=== PATIENT | male | born 1940 | race Caucasian/White ===

== ENCOUNTER 2017-04-30 11:48 | Inpatient (IN) | payer MEDICARE ==
[~2017-04-30] VITALS: Ht 180.3 cm; Wt 79.0 kg
[2017-04-30] VITALS (8 sets, daily range): BP systolic 147–173; BP diastolic 74–89; PULSE 74–105; RESP 16–18; TEMP 97.6–98.7; O2SAT 93–99
[~2017-04-30 11:48] MED LIST: ASPI81 CHEW; COUM5TAB PO; ENOX40P SQ; GLIP5 PO; LISI10TA PO; SIMV20TA PO; VITA-13 PO
[2017-04-30] MEDS ORDERED: PIPERACIL-TAZO 4.5 GM PREMIX 100 ML IV STA (12:09)
[2017-04-30] MEDS ORDERED: VANCOMYCIN INJ 1,000 MG in SODIUM CHLOR 0.9% 250 ML INJ 250 ML IV STA (12:09)
--- NOTE | 2017-04-30 12:13 | PD ---
HPI Chief Complaint: Skin Problem Time Seen by Provider: 12:09 Travel History International Travel<30 days: No Contact w/Intl Traveler<30days: No Traveled to known affect area: No History of Present Illness HPI 76-year-old male with history of diabetes, presents to the ER today because he states that he had his right first toe nail clipped about 3 weeks ago and since then has become more red, swollen, and there has been black discoloration and redness around the area. He denies any fevers or any other issues. 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[employer]) Tobacco Use: No Substance Use: No Allergies-Medications (Allergen,Severity, Reaction): Coded Allergies: No Known Allergies (Unverified , 04/30/17) Reported Meds & Prescriptions Reported Meds & Active Scripts Active Reported Simvastatin 40 Mg Tab 40 Mg PO HS Warfarin 10 Mg Tab 10 Mg PO DAILY Lisinopril 20 Mg Tab 20 Mg PO DAILY Glipizide 5 Mg Tab 5 Mg PO BIDAC Take 30 minutes before a meal Metformin (Metformin HCl) 1,000 Mg Tab 1,000 Mg PO BIDPC With meals Review of Systems Except as stated in HPI: all other systems reviewed are Neg Physical Exam Narrative GENERAL: Well-developed elderly white male in mild distress. Awake and oriented 3. SKIN: Focused skin assessment warm/dry. HEAD: Atraumatic. Normocephalic. EYES: Pupils equal and round. No scleral icterus. No injection or drainage. ENT: No nasal bleeding or discharge. Mucous membranes pink and moist. NECK: Trachea midline. No JVD. CARDIOVASCULAR: Regular rate and rhythm. No murmur appreciated. RESPIRATORY: No accessory muscle use. Clear to auscultation. Breath sounds equal bilaterally. GASTROINTESTINAL: Abdomen soft, non-tender, nondistended. Hepatic and splenic margins not palpable. MUSCULOSKELETAL: No obvious deformities. No clubbing. No cyanosis. No edema. EXTREMITIES: No clubbing, cyanosis, or edema. There is notable intense erythema and edema over the right big toe and also involving the second toe, and there is a dark eschar measuring 2 cm on the tip of the toe. Foul-smelling discharge. NEUROLOGICAL: Awake and alert. No obvious cranial nerve deficits. Motor grossly within normal limits. Normal speech. PSYCHIATRIC: Appropriate mood and affect; insight and judgment normal. Data Data Last Documented VS Vital Signs Date Time Temp Pulse Resp B/P Pulse Ox O2 Delivery O2 Flow Rate FiO2 04/30/17 13:18 18 97 Room Air 04/30/17 13:17 82 158/76 04/30/17 11:53 98.7 Orders Complete Blood Count With Diff (04/30/17 12:02) Basic Metabolic Panel (Bmp) (04/30/17 12:02) Toe (Min 2vws) (04/30/17 ) Lactic Acid Sepsis Protocol (04/30/17 12:05) Blood Culture (04/30/17 12:05) Blood Glucose (04/30/17 12:05) Ecg Monitoring (04/30/17 12:05) Iv Access Insert/Monitor (04/30/17 12:05) Oximetry (04/30/17 12:05) Oxygen Administration (04/30/17 12:05) Piperacil-Tazo 4.5 Gm Premix (Zosyn 4.5 (04/30/17 12:09) Vancomycin Inj (Vancomycin Inj) (04/30/17 12:09) Sodium Chlor 0.9% 1000 Ml Inj (Ns 1000 M (04/30/17 12:15) Consult Podiatry (04/30/17 ) (Hub Use Only)Inp Phy Cons/Ref (04/30/17 ) Labs Laboratory Tests Test 04/30/17 12:50 White Blood Count 14.5 TH/MM3 Red Blood Count 3.24 MIL/MM3 Hemoglobin 9.4 GM/DL Hematocrit 28.1 % Mean Corpuscular Volume 86.7 FL Mean Corpuscular Hemoglobin 29.1 PG Mean Corpuscular Hemoglobin 33.5 % Concent Red Cell Distribution Width 14.0 % Platelet Count 332 TH/MM3 Mean Platelet Volume 7.9 FL Neutrophils (%) (Auto) 85.0 % Lymphocytes (%) (Auto) 6.5 % Monocytes (%) (Auto) 4.6 % Eosinophils (%) (Auto) 1.6 % Basophils (%) (Auto) 2.3 % Neutrophils # (Auto) 12.4 TH/MM3 Lymphocytes # (Auto) 0.9 TH/MM3 Monocytes # (Auto) 0.7 TH/MM3 Eosinophils # (Auto) 0.2 TH/MM3 Basophils # (Auto) 0.3 TH/MM3 CBC Comment DIFF FINAL Differential Comment Sodium Level 134 MEQ/L Potassium Level 4.6 MEQ/L Chloride Level 105 MEQ/L Carbon Dioxide Level 20.8 MEQ/L Anion Gap 8 MEQ/L Blood Urea Nitrogen 37 MG/DL Creatinine 1.80 MG/DL Estimat Glomerular Filtration 37 ML/MIN Rate Random Glucose 183 MG/DL Lactic Acid Level 0.9 mmol/L Calcium Level 8.7 MG/DL MDM Medical Decision Making Medical Screen Exam Complete: Yes Emergency Medical Condition: Yes Medical Record Reviewed: Yes Interpretation(s) Laboratory Tests Test 04/30/17 12:50 White Blood Count 14.5 TH/MM3 (4.0-11.0) Red Blood Count 3.24 MIL/MM3 (4.50-5.90) Hemoglobin 9.4 GM/DL (13.0-17.0) Hematocrit 28.1 % (39.0-51.0) Neutrophils (%) (Auto) 85.0 % (16.0-70.0) Lymphocytes (%) (Auto) 6.5 % (9.0-44.0) Basophils (%) (Auto) 2.3 % (0.0-2.0) Neutrophils # (Auto) 12.4 TH/MM3 (1.8-7.7) Lymphocytes # (Auto) 0.9 TH/MM3 (1.0-4.8) Basophils # (Auto) 0.3 TH/MM3 (0-0.2) Sodium Level 134 MEQ/L (136-145) Carbon Dioxide Level 20.8 MEQ/L (21.0-32.0) Blood Urea Nitrogen 37 MG/DL (7-18) Creatinine 1.80 MG/DL (0.60-1.30) Estimat Glomerular Filtration 37 ML/MIN (>89) Rate Random Glucose 183 MG/DL (74-106) Last 24 hours Impressions Toe X-Ray 04/30/17 0000 Signed Impressions: Service Date/Time: Amna, April 30, 2017 12:27 - CONCLUSION: Bony destruction involving the first distal phalanx with abnormal soft tissue changes characteristic of osteomyelitis. Jerry Mireles MD Differential Diagnosis Diabetic toe infection/rule out sepsis/possible osteomyelitis Narrative Course X-ray reveals bony destruction indicative of osteomyelitis. His white count is 14. IV antibiotics has been initiated after blood cultures have been drawn. Case was discussed with Dr. Whiteside off podiatry who states she will consult on him this afternoon. Plan to admit for further IV antibiotics and definitive treatment. Case is discussed with Dr. Adkins for admission. Diagnosis Primary Impression: Osteomyelitis of toe of right foot Additional Impressions: Cellulitis of great toe of right foot Sepsis Admitting Information Admitting Physician Requests: Admit Giacomo Bell MD Apr 30, 2017 12:13 Giacomo Bell MD Apr 30, 2017 12:13
[2017-04-30] MEDS ORDERED: SODIUM CHLOR 0.9% 1000 ML INJ 1,000 ML IV ONE (12:15)
--- NOTE | 2017-04-30 12:58 | RADRPT ---
EXAM DATE/TIME: 04/30/2017 12:27 [facility] COMPARISON: No previous studies available for comparison. INDICATIONS : Patient right foot first digit is inflammed. MEDICAL HISTORY : Diabetes mellitus type II. Hypertension SURGICAL HISTORY : None. ENCOUNTER: Initial ACUITY: 1 day PAIN SCORE: 2/10 LOCATION: Right Foot, First digit. FINDINGS: Examination of the first digit of the right foot demonstrates abnormal soft tissue changes involving the distal first toe along with definite bony destruction involving the first distal phalanx. This is characteristic of osteomyelitis. The first proximal phalanx appears to be intact. The second toe so ears to be intact. Vascular calcifications are seen in the soft tissues characteristic of peripheral vascular disease.. CONCLUSION: Bony destruction involving the first distal phalanx with abnormal soft tissue changes characteristic of osteomyelitis. Jerry Mireles MD on April 30, 2017 at 12:54 Board Certified Radiologist. This report was verified electronically.
[2017-04-30 13:00] LABS: AUTOMATED NEUTROPHIL # 12.4 TH/MM3 (1.8-7.7); BASOPHIL # 0.3 TH/MM3 (0-0.2); BASOPHIL % 2.3 % (0.0-2.0); EOSINOPHIL # 0.2 TH/MM3 (0-0.4); EOSINOPHIL % 1.6 % (0.0-4.0); HEMATOCRIT 28.1 % (39.0-51.0); LYMPH % 6.5 % (9.0-44.0); LYMPHOCYTE # 0.9 TH/MM3 (1.0-4.8); MEAN CELL VOLUME 86.7 FL (80.0-100.0); MEAN CORPUSCULAR HEMOGLOBIN 29.1 PG (27.0-34.0); MEAN CORPUSCULAR HGB CONC 33.5 % (32.0-36.0); MONO % 4.6 % (0.0-8.0); PLATELET COUNT 332 TH/MM3 (150-450); RED BLOOD COUNT 3.24 MIL/MM3 (4.50-5.90); WHITE BLOOD COUNT 14.5 TH/MM3 (4.0-11.0)
[2017-04-30 13:01] LABS: HEMO FLAGS DIFF FINAL
[2017-04-30 13:18] LABS: POTASSIUM 4.6 MEQ/L (3.5-5.1)
[2017-04-30 13:21] LABS: BICARBONATE 20.8 MEQ/L (21.0-32.0)
[2017-04-30] MEDS ORDERED: METF1000 PO (13:21)
[2017-04-30] MEDS ORDERED: SIMV40TA PO (13:22)
[2017-04-30] MEDS ORDERED: WARF-22 PO (13:22)
[2017-04-30] MEDS ORDERED: GLIP5TAB8 PO (13:22)
[2017-04-30] MEDS ORDERED: LISI-515 PO (13:22)
[2017-04-30] MEDS ORDERED: SODIUM CHLORIDE 0.9% FLUSH 10 ML FLUSH IV FLUSH PRN (14:00)
[2017-04-30] MEDS ORDERED: BISACODYL 10 MG SUPP RECTAL PRN (14:00)
[2017-04-30] MEDS ORDERED: MAGNESIUM HYDROXIDE SUSP 30 ML CUP PO PRN (14:00)
[2017-04-30] MEDS ORDERED: DEXTROSE 50% IN WATER 50 ML VIAL(D50) IV PRN (14:00)
[2017-04-30] MEDS ORDERED: LACTULOSE SYRUP 20 GM/30 ML CUP PO PRN (14:00)
[2017-04-30] MEDS ORDERED: SENNOSIDES 8.6 MG TAB PO PRN (14:00)
[2017-04-30] MEDS ORDERED: NALOXONE HCL 0.4 MG/ML AMP IV PRN (14:00)
[2017-04-30] MEDS ORDERED: GLUCAGON 1 MG/ML VIAL OTHER PRN (14:00)
[2017-04-30] MEDS ORDERED: ONDANSETRON HCL 4 MG/2 ML VIAL IVP PRN (14:00)
[2017-04-30 15:00] LABS: INTERNATIONAL NORMALIZED RATIO 1.8 RATIO; PROTHROMBIN TIME - PATIENT 20.5 SEC (9.8-11.6)
[2017-04-30] MEDS: SODIUM CHLOR 0.45% 1000 ML INJ 1,000 ML IV SCH (15:09)
[2017-04-30] MEDS: INSULIN ASPART SUPPLEMENTAL SCALE SQ SCH ×2 (16:06→21:00)
[2017-04-30] MEDS: glipiZIDE 5 MG TAB PO SCH (16:06)
[2017-04-30] MEDS: ACETAMINOPHEN/HYDROcodone 325 MG/5 MG TAB PO PRN (21:30)
[2017-04-30] MEDS: PRAVASTATIN SOD 80 MG TAB PO SCH (21:30)
[2017-04-30] MEDS: DOCUSATE SODIUM 50 MG/SENNA 8.6 MG TAB PO SCH (21:30)
[2017-04-30] MEDS: SODIUM CHLORIDE 0.9% FLUSH 10 ML FLUSH IV FLUSH SCH (21:31)
--- NOTE | 2017-04-30 22:08 | MB ---
cc: CHARISSE BLAKE DATE OF CONSULTATION 04/30/2017 CHIEF COMPLAINT Right hallux ulceration with infection. HISTORY OF PRESENT ILLNESS Mr. Doherty is a 76-year-old male patient with history of diabetes who presented to the ER because he states that he had his nails cut three weeks ago at some type of [employer] school by a student. He believes at that time the right hallux was accidentally cut or lacerated. Since that time it has become progressively red and swollen. There has been a black discoloration that has appeared to the plantar medial aspect of the hallux and redness which extends approximately to the mid foot joints. The swelling is quite remarkable. The patient denies any nausea, vomiting, fever, headaches or chills. He states that he noted his glucose is elevated today. It has not been in previous days. PAST MEDICAL HISTORY Includes: 1. Diabetes. 2. Diabetic neuropathy. 3. History of transient ischemic attack. 4. History of hypertension. PAST SURGICAL HISTORY Includes four cardiac bypasses. SOCIAL HISTORY The patient states he drinks alcohol socially. He stopped using tobacco approximately 15 years ago. He does live alone but lives near a sister. ALLERGIES NO KNOWN DRUG ALLERGIES. MEDICATIONS Please see list. Vital signs, temperature is 98.7, that is also T max. Pulse is 100, respiratory rate 16, blood pressure 147/74. Pulse oximetry 99% O2 at room air. LABORATORY DATA Labs white blood cell count is 14.5, hemoglobin 9.4, hematocrit 28.1, platelets 332. INR 1.8. Sodium 134, potassium 4.6, chloride 105, carbon dioxide 20.8, BUN 37. Blood cultures are pending. IMAGING X-rays of the toe shows cortical erosion at the distal phalanx with increased soft tissue density in the surrounding forefoot. No gas in the soft tissue. PHYSICAL EXAMINATION The patient has nonpalpable DP or PT pulses. Cap fill time is normal but the feet are cold to touch. The left foot has hammer toe but otherwise unremarkable. The right foot is very edematous and the forefoot is very erythematous. The right foot has a large void in the soft tissue extending from the distal aspect of the toe to the plantar metatarsal-phalangeal joint. It appears to be full thickness eschar with a central area of deep probing to bone with some serous drainage. Patient's sensation is severely diminished. 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 -The patient is adamant that he does not want any amputation and he states that the antibiotics have been working very well over the last 24 hours and he would like to do antibiotics. I explained to him that often antibiotics can treat the cellulitis but with his decreased blood flow and osteomyelitis, as well as large soft tissue void in the area, I find it highly unlikely that the antibiotics will be able to heal this wound and this bone. Despite this information the patient insists that he is not willing to have any type of amputation at this time. He would like to do antibiotics. He does not mind that there will be 6 weeks of IVs. -Nursing staff provided with dressing changes for daily Santyl. -Infectious disease consultation to help arrange PICC line as per the patient's request. -Vascular surgery consultation for evaluation as the patient has poor circulation and antibiotics will be unlikely to get to the distal aspects of the digit. ABIs are pending. -Physical therapy also pending. He can weight bear as tolerated with pressure to the heel. He has a surgical shoe ordered. -We will check on the patient periodically while in house. Thank you for this consultation Charisse POSEY /6:28 PM /9:46 PM JUDIE
[2017-05-01] VITALS (7 sets, daily range): BP systolic 131–169; BP diastolic 74–83; PULSE 85–97; RESP 20; TEMP 96–98.6; O2SAT 96–100
[2017-05-01] MEDS: ACETAMINOPHEN/HYDROcodone 325 MG/5 MG TAB PO PRN ×3 (02:33→17:49)
[2017-05-01] MEDS: COLLAGENASE OINT 30 GM TUBE TOPICAL SCH ×2 (02:33→12:08)
[2017-05-01] MEDS: SODIUM CHLOR 0.45% 1000 ML INJ 1,000 ML IV SCH ×2 (04:06→17:56)
[2017-05-01 06:05] LABS: AUTOMATED NEUTROPHIL # 12.4 TH/MM3 (1.8-7.7); BASOPHIL # 0.1 TH/MM3 (0-0.2); BASOPHIL % 0.4 % (0.0-2.0); EOSINOPHIL # 0.4 TH/MM3 (0-0.4); EOSINOPHIL % 2.9 % (0.0-4.0); HEMATOCRIT 28.9 % (39.0-51.0); HEMO FLAGS DIFF FINAL; MEAN CELL VOLUME 87.1 FL (80.0-100.0); MEAN CORPUSCULAR HEMOGLOBIN 28.1 PG (27.0-34.0); MEAN CORPUSCULAR HGB CONC 32.3 % (32.0-36.0); MONO % 5.9 % (0.0-8.0); NEUT % 83.8 % (16.0-70.0); PLATELET COUNT 362 TH/MM3 (150-450); RED BLOOD COUNT 3.32 MIL/MM3 (4.50-5.90); RED CELL DISTRIBUTION WIDTH 13.9 % (11.6-17.2); WHITE BLOOD COUNT 14.8 TH/MM3 (4.0-11.0)
[2017-05-01 06:16] LABS: POTASSIUM 4.6 MEQ/L (3.5-5.1)
[2017-05-01 06:21] LABS: BICARBONATE 21.7 MEQ/L (21.0-32.0)
[2017-05-01] MEDS: SODIUM CHLORIDE 0.9% FLUSH 10 ML FLUSH IV FLUSH SCH ×2 (09:00→22:03)
[2017-05-01] MEDS: DOCUSATE SODIUM 50 MG/SENNA 8.6 MG TAB PO SCH ×2 (09:01→22:03)
[2017-05-01] MEDS: glipiZIDE 5 MG TAB PO SCH ×2 (09:01→17:42)
[2017-05-01] MEDS: LISINOPRIL 20 MG TAB PO SCH (09:01)
[2017-05-01] MEDS: INSULIN ASPART SUPPLEMENTAL SCALE SQ SCH ×4 (09:13→21:00)
--- NOTE | 2017-05-01 10:40 | MH ---
cc: DON BARRIENTOS MD DATE OF ADMISSION 04/30/2017 CHIEF COMPLAINT Right great toe blackening HISTORY OF PRESENT ILLNESS This is a 76-year male with past medical-surgical history significant for TIA, hyperlipidemia, diabetes mellitus, hypertension, history of coronary artery disease status post open heart surgery four-vessel bypass surgery, and drinks beer on a daily basis. He came to the ER at [facility] because he stated that he had his right first great toe clipped about three weeks ago and since then he has become more red, swollen and has black discoloration and redness around the area. He denies any fever or chills. It only hurts when he walks, otherwise no pain. Denies any nausea or vomiting, diarrhea, constipation and he has a wide-complex tachycardia off and on while he was on the floor before I saw him and we consulted cardiology. When I left, he had a heart rate of 105 and he is not in wide-complex tachycardia. Vascular surgery is consulted for further evaluation and management, infectious disease, podiatry and cardiology consulted. Other than that, nothing significant. PAST MEDICAL-SURGICAL HISTORY As dictated above. SOCIAL HISTORY He drinks one beer a day. Denies any alcohol or drug abuse. Lives at home alone. 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 FAMILY HISTORY Family history is significant for diabetes mellitus and hypertension. ALLERGIES NO KNOWN DRUG ALLERGIES. MEDICATIONS Includes: 1. Simvastatin 40 mg at bedtime 2. Coumadin 10 mg p.o. daily 3. Lisinopril 20 mg p.o. daily 4. Glipizide 5 mg twice a day 5. Metformin 1000 mg twice a day REVIEW OF SYSTEMS Positive for a blackening of the right great toe and redness. All other review of systems are negative. PHYSICAL EXAMINATION This is a 76-year male sitting on the bed not in acute distress. VITAL SIGNS: Temperature 96.8, heart rate 92, respiration 20, blood pressure 169/83, O2 saturation 100% on room air. HEENT: Normocephalic, atraumatic. EOMI. PERRL, oral mucosa moist. NECK: Supple. No visible thyromegaly or neck mass. Trachea is central. CARDIOVASCULAR: Regular rate and rhythm. LUNGS: Respirations are clear to auscultation bilaterally. ABDOMEN: Soft and nontender. Bowel sounds are active. EXTREMITIES: Shows right great toe swelling, erythema and blackening and tenderness present on palpation. Difficult to palpate the pulses distally. NEUROLOGIC: Awake, alert, and oriented x4. Speech is normal. Moving all extremities. Cranial nerves intact. SKIN: Shows erythema, swelling and blackening of the right great toe. PSYCH: The patient is cooperative. Mood and affect is normal. LABORATORY DATA Include CBC showed WBC count is 14.8, hemoglobin 9.3 low, hematocrit 28.9 low, platelet count 362 normal, neutrophils high 83.8%, lymphs are low at 7.0. BMP totally unremarkable except for BUN 30 high, creatinine 1.50 high. PT 20.5, INR 1.8. Blood cultures x2 done negative so far. Toe x-ray was done shows bony destruction involving the first distal phalanx with abnormal soft tissue changes characteristic of osteomyelitis. ASSESSMENT/PLAN 1. This is a 76-year male who came to the ER diagnosed with blackening, erythema, redness and swelling of the right great toe rule out osteomyelitis/peripheral vascular disease. Podiatry and vascular surgeon on the case, infectious disease on the case. The patient received vancomycin and Zosyn. I will continue Zosyn. Further recommendation per financial consultant. 2. Diabetes mellitus, ADA 1800 calorie diet. NovoLog low-dose sliding scale. Check blood sugars. We will monitor blood sugar. 3. Renal failure, creatinine was 1.8, BUN was 37, decreased down to BUN of 30 and creatinine 1.50. 4. History of stroke and TIA. The patient is on Coumadin. INR 1.8. We will monitor PT/INR daily. 5. History of hypertension. Continue home medication. Monitor blood pressure. 6. History of coronary artery disease continue home medication. 7. History of hyperlipidemia. Continue home medications. 8. DVT prophylaxis. The patient is on Coumadin. 9. GI prophylaxis, Protonix 40 mg p.o. daily. 10. We are going to manage the patient on a daily basis and make recommendations on a daily basis. Don Barrientos MD EA/CORA /10:06 AM /10:18 AM
[2017-05-01 11:03] LABS: INTERNATIONAL NORMALIZED RATIO 1.9 RATIO
[2017-05-01] MEDS: PIPERACIL-TAZO 3.375 GM PREMIX 50 ML IV SCH ×2 (12:25→22:04)
[2017-05-01] MEDS: WARFARIN SOD 10 MG TAB PO SCH (17:41)
--- NOTE | 2017-05-01 18:22 | MB ---
cc: CHICHI LEE MD DATE OF CONSULTATION: 05/01/[address] Whiteside. REASON FOR CONSULTATION: Diabetic ulcer with osteomyelitis. The patient refuses amputation. HISTORY OF PRESENT ILLNESS This is a 76-year-old white male who presented to the emergency department with pain, swelling and redness of the right great toe. The patient notes that he had the toenail clipped by students at a college approximately two weeks ago and after that it became red and swollen. He states that he was using Epsom salt and antibiotic ointment on the area involved at the toenail and it did not improve. The patient presented to the emergency department and he was noted to have necrotic area at the lateral aspect of the right great toe with some erosion into the tissue. The patient is diabetic. An x-ray of the foot was performed and showed bony destruction involving the first distal phalanx along with abnormal soft tissue changes characteristic of osteomyelitis. His white blood cell count is elevated. Today's white count is 14.8. The patient also has kidney disease. Based on his lab work from January 2014, he appears to have some degree of chronic kidney disease. His last estimated GFR was 58 in January and on admission his estimated GFR was 37. The patient is laying in bed and is in no acute distress. He denies nausea, vomiting, fever, chills, shortness of breath. He has no other significant complaints. The patient adamantly desires not to have surgery and states that he wants to be on antibiotics. He was told that he may need surgery to resolve this infection and if he does not have surgery he will need long-term antibiotics. This was after he had discussion with the electric motor rebuilder. PAST MEDICAL HISTORY 1. Coronary artery disease. 2. History of four vessel bypass surgery. 3. Hypertension. 4. Diabetes mellitus. 5. Hyperlipidemia. 6. TIA. ALLERGIES NO KNOWN DRUG ALLERGIES. MEDICATIONS: 1. Piperacillin/tazobactam. 2. Coumadin 3. Prinivil 4. [place] 5. 5. Pravachol 6. Cherrie-Colace 7. Glucotrol. SOCIAL HISTORY No tobacco use. The patient quit smoking cigarettes many years ago. He drinks alcohol socially in the form of beer. No illicit drugs. He is retired. FAMILY HISTORY Noncontributory. REVIEW OF SYSTEMS Significant for pain in the right great toe. Otherwise negative on 10-point review. PHYSICAL EXAMINATION GENERAL: This is a well-developed male who is in no acute distress. He is awake and alert and oriented. Vital signs: Include temperature of 96.9, BP 157/82, respirations 20, heart rate 94. HEENT: The head is atraumatic. Extraocular movements grossly intact, pupils reactive to light. No icterus. Oropharynx moist mucosa without lesions. Neck: Supple without adenopathy. Lungs: Clear to auscultation. Heart: Regular S1-S2 without audible murmurs. Abdomen: Bowel sounds present, soft, benign. Rectal: Not performed. Extremities: The right great toe has a macerated area at the lateral aspect involving most of the distal aspect of the toe and there is a foul smelling odor, necrotic area at the central aspect. The redness extends from the area of the ulceration towards the base of the foot and the redness spreads to the base of toes 2, 3 and 4, and the dorsum of the foot has approximately 2+ edema. The other extremities have no clubbing, cyanosis or edema. Skin: No diffuse rash. Neuro: Nonfocal. LABORATORY DATA WBC 14.8, platelets 362, hemoglobin 9.8, 83% neutrophils, 7% lymphocytes, creatinine 1.5, BUN 30, sodium 136, blood cultures no growth. IMPRESSION 7. Osteomyelitis of the right great toe. 8. Diabetic ulceration of the right great toe. 9. Cellulitis of the right great toe . RECOMMENDATIONS 1. Continue with Piperacillin/tazobactam. 2. Monitor vancomycin levels to determine if the levels fall to the point where he needs another dose. 3. Obtain wound culture. The culture has not been obtained so far. 4. Antibiotic course to be determined. The patient was notified that he would best be served by surgical amputation of the distal part of the toe involved with infection in order to eradicate this infection because he has diabetes and it may be very difficult to do so otherwise. He expressed understanding. Thank for this consultation. The patient's progress will be followed by Dr. Augustin who will be assuming Infectious Disease follow up on this patient tomorrow. Chichi Lee MD FD/BENNY /5:45 PM 5:58 PM JUDIE
[2017-05-01] MEDS: METOPROLOL TARTRATE 25 MG TAB PO SCH (22:03)
[2017-05-01] MEDS: PRAVASTATIN SOD 80 MG TAB PO SCH (22:03)
--- NOTE | 2017-05-01 22:22 | MB ---
cc: NNEKA BAEZ DATE OF CONSULTATION 05/01/17 HISTORY OF PRESENT ILLNESS Mr. Doherty is a 76-year-old white male with a history of four-vessel coronary artery bypass. He presented with right great toe infection. He was started on antibiotics. He has not had any chest pain, shortness of breath, dizziness or lightheadedness. He was found to have episodes of wide complex tachycardia consistent with sustained monomorphic ventricular tachycardia. The patient refused transfer to the main hospital for further evaluation. PAST MEDICAL HISTORY Positive for four-vessel bypass, diabetes mellitus, hypertension, dyslipidemia. MEDICATIONS 1. Metformin. 2. Glipizide. 3. Lisinopril. 4. Coumadin. 5. Simvastatin. ALLERGIES None. SOCIAL HISTORY The patient drinks beer daily. He does not smoke any more. He is , accompanied by his significant other. FAMILY HISTORY Positive for hypertension, diabetes mellitus. REVIEW OF SYSTEMS Otherwise negative. PHYSICAL EXAMINATION VITAL SIGNS: Blood pressure to 145/78, pulse 89 and regular. HEENT: Negative. 2+ carotid upstrokes. No bruits. LUNGS: Clear. HEART: Regular. No murmur, gallop. ABDOMEN: Soft. No bruits. EXTREMITIES: With right edema, erythema of the right foot and right great toe. Diminished distal pulses. NEUROLOGIC: Grossly nonfocal. CARDIOLOGY STUDIES EKG was reviewed and showed mild sinus tachycardia, ___ PVCs. ___ changes. Telemetry shows sustained monomorphic ventricular tachycardia with right bundle-branch block morphology with a rate of 156 beats per minute. LABORATORY DATA Hemoglobin 9.3, potassium 4.6, creatinine 1.8 and 1.5. DIAGNOSIS 1. Wide complex tachycardia consistent with sustained monomorphic ventricular tachycardia. 2. Coronary disease, h/o four-vessel coronary bypass. 3. Right foot infection. 4. Diabetes mellitus. 5. Renal insufficiency. 6. History of stroke and TIA. 7. Hypertension. DISPOSITION Mr. Doherty was found to have evidence of sustained monomorphic ventricular tachycardia. I recommend electrophysiology study and possible defibrillator placement for this patient. The patient adamantly refuses any further evaluation and interventions. He was informed of the increased risk of sudden cardiac with ventricular tachycardia. His significant other is present and she understands the increased risk of sudden cardiac as well. The patient requests to be discharged home tomorrow. I will at least start him on beta shirin at this time. I recommend to continue aggressive modification of his cardiac risk factors. MD GERALDO Diaz/TERENCE /7:38 PM /10:03 PM JUDIE
[2017-05-02] VITALS (13 sets, daily range): BP systolic 121–164; BP diastolic 64–84; PULSE 70–94; RESP 16–20; TEMP 97.1–99.7; O2SAT 94–100
[2017-05-02] MEDS: PIPERACIL-TAZO 3.375 GM PREMIX 50 ML IV SCH ×3 (05:21→22:15)
[2017-05-02] MEDS: INSULIN ASPART SUPPLEMENTAL SCALE SQ SCH ×4 (05:53→21:00)
[2017-05-02] MEDS: SODIUM CHLOR 0.45% 1000 ML INJ 1,000 ML IV SCH ×2 (06:00→18:16)
[2017-05-02 06:14] LABS: BASOPHIL % 0.2 % (0.0-2.0); EOSINOPHIL # 0.2 TH/MM3 (0-0.4); EOSINOPHIL % 1.3 % (0.0-4.0); HEMATOCRIT 28.4 % (39.0-51.0); LYMPH % 5.3 % (9.0-44.0); LYMPHOCYTE # 0.8 TH/MM3 (1.0-4.8); MEAN CELL VOLUME 86.4 FL (80.0-100.0); MEAN CORPUSCULAR HEMOGLOBIN 29.4 PG (27.0-34.0); MEAN CORPUSCULAR HGB CONC 34.1 % (32.0-36.0); MONO % 5.7 % (0.0-8.0); NEUT % 87.5 % (16.0-70.0); PLATELET COUNT 345 TH/MM3 (150-450); RED BLOOD COUNT 3.29 MIL/MM3 (4.50-5.90); RED CELL DISTRIBUTION WIDTH 13.8 % (11.6-17.2); WHITE BLOOD COUNT 15.9 TH/MM3 (4.0-11.0)
[2017-05-02 06:15] LABS: HEMO FLAGS DIFF FINAL
[2017-05-02 06:25] LABS: CHLORIDE 104 MEQ/L (98-107); POTASSIUM 4.6 MEQ/L (3.5-5.1); SODIUM (NA) 135 MEQ/L (136-145)
[2017-05-02 06:26] LABS: INTERNATIONAL NORMALIZED RATIO 1.9 RATIO; PROTHROMBIN TIME - PATIENT 22.1 SEC (9.8-11.6)
[2017-05-02 06:34] LABS: ANION GAP 8 MEQ/L (5-15); BLOOD UREA NITROGEN 28 MG/DL (7-18)
[2017-05-02 06:36] LABS: ALT (GPT) 11 U/L (12-78)
[2017-05-02 06:37] LABS: AST (GOT) 19 U/L (15-37); GLOMERULAR FILTRATION RATE 39 ML/MIN (>89)
[2017-05-02 06:38] LABS: TOTAL BILIRUBIN ADULT 0.4 MG/DL (0.2-1.0)
[2017-05-02 06:39] LABS: ALKALINE PHOSPHATASE 64 U/L (45-117)
--- NOTE | 2017-05-02 08:11 | EKG ---
Date Performed: 05/01/2017 Time Performed: 08:54:14 PTAGE: 76 years EKG: SINUS TACHYCARDIA WITH FIRST DEGREE AV BLOCK WITH FREQUENT VENTRICULAR PREMATURE COMPLEXES MODERATE INTRAVENTRICULAR CONDUCTION DELAY ST DEPRESSION, CONSIDER SUBENDOCARDIAL INJURY ABNORMAL ECG PREVIOUS TRACING : 02/04/2014 18.48 DOCTOR: Javy Higgins Interpretating Date/Time 05/02/2017 08:05:55
--- NOTE | 2017-05-02 08:31 | HHI.PR ---
Subjective History of Present Illness Patient refused transfer to [facility] and all treatment and surgical option wants to Leave AMA and then decided to stay D/W YVONNE Varner at bed side Review of Systems Constitutional Constitutional: Fatigue, Weakness Musculoskeletal MS Remarks Redness / swelling blacking and pain of right big toe. Integumentary Skin Remarks Redness / swelling blacking and pain of right big toe. Vitals/Results Intake & Output 05/01/17 05/01/17 05/02/17 15:00 23:00 07:00 Intake Total 1029 ml 0 ml Output Total 750 ml 1275 ml Balance 279 ml -1275 ml Intake Oral 120 ml 0 ml IV Total 909 ml Output Urine Total 750 ml 1275 ml # Voids 2 4 # Bowel Movements 0 0 Vital Signs Vital Signs Date Time Temp Pulse Resp B/P Pulse Ox O2 Delivery O2 Flow Rate FiO2 05/02/17 08:22 98.4 90 19 144/80 99 05/02/17 04:00 97.1 85 20 141/70 95 05/02/17 00:00 98.9 78 20 135/67 100 05/01/17 21:00 87 05/01/17 20:00 97.9 85 20 131/74 96 05/01/17 16:00 98.6 89 20 145/78 97 05/01/17 12:00 96.9 94 20 157/82 99 CBC/BMP: 05/02/17 0500 05/02/17 0500 Lab Results Laboratory Tests Test 05/01/17 05/02/17 10:40 05:00 Prothrombin Time 22.0 SEC 22.1 SEC Prothromb Time International 1.9 RATIO 1.9 RATIO Ratio White Blood Count 15.9 TH/MM3 Red Blood Count 3.29 MIL/MM3 Hemoglobin 9.7 GM/DL Hematocrit 28.4 % Mean Corpuscular Volume 86.4 FL Mean Corpuscular Hemoglobin 29.4 PG Mean Corpuscular Hemoglobin 34.1 % Concent Red Cell Distribution Width 13.8 % Platelet Count 345 TH/MM3 Mean Platelet Volume 8.1 FL Neutrophils (%) (Auto) 87.5 % Lymphocytes (%) (Auto) 5.3 % Monocytes (%) (Auto) 5.7 % Eosinophils (%) (Auto) 1.3 % Basophils (%) (Auto) 0.2 % Neutrophils # (Auto) 14.0 TH/MM3 Lymphocytes # (Auto) 0.8 TH/MM3 Monocytes # (Auto) 0.9 TH/MM3 Eosinophils # (Auto) 0.2 TH/MM3 Basophils # (Auto) 0.0 TH/MM3 CBC Comment DIFF FINAL Differential Comment Sodium Level 135 MEQ/L Potassium Level 4.6 MEQ/L Chloride Level 104 MEQ/L Carbon Dioxide Level 23.0 MEQ/L Anion Gap 8 MEQ/L Blood Urea Nitrogen 28 MG/DL Creatinine 1.70 MG/DL Estimat Glomerular Filtration 39 ML/MIN Rate Random Glucose 91 MG/DL Calcium Level 8.8 MG/DL Total Bilirubin 0.4 MG/DL Aspartate Amino Transf 19 U/L (AST/SGOT) Alanine Aminotransferase 11 U/L (ALT/SGPT) Alkaline Phosphatase 64 U/L Total Protein 7.3 GM/DL Albumin 3.0 GM/DL Physical Exam General General Appearance: Well Developed, Well Nourished, No Acute Distress, Comfortable Eyes Eye Exam: Sclera White, Extraocular Movement Intact Throat Throat Exam: Oral Mucosa [place] & Moist, Oral Pharynx Normal Neck Neck Exam: Neck Supple, Trachea Midline Pulmonary Resp Exam: Clear Bilaterally, Breath Sounds Equal Cardiology CV Exam: Regular, Normal Sinus Rhythm Gastrointestinal/Abdomen GI Exam: Soft, Non-Tender Musculoskeletal MS Exam: Normal Tone Integumentary Skin Remarks Erythema / swelling blacking and Tenderness of right big toe. Extremeties Extremeties Remarks Erythema / swelling blacking and Tenderness of right big toe. Neurologic Neuro Exam: Alert, Awake, Oriented, Speech Clear, Moving All Extremities, No Focal Deficits VTE Prophylaxis VTE Prophylaxis Meds: Coumadin PUD Prophylasis PUD Prophylaxis: Protonix Assessment/Plan Assessment/Plan ASSESSMENT/PLAN 1. This is a 76-year male who came to the ER diagnosed with blackening, erythema, pain and swelling of the right great toe rule out osteomyelitis/peripheral vascular disease. Podiatry and vascular surgeon and infectious disease / Cardiology input noted The patient received Zosyn. Further recommendation per apartment leasing consultant. 2. Diabetes mellitus, ADA 1800 calorie diet. NovoLog low-dose sliding scale. Check blood sugars. We will monitor blood sugar. 3. Renal failure, creatinine was 1.8, BUN was 37, now BUN of 28 and creatinine 1.7. 4. History of stroke and TIA. The patient is on Coumadin. INR 1.8. We will Monitor PT/ INR Daily. 5. History of hypertension. Continue home medication. Monitor blood pressure. 6. History of coronary artery disease continue home medication. 7. History of hyperlipidemia. Continue home medications. 8. DVT prophylaxis. The patient is on Coumadin... INR 1.9 today. 9. GI prophylaxis, Protonix 40 mg p.o. daily. 10. Leukocytosis secondary to right foot cellulitis will monitor. 11. Episode of sustained venticular tachycardia Patient refused treatment we are going to manage the patient on a daily basis and make recommendations on a daily basis. Discussed Condition with: Patient Don Kothari MD May 02, 2017 08:31
[2017-05-02] MEDS: LISINOPRIL 20 MG TAB PO SCH (08:46)
[2017-05-02] MEDS: DOCUSATE SODIUM 50 MG/SENNA 8.6 MG TAB PO SCH ×2 (08:46→21:00)
[2017-05-02] MEDS: glipiZIDE 5 MG TAB PO SCH ×2 (08:46→16:19)
[2017-05-02] MEDS: METOPROLOL TARTRATE 25 MG TAB PO SCH ×2 (08:46→21:54)
[2017-05-02] MEDS: SODIUM CHLORIDE 0.9% FLUSH 10 ML FLUSH IV FLUSH SCH ×3 (08:47→21:55)
[2017-05-02] MEDS: COLLAGENASE OINT 30 GM TUBE TOPICAL SCH (08:49)
[2017-05-02] MEDS: ACETAMINOPHEN/HYDROcodone 325 MG/5 MG TAB PO PRN ×3 (11:11→21:54)
[2017-05-02] MEDS: WARFARIN SOD 10 MG TAB PO SCH (16:19)
--- NOTE | 2017-05-02 20:03 | PD.CARD.PN ---
Subjective Subjective Remarks No CP or SOB, no palpitations Objective Medications Current Medications Medications (Trade) Dose Ordered Sig/Jorge L Route Start Time Stop Time Status Last Admin (Glucotrol) 5 mg BIDAC PO 04/30/17 16:00 05/02/17 16:19 (Prinivil) 20 mg DAILY PO 05/01/17 09:00 05/02/17 08:46 (Coumadin) 10 mg DAILY@16 PO 05/01/17 16:00 05/02/17 16:19 Pravastatin Sodium 80 mg 80 mg HS PO 04/30/17 21:00 05/01/17 22:03 (1/2 NS 1000 ml Inj) 1,000 ml @ 75 mls/hr [id number] IV 04/30/17 14:00 05/02/17 18:16 (NS Flush) 2 ml UNSCH PRN IV FLUSH 04/30/17 14:00 (NS Flush) 2 ml BID IV FLUSH 04/30/17 21:00 05/01/17 22:03 (Zofran Inj) 4 mg Q6H PRN IVP 04/30/17 14:00 (Narcan Inj) 0.4 mg UNSCH PRN IV 04/30/17 14:00 (Cherrie-Colace) 1 tab BID PO 04/30/17 21:00 05/02/17 08:46 (Milk Of Magnesia Liq) 30 ml Q12H PRN PO 04/30/17 14:00 (Senokot) 17.2 mg Q12H PRN PO 04/30/17 14:00 (Dulcolax Supp) 10 mg DAILY PRN RECTAL 04/30/17 14:00 (Lactulose Liq) 30 ml DAILY PRN PO 04/30/17 14:00 05/02/17 09:09 (D50w (Vial) Inj) 50 ml UNSCH PRN IV 04/30/17 14:00 (Glucagon Inj) 1 mg UNSCH PRN OTHER 04/30/17 14:00 (Santyl Oint) 1 applic DAILY TOPICAL 04/30/17 18:15 05/02/17 08:49 Acetaminophen/ Hydrocodone Bitart 1 tab 1 tab Q4H PRN PO 04/30/17 21:15 05/02/17 18:16 (Zosyn 3.375 Gm Premix) 50 ml @ 100 mls/hr Q8H IV 05/01/17 12:00 05/02/17 12:54 (Lopressor) 25 mg Q12HR PO 05/01/17 21:00 05/02/17 08:46 Vital Signs / I&O Vital Signs Date Time Temp Pulse Resp B/P Pulse Ox O2 Delivery O2 Flow Rate FiO2 05/02/17 18:20 99.7 94 18 144/66 96 05/02/17 16:21 98.0 93 19 164/84 97 05/02/17 12:14 97.4 77 19 136/70 97 05/02/17 08:22 98.4 90 19 144/80 99 05/02/17 08:00 91 05/02/17 04:00 97.1 85 20 141/70 95 05/02/17 00:00 98.9 78 20 135/67 100 05/01/17 21:00 87 05/01/17 20:00 97.9 85 20 131/74 96 I/O 05/01/17 05/01/17 05/01/17 05/02/17 05/02/17 05/02/17 07:00 15:00 23:00 07:00 15:00 23:00 Intake Total 1029 ml 0 ml 1340 ml Output Total 325 ml 750 ml 1275 ml Balance -325 ml 279 ml -1275 ml 1340 ml Intake Oral 120 ml 0 ml IV Total 909 ml 1340 ml Output Urine Total 325 ml 750 ml 1275 ml # Voids 1 2 4 # Bowel Movements 0 0 0 Physical Exam GENERAL: In NAD SKIN: Warm and dry. HEAD: Normocephalic. EYES: No scleral icterus. No injection or drainage. NECK: Supple, trachea midline. No JVD or lymphadenopathy. CARDIOVASCULAR: Regular rate and rhythm without murmurs, gallops, or rubs. RESPIRATORY: Breath sounds equal bilaterally. No accessory muscle use. GASTROINTESTINAL: Abdomen soft, non-tender, nondistended. MUSCULOSKELETAL: No cyanosis, or edema. R foot infection. Laboratory Laboratory Tests Test 05/02/17 05:00 White Blood Count 15.9 TH/MM3 Red Blood Count 3.29 MIL/MM3 Hemoglobin 9.7 GM/DL Hematocrit 28.4 % Mean Corpuscular Volume 86.4 FL Mean Corpuscular Hemoglobin 29.4 PG Mean Corpuscular Hemoglobin 34.1 % Concent Red Cell Distribution Width 13.8 % Platelet Count 345 TH/MM3 Mean Platelet Volume 8.1 FL Neutrophils (%) (Auto) 87.5 % Lymphocytes (%) (Auto) 5.3 % Monocytes (%) (Auto) 5.7 % Eosinophils (%) (Auto) 1.3 % Basophils (%) (Auto) 0.2 % Neutrophils # (Auto) 14.0 TH/MM3 Lymphocytes # (Auto) 0.8 TH/MM3 Monocytes # (Auto) 0.9 TH/MM3 Eosinophils # (Auto) 0.2 TH/MM3 Basophils # (Auto) 0.0 TH/MM3 CBC Comment DIFF FINAL Differential Comment Prothrombin Time 22.1 SEC Prothromb Time International 1.9 RATIO Ratio Sodium Level 135 MEQ/L Potassium Level 4.6 MEQ/L Chloride Level 104 MEQ/L Carbon Dioxide Level 23.0 MEQ/L Anion Gap 8 MEQ/L Blood Urea Nitrogen 28 MG/DL Creatinine 1.70 MG/DL Estimat Glomerular Filtration 39 ML/MIN Rate Random Glucose 91 MG/DL Calcium Level 8.8 MG/DL Total Bilirubin 0.4 MG/DL Aspartate Amino Transf 19 U/L (AST/SGOT) Alanine Aminotransferase 11 U/L (ALT/SGPT) Alkaline Phosphatase 64 U/L Total Protein 7.3 GM/DL Albumin 3.0 GM/DL Imaging Last Impressions Toe X-Ray 04/30/17 0000 Signed Impressions: Service Date/Time: Sunday, April 30, 2017 12:27 - CONCLUSION: Bony destruction involving the first distal phalanx with abnormal soft tissue changes characteristic of osteomyelitis. Jerry Mireles MD Assessment and Plan Problem List: (1) VT (ventricular tachycardia) (2) Coronary artery disease (3) History of coronary artery bypass surgery (4) Sepsis (5) Cellulitis of great toe of right foot (6) Osteomyelitis of toe of right foot Assessment and Plan Pt transferred for R foot surgery. Continue beta shirin for sustained monomorphic VT (asymptomatic). He refused any intervention including ICD at this time. He understands the risk of SCD. Landon Mahoney MD May 02, 2017 20:03
[2017-05-02] MEDS: PRAVASTATIN SOD 80 MG TAB PO SCH (21:53)
[2017-05-03] VITALS (26 sets, daily range): BP systolic 116–140; BP diastolic 67–84; PULSE 68–90; RESP 16–18; TEMP 97.3–99.2; O2SAT 94–100
[2017-05-03] MEDS: glipiZIDE 5 MG TAB PO SCH ×2 (06:33→16:00)
[2017-05-03] MEDS: PIPERACIL-TAZO 3.375 GM PREMIX 50 ML IV SCH ×3 (06:33→22:03)
[2017-05-03] MEDS: ACETAMINOPHEN/HYDROcodone 325 MG/5 MG TAB PO PRN ×6 (06:33→22:03)
[2017-05-03] MEDS: INSULIN ASPART SUPPLEMENTAL SCALE SQ SCH ×4 (06:36→21:00)
[2017-05-03 06:50] LABS: AUTOMATED NEUTROPHIL # 13.1 TH/MM3 (1.8-7.7); BASOPHIL # 0.1 TH/MM3 (0-0.2); BASOPHIL % 0.4 % (0.0-2.0); EOSINOPHIL # 0.3 TH/MM3 (0-0.4); EOSINOPHIL % 1.7 % (0.0-4.0); HEMATOCRIT 27.9 % (39.0-51.0); HEMO FLAGS DIFF FINAL; LYMPH % 5.3 % (9.0-44.0); LYMPHOCYTE # 0.8 TH/MM3 (1.0-4.8); MEAN CELL VOLUME 87.6 FL (80.0-100.0); MEAN CORPUSCULAR HEMOGLOBIN 28.6 PG (27.0-34.0); MEAN CORPUSCULAR HGB CONC 32.7 % (32.0-36.0); MONO % 5.9 % (0.0-8.0); NEUT % 86.7 % (16.0-70.0); PLATELET COUNT 318 TH/MM3 (150-450); RED BLOOD COUNT 3.19 MIL/MM3 (4.50-5.90); RED CELL DISTRIBUTION WIDTH 14.6 % (11.6-17.2); WHITE BLOOD COUNT 15.1 TH/MM3 (4.0-11.0)
[2017-05-03 06:56] LABS: INTERNATIONAL NORMALIZED RATIO 2.6 RATIO; PROTHROMBIN TIME - PATIENT 29.6 SEC (9.8-11.6)
[2017-05-03 07:09] LABS: ANION GAP 6 MEQ/L (5-15); AST (GOT) 20 U/L (15-37); BICARBONATE 23.7 MEQ/L (21.0-32.0); BLOOD UREA NITROGEN 26 MG/DL (7-18); CHLORIDE 103 MEQ/L (98-107); GLOMERULAR FILTRATION RATE 36 ML/MIN (>89); POTASSIUM 3.9 MEQ/L (3.5-5.1); SODIUM (NA) 133 MEQ/L (136-145)
[2017-05-03 07:11] LABS: ALT (GPT) 12 U/L (12-78)
[2017-05-03 07:12] LABS: ALKALINE PHOSPHATASE 61 U/L (45-117); TOTAL BILIRUBIN ADULT 0.3 MG/DL (0.2-1.0)
[2017-05-03] MEDS: COLLAGENASE OINT 30 GM TUBE TOPICAL SCH (09:00)
--- NOTE | 2017-05-03 09:51 | HHI.PR ---
Subjective History of Present Illness Patient feel better Vascular surgeon input noted getting atrial study of lower extremities may need lower extremity angiogram. d/w YVONNE Bolanos. Review of Systems Constitutional Constitutional: Fatigue, Weakness Musculoskeletal MS Remarks Redness / swelling blacking and pain of right big toe. Integumentary Skin Remarks Redness / swelling blacking and pain of right big toe. Vitals/Results Intake & Output 05/02/17 05/02/17 05/03/17 15:00 23:00 07:00 Intake Total 1340 ml 1580 ml Output Total 1000 ml Balance 1340 ml 580 ml Intake Oral 680 ml IV Total 1340 ml 900 ml Output Urine Total 1000 ml # Bowel Movements 2 Vital Signs Vital Signs Date Time Temp Pulse Resp B/P Pulse Ox O2 Delivery O2 Flow Rate FiO2 05/03/17 08:35 79 05/03/17 08:06 18 05/03/17 07:00 99.1 77 18 136/71 94 05/03/17 07:00 79 05/03/17 05:29 99.2 88 16 116/67 99 05/03/17 05:00 72 05/03/17 04:00 74 05/03/17 03:00 72 05/03/17 02:00 68 05/03/17 01:00 72 05/03/17 00:46 99.2 84 16 119/71 96 05/03/17 00:00 68 05/02/17 23:00 70 05/02/17 22:00 90 05/02/17 21:00 82 05/02/17 20:28 99.4 88 16 121/64 94 05/02/17 20:00 84 05/02/17 19:00 84 05/02/17 18:20 99.7 94 18 144/66 96 05/02/17 16:21 98.0 93 19 164/84 97 05/02/17 12:14 97.4 77 19 136/70 97 CBC/BMP: 05/03/17 0550 05/03/17 0550 Lab Results Laboratory Tests Test 05/03/17 05:50 White Blood Count 15.1 TH/MM3 Red Blood Count 3.19 MIL/MM3 Hemoglobin 9.1 GM/DL Hematocrit 27.9 % Mean Corpuscular Volume 87.6 FL Mean Corpuscular Hemoglobin 28.6 PG Mean Corpuscular Hemoglobin 32.7 % Concent Red Cell Distribution Width 14.6 % Platelet Count 318 TH/MM3 Mean Platelet Volume 7.7 FL Neutrophils (%) (Auto) 86.7 % Lymphocytes (%) (Auto) 5.3 % Monocytes (%) (Auto) 5.9 % Eosinophils (%) (Auto) 1.7 % Basophils (%) (Auto) 0.4 % Neutrophils # (Auto) 13.1 TH/MM3 Lymphocytes # (Auto) 0.8 TH/MM3 Monocytes # (Auto) 0.9 TH/MM3 Eosinophils # (Auto) 0.3 TH/MM3 Basophils # (Auto) 0.1 TH/MM3 CBC Comment DIFF FINAL Differential Comment Prothrombin Time 29.6 SEC Prothromb Time International 2.6 RATIO Ratio Sodium Level 133 MEQ/L Potassium Level 3.9 MEQ/L Chloride Level 103 MEQ/L Carbon Dioxide Level 23.7 MEQ/L Anion Gap 6 MEQ/L Blood Urea Nitrogen 26 MG/DL Creatinine 1.82 MG/DL Estimat Glomerular Filtration 36 ML/MIN Rate Random Glucose 63 MG/DL Calcium Level 8.2 MG/DL Magnesium Level 2.0 MG/DL Total Bilirubin 0.3 MG/DL Aspartate Amino Transf 20 U/L (AST/SGOT) Alanine Aminotransferase 12 U/L (ALT/SGPT) Alkaline Phosphatase 61 U/L Total Protein 6.9 GM/DL Albumin 2.8 GM/DL Physical Exam General General Appearance: Well Developed, Well Nourished, No Acute Distress, Comfortable Eyes Eye Exam: Sclera White, Extraocular Movement Intact Throat Throat Exam: Oral Mucosa [place] & Moist, Oral Pharynx Normal Neck Neck Exam: Neck Supple, Trachea Midline Pulmonary Resp Exam: Clear Bilaterally, Breath Sounds Equal Cardiology CV Exam: Regular, Normal Sinus Rhythm Gastrointestinal/Abdomen GI Exam: Soft, Non-Tender Musculoskeletal MS Exam: Normal Tone Integumentary Skin Remarks Erythema / swelling blacking and Tenderness of right big toe. Extremeties Extremeties Remarks Erythema / swelling blacking and Tenderness of right big toe. Neurologic Neuro Exam: Alert, Awake, Oriented, Speech Clear, Moving All Extremities, No Focal Deficits VTE Prophylaxis VTE Prophylaxis Meds: Coumadin PUD Prophylasis PUD Prophylaxis: Protonix Assessment/Plan Assessment/Plan ASSESSMENT/PLAN 1. This is a 76-year male who came to the ER diagnosed with blackening, erythema, pain and swelling of the right great toe rule out osteomyelitis/peripheral vascular disease. Podiatry and vascular surgeon and infectious disease / Cardiology input noted The patient on Zosyn. Further recommendation per talent development consultant. 2. Diabetes mellitus, ADA 1800 calorie diet. NovoLog low-dose sliding scale. Check blood sugars. We will monitor blood sugar. 3. Renal failure, creatinine was 1.8, BUN was 37, now BUN of 26 and creatinine 1.82. 4. History of stroke and TIA. The patient is on Coumadin. INR 2.6. We will Monitor PT/ INR Daily. 5. History of hypertension. Continue home medication. Monitor blood pressure. 6. History of coronary artery disease continue home medication. 7. History of hyperlipidemia. Continue home medications. 8. DVT prophylaxis. The patient is on Coumadin... INR 2.6 today. 9. GI prophylaxis, Protonix 40 mg p.o. daily. 10. Leukocytosis secondary to right foot cellulitis will monitor. 11. Episode of sustained venticular tachycardia Patient refused treatment 12. Hyponatremia mild will monitor. Check CBC with diff CMP in AM. we are going to manage the patient on a daily basis and make recommendations on a daily basis. Discussed Condition with: Patient Don Kothari MD May 03, 2017 09:51
[2017-05-03] MEDS: LISINOPRIL 20 MG TAB PO SCH (10:21)
[2017-05-03] MEDS: METOPROLOL TARTRATE 25 MG TAB PO SCH ×2 (10:22→22:03)
[2017-05-03] MEDS: DOCUSATE SODIUM 50 MG/SENNA 8.6 MG TAB PO SCH ×2 (10:22→21:00)
[2017-05-03] MEDS: SODIUM CHLORIDE 0.9% FLUSH 10 ML FLUSH IV FLUSH SCH ×2 (10:23→22:03)
--- NOTE | 2017-05-03 10:52 | PD.VS.CON ---
History of Present Illness Chief Complaint: Non palpable R DP/PT Necrotic right great toe (3W) Consult Requested by: Dr. Anu Kothari History of Present Illness Mr. Doherty is a 76/M who arrived to the Emergency Department (PO) c/o a discolored necrotic right great toe for 3W with pain,swelling and odor. Pt stated he had his toe nails clipped at the [employer] 3W ago Pt denies rest pain or a hx of claudication Past/Family/Social History Past Medical History DM HTN TIA Coronary Artery Disease Past Surgical History Cardiac bypass (4) Social History Current non-smoker- hx of Alcohol- Socially Lives alone with sister who resides across the street Pt also resides in [place] Retired [employer] Home Medications Reported Medications Simvastatin 40 Mg Tab40 Mg PO HS #30 TAB Ref 0 04/30/17 Warfarin 10 Mg Tab10 Mg PO DAILY #30 TAB Ref 0 04/30/17 Lisinopril 20 Mg Tab20 Mg PO DAILY #30 TAB Ref 0 04/30/17 Glipizide 5 Mg Tab5 Mg PO BIDAC #60 TAB Ref 0 Take 30 minutes before a meal 04/30/17 Metformin 1,000 Mg Tab1,000 Mg PO BIDPC #60 TAB Ref 0 With meals 04/30/17 Coded Allergies: No Known Allergies (Unverified , 04/30/17) Review of Systems Integumentary: COMPLAINS OF: Abnormal pigmentation, Nail changes (necrotic R great toe ) Physical Exam Vitals/I&O Date Time Temp Pulse Resp B/P Pulse Ox O2 Delivery O2 Flow Rate FiO2 05/03/17 08:35 79 05/03/17 08:06 18 05/03/17 07:00 99.1 77 18 136/71 94 05/03/17 07:00 79 05/03/17 05:29 99.2 88 16 116/67 99 05/03/17 05:00 72 05/03/17 04:00 74 05/03/17 03:00 72 05/03/17 02:00 68 05/03/17 01:00 72 05/03/17 00:46 99.2 84 16 119/71 96 05/03/17 00:00 68 05/02/17 23:00 70 05/02/17 22:00 90 05/02/17 21:00 82 05/02/17 20:28 99.4 88 16 121/64 94 05/02/17 20:00 84 05/02/17 19:00 84 05/02/17 18:20 99.7 94 18 144/66 96 05/02/17 16:21 98.0 93 19 164/84 97 05/02/17 12:14 97.4 77 19 136/70 97 05/03/17 05/03/17 05/03/17 07:00 15:00 23:00 Intake Total 1580 ml Output Total 1000 ml Balance 580 ml Neuro: A&OX3 GCS15 Pt w/o any neurological deficits Heart: RRR Lungs: CTA Abdomen: S/NT Vascular: Palpable Bilat Femoral pulses Palpable L DP/PT NON palpable R DP/PT R DP/PT with monophasic signals heard via Doppler Malodorous Necrotic R great toe (3w) Laboratory Tests Test 05/03/17 05:50 White Blood Count 15.1 Red Blood Count 3.19 Hemoglobin 9.1 Hematocrit 27.9 Mean Corpuscular Volume 87.6 Mean Corpuscular Hemoglobin 28.6 Mean Corpuscular Hemoglobin 32.7 Concent Red Cell Distribution Width 14.6 Platelet Count 318 Mean Platelet Volume 7.7 Neutrophils (%) (Auto) 86.7 Lymphocytes (%) (Auto) 5.3 Monocytes (%) (Auto) 5.9 Eosinophils (%) (Auto) 1.7 Basophils (%) (Auto) 0.4 Neutrophils # (Auto) 13.1 Lymphocytes # (Auto) 0.8 Monocytes # (Auto) 0.9 Eosinophils # (Auto) 0.3 Basophils # (Auto) 0.1 CBC Comment DIFF FINAL Differential Comment Prothrombin Time 29.6 Prothromb Time International 2.6 Ratio Sodium Level 133 Potassium Level 3.9 Chloride Level 103 Carbon Dioxide Level 23.7 Anion Gap 6 Blood Urea Nitrogen 26 Creatinine 1.82 Estimat Glomerular Filtration 36 Rate Random Glucose 63 Calcium Level 8.2 Magnesium Level 2.0 Total Bilirubin 0.3 Aspartate Amino Transf 20 (AST/SGOT) Alanine Aminotransferase 12 (ALT/SGPT) Alkaline Phosphatase 61 Total Protein 6.9 Albumin 2.8 Date/Time Procedure Status Source Growth 04/30/17 13:10 Aerobic Blood Culture - Preliminary Resulted Blood Peripheral NO GROWTH IN 2 DAYS 04/30/17 13:10 Anaerobic Blood Culture - Preliminary Resulted Blood Peripheral NO GROWTH IN 2 DAYS Assessment and Plan Assessment: (1) Necrotic toes Status: Acute Plan Pt with a necrotic non healing right great toe for 3W Non palpable R DP/PT BLE warm w/ motor intact Plan ANDREW ordered Will review results Discussed w/ pt Potential Angiogram w/ Dr. Alvina GERMAIN [facility] [phone] Sarah Brannon May 03, 2017 10:52
[2017-05-03] MEDS: SODIUM CHLOR 0.45% 1000 ML INJ 1,000 ML IV SCH ×2 (12:12→22:05)
[2017-05-03] MEDS: WARFARIN SOD 10 MG TAB PO SCH (16:04)
--- NOTE | 2017-05-03 16:28 | RADRPT ---
EXAM DATE/TIME: 05/03/2017 00:00 [place] COMPARISON: No previous studies available for comparison. INDICATIONS : Right Toe Cellulitis, Osteomyelitis, Sepsis TECHNIQUE: Four-cuff ankle and brachial pressures were obtained. Pulse cuff waveform tracings of the ankles were recorded, and ankle-brachial indices were calculated. PRESSURES (mmHg): Brachial (arm): Right IV SITE Left 157 Ankle: Right >230 CNO Left >230 CNO ANDREW: Right CNO Left CNO TBI: Right 0.00 Left 0.48 PULSED CUFF WAVEFORMS: Toe waveforms could not be obtained on the right CONCLUSION: Equivocal ankle indices secondary to noncompressibility. Satisfactory preservation of pulsatile flow in the left toes. Absent signal on the right. Patric Lai MD on May 03, 2017 at 16:25 Board Certified Radiologist. This report was verified electronically.
--- NOTE | 2017-05-03 17:33 | PD.CARD.PN ---
Subjective Subjective Remarks No CP or SOB, feels fine Objective Medications Current Medications Medications (Trade) Dose Ordered Sig/Jorge L Route Start Time Stop Time Status Last Admin (Glucotrol) 5 mg BIDAC PO 04/30/17 16:00 05/03/17 16:00 (Prinivil) 20 mg DAILY PO 05/01/17 09:00 05/03/17 10:21 (Coumadin) 10 mg DAILY@16 PO 05/01/17 16:00 05/03/17 16:04 Pravastatin Sodium 80 mg 80 mg HS PO 04/30/17 21:00 05/02/17 21:53 (1/2 NS 1000 ml Inj) 1,000 ml @ 75 mls/hr [id number] IV 04/30/17 14:00 05/03/17 12:12 (NS Flush) 2 ml UNSCH PRN IV FLUSH 04/30/17 14:00 (NS Flush) 2 ml BID IV FLUSH 04/30/17 21:00 05/03/17 10:23 (Zofran Inj) 4 mg Q6H PRN IVP 04/30/17 14:00 (Narcan Inj) 0.4 mg UNSCH PRN IV 04/30/17 14:00 (Cherrie-Colace) 1 tab BID PO 04/30/17 21:00 05/03/17 10:22 (Milk Of Magnesia Liq) 30 ml Q12H PRN PO 04/30/17 14:00 (Senokot) 17.2 mg Q12H PRN PO 04/30/17 14:00 (Dulcolax Supp) 10 mg DAILY PRN RECTAL 04/30/17 14:00 (Lactulose Liq) 30 ml DAILY PRN PO 04/30/17 14:00 05/02/17 09:09 (D50w (Vial) Inj) 50 ml UNSCH PRN IV 04/30/17 14:00 (Glucagon Inj) 1 mg UNSCH PRN OTHER 04/30/17 14:00 (Santyl Oint) 1 applic DAILY TOPICAL 04/30/17 18:15 05/02/17 08:49 Acetaminophen/ Hydrocodone Bitart 1 tab 1 tab Q4H PRN PO 04/30/17 21:15 05/03/17 17:13 (Zosyn 3.375 Gm Premix) 50 ml @ 100 mls/hr Q8H IV 05/01/17 12:00 05/03/17 12:11 (Lopressor) 25 mg Q12HR PO 05/01/17 21:00 05/03/17 10:22 Vital Signs / I&O Vital Signs Date Time Temp Pulse Resp B/P Pulse Ox O2 Delivery O2 Flow Rate FiO2 05/03/17 17:14 16 05/03/17 17:00 79 05/03/17 16:26 80 05/03/17 15:00 97.3 90 16 137/84 97 05/03/17 15:00 80 05/03/17 14:37 77 05/03/17 13:00 69 05/03/17 11:30 68 05/03/17 11:00 97.5 74 18 123/76 97 05/03/17 10:00 81 05/03/17 09:00 84 05/03/17 08:35 79 05/03/17 07:00 99.1 77 18 136/71 94 05/03/17 07:00 79 05/03/17 05:29 99.2 88 16 116/67 99 05/03/17 05:00 72 05/03/17 04:00 74 05/03/17 03:00 72 05/03/17 02:00 68 05/03/17 01:00 72 05/03/17 00:46 99.2 84 16 119/71 96 05/03/17 00:00 68 05/02/17 23:00 70 05/02/17 22:00 90 05/02/17 21:00 82 05/02/17 20:28 99.4 88 16 121/64 94 05/02/17 20:00 84 05/02/17 19:00 84 05/02/17 18:20 99.7 94 18 144/66 96 I/O 05/02/17 05/02/17 05/02/17 05/03/17 05/03/17 05/03/17 06:59 14:59 22:59 06:59 14:59 22:59 Intake Total 0 ml 1340 ml 1580 ml 680 ml Output Total 1275 ml 1000 ml Balance -1275 ml 1340 ml 580 ml 680 ml Intake Oral 0 ml 680 ml 680 ml IV Total 1340 ml 900 ml Output Urine Total 1275 ml 1000 ml # Voids 4 # Bowel Movements 0 2 Physical Exam GENERAL: In NAD SKIN: Warm and dry. HEAD: Normocephalic. EYES: No scleral icterus. No injection or drainage. NECK: Supple, trachea midline. No JVD or lymphadenopathy. CARDIOVASCULAR: Regular rate and rhythm without murmurs, gallops, or rubs. RESPIRATORY: Breath sounds equal bilaterally. No accessory muscle use. GASTROINTESTINAL: Abdomen soft, non-tender, nondistended. MUSCULOSKELETAL: No cyanosis, or edema. R foot infection. Laboratory Laboratory Tests Test 05/03/17 05:50 White Blood Count 15.1 TH/MM3 Red Blood Count 3.19 MIL/MM3 Hemoglobin 9.1 GM/DL Hematocrit 27.9 % Mean Corpuscular Volume 87.6 FL Mean Corpuscular Hemoglobin 28.6 PG Mean Corpuscular Hemoglobin 32.7 % Concent Red Cell Distribution Width 14.6 % Platelet Count 318 TH/MM3 Mean Platelet Volume 7.7 FL Neutrophils (%) (Auto) 86.7 % Lymphocytes (%) (Auto) 5.3 % Monocytes (%) (Auto) 5.9 % Eosinophils (%) (Auto) 1.7 % Basophils (%) (Auto) 0.4 % Neutrophils # (Auto) 13.1 TH/MM3 Lymphocytes # (Auto) 0.8 TH/MM3 Monocytes # (Auto) 0.9 TH/MM3 Eosinophils # (Auto) 0.3 TH/MM3 Basophils # (Auto) 0.1 TH/MM3 CBC Comment DIFF FINAL Differential Comment Prothrombin Time 29.6 SEC Prothromb Time International 2.6 RATIO Ratio Sodium Level 133 MEQ/L Potassium Level 3.9 MEQ/L Chloride Level 103 MEQ/L Carbon Dioxide Level 23.7 MEQ/L Anion Gap 6 MEQ/L Blood Urea Nitrogen 26 MG/DL Creatinine 1.82 MG/DL Estimat Glomerular Filtration 36 ML/MIN Rate Random Glucose 63 MG/DL Calcium Level 8.2 MG/DL Magnesium Level 2.0 MG/DL Total Bilirubin 0.3 MG/DL Aspartate Amino Transf 20 U/L (AST/SGOT) Alanine Aminotransferase 12 U/L (ALT/SGPT) Alkaline Phosphatase 61 U/L Total Protein 6.9 GM/DL Albumin 2.8 GM/DL Imaging Last Impressions Toe X-Ray 04/30/17 0000 Signed Impressions: Service Date/Time: Sunday, April 30, 2017 12:27 - CONCLUSION: Bony destruction involving the first distal phalanx with abnormal soft tissue changes characteristic of osteomyelitis. Jerry Mireles MD Assessment and Plan Problem List: (1) VT (ventricular tachycardia) (2) Coronary artery disease (3) History of coronary artery bypass surgery (4) Sepsis (5) Cellulitis of great toe of right foot (6) Osteomyelitis of toe of right foot (7) PVD (peripheral vascular disease) Assessment and Plan No recurrent VT on beta shirin. No angina or CHF symptoms. 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 He refused any cardiology intervention including ICD at this time. He understands the risk of SCD. Proceed with potential revascularization as planned. Landon Mahoney MD May 03, 2017 17:33
[2017-05-03] MEDS: PRAVASTATIN SOD 80 MG TAB PO SCH (22:03)
[2017-05-04] VITALS (27 sets, daily range): BP systolic 126–155; BP diastolic 59–82; PULSE 53–86; RESP 16–18; TEMP 97.6–100.2; O2SAT 93–99
[2017-05-04] MEDS: ACETAMINOPHEN/HYDROcodone 325 MG/5 MG TAB PO PRN ×4 (01:39→22:39)
[2017-05-04] MEDS: COLLAGENASE OINT 30 GM TUBE TOPICAL SCH (01:40)
[2017-05-04 04:36] LABS: BASOPHIL # 0.1 TH/MM3 (0-0.2); BASOPHIL % 0.5 % (0.0-2.0); EOSINOPHIL # 0.4 TH/MM3 (0-0.4); EOSINOPHIL % 2.7 % (0.0-4.0); HEMATOCRIT 23.3 % (39.0-51.0); HEMO FLAGS DIFF FINAL; LYMPH % 7.4 % (9.0-44.0); MEAN CELL VOLUME 85.9 FL (80.0-100.0); MEAN CORPUSCULAR HEMOGLOBIN 29.6 PG (27.0-34.0); MEAN CORPUSCULAR HGB CONC 34.5 % (32.0-36.0); MONO % 6.5 % (0.0-8.0); NEUT % 82.9 % (16.0-70.0); PLATELET COUNT 269 TH/MM3 (150-450); RED BLOOD COUNT 2.71 MIL/MM3 (4.50-5.90); RED CELL DISTRIBUTION WIDTH 14.3 % (11.6-17.2); WHITE BLOOD COUNT 13.3 TH/MM3 (4.0-11.0)
[2017-05-04 04:54] LABS: ALT (GPT) 13 U/L (12-78); ANION GAP 11 MEQ/L (5-15); AST (GOT) 20 U/L (15-37); BLOOD UREA NITROGEN 23 MG/DL (7-18); CHLORIDE 104 MEQ/L (98-107); GLOMERULAR FILTRATION RATE 36 ML/MIN (>89); POTASSIUM 3.8 MEQ/L (3.5-5.1); SODIUM (NA) 137 MEQ/L (136-145)
[2017-05-04 04:56] LABS: ALKALINE PHOSPHATASE 53 U/L (45-117); TOTAL BILIRUBIN ADULT 0.3 MG/DL (0.2-1.0)
[2017-05-04] MEDS: SODIUM CHLOR 0.45% 1000 ML INJ 1,000 ML IV SCH (05:00)
[2017-05-04] MEDS: PIPERACIL-TAZO 3.375 GM PREMIX 50 ML IV SCH ×3 (05:01→22:38)
[2017-05-04] MEDS: INSULIN ASPART SUPPLEMENTAL SCALE SQ SCH ×4 (07:00→21:00)
[2017-05-04] MEDS: glipiZIDE 5 MG TAB PO SCH ×2 (07:00→16:40)
--- NOTE | 2017-05-04 08:42 | PD.VS.PN ---
Subjective Subjective/Hospital Course Pt with intermittent pain R great toe no fevers ambulating some Objective Vitals/I&O Date Time Temp Pulse Resp B/P Pulse Ox O2 Delivery O2 Flow Rate FiO2 05/04/17 06:00 73 05/04/17 05:19 97.6 72 16 126/64 95 05/04/17 05:00 64 05/04/17 04:00 72 05/04/17 03:00 62 05/04/17 02:00 64 05/04/17 01:00 80 05/04/17 00:34 98.6 85 16 139/67 93 05/04/17 00:00 66 05/03/17 23:00 73 05/03/17 22:00 81 05/03/17 21:00 78 05/03/17 20:30 98.5 88 16 140/67 100 05/03/17 20:00 76 05/03/17 19:00 74 05/03/17 18:30 78 05/03/17 17:14 16 05/03/17 17:00 79 05/03/17 16:26 80 05/03/17 15:00 97.3 90 16 137/84 97 05/03/17 15:00 80 05/03/17 14:37 77 05/03/17 13:00 69 05/03/17 11:30 68 05/03/17 11:00 97.5 74 18 123/76 97 05/03/17 10:00 81 05/03/17 09:00 84 05/04/17 05/04/17 05/04/17 07:00 15:00 23:00 Intake Total 1720 ml Output Total 1200 ml Balance 520 ml Physical Exam R great toe necrotic, drainage erythema to MTP but not proximal no palpable pulse Laboratory Laboratory Tests Test 05/04/17 03:42 White Blood Count 13.3 Red Blood Count 2.71 Hemoglobin 8.0 Hematocrit 23.3 Mean Corpuscular Volume 85.9 Mean Corpuscular Hemoglobin 29.6 Mean Corpuscular Hemoglobin 34.5 Concent Red Cell Distribution Width 14.3 Platelet Count 269 Mean Platelet Volume 8.2 Neutrophils (%) (Auto) 82.9 Lymphocytes (%) (Auto) 7.4 Monocytes (%) (Auto) 6.5 Eosinophils (%) (Auto) 2.7 Basophils (%) (Auto) 0.5 Neutrophils # (Auto) 11.0 Lymphocytes # (Auto) 1.0 Monocytes # (Auto) 0.9 Eosinophils # (Auto) 0.4 Basophils # (Auto) 0.1 CBC Comment DIFF FINAL Differential Comment Sodium Level 137 Potassium Level 3.8 Chloride Level 104 Carbon Dioxide Level 22.0 Anion Gap 11 Blood Urea Nitrogen 23 Creatinine 1.84 Estimat Glomerular Filtration 36 Rate Random Glucose 60 Calcium Level 8.1 Total Bilirubin 0.3 Aspartate Amino Transf 20 (AST/SGOT) Alanine Aminotransferase 13 (ALT/SGPT) Alkaline Phosphatase 53 Total Protein 6.6 Albumin 2.5 Date/Time Procedure Status Source Growth 04/30/17 13:10 Aerobic Blood Culture - Preliminary Resulted Blood Peripheral NO GROWTH IN 3 DAYS 04/30/17 13:10 Anaerobic Blood Culture - Preliminary Resulted Blood Peripheral NO GROWTH IN 3 DAYS Assessment and Plan Assessment: (1) Necrotic toes Status: Acute Plan Diabetic toe ulcer and non-palpable pulses 1. Needs Angio and toe amputation - discussed with patient today Will schedule if/when he agrees 2. Continue broad antibiotics 3. D/C coumadin and get INR<2 4. Would check Hgb A1c Jose Juan Tinsley MD May 04, 2017 08:42
[2017-05-04] MEDS: DOCUSATE SODIUM 50 MG/SENNA 8.6 MG TAB PO SCH ×2 (09:10→21:00)
[2017-05-04] MEDS: METOPROLOL TARTRATE 25 MG TAB PO SCH ×2 (09:10→22:39)
[2017-05-04] MEDS: LISINOPRIL 20 MG TAB PO SCH (09:10)
[2017-05-04] MEDS: SODIUM CHLORIDE 0.9% FLUSH 10 ML FLUSH IV FLUSH SCH ×2 (09:11→21:00)
[2017-05-04 10:37] LABS: INTERNATIONAL NORMALIZED RATIO 4.4 RATIO; PROTHROMBIN TIME - PATIENT 51.3 SEC (9.8-11.6)
--- NOTE | 2017-05-04 11:09 | HHI.PR ---
Subjective History of Present Illness Patient feel better Vascular surgeon input noted s/p lower extremity angiogram. ..noted going for amputation of right great toe on Saturday.. Review of Systems Constitutional Constitutional: Fatigue, Weakness Musculoskeletal MS Remarks Redness / swelling blacking and pain of right big toe. Integumentary Skin Remarks Redness / swelling blacking and pain of right big toe. Vitals/Results Intake & Output 05/03/17 05/03/17 05/04/17 14:59 22:59 06:59 Intake Total 680 ml 1720 ml Output Total 1200 ml Balance 680 ml 520 ml Intake Oral 680 ml 520 ml IV Total 1200 ml Output Urine Total 1200 ml # Bowel Movements 0 Vital Signs Vital Signs Date Time Temp Pulse Resp B/P Pulse Ox O2 Delivery O2 Flow Rate FiO2 05/04/17 08:00 98.3 86 18 155/82 97 05/04/17 06:00 73 05/04/17 05:19 97.6 72 16 126/64 95 05/04/17 05:00 64 05/04/17 04:00 72 05/04/17 03:00 62 05/04/17 02:00 64 05/04/17 01:00 80 05/04/17 00:34 98.6 85 16 139/67 93 05/04/17 00:00 66 05/03/17 23:00 73 05/03/17 22:00 81 05/03/17 21:00 78 05/03/17 20:30 98.5 88 16 140/67 100 05/03/17 20:00 76 05/03/17 19:00 74 05/03/17 18:30 78 05/03/17 17:14 16 05/03/17 17:00 79 05/03/17 16:26 80 05/03/17 15:00 97.3 90 16 137/84 97 05/03/17 15:00 80 05/03/17 14:37 77 05/03/17 13:00 69 05/03/17 11:30 68 CBC/BMP: 05/04/17 0342 05/04/17 0342 Lab Results Laboratory Tests Test 05/04/17 05/04/17 03:42 10:15 White Blood Count 13.3 TH/MM3 Red Blood Count 2.71 MIL/MM3 Hemoglobin 8.0 GM/DL Hematocrit 23.3 % Mean Corpuscular Volume 85.9 FL Mean Corpuscular Hemoglobin 29.6 PG Mean Corpuscular Hemoglobin 34.5 % Concent Red Cell Distribution Width 14.3 % Platelet Count 269 TH/MM3 Mean Platelet Volume 8.2 FL Neutrophils (%) (Auto) 82.9 % Lymphocytes (%) (Auto) 7.4 % Monocytes (%) (Auto) 6.5 % Eosinophils (%) (Auto) 2.7 % Basophils (%) (Auto) 0.5 % Neutrophils # (Auto) 11.0 TH/MM3 Lymphocytes # (Auto) 1.0 TH/MM3 Monocytes # (Auto) 0.9 TH/MM3 Eosinophils # (Auto) 0.4 TH/MM3 Basophils # (Auto) 0.1 TH/MM3 CBC Comment DIFF FINAL Differential Comment Sodium Level 137 MEQ/L Potassium Level 3.8 MEQ/L Chloride Level 104 MEQ/L Carbon Dioxide Level 22.0 MEQ/L Anion Gap 11 MEQ/L Blood Urea Nitrogen 23 MG/DL Creatinine 1.84 MG/DL Estimat Glomerular Filtration 36 ML/MIN Rate Random Glucose 60 MG/DL Calcium Level 8.1 MG/DL Total Bilirubin 0.3 MG/DL Aspartate Amino Transf 20 U/L (AST/SGOT) Alanine Aminotransferase 13 U/L (ALT/SGPT) Alkaline Phosphatase 53 U/L Total Protein 6.6 GM/DL Albumin 2.5 GM/DL Prothrombin Time 51.3 SEC Prothromb Time International 4.4 RATIO Ratio Physical Exam General General Appearance: Well Developed, Well Nourished, No Acute Distress, Comfortable Eyes Eye Exam: Sclera White, Extraocular Movement Intact Throat Throat Exam: Oral Mucosa [place] & Moist, Oral Pharynx Normal Neck Neck Exam: Neck Supple, Trachea Midline Pulmonary Resp Exam: Clear Bilaterally, Breath Sounds Equal Cardiology CV Exam: Regular, Normal Sinus Rhythm Gastrointestinal/Abdomen GI Exam: Soft, Non-Tender Musculoskeletal MS Exam: Normal Tone Integumentary Skin Remarks Erythema / swelling blacking and Tenderness of right big toe. Extremeties Extremeties Remarks Erythema / swelling blacking and Tenderness of right big toe. Neurologic Neuro Exam: Alert, Awake, Oriented, Speech Clear, Moving All Extremities, No Focal Deficits VTE Prophylaxis VTE Prophylaxis Meds: Coumadin PUD Prophylasis PUD Prophylaxis: Protonix Assessment/Plan Assessment/Plan ASSESSMENT/PLAN 1. This is a 76-year male who came to the ER diagnosed with blackening, erythema, pain and swelling of the right great toe rule out osteomyelitis/peripheral vascular disease. Podiatry and vascular surgeon and infectious disease / Cardiology input noted The patient on Zosyn. Further recommendation per eligibility consultant. going for right big toe amputation on Saturday. 2. Diabetes mellitus, ADA 1800 calorie diet. NovoLog low-dose sliding scale. Check blood sugars. We will monitor blood sugar. 3. Renal failure, creatinine was 1.8, BUN was 37, now BUN of 23 and creatinine 1.84. 4. History of stroke and TIA. The patient was on Coumadin. INR 4.4. holding coumadin We will Monitor PT/ INR Daily. 5. History of hypertension. Continue home medication. Monitor blood pressure. 6. History of coronary artery disease continue home medication. 7. History of hyperlipidemia. Continue home medications. 8. DVT prophylaxis. The patient was on Coumadin... INR 4.4 today. holding coumadin. 9. GI prophylaxis, Protonix 40 mg p.o. daily. 10. Leukocytosis secondary to right foot cellulitis will monitor. 11. No recurrent VT on beta shirin. No angina or CHF symptoms. 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 He refused any cardiology intervention including ICD at this time. He understands the risk of SCD. Proceed with potential revascularization as planned. 12. Hyponatremia will monitor. Check CBC with diff CMP in AM. we are going to manage the patient on a daily basis and make recommendations on a daily basis. Discussed Condition with: Patient Don Kothari MD May 04, 2017 11:09
[2017-05-04] MEDS: PRAVASTATIN SOD 80 MG TAB PO SCH (22:38)
[2017-05-05] VITALS (21 sets, daily range): BP systolic 125–157; BP diastolic 61–82; PULSE 61–85; RESP 16–23; TEMP 97.9–99; O2SAT 92–99
[2017-05-05] MEDS: PIPERACIL-TAZO 3.375 GM PREMIX 50 ML IV SCH ×3 (04:31→21:30)
[2017-05-05] MEDS: SODIUM CHLOR 0.45% 1000 ML INJ 1,000 ML IV SCH ×2 (04:31→14:00)
[2017-05-05] MEDS: INSULIN ASPART SUPPLEMENTAL SCALE SQ SCH ×4 (06:52→21:29)
[2017-05-05] MEDS: glipiZIDE 5 MG TAB PO SCH ×2 (06:53→16:00)
[2017-05-05] MEDS: ACETAMINOPHEN/HYDROcodone 325 MG/5 MG TAB PO PRN ×2 (06:53→18:07)
[2017-05-05 08:03] LABS: INTERNATIONAL NORMALIZED RATIO 4.5 RATIO; PROTHROMBIN TIME - PATIENT 52.6 SEC (9.8-11.6)
--- NOTE | 2017-05-05 08:51 | PD.VS.PN ---
Subjective Subjective/Hospital Course Pt with intermittent pain R great toe no fevers ambulating some Objective Vitals/I&O Date Time Temp Pulse Resp B/P Pulse Ox O2 Delivery O2 Flow Rate FiO2 05/05/17 06:49 98.5 81 16 136/66 98 05/05/17 02:00 65 05/05/17 01:00 62 05/05/17 00:00 74 05/04/17 23:48 100.2 86 18 135/59 94 05/04/17 23:00 84 05/04/17 22:00 70 05/04/17 21:00 71 05/04/17 20:00 99.1 83 18 146/73 98 05/04/17 20:00 70 05/04/17 19:00 83 05/04/17 18:15 18 05/04/17 18:00 80 05/04/17 17:00 82 05/04/17 16:00 98.0 85 18 143/72 97 05/04/17 16:00 82 05/04/17 15:00 72 05/04/17 14:00 70 05/04/17 13:00 66 05/04/17 12:00 98.3 76 18 144/72 99 05/04/17 12:00 64 05/04/17 11:00 73 05/04/17 10:00 74 05/04/17 09:00 76 05/05/17 05/05/17 05/05/17 07:00 15:00 23:00 Intake Total 1455 ml Output Total 1995 ml Balance -540 ml Physical Exam Palpable R popliteal pulse R great toe necrotic and foul-smelling Laboratory Laboratory Tests Test 05/04/17 05/05/17 10:15 06:34 Prothrombin Time 51.3 52.6 Prothromb Time International 4.4 4.5 Ratio Date/Time Procedure Status Source Growth 04/30/17 13:10 Aerobic Blood Culture - Preliminary Resulted Blood Peripheral NO GROWTH IN 4 DAYS 04/30/17 13:10 Anaerobic Blood Culture - Preliminary Resulted Blood Peripheral NO GROWTH IN 4 DAYS Assessment and Plan Assessment: (1) Necrotic toes Status: Acute Plan Diabetic toe ulcer and non-palpable pulses 1. Needs Angio and toe amputation - discussed with patient again today; posted for tomorrow (SATURDAY) if INR <1.5; needs FFP and/or vit K 2. Continue broad antibiotics 3. continue wound care 4. Would check Hgb A1c Jose Juan Tinsley MD May 05, 2017 08:51
[2017-05-05] MEDS: COLLAGENASE OINT 30 GM TUBE TOPICAL SCH (09:00)
[2017-05-05] MEDS: LISINOPRIL 20 MG TAB PO SCH (09:06)
[2017-05-05] MEDS: DOCUSATE SODIUM 50 MG/SENNA 8.6 MG TAB PO SCH ×2 (09:06→21:16)
[2017-05-05] MEDS: METOPROLOL TARTRATE 25 MG TAB PO SCH ×2 (09:06→21:16)
[2017-05-05] MEDS: SODIUM CHLORIDE 0.9% FLUSH 10 ML FLUSH IV FLUSH SCH ×2 (09:06→21:16)
--- NOTE | 2017-05-05 11:18 | HHI.PR ---
Subjective History of Present Illness Patient feel better Vascular surgeon input noted, s/p lower extremity angiogram. ..noted going for amputation of right great toe on Saturday.. have INR 4.5 Transfuse 2 units FFP. Review of Systems Constitutional Constitutional: Fatigue, Weakness Musculoskeletal MS Remarks Redness / swelling blacking and pain of right big toe. Integumentary Skin Remarks Redness / swelling blacking and pain of right big toe. Vitals/Results Intake & Output 05/04/17 05/04/17 05/05/17 15:00 23:00 07:00 Intake Total 1400 ml 1455 ml Output Total 800 ml 1995 ml Balance 600 ml -540 ml Intake Oral 600 ml 480 ml IV Total 800 ml 975 ml Output Urine Total 800 ml 1995 ml # Bowel Movements 0 Vital Signs Vital Signs Date Time Temp Pulse Resp B/P Pulse Ox O2 Delivery O2 Flow Rate FiO2 05/05/17 09:40 18 05/05/17 08:00 98.7 73 18 140/64 93 05/05/17 06:49 98.5 81 16 136/66 98 05/05/17 02:00 65 05/05/17 01:00 62 05/05/17 00:00 74 05/04/17 23:48 100.2 86 18 135/59 94 05/04/17 23:00 84 05/04/17 22:00 70 05/04/17 21:00 71 05/04/17 20:00 99.1 83 18 146/73 98 05/04/17 20:00 70 05/04/17 19:00 83 05/04/17 18:00 80 05/04/17 17:00 82 05/04/17 16:00 98.0 85 18 143/72 97 05/04/17 16:00 82 05/04/17 15:00 72 05/04/17 14:00 70 05/04/17 13:00 66 05/04/17 12:00 98.3 76 18 144/72 99 05/04/17 12:00 64 CBC/BMP: 05/04/17 0342 05/04/17 0342 Lab Results Laboratory Tests Test 05/05/17 06:34 Prothrombin Time 52.6 SEC Prothromb Time International 4.5 RATIO Ratio Physical Exam General General Appearance: Well Developed, Well Nourished, No Acute Distress, Comfortable Eyes Eye Exam: Sclera White, Extraocular Movement Intact Throat Throat Exam: Oral Mucosa [place] & Moist, Oral Pharynx Normal Neck Neck Exam: Neck Supple, Trachea Midline Pulmonary Resp Exam: Clear Bilaterally, Breath Sounds Equal Cardiology CV Exam: Regular, Normal Sinus Rhythm Gastrointestinal/Abdomen GI Exam: Soft, Non-Tender Musculoskeletal MS Exam: Normal Tone Integumentary Skin Remarks Erythema / swelling blacking and Tenderness of right big toe. Extremeties Extremeties Remarks Erythema / swelling blacking and Tenderness of right big toe. Neurologic Neuro Exam: Alert, Awake, Oriented, Speech Clear, Moving All Extremities, No Focal Deficits VTE Prophylaxis VTE Prophylaxis Meds: Coumadin PUD Prophylasis PUD Prophylaxis: Protonix Assessment/Plan Assessment/Plan ASSESSMENT/PLAN 1. This is a 76-year male who came to the ER diagnosed with blackening, erythema, pain and swelling of the right great toe rule out osteomyelitis/peripheral vascular disease. Podiatry and vascular surgeon and infectious disease / Cardiology input noted The patient on Zosyn. Further recommendation per [employer] ax consultant. going for right big toe amputation on Saturday. have INR 4.5 Transfuse 2 units FFP. 2. Diabetes mellitus, ADA 1800 calorie diet. NovoLog low-dose sliding scale. Check blood sugars. We will monitor blood sugar. 3. Renal failure, creatinine was 1.84, BUN was 37, now BUN of 23 and creatinine 1.84. 4. History of stroke and TIA. The patient was on Coumadin. INR 4.5. holding coumadin We will Monitor PT/ INR Daily...have INR 4.5 Transfuse 2 units FFP. 5. History of hypertension. Continue home medication. Monitor blood pressure. 6. History of coronary artery disease continue home medication. 7. History of hyperlipidemia. Continue home medications. 8. DVT prophylaxis. The patient was on Coumadin... INR 4.5 today. holding coumadin. have INR 4.5 Transfuse 2 units FFP. 9. GI prophylaxis, Protonix 40 mg p.o. daily. 10. Leukocytosis secondary to right foot cellulitis will monitor. down trend. 11. No recurrent VT on beta shirin. No angina or CHF symptoms. 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 He refused any cardiology intervention including ICD at this time. He understands the risk of Sudden Cardiac . Proceed with potential revascularization as planned. 12. Hyponatremia will monitor. Check CBC with diff CMP in AM. we are going to manage the patient on a daily basis and make recommendations on a daily basis. Discussed Condition with: Patient Don Kothari MD May 05, 2017 11:17
--- NOTE | 2017-05-05 17:07 | HHI.IDPN ---
Subjective Subjective Remarks ID X cover for Dr Ramos chart reviewed 76 yo pt with PVD and gangrene of R hallux . case was prebviosuly dw Dr Whiteside Apparently pt was refusing amputation o his hallux, but finally agreed to it and was stransferred to the main hospital to undergo vascular treatemtn prior to amputaiton Pt is on broad spectrum abx He tells me that hies sweliing and redness is better no fever tolerates abx OK Antibiotics zosyn Allergies: Coded Allergies: No Known Allergies (Unverified , 04/30/17) Objective . Vital Signs Date Time Temp Pulse Resp B/P Pulse Ox O2 Delivery O2 Flow Rate FiO2 05/05/17 13:00 68 05/05/17 12:00 98.4 61 18 155/62 98 05/05/17 12:00 64 05/05/17 09:40 18 05/05/17 09:00 84 05/05/17 08:00 70 05/05/17 08:00 98.7 73 18 140/64 93 05/05/17 06:49 98.5 81 16 136/66 98 05/05/17 02:00 65 05/05/17 01:00 62 05/05/17 00:00 74 05/04/17 23:48 100.2 86 18 135/59 94 05/04/17 23:00 84 05/04/17 22:00 70 05/04/17 21:00 71 05/04/17 20:00 99.1 83 18 146/73 98 05/04/17 20:00 70 05/04/17 19:00 83 05/04/17 18:00 80 05/04/17 17:00 82 05/04/17 05/04/17 05/05/17 15:00 23:00 07:00 Intake Total 1400 ml 1455 ml Output Total 800 ml 1995 ml Balance 600 ml -540 ml Intake Oral 600 ml 480 ml IV Total 800 ml 975 ml Output Urine Total 800 ml 1995 ml # Bowel Movements 0 . Laboratory Tests Test 05/04/17 03:42 White Blood Count 13.3 TH/MM3 Red Blood Count 2.71 MIL/MM3 Hemoglobin 8.0 GM/DL Hematocrit 23.3 % Mean Corpuscular Volume 85.9 FL Mean Corpuscular Hemoglobin 29.6 PG Mean Corpuscular Hemoglobin 34.5 % Concent Red Cell Distribution Width 14.3 % Platelet Count 269 TH/MM3 Mean Platelet Volume 8.2 FL Neutrophils (%) (Auto) 82.9 % Lymphocytes (%) (Auto) 7.4 % Monocytes (%) (Auto) 6.5 % Eosinophils (%) (Auto) 2.7 % Basophils (%) (Auto) 0.5 % Neutrophils # (Auto) 11.0 TH/MM3 Lymphocytes # (Auto) 1.0 TH/MM3 Monocytes # (Auto) 0.9 TH/MM3 Eosinophils # (Auto) 0.4 TH/MM3 Basophils # (Auto) 0.1 TH/MM3 CBC Comment DIFF FINAL Differential Comment Laboratory Tests Test 05/04/17 03:42 Sodium Level 137 MEQ/L Potassium Level 3.8 MEQ/L Chloride Level 104 MEQ/L Carbon Dioxide Level 22.0 MEQ/L Anion Gap 11 MEQ/L Blood Urea Nitrogen 23 MG/DL Creatinine 1.84 MG/DL Estimat Glomerular Filtration 36 ML/MIN Rate Random Glucose 60 MG/DL Calcium Level 8.1 MG/DL Total Bilirubin 0.3 MG/DL Aspartate Amino Transf 20 U/L (AST/SGOT) Alanine Aminotransferase 13 U/L (ALT/SGPT) Alkaline Phosphatase 53 U/L Total Protein 6.6 GM/DL Albumin 2.5 GM/DL Imaging Last Impressions Toe X-Ray 04/30/17 0000 Signed Impressions: Service Date/Time: Sunday, April 30, 2017 12:27 - CONCLUSION: Bony destruction involving the first distal phalanx with abnormal soft tissue changes characteristic of osteomyelitis. Jerry Mireles MD Physical Exam CONSTITUTIONAL/GENERAL: This is an adequately nourished patient, in no apparent distress. TUBES/LINES/DRAINS: SKIN: No jaundice, rashes, or lesions. Skin temperature appropriate. Not diaphoretic. HEAD: Atraumatic. Normocephalic. EYES: Pupils equal and round and reactive. Extraocular motions intact. No scleral icterus. No injection or drainage. Fundi not examined. ENT: Hearing grossly normal. Nose without bleeding or purulent drainage. Oral mucosae moist without visible erythema, exudates, masses, or lesions. CARDIOVASCULAR: Regular rate and rhythm without murmurs, gallops, or rubs. No JVD. Peripheral pulses symmetric. RESPIRATORY/CHEST: Symmetric, unlabored respirations. Clear to auscultation. Breath sounds equal bilaterally. No wheezes, rales, or rhonchi. GASTROINTESTINAL: Abdomen soft, non-tender, nondistended. No hepato-splenomegaly , or palpable masses. No guarding. Bowel sounds present. MUSCULOSKELETAL: Extremities without clubbing, cyanosis, or edema. R halluix is black, swollen with fould smelling srous drainage Mild ascending erythema and edema of 1 MT head is noted No ascending lymphangitis/cellulitis NEUROLOGICAL: Awake and alert. Motor and sensory grossly within normal limits. Follows commands. Clear speech. Moves all extremities. PSYCHIATRIC: No obvious anxiety/depression. no apparent hallucinations or other psychotic thought process. 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
[2017-05-05] MEDS ORDERED: Vancomycin Consult Pharmacy 1 EA OTHER SCH (17:15)
[2017-05-05] MEDS ORDERED: VANCOMYCIN INJ 2,000 MG in SODIUM CHLORID 0.9% 500 ML INJ 500 ML IV ONE (18:00)
[2017-05-05] MEDS: PRAVASTATIN SOD 80 MG TAB PO SCH (21:16)
[2017-05-06] VITALS (34 sets, daily range): BP systolic 112–157; BP diastolic 58–85; PULSE 51–94; RESP 17–24; TEMP 97.4–99.8; O2SAT 90–98
[2017-05-06] MEDS: ACETAMINOPHEN/HYDROcodone 325 MG/5 MG TAB PO PRN ×3 (01:29→20:59)
[2017-05-06] MEDS: PIPERACIL-TAZO 3.375 GM PREMIX 50 ML IV SCH ×3 (04:20→21:10)
[2017-05-06] MEDS: INSULIN ASPART SUPPLEMENTAL SCALE SQ SCH ×4 (05:31→21:00)
[2017-05-06 06:57] LABS: INTERNATIONAL NORMALIZED RATIO 2.4 RATIO
[2017-05-06] MEDS: glipiZIDE 5 MG TAB PO SCH ×2 (07:00→17:00)
--- NOTE | 2017-05-06 08:22 | HHI.PR ---
Subjective History of Present Illness Patient feel better Vascular surgeon input noted, s/p lower extremity angiogram. ..noted D/W RN. at bed side. going for amputation of right great toe soon. have INR 2.5 Transfuse 1 more units FFP. Review of Systems Constitutional Constitutional: Fatigue, Weakness Musculoskeletal MS Remarks Redness / swelling blacking and pain of right big toe. Integumentary Skin Remarks Redness / swelling blacking and pain of right big toe. Vitals/Results Intake & Output 05/05/17 05/05/17 05/06/17 14:59 22:59 06:59 Intake Total 4579 ml Output Total 1060 ml Balance 3519 ml Intake Oral 240 ml IV Total 4339 ml Output Urine Total 1060 ml Vital Signs Vital Signs Date Time Temp Pulse Resp B/P Pulse Ox O2 Delivery O2 Flow Rate FiO2 05/06/17 07:00 98.9 80 20 138/66 94 05/06/17 07:00 67 05/06/17 06:12 68 05/06/17 05:00 71 05/06/17 04:00 66 05/06/17 03:06 98.5 79 20 127/62 94 05/06/17 03:00 78 05/06/17 02:00 86 05/06/17 01:17 99.3 22 144/81 95 05/06/17 01:00 98.8 88 22 157/85 92 05/06/17 01:00 94 05/06/17 00:45 99.8 86 23 152/85 96 05/06/17 00:30 99.3 82 21 151/83 96 05/06/17 00:16 98.6 83 22 151/79 98 05/06/17 00:01 98.6 80 24 148/82 90 05/06/17 00:00 78 05/05/17 23:47 97.9 85 22 125/71 92 05/05/17 23:29 98.4 77 23 145/78 93 05/05/17 23:14 99.0 74 22 153/82 97 05/05/17 23:06 99.0 73 22 150/79 92 05/05/17 23:00 78 05/05/17 23:00 98.0 75 17 155/81 95 05/05/17 22:00 76 05/05/17 21:00 82 05/05/17 20:00 80 05/05/17 19:00 69 05/05/17 19:00 98.7 83 16 130/61 97 05/05/17 18:00 80 05/05/17 17:00 72 05/05/17 16:00 98.5 73 18 157/78 99 05/05/17 16:00 78 05/05/17 14:00 74 05/05/17 13:00 68 05/05/17 12:00 98.4 61 18 155/62 98 05/05/17 12:00 64 05/05/17 09:40 18 05/05/17 09:00 84 CBC/BMP: 05/04/17 0342 05/04/17 0342 Lab Results Laboratory Tests Test 05/05/17 05/06/17 20:15 05:30 Blood Type AB POSITIVE Blood Bank Comment Prothrombin Time 28.0 SEC Prothromb Time International 2.4 RATIO Ratio Physical Exam General General Appearance: Well Developed, Well Nourished, No Acute Distress, Comfortable Eyes Eye Exam: Sclera White, Extraocular Movement Intact Throat Throat Exam: Oral Mucosa [place] & Moist, Oral Pharynx Normal Neck Neck Exam: Neck Supple, Trachea Midline Pulmonary Resp Exam: Clear Bilaterally, Breath Sounds Equal Cardiology CV Exam: Regular, Normal Sinus Rhythm Gastrointestinal/Abdomen GI Exam: Soft, Non-Tender Musculoskeletal MS Exam: Normal Tone Integumentary Skin Remarks Erythema / swelling blacking and Tenderness of right big toe. Extremeties Extremeties Remarks Erythema / swelling blacking and Tenderness of right big toe. Neurologic Neuro Exam: Alert, Awake, Oriented, Speech Clear, Moving All Extremities, No Focal Deficits VTE Prophylaxis VTE Prophylaxis Meds: Coumadin PUD Prophylasis PUD Prophylaxis: Protonix Assessment/Plan Assessment/Plan ASSESSMENT/PLAN 1. This is a 76-year male who came to the ER diagnosed with blackening, erythema, pain and swelling of the right great toe rule out osteomyelitis/peripheral vascular disease. Podiatry and vascular surgeon and infectious disease / Cardiology input noted The patient on Zosyn. Further recommendation per salon sales consultant. going for right big toe amputation soon. have INR 2.5 Transfuse 1 more units FFP. 2. Diabetes mellitus, ADA 1800 calorie diet. NovoLog low-dose sliding scale. Check blood sugars. We will monitor blood sugar. 3. Renal failure, creatinine was 1.84, BUN was 37, now BUN of 23 and creatinine 1.84. 4. History of stroke and TIA. The patient was on Coumadin. INR 2.5. holding coumadin We will Monitor PT/ INR Daily..have INR 2.5 Transfuse 1 more units FFP. 5. History of hypertension. Continue home medication. Monitor blood pressure. 6. History of coronary artery disease continue home medication. 7. History of hyperlipidemia. Continue home medications. 8. DVT prophylaxis. The patient was on Coumadin... INR 4.5 today. holding coumadin. have INR 2.5 Transfuse 1 more units FFP. 9. GI prophylaxis, Protonix 40 mg p.o. daily. 10. Leukocytosis secondary to right foot cellulitis will monitor. down trend. 11. No recurrent VT on beta shirin. No angina or CHF symptoms. 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 He refused any cardiology intervention including ICD at this time. He understands the risk of Sudden Cardiac . Proceed with potential revascularization as planned. 12. Hyponatremia will monitor. Check CBC with diff CMP in AM. we are going to manage the patient on a daily basis and make recommendations on a daily basis. Discussed Condition with: Patient Don Kothari MD May 06, 2017 08:22
[2017-05-06] MEDS: SODIUM CHLORIDE 0.9% FLUSH 10 ML FLUSH IV FLUSH SCH ×2 (09:00→20:59)
[2017-05-06] MEDS: METOPROLOL TARTRATE 25 MG TAB PO SCH ×2 (09:42→20:59)
[2017-05-06] MEDS: LISINOPRIL 20 MG TAB PO SCH (09:42)
[2017-05-06] MEDS: DOCUSATE SODIUM 50 MG/SENNA 8.6 MG TAB PO SCH ×2 (09:42→20:58)
[2017-05-06] MEDS: SODIUM CHLOR 0.45% 1000 ML INJ 1,000 ML IV SCH ×2 (13:02→16:40)
--- NOTE | 2017-05-06 13:06 | PD.VS.PN ---
Subjective Subjective/Hospital Course Patient without complaints. Objective Vitals/I&O Date Time Temp Pulse Resp B/P Pulse Ox O2 Delivery O2 Flow Rate FiO2 05/06/17 12:41 81 21 134/75 92 05/06/17 12:30 81 19 140/73 92 05/06/17 12:17 98.4 82 19 140/83 93 05/06/17 12:00 80 05/06/17 11:00 98.8 69 17 136/71 93 05/06/17 11:00 70 05/06/17 10:00 76 05/06/17 09:00 70 05/06/17 08:00 72 05/06/17 07:00 98.9 80 20 138/66 94 05/06/17 07:00 67 05/06/17 06:12 68 05/06/17 05:00 71 05/06/17 04:00 66 05/06/17 03:06 98.5 79 20 127/62 94 05/06/17 03:00 78 05/06/17 02:00 86 05/06/17 01:17 99.3 22 144/81 95 05/06/17 01:00 98.8 88 22 157/85 92 05/06/17 01:00 94 05/06/17 00:45 99.8 86 23 152/85 96 05/06/17 00:30 99.3 82 21 151/83 96 05/06/17 00:16 98.6 83 22 151/79 98 05/06/17 00:01 98.6 80 24 148/82 90 05/06/17 00:00 78 05/05/17 23:47 97.9 85 22 125/71 92 05/05/17 23:29 98.4 77 23 145/78 93 05/05/17 23:14 99.0 74 22 153/82 97 05/05/17 23:06 99.0 73 22 150/79 92 05/05/17 23:00 78 05/05/17 23:00 98.0 75 17 155/81 95 05/05/17 22:00 76 05/05/17 21:00 82 05/05/17 20:00 80 05/05/17 19:00 69 05/05/17 19:00 98.7 83 16 130/61 97 05/05/17 18:00 80 05/05/17 17:00 72 05/05/17 16:00 98.5 73 18 157/78 99 05/05/17 16:00 78 05/05/17 14:00 74 05/06/17 05/06/17 05/06/17 07:00 15:00 23:00 Intake Total 4579 ml Output Total 1060 ml Balance 3519 ml Physical Exam right foot with dressing in place. No malodor. Laboratory Laboratory Tests Test 05/05/17 05/06/17 05/06/17 20:15 05:30 09:40 Blood Type AB POSITIVE Blood Bank Comment Prothrombin Time 28.0 Prothromb Time International 2.4 Ratio Assessment and Plan Assessment: (1) Necrotic toes Status: Acute Plan Right lower extremity Diabetic toe ulcer and non-palpable pulses INR 2.4 after 2 untis of FFP. Getting a third unit this afternoon. He understands that angiogram and toe amputation on hold at this point. Plan for rescheduling later this week. ok to resume diet at this time and continue IV abx. Ricci Zazueta DO, FACS student nurse. Ricci Zazueta DO May 06, 2017 13:06
[2017-05-06] MEDS: VANCOMYCIN 1,000 MG/NS 250 ML IV SCH ×2 (17:25)
--- NOTE | 2017-05-06 20:06 | PD.CARD.PN ---
Subjective Subjective Remarks No CP or SOB, surgery postponed Objective Medications Current Medications Medications (Trade) Dose Ordered Sig/Jorge L Route Start Time Stop Time Status Last Admin (Glucotrol) 5 mg BIDAC PO 04/30/17 16:00 05/06/17 17:00 (Prinivil) 20 mg DAILY PO 05/01/17 09:00 05/06/17 09:42 Pravastatin Sodium 80 mg 80 mg HS PO 04/30/17 21:00 05/05/17 21:16 (1/2 NS 1000 ml Inj) 1,000 ml @ 75 mls/hr [id number] IV 04/30/17 14:00 05/06/17 13:02 (NS Flush) 2 ml UNSCH PRN IV FLUSH 04/30/17 14:00 (NS Flush) 2 ml BID IV FLUSH 04/30/17 21:00 05/05/17 21:16 (Zofran Inj) 4 mg Q6H PRN IVP 04/30/17 14:00 (Narcan Inj) 0.4 mg UNSCH PRN IV 04/30/17 14:00 (Cherrie-Colace) 1 tab BID PO 04/30/17 21:00 05/06/17 09:42 (Milk Of Magnesia Liq) 30 ml Q12H PRN PO 04/30/17 14:00 (Senokot) 17.2 mg Q12H PRN PO 04/30/17 14:00 (Dulcolax Supp) 10 mg DAILY PRN RECTAL 04/30/17 14:00 (Lactulose Liq) 30 ml DAILY PRN PO 04/30/17 14:00 05/02/17 09:09 (D50w (Vial) Inj) 50 ml UNSCH PRN IV 04/30/17 14:00 (Glucagon Inj) 1 mg UNSCH PRN OTHER 04/30/17 14:00 (Santyl Oint) 1 applic DAILY TOPICAL 04/30/17 18:15 05/05/17 09:00 Acetaminophen/ Hydrocodone Bitart 1 tab 1 tab Q4H PRN PO 04/30/17 21:15 05/06/17 17:00 (Zosyn 3.375 Gm Premix) 50 ml @ 100 mls/hr Q8H IV 05/01/17 12:00 05/06/17 12:38 Metoprolol Tartrate 25 mg 25 mg Q12HR PO 05/01/17 21:00 05/06/17 09:42 Pharmacy Profile Note 0 ml @ 0 mls/hr UNSCH OTHER 05/05/17 17:15 (Vancomycin Inj/ NS 250 ml Inj) 250 ml @ 250 mls/hr Q24H IV 05/06/17 18:00 05/06/17 17:25 Miscellaneous Information SPECIFIC LAB TO BE RACHAEL... ONCE ONCE .XX 05/09/17 17:45 05/09/17 17:46 Vital Signs / I&O Vital Signs Date Time Temp Pulse Resp B/P Pulse Ox O2 Delivery O2 Flow Rate FiO2 05/06/17 19:24 98.3 79 19 135/78 92 05/06/17 18:15 20 05/06/17 18:06 80 05/06/17 17:00 67 05/06/17 16:00 75 05/06/17 15:00 51 05/06/17 15:00 97.4 75 18 112/58 94 05/06/17 14:00 87 05/06/17 13:00 71 05/06/17 12:41 81 21 134/75 92 05/06/17 12:30 81 19 140/73 92 05/06/17 12:17 98.4 82 19 140/83 93 05/06/17 12:00 80 05/06/17 11:00 98.8 69 17 136/71 93 05/06/17 11:00 70 05/06/17 10:00 76 05/06/17 09:00 70 05/06/17 08:00 72 05/06/17 07:00 98.9 80 20 138/66 94 05/06/17 07:00 67 05/06/17 06:12 68 05/06/17 05:00 71 05/06/17 04:00 66 05/06/17 03:06 98.5 79 20 127/62 94 05/06/17 03:00 78 05/06/17 02:00 86 05/06/17 01:17 99.3 22 144/81 95 05/06/17 01:00 98.8 88 22 157/85 92 05/06/17 01:00 94 05/06/17 00:45 99.8 86 23 152/85 96 05/06/17 00:30 99.3 82 21 151/83 96 05/06/17 00:16 98.6 83 22 151/79 98 05/06/17 00:01 98.6 80 24 148/82 90 05/06/17 00:00 78 05/05/17 23:47 97.9 85 22 125/71 92 05/05/17 23:29 98.4 77 23 145/78 93 05/05/17 23:14 99.0 74 22 153/82 97 05/05/17 23:06 99.0 73 22 150/79 92 05/05/17 23:00 78 05/05/17 23:00 98.0 75 17 155/81 95 05/05/17 22:00 76 05/05/17 21:00 82 I/O 05/05/17 05/05/17 05/05/17 05/06/17 05/06/17 05/06/17 07:00 15:00 23:00 07:00 15:00 23:00 Intake Total 1455 ml 4579 ml 921 ml Output Total 1995 ml 1060 ml 3 ml Balance -540 ml 3519 ml 918 ml Intake Oral 480 ml 240 ml 600 ml IV Total 975 ml 4339 ml 321 ml Output Urine Total 1995 ml 1060 ml 3 ml # Bowel Movements 0 1 Physical Exam GENERAL: In NAD SKIN: Warm and dry. HEAD: Normocephalic. EYES: No scleral icterus. No injection or drainage. NECK: Supple, trachea midline. No JVD or lymphadenopathy. CARDIOVASCULAR: Regular rate and rhythm without murmurs, gallops, or rubs. RESPIRATORY: Breath sounds equal bilaterally. No accessory muscle use. GASTROINTESTINAL: Abdomen soft, non-tender, nondistended. MUSCULOSKELETAL: No cyanosis, or edema. R foot infection. Laboratory Laboratory Tests Test 05/05/17 05/06/17 05/06/17 20:15 05:30 09:40 Blood Type AB POSITIVE Blood Bank Comment Prothrombin Time 28.0 SEC Prothromb Time International 2.4 RATIO Ratio Imaging Last Impressions Toe X-Ray 04/30/17 0000 Signed Impressions: Service Date/Time: Sunday, April 30, 2017 12:27 - CONCLUSION: Bony destruction involving the first distal phalanx with abnormal soft tissue changes characteristic of osteomyelitis. Jerry Mireles MD Assessment and Plan Problem List: (1) VT (ventricular tachycardia) (2) Coronary artery disease (3) History of coronary artery bypass surgery (4) Sepsis (5) Cellulitis of great toe of right foot (6) Osteomyelitis of toe of right foot (7) PVD (peripheral vascular disease) Assessment and Plan Remains stable. No recurrent VT on beta shirin. No angina or CHF symptoms. 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 He refused any cardiology intervention including ICD at this time. He understands the risk of SCD. Surgery postponed, planned later this week. Landon Mahoney MD May 06, 2017 20:06
[2017-05-06] MEDS: PRAVASTATIN SOD 80 MG TAB PO SCH (20:59)
[2017-05-06] MEDS: COLLAGENASE OINT 30 GM TUBE TOPICAL SCH (22:28)
[2017-05-07] VITALS (33 sets, daily range): BP systolic 140–172; BP diastolic 68–89; PULSE 60–85; RESP 18–21; TEMP 97.7–98.9; O2SAT 93–99
[2017-05-07] MEDS: ACETAMINOPHEN/HYDROcodone 325 MG/5 MG TAB PO PRN ×3 (03:41→20:24)
[2017-05-07] MEDS: PIPERACIL-TAZO 3.375 GM PREMIX 50 ML IV SCH ×2 (03:41→12:24)
[2017-05-07] MEDS: INSULIN ASPART SUPPLEMENTAL SCALE SQ SCH ×4 (05:38→20:26)
[2017-05-07 06:59] LABS: INTERNATIONAL NORMALIZED RATIO 2.4 RATIO; PROTHROMBIN TIME - PATIENT 27.5 SEC (9.8-11.6)
[2017-05-07 07:06] LABS: AUTOMATED NEUTROPHIL # 8.3 TH/MM3 (1.8-7.7); BASOPHIL # 0.1 TH/MM3 (0-0.2); EOSINOPHIL # 0.3 TH/MM3 (0-0.4); EOSINOPHIL % 2.8 % (0.0-4.0); LYMPH % 6.9 % (9.0-44.0); LYMPHOCYTE # 0.7 TH/MM3 (1.0-4.8); MEAN CELL VOLUME 87.1 FL (80.0-100.0); MEAN CORPUSCULAR HEMOGLOBIN 29.3 PG (27.0-34.0); MEAN CORPUSCULAR HGB CONC 33.7 % (32.0-36.0); MONO % 6.5 % (0.0-8.0); NEUT % 82.8 % (16.0-70.0); PLATELET COUNT 250 TH/MM3 (150-450); RED CELL DISTRIBUTION WIDTH 14.7 % (11.6-17.2)
[2017-05-07 07:11] LABS: HEMATOCRIT 20.9 % (39.0-51.0); HEMO FLAGS DIFF FINAL
[2017-05-07 07:32] LABS: ALT (GPT) 114 U/L (12-78); ANION GAP 9 MEQ/L (5-15); AST (GOT) 230 U/L (15-37); BICARBONATE 21.7 MEQ/L (21.0-32.0); BLOOD UREA NITROGEN 33 MG/DL (7-18); CHLORIDE 104 MEQ/L (98-107); GLOMERULAR FILTRATION RATE 32 ML/MIN (>89); POTASSIUM 3.8 MEQ/L (3.5-5.1); SODIUM (NA) 135 MEQ/L (136-145)
[2017-05-07 07:37] LABS: ALKALINE PHOSPHATASE 89 U/L (45-117); TOTAL BILIRUBIN ADULT 0.4 MG/DL (0.2-1.0)
[2017-05-07] MEDS: SODIUM CHLORIDE 0.9% FLUSH 10 ML FLUSH IV FLUSH SCH ×2 (09:00→20:24)
[2017-05-07] MEDS: LISINOPRIL 20 MG TAB PO SCH (09:10)
[2017-05-07] MEDS: DOCUSATE SODIUM 50 MG/SENNA 8.6 MG TAB PO SCH ×2 (09:11→20:24)
[2017-05-07] MEDS: COLLAGENASE OINT 30 GM TUBE TOPICAL SCH (09:11)
[2017-05-07] MEDS: METOPROLOL TARTRATE 25 MG TAB PO SCH ×2 (09:11→20:23)
[2017-05-07] MEDS: glipiZIDE 5 MG TAB PO SCH ×2 (09:12→15:58)
[2017-05-07] MEDS: SODIUM CHLOR 0.45% 1000 ML INJ 1,000 ML IV SCH ×2 (09:12→19:20)
--- NOTE | 2017-05-07 10:12 | HHI.PR ---
Subjective History of Present Illness Patient feel better Vascular surgeon input noted, s/p lower extremity angiogram. ..noted D/W RN. at bed side. going for amputation of right great toe soon. have INR 2.4 Transfuse 1 more units FFP. Have low Hemoglobin will transfuse 2 units PRBC and Check fecal occult blood test. Review of Systems Constitutional Constitutional: Fatigue, Weakness Musculoskeletal MS Remarks Redness / swelling blacking and pain of right big toe. Integumentary Skin Remarks Redness / swelling blacking and pain of right big toe. Vitals/Results Intake & Output 05/06/17 05/06/17 05/07/17 15:00 23:00 07:00 Intake Total 921 ml 1115 ml Output Total 3 ml 300 ml Balance 918 ml 815 ml Intake Oral 600 ml 240 ml IV Total 321 ml 875 ml Output Urine Total 3 ml 300 ml # Bowel Movements 1 Vital Signs Vital Signs Date Time Temp Pulse Resp B/P Pulse Ox O2 Delivery O2 Flow Rate FiO2 05/07/17 09:00 75 05/07/17 08:00 62 05/07/17 07:00 97.8 77 20 142/73 93 05/07/17 07:00 66 05/07/17 06:21 66 05/07/17 05:00 70 05/07/17 04:39 80 05/07/17 03:44 98.2 75 20 140/77 93 05/07/17 02:13 73 05/07/17 02:00 70 05/07/17 01:00 77 05/07/17 00:00 66 05/06/17 23:00 98.8 72 20 140/77 92 05/06/17 23:00 68 05/06/17 22:00 62 05/06/17 21:00 76 05/06/17 20:00 62 05/06/17 19:24 98.3 79 19 135/78 92 05/06/17 19:00 78 05/06/17 18:15 20 05/06/17 18:06 80 05/06/17 17:00 67 05/06/17 16:00 75 05/06/17 15:00 51 05/06/17 15:00 97.4 75 18 112/58 94 05/06/17 14:00 87 05/06/17 13:00 71 05/06/17 12:41 81 21 134/75 92 05/06/17 12:30 81 19 140/73 92 05/06/17 12:17 98.4 82 19 140/83 93 05/06/17 12:00 80 05/06/17 11:00 98.8 69 17 136/71 93 05/06/17 11:00 70 CBC/BMP: 05/07/17 0624 05/07/17 0624 Lab Results Laboratory Tests Test 05/07/17 06:24 White Blood Count 10.0 TH/MM3 Red Blood Count 2.40 MIL/MM3 Hemoglobin 7.0 GM/DL Hematocrit 20.9 % Mean Corpuscular Volume 87.1 FL Mean Corpuscular Hemoglobin 29.3 PG Mean Corpuscular Hemoglobin 33.7 % Concent Red Cell Distribution Width 14.7 % Platelet Count 250 TH/MM3 Mean Platelet Volume 7.6 FL Neutrophils (%) (Auto) 82.8 % Lymphocytes (%) (Auto) 6.9 % Monocytes (%) (Auto) 6.5 % Eosinophils (%) (Auto) 2.8 % Basophils (%) (Auto) 1.0 % Neutrophils # (Auto) 8.3 TH/MM3 Lymphocytes # (Auto) 0.7 TH/MM3 Monocytes # (Auto) 0.7 TH/MM3 Eosinophils # (Auto) 0.3 TH/MM3 Basophils # (Auto) 0.1 TH/MM3 CBC Comment DIFF FINAL Differential Comment Prothrombin Time 27.5 SEC Prothromb Time International 2.4 RATIO Ratio Sodium Level 135 MEQ/L Potassium Level 3.8 MEQ/L Chloride Level 104 MEQ/L Carbon Dioxide Level 21.7 MEQ/L Anion Gap 9 MEQ/L Blood Urea Nitrogen 33 MG/DL Creatinine 2.03 MG/DL Estimat Glomerular Filtration 32 ML/MIN Rate Random Glucose 93 MG/DL Calcium Level 7.9 MG/DL Total Bilirubin 0.4 MG/DL Aspartate Amino Transf 230 U/L (AST/SGOT) Alanine Aminotransferase 114 U/L (ALT/SGPT) Alkaline Phosphatase 89 U/L Total Protein 6.2 GM/DL Albumin 2.3 GM/DL Physical Exam General General Appearance: Well Developed, Well Nourished, No Acute Distress, Comfortable Eyes Eye Exam: Sclera White, Extraocular Movement Intact Throat Throat Exam: Oral Mucosa [place] & Moist, Oral Pharynx Normal Neck Neck Exam: Neck Supple, Trachea Midline Pulmonary Resp Exam: Clear Bilaterally, Breath Sounds Equal Cardiology CV Exam: Regular, Normal Sinus Rhythm Gastrointestinal/Abdomen GI Exam: Soft, Non-Tender Musculoskeletal MS Exam: Normal Tone Integumentary Skin Remarks Erythema / swelling blacking and Tenderness of right big toe. Extremeties Extremeties Remarks Erythema / swelling blacking and Tenderness of right big toe. Neurologic Neuro Exam: Alert, Awake, Oriented, Speech Clear, Moving All Extremities, No Focal Deficits VTE Prophylaxis VTE Prophylaxis Meds: Coumadin PUD Prophylasis PUD Prophylaxis: Protonix Assessment/Plan Assessment/Plan ASSESSMENT/PLAN 1. This is a 76-year male who came to the ER diagnosed with blackening, erythema, pain and swelling of the right great toe rule out osteomyelitis/peripheral vascular disease. Podiatry and vascular surgeon and infectious disease / Cardiology input noted The patient on Zosyn. Further recommendation per analysis consultant. going for right big toe amputation soon. have INR 2.4 Transfuse 1 more units FFP. Have low Hemoglobin will transfuse 2 units PRBC and Check fecal occult blood test. 2. Diabetes mellitus, ADA 1800 calorie diet. NovoLog low-dose sliding scale. Check blood sugars. We will monitor blood sugar. 3. Renal failure, creatinine was 1.84, BUN was 37, now BUN of 33 and creatinine 2.0 4. History of stroke and TIA. The patient was on Coumadin. INR 2.4. holding coumadin We will Monitor PT/ INR Daily. Transfuse 1 more units FFP. 5. History of hypertension. Continue home medication. Monitor blood pressure. 6. History of coronary artery disease continue home medication. 7. History of hyperlipidemia. Continue home medications. 8. DVT prophylaxis. The patient was on Coumadin... INR 2.4 today. holding coumadin. Transfuse 1 more units FFP. 9. GI prophylaxis, Protonix 40 mg p.o. daily. 10. Leukocytosis secondary to right foot cellulitis will monitor. down trend. 11. No recurrent VT on beta shirin. No angina or CHF symptoms. 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 He refused any cardiology intervention including ICD at this time. He understands the risk of Sudden Cardiac . Proceed with potential revascularization as planned. 12. Hyponatremia will monitor. 13. Low Hemoglobin will transfuse 2 units PRBC and Check fecal occult blood test. Check CBC with diff CMP in AM. we are going to manage the patient on a daily basis and make recommendations on a daily basis. Discussed Condition with: Patient Don Kothari MD May 07, 2017 10:12
--- NOTE | 2017-05-07 10:39 | PD.VS.PN ---
Subjective Subjective/Hospital Course Patient laying in bed without complaints A&OX3 NAD Dressing to Right great toe C/D/I Objective Vitals/I&O Date Time Temp Pulse Resp B/P Pulse Ox O2 Delivery O2 Flow Rate FiO2 05/07/17 09:00 75 05/07/17 08:00 62 05/07/17 07:00 97.8 77 20 142/73 93 05/07/17 07:00 66 05/07/17 06:21 66 05/07/17 05:00 70 05/07/17 04:39 80 05/07/17 03:44 98.2 75 20 140/77 93 05/07/17 02:13 73 05/07/17 02:00 70 05/07/17 01:00 77 05/07/17 00:00 66 05/06/17 23:00 98.8 72 20 140/77 92 05/06/17 23:00 68 05/06/17 22:00 62 05/06/17 21:00 76 05/06/17 20:00 62 05/06/17 19:24 98.3 79 19 135/78 92 05/06/17 19:00 78 05/06/17 18:15 20 05/06/17 18:06 80 05/06/17 17:00 67 05/06/17 16:00 75 05/06/17 15:00 51 05/06/17 15:00 97.4 75 18 112/58 94 05/06/17 14:00 87 05/06/17 13:00 71 05/06/17 12:41 81 21 134/75 92 05/06/17 12:30 81 19 140/73 92 05/06/17 12:17 98.4 82 19 140/83 93 05/06/17 12:00 80 05/06/17 11:00 98.8 69 17 136/71 93 05/06/17 11:00 70 05/07/17 05/07/17 05/07/17 07:00 15:00 23:00 Intake Total 1115 ml Output Total 300 ml Balance 815 ml Physical Exam A&OX3 GCS15 Heart: RRR Lungs: CTA Abdomen: S/NT Vascular: Palpable Bilat Femoral pulses Palpable L DP/PT NON palpable R DP/PT R DP/PT with monophasic signals heard via Doppler Malodorous Necrotic R great toe Laboratory Laboratory Tests Test 05/07/17 06:24 White Blood Count 10.0 Red Blood Count 2.40 Hemoglobin 7.0 Hematocrit 20.9 Mean Corpuscular Volume 87.1 Mean Corpuscular Hemoglobin 29.3 Mean Corpuscular Hemoglobin 33.7 Concent Red Cell Distribution Width 14.7 Platelet Count 250 Mean Platelet Volume 7.6 Neutrophils (%) (Auto) 82.8 Lymphocytes (%) (Auto) 6.9 Monocytes (%) (Auto) 6.5 Eosinophils (%) (Auto) 2.8 Basophils (%) (Auto) 1.0 Neutrophils # (Auto) 8.3 Lymphocytes # (Auto) 0.7 Monocytes # (Auto) 0.7 Eosinophils # (Auto) 0.3 Basophils # (Auto) 0.1 CBC Comment DIFF FINAL Differential Comment Prothrombin Time 27.5 Prothromb Time International 2.4 Ratio Sodium Level 135 Potassium Level 3.8 Chloride Level 104 Carbon Dioxide Level 21.7 Anion Gap 9 Blood Urea Nitrogen 33 Creatinine 2.03 Estimat Glomerular Filtration 32 Rate Random Glucose 93 Calcium Level 7.9 Total Bilirubin 0.4 Aspartate Amino Transf 230 (AST/SGOT) Alanine Aminotransferase 114 (ALT/SGPT) Alkaline Phosphatase 89 Total Protein 6.2 Albumin 2.3 Assessment and Plan Assessment: (1) Necrotic toes Status: Acute Plan Right lower extremity Diabetic toe ulcer and non-palpable pulses INR 2.4 after 2 units of FFP. Getting a third unit this afternoon. He understands that angiogram and toe amputation on hold at this point. Plan Pt scheduled for Angiogram tomorrow AM Ok to resume diet NPO after midnight Ordered post op shoe for transfers Changed Right great toe dressing Sarah GERMAIN [facility] [phone] Sarah Brannon May 07, 2017 10:39
--- NOTE | 2017-05-07 12:02 | PD.CARD.PN ---
Subjective Subjective Remarks No CP or SOB, vascular procedure tentatively tomorrow Objective Medications Current Medications Medications (Trade) Dose Ordered Sig/Jorge L Route Start Time Stop Time Status Last Admin (Glucotrol) 5 mg BIDAC PO 04/30/17 16:00 05/07/17 09:12 (Prinivil) 20 mg DAILY PO 05/01/17 09:00 05/07/17 09:10 Pravastatin Sodium 80 mg 80 mg HS PO 04/30/17 21:00 05/06/17 20:59 (1/2 NS 1000 ml Inj) 1,000 ml @ 75 mls/hr [id number] IV 04/30/17 14:00 05/07/17 09:12 (NS Flush) 2 ml UNSCH PRN IV FLUSH 04/30/17 14:00 (NS Flush) 2 ml BID IV FLUSH 04/30/17 21:00 05/05/17 21:16 (Zofran Inj) 4 mg Q6H PRN IVP 04/30/17 14:00 (Narcan Inj) 0.4 mg UNSCH PRN IV 04/30/17 14:00 (Cherrie-Colace) 1 tab BID PO 04/30/17 21:00 05/07/17 09:11 (Milk Of Magnesia Liq) 30 ml Q12H PRN PO 04/30/17 14:00 (Senokot) 17.2 mg Q12H PRN PO 04/30/17 14:00 (Dulcolax Supp) 10 mg DAILY PRN RECTAL 04/30/17 14:00 (Lactulose Liq) 30 ml DAILY PRN PO 04/30/17 14:00 05/02/17 09:09 (D50w (Vial) Inj) 50 ml UNSCH PRN IV 04/30/17 14:00 (Glucagon Inj) 1 mg UNSCH PRN OTHER 04/30/17 14:00 (Santyl Oint) 1 applic DAILY TOPICAL 04/30/17 18:15 05/07/17 09:11 Acetaminophen/ Hydrocodone Bitart 1 tab 1 tab Q4H PRN PO 04/30/17 21:15 05/07/17 09:13 (Zosyn 3.375 Gm Premix) 50 ml @ 100 mls/hr Q8H IV 05/01/17 12:00 05/07/17 03:41 Metoprolol Tartrate 25 mg 25 mg Q12HR PO 05/01/17 21:00 05/07/17 09:11 Pharmacy Profile Note 0 ml @ 0 mls/hr UNSCH OTHER 05/05/17 17:15 (Vancomycin Inj/ NS 250 ml Inj) 250 ml @ 250 mls/hr Q24H IV 05/06/17 18:00 05/06/17 17:25 Miscellaneous Information SPECIFIC LAB TO BE RACHAEL... ONCE ONCE .XX 05/09/17 17:45 05/09/17 17:46 Vital Signs / I&O Vital Signs Date Time Temp Pulse Resp B/P Pulse Ox O2 Delivery O2 Flow Rate FiO2 05/07/17 11:00 97.7 72 20 143/76 98 05/07/17 11:00 70 05/07/17 10:27 19 05/07/17 10:00 79 05/07/17 09:00 75 05/07/17 08:00 62 05/07/17 07:00 97.8 77 20 142/73 93 05/07/17 07:00 66 05/07/17 06:21 66 05/07/17 05:00 70 05/07/17 04:39 80 05/07/17 03:44 98.2 75 20 140/77 93 05/07/17 02:13 73 05/07/17 02:00 70 05/07/17 01:00 77 05/07/17 00:00 66 05/06/17 23:00 98.8 72 20 140/77 92 05/06/17 23:00 68 05/06/17 22:00 62 05/06/17 21:00 76 05/06/17 20:00 62 05/06/17 19:24 98.3 79 19 135/78 92 05/06/17 19:00 78 05/06/17 18:06 80 05/06/17 17:00 67 05/06/17 16:00 75 05/06/17 15:00 51 05/06/17 15:00 97.4 75 18 112/58 94 05/06/17 14:00 87 05/06/17 13:00 71 05/06/17 12:41 81 21 134/75 92 05/06/17 12:30 81 19 140/73 92 05/06/17 12:17 98.4 82 19 140/83 93 I/O 05/06/17 05/06/17 05/06/17 05/07/17 05/07/17 05/07/17 07:00 15:00 23:00 07:00 15:00 23:00 Intake Total 4579 ml 921 ml 1115 ml Output Total 1060 ml 3 ml 300 ml Balance 3519 ml 918 ml 815 ml Intake Oral 240 ml 600 ml 240 ml IV Total 4339 ml 321 ml 875 ml Output Urine Total 1060 ml 3 ml 300 ml # Bowel Movements 1 Physical Exam GENERAL: In NAD SKIN: Warm and dry. HEAD: Normocephalic. EYES: No scleral icterus. No injection or drainage. NECK: Supple, trachea midline. No JVD or lymphadenopathy. CARDIOVASCULAR: Regular rate and rhythm without murmurs, gallops, or rubs. RESPIRATORY: Breath sounds equal bilaterally. No accessory muscle use. GASTROINTESTINAL: Abdomen soft, non-tender, nondistended. MUSCULOSKELETAL: No cyanosis, or edema. R foot infection. Laboratory Laboratory Tests Test 05/07/17 05/07/17 06:24 10:17 White Blood Count 10.0 TH/MM3 Red Blood Count 2.40 MIL/MM3 Hemoglobin 7.0 GM/DL Hematocrit 20.9 % Mean Corpuscular Volume 87.1 FL Mean Corpuscular Hemoglobin 29.3 PG Mean Corpuscular Hemoglobin 33.7 % Concent Red Cell Distribution Width 14.7 % Platelet Count 250 TH/MM3 Mean Platelet Volume 7.6 FL Neutrophils (%) (Auto) 82.8 % Lymphocytes (%) (Auto) 6.9 % Monocytes (%) (Auto) 6.5 % Eosinophils (%) (Auto) 2.8 % Basophils (%) (Auto) 1.0 % Neutrophils # (Auto) 8.3 TH/MM3 Lymphocytes # (Auto) 0.7 TH/MM3 Monocytes # (Auto) 0.7 TH/MM3 Eosinophils # (Auto) 0.3 TH/MM3 Basophils # (Auto) 0.1 TH/MM3 CBC Comment DIFF FINAL Differential Comment Prothrombin Time 27.5 SEC Prothromb Time International 2.4 RATIO Ratio Sodium Level 135 MEQ/L Potassium Level 3.8 MEQ/L Chloride Level 104 MEQ/L Carbon Dioxide Level 21.7 MEQ/L Anion Gap 9 MEQ/L Blood Urea Nitrogen 33 MG/DL Creatinine 2.03 MG/DL Estimat Glomerular Filtration 32 ML/MIN Rate Random Glucose 93 MG/DL Calcium Level 7.9 MG/DL Total Bilirubin 0.4 MG/DL Aspartate Amino Transf 230 U/L (AST/SGOT) Alanine Aminotransferase 114 U/L (ALT/SGPT) Alkaline Phosphatase 89 U/L Total Protein 6.2 GM/DL Albumin 2.3 GM/DL Random Vancomycin Level 19.8 COMMENT Blood Bank Comment Imaging Last Impressions Toe X-Ray 04/30/17 0000 Signed Impressions: Service Date/Time: Sunday, April 30, 2017 12:27 - CONCLUSION: Bony destruction involving the first distal phalanx with abnormal soft tissue changes characteristic of osteomyelitis. Jerry Mireles MD Assessment and Plan Problem List: (1) VT (ventricular tachycardia) (2) Coronary artery disease (3) History of coronary artery bypass surgery (4) Sepsis (5) Cellulitis of great toe of right foot (6) Osteomyelitis of toe of right foot (7) PVD (peripheral vascular disease) Assessment and Plan Remains stable from cardiac standpoint. No recurrent VT on beta shirin. No angina or CHF symptoms. Continue beta shirin for sustained monomorphic VT ( asymptomatic), continue monitoring on tele. He refused any cardiology intervention including ICD at this time. He understands the risk of SCD. Vascular intervention this week. Landon Mahoney MD May 07, 2017 12:02
--- NOTE | 2017-05-07 12:36 | HHI.IDPN ---
Note Infectious Disease Note Patient is without complaints. Afebrile. Denies pain in the right great toe. Revascularization planned. PAST MEDICAL HISTORY 1. Coronary artery disease. 2. History of four vessel bypass surgery. 3. Hypertension. 4. Diabetes mellitus. 5. Hyperlipidemia. 6. TIA. ALLERGIES NO KNOWN DRUG ALLERGIES. ANTIBIOTICS: 1. Piperacillin/tazobactam. 2. Vancomycin. PHYSICAL EXAMINATION GENERAL: No acute distress. He is awake and alert and oriented. HEENT: No icterus. Oropharynx moist mucosa without lesions. Neck: Supple without adenopathy. Lungs: Clear to auscultation. Heart: Regular S1-S2 without audible murmurs. Abdomen: Bowel sounds present, soft, benign. EXTREMITIES: The right great toe has gangrene at the tuft and lateral aspect involving most of the distal aspect of the toe. Redness persist at the base of the toes. 2, 3 and 4, and the dorsum of the foot near the toes. The other extremities have no clubbing, cyanosis or edema. Skin: No diffuse rash. Neuro: Nonfocal. IMPRESSION 7. Osteomyelitis of the right great toe. 8. Diabetic ulceration of the right great toe. 9. Cellulitis of the right great toe . RECOMMENDATIONS 1. Continue with Piperacillin/tazobactam. 2. Follow vanco levels while on vanco. 3. Obtain wound culture. Guerrero Lee MD May 07, 2017 12:36
[2017-05-07] MEDS: PRAVASTATIN SOD 80 MG TAB PO SCH (20:23)
[2017-05-08] VITALS (13 sets, daily range): BP systolic 148–171; BP diastolic 74–84; PULSE 67–80; RESP 18–20; TEMP 97.8–98.3; O2SAT 92–98
[2017-05-08] MEDS: PIPERACIL-TAZO 2.25 GM PREMIX 50 ML IV SCH ×6 (00:20→23:57)
[2017-05-08] MEDS: VANCOMYCIN 1,000 MG/NS 250 ML IV SCH ×2 (01:04)
[2017-05-08 04:00] LABS: AUTOMATED NEUTROPHIL # 9.3 TH/MM3 (1.8-7.7); BASOPHIL # 0.1 TH/MM3 (0-0.2); BASOPHIL % 0.5 % (0.0-2.0); EOSINOPHIL # 0.4 TH/MM3 (0-0.4); EOSINOPHIL % 3.5 % (0.0-4.0); HEMO FLAGS DIFF FINAL; LYMPH % 6.5 % (9.0-44.0); LYMPHOCYTE # 0.7 TH/MM3 (1.0-4.8); MEAN CELL VOLUME 84.9 FL (80.0-100.0); MEAN CORPUSCULAR HEMOGLOBIN 28.5 PG (27.0-34.0); MEAN CORPUSCULAR HGB CONC 33.5 % (32.0-36.0); MONO % 6.2 % (0.0-8.0); NEUT % 83.3 % (16.0-70.0); PLATELET COUNT 256 TH/MM3 (150-450); RED BLOOD COUNT 3.18 MIL/MM3 (4.50-5.90); RED CELL DISTRIBUTION WIDTH 15.7 % (11.6-17.2); WHITE BLOOD COUNT 11.1 TH/MM3 (4.0-11.0)
[2017-05-08] MEDS ORDERED: CHLORHEXIDINE GLUCONATE 2 % 1 PACK (2 CLOTHS) TOPICAL PRN (04:00)
[2017-05-08] MEDS ORDERED: POVIDONE IODINE 5% (ANTISEPSIS KIT) 4 APPLICATIONS EACH NARE PRN (04:00)
[2017-05-08] MEDS ORDERED: SODIUM CHLORID 0.9% 500 ML IV PRN (04:00)
[2017-05-08] MEDS ORDERED: LACTATED RINGER'S 1000 ML IV PRN (04:00)
[2017-05-08 04:09] LABS: PROTHROMBIN TIME - PATIENT 22.9 SEC (9.8-11.6)
[2017-05-08 04:21] LABS: ALT (GPT) 86 U/L (12-78); ANION GAP 10 MEQ/L (5-15); AST (GOT) 108 U/L (15-37); BICARBONATE 23.2 MEQ/L (21.0-32.0); BLOOD UREA NITROGEN 32 MG/DL (7-18); CHLORIDE 105 MEQ/L (98-107); GLOMERULAR FILTRATION RATE 32 ML/MIN (>89); POTASSIUM 4.1 MEQ/L (3.5-5.1); SODIUM (NA) 138 MEQ/L (136-145)
[2017-05-08 04:25] LABS: ALKALINE PHOSPHATASE 91 U/L (45-117); TOTAL BILIRUBIN ADULT 0.7 MG/DL (0.2-1.0)
[2017-05-08] MEDS: glipiZIDE 5 MG TAB PO SCH ×2 (06:17→16:00)
[2017-05-08] MEDS: INSULIN ASPART SUPPLEMENTAL SCALE SQ SCH ×4 (06:17→20:54)
[2017-05-08] MEDS ORDERED: FAMOTIDINE 20 MG/2 ML VIAL ONE (06:34)
[2017-05-08] MEDS ORDERED: DEXAMETHASONE SOD PHOS 4 MG/ML VIAL ONE (06:34)
[2017-05-08] MEDS ORDERED: HEPARIN SODIUM - IV 10,000 UNITS/10 ML VIAL ONE (07:10)
[2017-05-08] MEDS ORDERED: BUPIVACAINE HCL PF 0.5% 30 ML VIAL ONE (07:11)
[2017-05-08] MEDS ORDERED: PROTAMINE SULFATE 50 MG/5 ML VIAL ONE (07:11)
[2017-05-08] MEDS ORDERED: VANCOMYCIN HCL 1000 MG VIAL ONE (07:11)
[2017-05-08] MEDS ORDERED: THROMBIN (TOPICAL) 20,000 UNIT SPRAY KIT ONE (07:11)
[2017-05-08] MEDS ORDERED: ceFAZolin 2 GM PREMIX 50 ML ONE (07:11)
[2017-05-08] MEDS ORDERED: IOHEXOL 350 MG/ML 50 ML BTL (for RAD DIAG) OTHER ONE (08:20)
[2017-05-08] MEDS: SODIUM CHLOR 0.45% 1000 ML INJ 1,000 ML IV SCH ×2 (08:40→23:11)
--- NOTE | 2017-05-08 08:44 | HHI.PR ---
Subjective History of Present Illness Patient feel better Vascular surgeon input noted, S/P Aortogram w/ R LE angiogram and TPT orbital atherectomy and BOTTLE HOP (3mm) and L MEDICAL ASSISTANT SUPERVISOR angioseal 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 have INR 2.0 Transfuse 1 more units FFP. Have low Hemoglobin s/p transfusion of 2 units PRBC and Check fecal occult blood test. Review of Systems Constitutional Constitutional: Fatigue, Weakness Musculoskeletal MS Remarks S/P Aortogram w/ R LE angiogram and TPT orbital atherectomy and BOTTLE HOP (3mm) and L MEDICAL ASSISTANT SUPERVISOR angioseal 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 Integumentary Skin Remarks S/P Aortogram w/ R LE angiogram and TPT orbital atherectomy and BOTTLE HOP (3mm) and L MEDICAL ASSISTANT SUPERVISOR angioseal 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 Vitals/Results Intake & Output 05/07/17 05/07/17 05/08/17 15:00 23:00 07:00 Intake Total 1139 ml Output Total 825 ml 800 ml Balance -825 ml 339 ml Intake Oral 240 ml IV Total 299 ml Packed Cells 350 ml FFP 250 ml Output Urine Total 825 ml 800 ml Vital Signs Vital Signs Date Time Temp Pulse Resp B/P Pulse Ox O2 Delivery O2 Flow Rate FiO2 05/08/17 06:00 72 05/08/17 05:00 72 05/08/17 04:00 77 05/08/17 04:00 97.9 80 20 166/74 92 05/08/17 03:00 70 05/08/17 02:00 70 05/08/17 01:00 68 05/08/17 00:00 98.3 67 18 148/75 93 05/08/17 00:00 68 05/07/17 23:05 98.9 71 20 143/72 94 05/07/17 23:00 68 05/07/17 22:00 70 05/07/17 21:00 74 05/07/17 20:00 79 05/07/17 20:00 98.2 77 18 156/83 99 05/07/17 19:00 76 05/07/17 18:39 76 20 146/70 98 05/07/17 18:20 97.9 81 20 158/68 96 05/07/17 18:10 97.8 85 21 165/85 97 05/07/17 18:00 85 05/07/17 17:30 98.4 79 20 172/86 96 05/07/17 17:00 80 05/07/17 16:11 72 05/07/17 15:17 97.9 71 20 147/89 95 05/07/17 15:04 97.7 72 19 156/88 95 05/07/17 15:04 97.7 72 19 156/88 95 05/07/17 15:00 72 05/07/17 14:41 98.2 70 19 155/86 97 05/07/17 14:00 72 05/07/17 13:00 60 05/07/17 12:00 64 05/07/17 11:00 97.7 72 20 143/76 98 05/07/17 11:00 70 05/07/17 10:27 19 05/07/17 10:00 79 05/07/17 09:00 75 CBC/BMP: 05/08/17 0329 05/08/17 0329 Lab Results Laboratory Tests Test 05/07/17 05/07/17 05/08/17 05/08/17 10:17 12:06 03:29 05:29 Blood Bank Comment [facility] Blood Type AB POSITIVE Antibody Screen NEGATIVE Crossmatch Leukocyte-Reduced Red Blood Cells White Blood Count 11.1 TH/MM3 Red Blood Count 3.18 MIL/MM3 Hemoglobin 9.1 GM/DL Hematocrit 27.0 % Mean Corpuscular Volume 84.9 FL Mean Corpuscular Hemoglobin 28.5 PG Mean Corpuscular Hemoglobin 33.5 % Concent Red Cell Distribution Width 15.7 % Platelet Count 256 TH/MM3 Mean Platelet Volume 7.7 FL Neutrophils (%) (Auto) 83.3 % Lymphocytes (%) (Auto) 6.5 % Monocytes (%) (Auto) 6.2 % Eosinophils (%) (Auto) 3.5 % Basophils (%) (Auto) 0.5 % Neutrophils # (Auto) 9.3 TH/MM3 Lymphocytes # (Auto) 0.7 TH/MM3 Monocytes # (Auto) 0.7 TH/MM3 Eosinophils # (Auto) 0.4 TH/MM3 Basophils # (Auto) 0.1 TH/MM3 CBC Comment DIFF FINAL Differential Comment Prothrombin Time 22.9 SEC Prothromb Time International 2.0 RATIO Ratio Sodium Level 138 MEQ/L Potassium Level 4.1 MEQ/L Chloride Level 105 MEQ/L Carbon Dioxide Level 23.2 MEQ/L Anion Gap 10 MEQ/L Blood Urea Nitrogen 32 MG/DL Creatinine 2.02 MG/DL Estimat Glomerular Filtration 32 ML/MIN Rate Random Glucose 67 MG/DL Calcium Level 8.2 MG/DL Total Bilirubin 0.7 MG/DL Aspartate Amino Transf 108 U/L (AST/SGOT) Alanine Aminotransferase 86 U/L (ALT/SGPT) Alkaline Phosphatase 91 U/L Total Protein 6.7 GM/DL Albumin 2.5 GM/DL Microbiology Microbiology 05/07/17 Gram Stain, Received Pending 05/07/17 Wound Culture, Received Pending Physical Exam General General Appearance: Well Developed, Well Nourished, No Acute Distress, Comfortable Eyes Eye Exam: Sclera White, Extraocular Movement Intact Throat Throat Exam: Oral Mucosa [place] & Moist, Oral Pharynx Normal Neck Neck Exam: Neck Supple, Trachea Midline Pulmonary Resp Exam: Clear Bilaterally, Breath Sounds Equal Cardiology CV Exam: Regular, Normal Sinus Rhythm Gastrointestinal/Abdomen GI Exam: Soft, Non-Tender Musculoskeletal MS Exam: Normal Tone MS Remarks S/P Aortogram w/ R LE angiogram and TPT orbital atherectomy and BOTTLE HOP (3mm) and L MEDICAL ASSISTANT SUPERVISOR angioseal 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 Integumentary Skin Remarks S/P Aortogram w/ R LE angiogram and TPT orbital atherectomy and BOTTLE HOP (3mm) and L MEDICAL ASSISTANT SUPERVISOR angioseal 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 Extremeties Extremeties Remarks S/P Aortogram w/ R LE angiogram and TPT orbital atherectomy and BOTTLE HOP (3mm) and L MEDICAL ASSISTANT SUPERVISOR angioseal 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 This is a 76-year male who came to the ER diagnosed with blackening, erythema, pain and swelling of the right great toe rule out osteomyelitis/peripheral vascular disease. Podiatry and vascular surgeon and infectious disease / Cardiology input noted The patient on Zosyn. Further recommendation per specification consultant. S/P Aortogram w/ R LE angiogram and TPT orbital atherectomy and BOTTLE HOP (3mm) and L MEDICAL ASSISTANT SUPERVISOR angioseal 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 . have INR 2.0 s/p Transfusion 4 units FFP. Have low Hemoglobin s/p transfusion 2 units PRBC and Check fecal occult blood test. 2. Diabetes mellitus, ADA 1800 calorie diet. NovoLog low-dose sliding scale. Check blood sugars. We will monitor blood sugar. 3. Renal failure, creatinine was 1.84, BUN was 37, now BUN of 32 and creatinine 2.0 4. History of stroke and TIA. The patient was on Coumadin. INR 2.0. holding coumadin We will Monitor PT/ INR Daily. Transfuse 1 more units FFP. 5. History of hypertension. Continue home medication. Monitor blood pressure. 6. History of coronary artery disease continue home medication. 7. History of hyperlipidemia. Continue home medications. 8. DVT prophylaxis. The patient was on Coumadin... INR 2.0 today. holding coumadin. S/P Transfusion of 4 units FFP. 9. GI prophylaxis, Protonix 40 mg p.o. daily. 10. Leukocytosis secondary to right foot cellulitis will monitor. down trend. 11. No recurrent VT on beta shirin. No angina or CHF symptoms. 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 He refused any cardiology intervention including ICD at this time. He understands the risk of Sudden Cardiac . Proceed with potential revascularization as planned. 12. Hyponatremia will monitor. 13. Low Hemoglobin S/P transfusion of 2 units PRBC and Check fecal occult blood test. Check CBC with diff CMP in AM. we are going to manage the patient on a daily basis and make recommendations on a daily basis. Discussed Condition with: Patient Don Kothari MD May 08, 2017 08:44
[2017-05-08] MEDS ORDERED: VERAPAMIL HCL 5 MG/2 ML VIAL ONE (08:51)
[2017-05-08] MEDS: SODIUM CHLORIDE 0.9% FLUSH 10 ML FLUSH IV FLUSH SCH ×2 (09:00→20:46)
[2017-05-08] MEDS: COLLAGENASE OINT 30 GM TUBE TOPICAL SCH (09:00)
--- NOTE | 2017-05-08 10:05 | HHI.PR ---
Immediate Post Op Note Procedure Date: May 08, 2017 Pre Op Diagnosis: PAD, diabetic toe infection Post Op Diagnosis: PAD, diabetic toe infection Surgeon: Jose Juan Tinsley Commutator Presser(s): Fermin Rosales Procedure: 1. Aortogram w/ R LE angiogram 2. TPT orbital atherectomy and SOLDERING MACHINE OPERATOR (3mm) 3. L MACHINE MAINTENANCE MECHANIC angioseal 4. 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 Findings: TPT calcific lesion, recanalized and SOLDERING MACHINE OPERATOR very diseased PT runoff, decent AT Necrotic toe, decent perfusion after intervention Additional Information: If toe amputation site fails to heal, will need repeat endovascular intervention and possible open surgical bypass Complications: none apparent Specimen(s) removed: R great toe and metatarsal head Estimated blood loss: 15mL Anesthesia: LMA Drains: None Fluids: 650mL IVF Patient to: PACU Patient Condition: Good Implant/Devices: SEE IMPLANT LOG (if applicable) Date/Time of Procedure: SEE SURGICAL CARE RECORD Jose Juan Tinsley MD May 08, 2017 10:05
[2017-05-08] MEDS ORDERED: DO NOT ADM ANY ANTICOAGULANT DRUGS PRN (10:06)
[2017-05-08] MEDS ORDERED: *morphine SULFATE 8 MG/ML PERIprocedure ONLY ONE (10:31)
[2017-05-08] MEDS: DOCUSATE SODIUM 50 MG/SENNA 8.6 MG TAB PO SCH ×2 (11:02→20:46)
[2017-05-08] MEDS: LISINOPRIL 20 MG TAB PO SCH (11:02)
[2017-05-08] MEDS: METOPROLOL TARTRATE 25 MG TAB PO SCH ×2 (11:02→20:46)
[2017-05-08] MEDS ORDERED: PROPOFOL 200 MG/20 ML AMP IV ONE (11:48)
[2017-05-08] MEDS ORDERED: ONDANSETRON HCL 4 MG/2 ML VIAL IV PUSH ONE (11:48)
[2017-05-08] MEDS ORDERED: ACETAMINOPHEN 1000 MG/100 ML VIAL IV ONE (11:48)
[2017-05-08] MEDS ORDERED: SODIUM CHLOR 0.9% 250 ML INJ 250 ML IV ONE (11:48)
[2017-05-08] MEDS ORDERED: ePHEDrine/NS 25 MG/5 ML SYR IV ONE (11:48)
[2017-05-08] MEDS ORDERED: NITROGLYCERIN 50 MG/10 ML VIAL IV ONE (11:57)
[2017-05-08] MEDS: ACETAMINOPHEN/HYDROcodone 325 MG/5 MG TAB PO PRN ×2 (12:24→16:45)
--- NOTE | 2017-05-08 15:23 | PD.CARD.PN ---
Subjective Subjective Remarks No CP or SOB, tolerated surgery well Objective Medications Current Medications Medications (Trade) Dose Ordered Sig/Jorge L Route Start Time Stop Time Status Last Admin (Glucotrol) 5 mg BIDAC PO 04/30/17 16:00 05/07/17 15:58 (Prinivil) 20 mg DAILY PO 05/01/17 09:00 05/08/17 11:02 Pravastatin Sodium 80 mg 80 mg HS PO 04/30/17 21:00 05/07/17 20:23 (1/2 NS 1000 ml Inj) 1,000 ml @ 75 mls/hr [id number] IV 04/30/17 14:00 05/08/17 08:40 (NS Flush) 2 ml UNSCH PRN IV FLUSH 04/30/17 14:00 (NS Flush) 2 ml BID IV FLUSH 04/30/17 21:00 05/08/17 09:00 (Zofran Inj) 4 mg Q6H PRN IVP 04/30/17 14:00 (Narcan Inj) 0.4 mg UNSCH PRN IV 04/30/17 14:00 (Cherrie-Colace) 1 tab BID PO 04/30/17 21:00 05/08/17 11:02 (Milk Of Magnesia Liq) 30 ml Q12H PRN PO 04/30/17 14:00 (Senokot) 17.2 mg Q12H PRN PO 04/30/17 14:00 (Dulcolax Supp) 10 mg DAILY PRN RECTAL 04/30/17 14:00 (Lactulose Liq) 30 ml DAILY PRN PO 04/30/17 14:00 05/02/17 09:09 (D50w (Vial) Inj) 50 ml UNSCH PRN IV 04/30/17 14:00 (Glucagon Inj) 1 mg UNSCH PRN OTHER 04/30/17 14:00 (Santyl Oint) 1 applic DAILY TOPICAL 04/30/17 18:15 05/07/17 09:11 (Kerrick 5-325 Mg) 1 tab Q4H PRN PO 04/30/17 21:15 05/08/17 12:24 Metoprolol Tartrate 25 mg 25 mg Q12HR PO 05/01/17 21:00 05/08/17 11:02 Pharmacy Profile Note 0 ml @ 0 mls/hr UNSCH OTHER 05/05/17 17:15 Vancomycin HCl 1000 mg/Sodium Chloride 250 ml @ 250 mls/hr Q24H IV 05/06/17 18:00 Hold 05/08/17 01:04 Piperacillin Sod/ Tazobactam Sod 50 ml @ 100 mls/hr Q6H IV 05/07/17 18:00 05/08/17 12:24 Lactated Ringer's 1,000 ml @ 30 mls/hr Q24H PRN IV 05/08/17 04:00 05/11/17 03:59 (NS 500 ml Inj) 500 ml @ 30 mls/hr [id number] PRN IV 05/08/17 04:00 05/11/17 03:59 Miscellaneous Information ALL NURSING DEPARTME... UNSCH PRN .XX 05/08/17 10:06 05/09/17 10:05 Vital Signs / I&O Vital Signs Date Time Temp Pulse Resp B/P Pulse Ox O2 Delivery O2 Flow Rate FiO2 05/08/17 15:16 18 05/08/17 10:45 97.7 72 18 175/80 98 Nasal Cannula 3 05/08/17 10:30 72 27 173/85 98 Nasal Cannula 3 05/08/17 10:15 72 21 167/78 97 Nasal Cannula 3 05/08/17 10:00 98.3 72 18 168/78 98 Nasal Cannula 3 05/08/17 06:00 72 05/08/17 05:00 72 05/08/17 04:00 77 05/08/17 04:00 97.9 80 20 166/74 92 05/08/17 03:00 70 05/08/17 02:00 70 05/08/17 01:00 68 05/08/17 00:00 98.3 67 18 148/75 93 05/08/17 00:00 68 05/07/17 23:05 98.9 71 20 143/72 94 05/07/17 23:00 68 05/07/17 22:00 70 05/07/17 21:00 74 05/07/17 20:00 79 05/07/17 20:00 98.2 77 18 156/83 99 05/07/17 19:00 76 05/07/17 18:39 76 20 146/70 98 05/07/17 18:20 97.9 81 20 158/68 96 05/07/17 18:10 97.8 85 21 165/85 97 05/07/17 18:00 85 05/07/17 17:30 98.4 79 20 172/86 96 05/07/17 17:00 80 05/07/17 16:11 72 I/O 05/07/17 05/07/17 05/07/17 05/08/17 05/08/17 05/08/17 07:00 15:00 23:00 07:00 15:00 23:00 Intake Total 1115 ml 1139 ml 892 ml Output Total 300 ml 825 ml 800 ml 500 ml Balance 815 ml -825 ml 339 ml 392 ml Intake Oral 240 ml 240 ml 0 ml IV Total 875 ml 299 ml 50 ml Packed Cells 350 ml FFP 250 ml 192 ml Other 650 ml Output Urine Total 300 ml 825 ml 800 ml 500 ml Physical Exam GENERAL: In NAD SKIN: Warm and dry. HEAD: Normocephalic. EYES: No scleral icterus. No injection or drainage. NECK: Supple, trachea midline. No JVD or lymphadenopathy. CARDIOVASCULAR: Regular rate and rhythm without murmurs, gallops, or rubs. RESPIRATORY: Breath sounds equal bilaterally. No accessory muscle use. GASTROINTESTINAL: Abdomen soft, non-tender, nondistended. MUSCULOSKELETAL: No cyanosis, or edema. R foot infection. Laboratory Laboratory Tests Test 05/08/17 05/08/17 03:29 05:29 White Blood Count 11.1 TH/MM3 Red Blood Count 3.18 MIL/MM3 Hemoglobin 9.1 GM/DL Hematocrit 27.0 % Mean Corpuscular Volume 84.9 FL Mean Corpuscular Hemoglobin 28.5 PG Mean Corpuscular Hemoglobin 33.5 % Concent Red Cell Distribution Width 15.7 % Platelet Count 256 TH/MM3 Mean Platelet Volume 7.7 FL Neutrophils (%) (Auto) 83.3 % Lymphocytes (%) (Auto) 6.5 % Monocytes (%) (Auto) 6.2 % Eosinophils (%) (Auto) 3.5 % Basophils (%) (Auto) 0.5 % Neutrophils # (Auto) 9.3 TH/MM3 Lymphocytes # (Auto) 0.7 TH/MM3 Monocytes # (Auto) 0.7 TH/MM3 Eosinophils # (Auto) 0.4 TH/MM3 Basophils # (Auto) 0.1 TH/MM3 CBC Comment DIFF FINAL Differential Comment Prothrombin Time 22.9 SEC Prothromb Time International 2.0 RATIO Ratio Sodium Level 138 MEQ/L Potassium Level 4.1 MEQ/L Chloride Level 105 MEQ/L Carbon Dioxide Level 23.2 MEQ/L Anion Gap 10 MEQ/L Blood Urea Nitrogen 32 MG/DL Creatinine 2.02 MG/DL Estimat Glomerular Filtration 32 ML/MIN Rate Random Glucose 67 MG/DL Calcium Level 8.2 MG/DL Total Bilirubin 0.7 MG/DL Aspartate Amino Transf 108 U/L (AST/SGOT) Alanine Aminotransferase 86 U/L (ALT/SGPT) Alkaline Phosphatase 91 U/L Total Protein 6.7 GM/DL Albumin 2.5 GM/DL Blood Bank Comment Imaging Last Impressions Toe X-Ray 04/30/17 0000 Signed Impressions: Service Date/Time: Sunday, April 30, 2017 12:27 - CONCLUSION: Bony destruction involving the first distal phalanx with abnormal soft tissue changes characteristic of osteomyelitis. Jerry Mireles MD Assessment and Plan Problem List: (1) VT (ventricular tachycardia) (2) Coronary artery disease (3) History of coronary artery bypass surgery (4) Sepsis (5) Cellulitis of great toe of right foot (6) Osteomyelitis of toe of right foot (7) PVD (peripheral vascular disease) Assessment and Plan Tolerated surgery well. Remains stable from cardiac standpoint. No recurrent VT on beta shirin. No angina or CHF symptoms. Continue beta shirin for sustained monomorphic VT (asymptomatic), continue monitoring on tele. He refused any cardiology intervention including ICD at this time. He understands the risk of SCD. D/w pt and family. Landon Mahoney MD May 08, 2017 15:23
[2017-05-08] MEDS: PRAVASTATIN SOD 80 MG TAB PO SCH (20:45)
[2017-05-09] VITALS (16 sets, daily range): BP systolic 148–184; BP diastolic 63–92; PULSE 60–88; RESP 18–20; TEMP 97.5–97.9; O2SAT 95–98
[2017-05-09] MEDS: PIPERACIL-TAZO 2.25 GM PREMIX 50 ML IV SCH ×3 (05:13→18:00)
[2017-05-09] MEDS: INSULIN ASPART SUPPLEMENTAL SCALE SQ SCH ×4 (05:44→21:08)
[2017-05-09 06:47] LABS: AUTOMATED NEUTROPHIL # 10.1 TH/MM3 (1.8-7.7); BASOPHIL # 0.1 TH/MM3 (0-0.2); BASOPHIL % 0.5 % (0.0-2.0); EOSINOPHIL # 0.2 TH/MM3 (0-0.4); EOSINOPHIL % 1.8 % (0.0-4.0); HEMATOCRIT 25.7 % (39.0-51.0); HEMO FLAGS DIFF FINAL; LYMPH % 5.8 % (9.0-44.0); LYMPHOCYTE # 0.7 TH/MM3 (1.0-4.8); MEAN CELL VOLUME 84.6 FL (80.0-100.0); MEAN CORPUSCULAR HEMOGLOBIN 28.7 PG (27.0-34.0); MONO % 5.7 % (0.0-8.0); NEUT % 86.2 % (16.0-70.0); PLATELET COUNT 269 TH/MM3 (150-450); RED BLOOD COUNT 3.04 MIL/MM3 (4.50-5.90); RED CELL DISTRIBUTION WIDTH 15.6 % (11.6-17.2); WHITE BLOOD COUNT 11.8 TH/MM3 (4.0-11.0)
[2017-05-09 06:51] LABS: INTERNATIONAL NORMALIZED RATIO 2.4 RATIO; PROTHROMBIN TIME - PATIENT 28.1 SEC (9.8-11.6)
[2017-05-09] MEDS: glipiZIDE 5 MG TAB PO SCH ×2 (07:00→16:00)
[2017-05-09 07:19] LABS: ALKALINE PHOSPHATASE 83 U/L (45-117); ALT (GPT) 68 U/L (12-78); ANION GAP 10 MEQ/L (5-15); AST (GOT) 58 U/L (15-37); BICARBONATE 22.6 MEQ/L (21.0-32.0); BLOOD UREA NITROGEN 33 MG/DL (7-18); CHLORIDE 102 MEQ/L (98-107); GLOMERULAR FILTRATION RATE 31 ML/MIN (>89); POTASSIUM 3.9 MEQ/L (3.5-5.1); SODIUM (NA) 135 MEQ/L (136-145); TOTAL BILIRUBIN ADULT 0.4 MG/DL (0.2-1.0)
--- NOTE | 2017-05-09 07:29 | MP ---
cc: DEMI TINSLEY MD DATE OF SURGERY 05/08/2017 PREOPERATIVE DIAGNOSES 1. Diabetic toe infection. 2. Peripheral vascular occlusive disease. POSTOPERATIVE DIAGNOSES 1. Diabetic toe infection. 2. Peripheral vascular occlusive disease. PROCEDURE 1. Aortogram with right lower extremity angiogram. 2. Right tibioperoneal trunk orbital atherectomy. 3. Right TP trunk angioplasty with 3-mm balloon. 4. Left common femoral artery Angio-Seal. 5. Right open right first open ray amputation. ATTENDING SURGEON Demi Tinsley MD ANESTHESIA General. INDICATIONS Mr. Doherty is a 76-year-old gentleman with diabetes and peripheral arterial occlusive disease, nonpalpable pulses and an obviously infected gangrenous toe. He is taken to the operating room for angiographic evaluation and toe amputation. There is no prior catheter-based imaging available for my review. DESCRIPTION OF PROCEDURE Informed consent was obtained. The patient was taken to the operating room and placed supine on the operating room table. An appropriate time-out was taken to identify the patient, the operative site and the planned procedure. The administration of antibiotics was not necessary as the patient was on systemic vancomycin and Zosyn and these will be continued postoperatively for ongoing therapy. He was on appropriate dosages and intervals and so had therapeutic levels. Everyone in the room agreed with the time-out and we proceeded. He was placed under general anesthesia. The bilateral groins and right leg were prepped and draped. A 21-gauge micropuncture needle was used to access the left common femoral artery. This was exchanged using Seldinger technique through the micropuncture sheath through which a 0.035 Glidewire was introduced. The micropuncture sheath was exchanged for a 4-[place] sheath and a VCF catheter was placed over the wire and through the sheath. An aortogram was taken through the VCF catheter and the Glidewire was introduced, navigated down to the right common femoral artery. The VCF catheter was advanced over this and a right lower extremity arteriogram was obtained. The patient was systemically heparinized with 5000 units of IV heparin. A 0.035 Torres wire was introduced down to the popliteal artery and the VCF catheter and 4-[place] sheath were removed. A 6-[place]icar[place]uan, 90-cm sheath was introduced and passed down to the distal right SFA. A CXI catheter was placed over this and a 0.014 GRAVURE PRESS SET UP OPERATOR wire was used in exchange for the Torres wire. The wire was unable to traverse the lesion and as such a 0.018 CXI catheter was placed through the 0.035 CXI catheter and over the 0.014 GRAVURE PRESS SET UP OPERATOR wire and we were able to navigate up to the middle of the lesion. The wire was exchanged for a different wire and this was able to traverse the lesion. The 0.018 CXI was then advanced over this and the wire was exchanged for a Viper wire. Both CXI catheters were removed and an orbital atherectomy device was introduced over the Viper wire. The tibioperoneal trunk was atherectomized without difficulty and the device was removed. A 3-mm angioplasty balloon was used to angioplasty the recanalized artery and a completion angiogram showed reasonable result without any embolic complication. The wire, catheter and sheath were removed and the groin was closed with AngioSeal. The images of the aorta showed the aorta to be widely patent without any hemodynamically significant stenoses of the aorta, bilateral common iliac arteries, hypogastric arteries or external iliac arteries. The right common femoral artery and profunda are patent. The SFA is patent. None of these have any hemodynamically significant stenoses. The right popliteal artery is patent. The tibioperoneal trunk is occluded immediately at the trifurcation but reconstitutes. The anterior tibial artery runs off to the foot and the peroneal artery terminates in the mid to distal calf. The posterior tibial artery was very diseased and terminates at the ankle. After atherectomy and angioplasty at the tibial trifurcation there is recanalization of what appears to subintimal plane without any extravasation and much better more improved flow through this region. We then turned our attention to the toe amputation and incision was made at the base of the first toe, carried down through the subcutaneous tissue with electrocautery. The metatarsophalangeal joint space was entered and the toe was amputated. An oscillating saw was then used to amputate the distal aspect of metatarsal head and the skin was then also debrided back with sharp dissection. The wound was irrigated, made hemostatic, wrapped in a Kerlix and the patient was transported to the recovery room in stable condition. I was present and scrubbed and performed the entire procedure. MD CORNELL Atkins/SHAHID /4:56 PM /7:03 AM MTDKarina
--- NOTE | 2017-05-09 08:47 | PD.VS.PN ---
Subjective POD #: 1 Procedure(s): Aortogram w/ R LE angiogram TPT orbital atherectomy and ENVIRONMENTAL ENGINEERING AIDE 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 Subjective/Hospital Course Pt sitting in chair Pain controlled Dressing to Right foot I/C/D Objective Vitals/I&O Date Time Temp Pulse Resp B/P Pulse Ox O2 Delivery O2 Flow Rate FiO2 05/09/17 06:00 66 05/09/17 05:00 68 05/09/17 04:00 70 05/09/17 03:17 97.6 71 20 153/63 96 05/09/17 03:00 88 05/09/17 02:00 64 05/09/17 01:00 64 05/09/17 01:00 20 05/09/17 00:00 72 05/08/17 23:37 97.8 70 20 151/79 97 05/08/17 23:00 68 05/08/17 22:00 68 05/08/17 21:00 74 05/08/17 20:00 74 05/08/17 19:00 69 05/08/17 19:00 98.0 72 20 171/84 98 05/08/17 10:45 97.7 72 18 175/80 98 Nasal Cannula 3 05/08/17 10:30 72 27 173/85 98 Nasal Cannula 3 05/08/17 10:15 72 21 167/78 97 Nasal Cannula 3 05/08/17 10:00 98.3 72 18 168/78 98 Nasal Cannula 3 05/09/17 05/09/17 05/09/17 06:59 14:59 22:59 Intake Total 1140 ml Output Total 475 ml Balance 665 ml Exam: GENERAL: A&OX3,NAD SKIN: Warm and dry/ Right great toe amputation site w/o swelling/ skin macerated near borders of wound MUSCULOSKELETAL: No cyanosis, or edema. BLE warm with motor intact Laboratory Laboratory Tests Test 05/09/17 06:08 White Blood Count 11.8 Red Blood Count 3.04 Hemoglobin 8.7 Hematocrit 25.7 Mean Corpuscular Volume 84.6 Mean Corpuscular Hemoglobin 28.7 Mean Corpuscular Hemoglobin 34.0 Concent Red Cell Distribution Width 15.6 Platelet Count 269 Mean Platelet Volume 8.1 Neutrophils (%) (Auto) 86.2 Lymphocytes (%) (Auto) 5.8 Monocytes (%) (Auto) 5.7 Eosinophils (%) (Auto) 1.8 Basophils (%) (Auto) 0.5 Neutrophils # (Auto) 10.1 Lymphocytes # (Auto) 0.7 Monocytes # (Auto) 0.7 Eosinophils # (Auto) 0.2 Basophils # (Auto) 0.1 CBC Comment DIFF FINAL Differential Comment Prothrombin Time 28.1 Prothromb Time International 2.4 Ratio Sodium Level 135 Potassium Level 3.9 Chloride Level 102 Carbon Dioxide Level 22.6 Anion Gap 10 Blood Urea Nitrogen 33 Creatinine 2.12 Estimat Glomerular Filtration 31 Rate Random Glucose 168 Calcium Level 8.0 Total Bilirubin 0.4 Aspartate Amino Transf 58 (AST/SGOT) Alanine Aminotransferase 68 (ALT/SGPT) Alkaline Phosphatase 83 Total Protein 7.0 Albumin 2.6 Random Vancomycin Level 15.8 Date/Time Procedure Status Source Growth 05/07/17 12:30 Gram Stain - Final Complete Wound Toe 05/07/17 12:30 Wound Culture - Final Complete Providencia Stuartii Assessment and Plan Assessment: (1) Necrotic toes Status: Acute Plan Plan Apply post op shoe for transfers Continue daily wound care D/C Martinez Cath Notify if patient has not voided in 6 hours post removal Sarah GERMAIN [facility] [phone] Sarah Brannon May 09, 2017 08:47
[2017-05-09] MEDS: SODIUM CHLORIDE 0.9% FLUSH 10 ML FLUSH IV FLUSH SCH ×2 (09:00→21:04)
[2017-05-09] MEDS: COLLAGENASE OINT 30 GM TUBE TOPICAL SCH (09:00)
[2017-05-09] MEDS: LISINOPRIL 20 MG TAB PO SCH (09:20)
[2017-05-09] MEDS: METOPROLOL TARTRATE 25 MG TAB PO SCH ×2 (09:20→21:03)
[2017-05-09] MEDS: DOCUSATE SODIUM 50 MG/SENNA 8.6 MG TAB PO SCH ×2 (09:20→21:00)
[2017-05-09] MEDS: ACETAMINOPHEN/HYDROcodone 325 MG/5 MG TAB PO PRN ×3 (09:20→20:00)
--- NOTE | 2017-05-09 09:51 | HHI.PR ---
Subjective History of Present Illness Patient feel better Vascular surgeon input noted, S/P Aortogram w/ R LE angiogram and TPT orbital atherectomy and ENDODONTICS DENTIST (3mm) and L FOAM CUTTING SUPERVISOR angioseal 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 have INR 2.0 Transfuse 1 more units FFP. Have low Hemoglobin s/p transfusion of 2 units PRBC and Check fecal occult blood test.have non sustained run of V- Tach cardiology following. 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 Vitals/Results Intake & Output 05/08/17 05/08/17 05/09/17 15:00 23:00 07:00 Intake Total 892 ml 1140 ml Output Total 500 ml 475 ml Balance 392 ml 665 ml Intake Oral 0 ml 240 ml IV Total 50 ml 900 ml FFP 192 ml Other 650 ml Output Urine Total 500 ml 475 ml Emesis 0 ml # Bowel Movements 0 Vital Signs Vital Signs Date Time Temp Pulse Resp B/P Pulse Ox O2 Delivery O2 Flow Rate FiO2 05/09/17 06:00 66 05/09/17 05:00 68 05/09/17 04:00 70 05/09/17 03:17 97.6 71 20 153/63 96 05/09/17 03:00 88 05/09/17 02:00 64 05/09/17 01:00 64 05/09/17 01:00 20 05/09/17 00:00 72 05/08/17 23:37 97.8 70 20 151/79 97 05/08/17 23:00 68 05/08/17 22:00 68 05/08/17 21:00 74 05/08/17 20:00 74 05/08/17 19:00 69 05/08/17 19:00 98.0 72 20 171/84 98 05/08/17 10:45 97.7 72 18 175/80 98 Nasal Cannula 3 05/08/17 10:30 72 27 173/85 98 Nasal Cannula 3 05/08/17 10:15 72 21 167/78 97 Nasal Cannula 3 05/08/17 10:00 98.3 72 18 168/78 98 Nasal Cannula 3 CBC/BMP: 05/09/17 0608 05/09/17 0608 Lab Results Laboratory Tests Test 05/09/17 06:08 White Blood Count 11.8 TH/MM3 Red Blood Count 3.04 MIL/MM3 Hemoglobin 8.7 GM/DL Hematocrit 25.7 % Mean Corpuscular Volume 84.6 FL Mean Corpuscular Hemoglobin 28.7 PG Mean Corpuscular Hemoglobin 34.0 % Concent Red Cell Distribution Width 15.6 % Platelet Count 269 TH/MM3 Mean Platelet Volume 8.1 FL Neutrophils (%) (Auto) 86.2 % Lymphocytes (%) (Auto) 5.8 % Monocytes (%) (Auto) 5.7 % Eosinophils (%) (Auto) 1.8 % Basophils (%) (Auto) 0.5 % Neutrophils # (Auto) 10.1 TH/MM3 Lymphocytes # (Auto) 0.7 TH/MM3 Monocytes # (Auto) 0.7 TH/MM3 Eosinophils # (Auto) 0.2 TH/MM3 Basophils # (Auto) 0.1 TH/MM3 CBC Comment DIFF FINAL Differential Comment Prothrombin Time 28.1 SEC Prothromb Time International 2.4 RATIO Ratio Sodium Level 135 MEQ/L Potassium Level 3.9 MEQ/L Chloride Level 102 MEQ/L Carbon Dioxide Level 22.6 MEQ/L Anion Gap 10 MEQ/L Blood Urea Nitrogen 33 MG/DL Creatinine 2.12 MG/DL Estimat Glomerular Filtration 31 ML/MIN Rate Random Glucose 168 MG/DL Calcium Level 8.0 MG/DL Total Bilirubin 0.4 MG/DL Aspartate Amino Transf 58 U/L (AST/SGOT) Alanine Aminotransferase 68 U/L (ALT/SGPT) Alkaline Phosphatase 83 U/L Total Protein 7.0 GM/DL Albumin 2.6 GM/DL Random Vancomycin Level 15.8 COMMENT Physical Exam General General Appearance: Well Developed, Well Nourished, No Acute Distress, Comfortable Eyes Eye Exam: Sclera White, Extraocular Movement Intact Throat Throat Exam: Oral Mucosa [place] & Moist, Oral Pharynx Normal Neck Neck Exam: Neck Supple, Trachea Midline Pulmonary Resp Exam: Clear Bilaterally, Breath Sounds Equal Cardiology CV Exam: Regular, Normal Sinus Rhythm Gastrointestinal/Abdomen GI Exam: Soft, Non-Tender Musculoskeletal MS Exam: Normal Tone MS Remarks S/P Aortogram w/ R LE angiogram and TPT orbital atherectomy and ENDODONTICS DENTIST (3mm) and L FOAM CUTTING SUPERVISOR angioseal 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 Integumentary Skin Remarks S/P Aortogram w/ R LE angiogram and TPT orbital atherectomy and ENDODONTICS DENTIST (3mm) and L FOAM CUTTING SUPERVISOR angioseal 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 This is a 76-year male who came to the ER diagnosed with blackening, erythema, pain and swelling of the right great toe rule out osteomyelitis/peripheral vascular disease. Podiatry and vascular surgeon and infectious disease / Cardiology input noted The patient on Zosyn. Further recommendation per oncology consultant. 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 have INR 2.4 s/p Transfusion 4 units FFP. Have low Hemoglobin s/p transfusion 2 units PRBC and Check fecal occult blood test. 2. Diabetes mellitus, ADA 1800 calorie diet. NovoLog low-dose sliding scale. Check blood sugars. We will monitor blood sugar. 3. Renal failure, creatinine was 1.84, BUN was 37, now BUN of 33 and creatinine 2.1 4. History of stroke and TIA. The patient was on Coumadin. INR 2.4. holding coumadin We will Monitor PT/ INR Daily. Transfuse 1 more units FFP. 5. History of hypertension. Continue home medication. Monitor blood pressure. 6. History of coronary artery disease continue home medication. 7. History of hyperlipidemia. Continue home medications. 8. DVT prophylaxis. The patient was on Coumadin... INR 2.4 today. holding coumadin. S/P Transfusion of 4 units FFP. 9. GI prophylaxis, Protonix 40 mg p.o. daily. 10. Leukocytosis secondary to right foot cellulitis will monitor. down trend. 11. No recurrent VT on beta shirin. No angina or CHF symptoms. 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 He refused any cardiology intervention including ICD at this time. He understands the risk of Sudden Cardiac . Proceed with potential revascularization as planned. 12. Hyponatremia will monitor. 13. Low Hemoglobin S/P transfusion of 2 units PRBC and Check fecal occult blood test. Check CBC with diff CMP in AM. we are going to manage the patient on a daily basis and make recommendations on a daily basis. Discussed Condition with: Patient Don Kothari MD May 09, 2017 09:51
[2017-05-09] MEDS: SODIUM CHLOR 0.45% 1000 ML INJ 1,000 ML IV SCH (11:20)
[2017-05-09] MEDS ORDERED: VANCOMYCIN INJ 1,500 MG in SODIUM CHLORID 0.9% 500 ML INJ 500 ML IV ONE (12:00)
--- NOTE | 2017-05-09 13:42 | PD.CARD.PN ---
Subjective Subjective Remarks No CP or SOB, tolerated surgery well, tele w episodes of VT Objective Medications Current Medications Medications (Trade) Dose Ordered Sig/Jorge L Route Start Time Stop Time Status Last Admin (Glucotrol) 5 mg BIDAC PO 04/30/17 16:00 05/09/17 07:00 (Prinivil) 20 mg DAILY PO 05/01/17 09:00 05/09/17 09:20 Pravastatin Sodium 80 mg 80 mg HS PO 04/30/17 21:00 05/08/17 20:45 (1/2 NS 1000 ml Inj) 1,000 ml @ 75 mls/hr [id number] IV 04/30/17 14:00 05/08/17 23:11 (NS Flush) 2 ml UNSCH PRN IV FLUSH 04/30/17 14:00 (NS Flush) 2 ml BID IV FLUSH 04/30/17 21:00 05/09/17 09:00 (Zofran Inj) 4 mg Q6H PRN IVP 04/30/17 14:00 (Narcan Inj) 0.4 mg UNSCH PRN IV 04/30/17 14:00 (Cherrie-Colace) 1 tab BID PO 04/30/17 21:00 05/09/17 09:20 (Milk Of Magnesia Liq) 30 ml Q12H PRN PO 04/30/17 14:00 (Senokot) 17.2 mg Q12H PRN PO 04/30/17 14:00 (Dulcolax Supp) 10 mg DAILY PRN RECTAL 04/30/17 14:00 (Lactulose Liq) 30 ml DAILY PRN PO 04/30/17 14:00 05/02/17 09:09 (D50w (Vial) Inj) 50 ml UNSCH PRN IV 04/30/17 14:00 (Glucagon Inj) 1 mg UNSCH PRN OTHER 04/30/17 14:00 (Santyl Oint) 1 applic DAILY TOPICAL 04/30/17 18:15 05/07/17 09:11 ([place] 5-325 Mg) 1 tab Q4H PRN PO 04/30/17 21:15 05/09/17 09:20 Metoprolol Tartrate 25 mg 25 mg Q12HR PO 05/01/17 21:00 05/09/17 09:20 Pharmacy Profile Note 0 ml @ 0 mls/hr UNSCH OTHER 05/05/17 17:15 Piperacillin Sod/ Tazobactam Sod 50 ml @ 100 mls/hr Q6H IV 05/07/17 18:00 05/09/17 05:13 Lactated Ringer's 1,000 ml @ 30 mls/hr Q24H PRN IV 05/08/17 04:00 05/11/17 03:59 Sodium Chloride 500 ml @ 30 mls/hr [id number] PRN IV 05/08/17 04:00 05/11/17 03:59 (Vancomycin Inj/ NS 500 ml Inj) 515 ml @ 250 mls/hr ONCE ONCE IV 05/09/17 12:00 05/09/17 14:03 Vital Signs / I&O Vital Signs Date Time Temp Pulse Resp B/P Pulse Ox O2 Delivery O2 Flow Rate FiO2 05/09/17 12:00 97.8 67 20 150/88 98 05/09/17 08:00 97.5 72 20 148/79 96 05/09/17 06:00 66 05/09/17 05:00 68 05/09/17 04:00 70 05/09/17 03:17 97.6 71 20 153/63 96 05/09/17 03:00 88 05/09/17 02:00 64 05/09/17 01:00 64 05/09/17 01:00 20 05/09/17 00:00 72 05/08/17 23:37 97.8 70 20 151/79 97 05/08/17 23:00 68 05/08/17 22:00 68 05/08/17 21:00 74 05/08/17 20:00 74 05/08/17 19:00 69 05/08/17 19:00 98.0 72 20 171/84 98 I/O 05/08/17 05/08/17 05/08/17 05/09/17 05/09/17 05/09/17 07:00 15:00 23:00 07:00 15:00 23:00 Intake Total 1139 ml 892 ml 1140 ml Output Total 800 ml 500 ml 475 ml Balance 339 ml 392 ml 665 ml Intake Oral 240 ml 0 ml 240 ml IV Total 299 ml 50 ml 900 ml Packed Cells 350 ml FFP 250 ml 192 ml Other 650 ml Output Urine Total 800 ml 500 ml 475 ml Emesis 0 ml # Bowel Movements 0 Physical Exam GENERAL: In NAD SKIN: Warm and dry. HEAD: Normocephalic. EYES: No scleral icterus. No injection or drainage. NECK: Supple, trachea midline. No JVD or lymphadenopathy. CARDIOVASCULAR: Regular rate and rhythm without murmurs, gallops, or rubs. RESPIRATORY: Breath sounds equal bilaterally. No accessory muscle use. GASTROINTESTINAL: Abdomen soft, non-tender, nondistended. MUSCULOSKELETAL: No cyanosis, or edema. R foot infection. Laboratory Laboratory Tests Test 05/07/17 05/08/17 05/09/17 12:06 05:29 06:08 Blood Type AB POSITIVE Antibody Screen NEGATIVE Crossmatch Leukocyte-Reduced Red Blood Cells Blood Bank Comment White Blood Count 11.8 TH/MM3 Red Blood Count 3.04 MIL/MM3 Hemoglobin 8.7 GM/DL Hematocrit 25.7 % Mean Corpuscular Volume 84.6 FL Mean Corpuscular Hemoglobin 28.7 PG Mean Corpuscular Hemoglobin 34.0 % Concent Red Cell Distribution Width 15.6 % Platelet Count 269 TH/MM3 Mean Platelet Volume 8.1 FL Neutrophils (%) (Auto) 86.2 % Lymphocytes (%) (Auto) 5.8 % Monocytes (%) (Auto) 5.7 % Eosinophils (%) (Auto) 1.8 % Basophils (%) (Auto) 0.5 % Neutrophils # (Auto) 10.1 TH/MM3 Lymphocytes # (Auto) 0.7 TH/MM3 Monocytes # (Auto) 0.7 TH/MM3 Eosinophils # (Auto) 0.2 TH/MM3 Basophils # (Auto) 0.1 TH/MM3 CBC Comment DIFF FINAL Differential Comment Prothrombin Time 28.1 SEC Prothromb Time International 2.4 RATIO Ratio Sodium Level 135 MEQ/L Potassium Level 3.9 MEQ/L Chloride Level 102 MEQ/L Carbon Dioxide Level 22.6 MEQ/L Anion Gap 10 MEQ/L Blood Urea Nitrogen 33 MG/DL Creatinine 2.12 MG/DL Estimat Glomerular Filtration 31 ML/MIN Rate Random Glucose 168 MG/DL Calcium Level 8.0 MG/DL Total Bilirubin 0.4 MG/DL Aspartate Amino Transf 58 U/L (AST/SGOT) Alanine Aminotransferase 68 U/L (ALT/SGPT) Alkaline Phosphatase 83 U/L Total Protein 7.0 GM/DL Albumin 2.6 GM/DL Random Vancomycin Level 15.8 COMMENT Imaging Last Impressions Toe X-Ray 04/30/17 0000 Signed Impressions: Service Date/Time: Sunday, April 30, 2017 12:27 - CONCLUSION: Bony destruction involving the first distal phalanx with abnormal soft tissue changes characteristic of osteomyelitis. Jerry Mireles MD Assessment and Plan Problem List: (1) VT (ventricular tachycardia) (2) Coronary artery disease (3) History of coronary artery bypass surgery (4) Sepsis (5) Cellulitis of great toe of right foot (6) Osteomyelitis of toe of right foot (7) PVD (peripheral vascular disease) Assessment and Plan Tolerated surgery well. Tele with recurrent VT on beta shirin (asymptomatic). No angina or CHF symptoms. Increase beta shirin for sustained monomorphic VT ( asymptomatic), continue monitoring on tele. He refused any cardiology intervention including ICD at this time. He understands the risk of SCD. Landon Mahoney MD May 09, 2017 13:42
[2017-05-09] MEDS ORDERED: PHARMACY ORDERED LAB ONE (17:45)
[2017-05-09] MEDS: PRAVASTATIN SOD 80 MG TAB PO SCH (21:05)
[2017-05-10] VITALS (26 sets, daily range): BP systolic 152–192; BP diastolic 69–94; PULSE 62–83; RESP 18–20; TEMP 97.4–98; O2SAT 93–97
[2017-05-10] MEDS: PIPERACIL-TAZO 2.25 GM PREMIX 50 ML IV SCH ×4 (00:04→16:31)
[2017-05-10] MEDS: SODIUM CHLOR 0.45% 1000 ML INJ 1,000 ML IV SCH ×2 (04:45→16:31)
[2017-05-10] MEDS: INSULIN ASPART SUPPLEMENTAL SCALE SQ SCH ×4 (06:39→20:11)
[2017-05-10] MEDS: glipiZIDE 5 MG TAB PO SCH ×2 (07:00→16:00)
[2017-05-10 08:01] LABS: INTERNATIONAL NORMALIZED RATIO 2.2 RATIO
[2017-05-10 08:10] LABS: AUTOMATED NEUTROPHIL # 7.8 TH/MM3 (1.8-7.7); BASOPHIL # 0.1 TH/MM3 (0-0.2); EOSINOPHIL # 0.8 TH/MM3 (0-0.4); EOSINOPHIL % 7.5 % (0.0-4.0); HEMATOCRIT 27.7 % (39.0-51.0); LYMPH % 7.5 % (9.0-44.0); LYMPHOCYTE # 0.8 TH/MM3 (1.0-4.8); MEAN CELL VOLUME 86.1 FL (80.0-100.0); MEAN CORPUSCULAR HEMOGLOBIN 29.1 PG (27.0-34.0); MEAN CORPUSCULAR HGB CONC 33.8 % (32.0-36.0); MONO % 6.9 % (0.0-8.0); NEUT % 77.1 % (16.0-70.0); PLATELET COUNT 279 TH/MM3 (150-450); RED BLOOD COUNT 3.22 MIL/MM3 (4.50-5.90); RED CELL DISTRIBUTION WIDTH 15.8 % (11.6-17.2); WHITE BLOOD COUNT 10.2 TH/MM3 (4.0-11.0)
[2017-05-10 08:26] LABS: HEMO FLAGS AUTO DIFF
[2017-05-10 08:28] LABS: ALT (GPT) 56 U/L (12-78); AST (GOT) 41 U/L (15-37); BLOOD UREA NITROGEN 31 MG/DL (7-18); GLOMERULAR FILTRATION RATE 31 ML/MIN (>89)
--- NOTE | 2017-05-10 08:51 | PD.CARD.PN ---
Subjective Subjective Remarks Current Medications Medications (Trade) Dose Ordered Sig/Jorge L Route Start Time Stop Time Status Last Admin (Glucotrol) 5 mg BIDAC PO 04/30/17 16:00 05/09/17 16:00 (Prinivil) 20 mg DAILY PO 05/01/17 09:00 05/09/17 09:20 Pravastatin Sodium 80 mg 80 mg HS PO 04/30/17 21:00 05/09/17 21:05 (1/2 NS 1000 ml Inj) 1,000 ml @ 75 mls/hr [id number] IV 04/30/17 14:00 05/10/17 04:45 (NS Flush) 2 ml UNSCH PRN IV FLUSH 04/30/17 14:00 (NS Flush) 2 ml BID IV FLUSH 04/30/17 21:00 05/09/17 21:04 (Zofran Inj) 4 mg Q6H PRN IVP 04/30/17 14:00 (Narcan Inj) 0.4 mg UNSCH PRN IV 04/30/17 14:00 (Cherrie-Colace) 1 tab BID PO 04/30/17 21:00 05/09/17 09:20 (Milk Of Magnesia Liq) 30 ml Q12H PRN PO 04/30/17 14:00 (Senokot) 17.2 mg Q12H PRN PO 04/30/17 14:00 (Dulcolax Supp) 10 mg DAILY PRN RECTAL 04/30/17 14:00 (Lactulose Liq) 30 ml DAILY PRN PO 04/30/17 14:00 05/02/17 09:09 (D50w (Vial) Inj) 50 ml UNSCH PRN IV 04/30/17 14:00 (Glucagon Inj) 1 mg UNSCH PRN OTHER 04/30/17 14:00 (Santyl Oint) 1 applic DAILY TOPICAL 04/30/17 18:15 05/07/17 09:11 Acetaminophen/ Hydrocodone Bitart 1 tab 1 tab Q4H PRN PO 04/30/17 21:15 05/09/17 20:00 Pharmacy Profile Note 0 ml @ 0 mls/hr UNSCH OTHER 05/05/17 17:15 Piperacillin Sod/ Tazobactam Sod 50 ml @ 100 mls/hr Q6H IV 05/07/17 18:00 05/10/17 06:36 Lactated Ringer's 1,000 ml @ 30 mls/hr Q24H PRN IV 05/08/17 04:00 05/11/17 03:59 (NS 500 ml Inj) 500 ml @ 30 mls/hr [id number] PRN IV 05/08/17 04:00 05/11/17 03:59 (Lopressor) 50 mg Q12HR PO 05/09/17 21:00 05/09/17 21:03 Objective Medications Current Medications Medications (Trade) Dose Ordered Sig/Jorge L Route Start Time Stop Time Status Last Admin (Glucotrol) 5 mg BIDAC PO 04/30/17 16:00 05/09/17 16:00 (Prinivil) 20 mg DAILY PO 05/01/17 09:00 05/09/17 09:20 Pravastatin Sodium 80 mg 80 mg HS PO 04/30/17 21:00 05/09/17 21:05 (1/2 NS 1000 ml Inj) 1,000 ml @ 75 mls/hr [id number] IV 04/30/17 14:00 05/10/17 04:45 (NS Flush) 2 ml UNSCH PRN IV FLUSH 04/30/17 14:00 (NS Flush) 2 ml BID IV FLUSH 04/30/17 21:00 05/09/17 21:04 (Zofran Inj) 4 mg Q6H PRN IVP 04/30/17 14:00 (Narcan Inj) 0.4 mg UNSCH PRN IV 04/30/17 14:00 (Cherrie-Colace) 1 tab BID PO 04/30/17 21:00 05/09/17 09:20 (Milk Of Magnesia Liq) 30 ml Q12H PRN PO 04/30/17 14:00 (Senokot) 17.2 mg Q12H PRN PO 04/30/17 14:00 (Dulcolax Supp) 10 mg DAILY PRN RECTAL 04/30/17 14:00 (Lactulose Liq) 30 ml DAILY PRN PO 04/30/17 14:00 05/02/17 09:09 (D50w (Vial) Inj) 50 ml UNSCH PRN IV 04/30/17 14:00 (Glucagon Inj) 1 mg UNSCH PRN OTHER 04/30/17 14:00 (Santyl Oint) 1 applic DAILY TOPICAL 04/30/17 18:15 05/07/17 09:11 Acetaminophen/ Hydrocodone Bitart 1 tab 1 tab Q4H PRN PO 04/30/17 21:15 05/09/17 20:00 Pharmacy Profile Note 0 ml @ 0 mls/hr UNSCH OTHER 05/05/17 17:15 Piperacillin Sod/ Tazobactam Sod 50 ml @ 100 mls/hr Q6H IV 05/07/17 18:00 05/10/17 06:36 Lactated Ringer's 1,000 ml @ 30 mls/hr Q24H PRN IV 05/08/17 04:00 05/11/17 03:59 (NS 500 ml Inj) 500 ml @ 30 mls/hr [id number] PRN IV 05/08/17 04:00 05/11/17 03:59 (Lopressor) 50 mg Q12HR PO 05/09/17 21:00 05/09/17 21:03 Vital Signs / I&O Vital Signs Date Time Temp Pulse Resp B/P Pulse Ox O2 Delivery O2 Flow Rate FiO2 05/10/17 08:00 73 05/10/17 07:55 97.8 81 18 186/94 93 05/10/17 07:00 73 05/10/17 06:00 69 05/10/17 05:00 77 05/10/17 04:00 65 05/10/17 03:30 97.6 69 18 152/72 95 05/10/17 03:00 67 05/10/17 02:00 64 05/10/17 01:00 66 05/10/17 00:00 97.4 76 18 159/76 96 05/10/17 00:00 62 05/09/17 23:00 60 05/09/17 22:00 68 05/09/17 21:00 88 05/09/17 20:00 97.9 78 18 184/92 97 05/09/17 20:00 76 05/09/17 19:00 74 05/09/17 16:00 97.8 68 20 175/88 95 05/09/17 12:00 97.8 67 20 150/88 98 I/O 05/09/17 05/09/17 05/09/17 05/10/1718/17 8/18/17 07:00 15:00 23:00 07:00 15:00 23:00 Intake Total 1140 ml 940 ml Output Total 475 ml 1350 ml Balance 665 ml -410 ml Intake Oral 240 ml 240 ml IV Total 900 ml 700 ml Output Urine Total 475 ml 1350 ml Emesis 0 ml # Bowel Movements 0 0 Physical Exam GENERAL: In NAD SKIN: Warm and dry. HEAD: Normocephalic. EYES: No scleral icterus. No injection or drainage. NECK: Supple, trachea midline. No JVD or lymphadenopathy. CARDIOVASCULAR: Regular rate and rhythm without murmurs, gallops, or rubs. RESPIRATORY: Breath sounds equal bilaterally. No accessory muscle use. GASTROINTESTINAL: Abdomen soft, non-tender, nondistended. MUSCULOSKELETAL: No cyanosis, or edema. R foot infection. Laboratory Laboratory Tests Test 05/10/17 06:47 White Blood Count 10.2 TH/MM3 Red Blood Count 3.22 MIL/MM3 Hemoglobin 9.4 GM/DL Hematocrit 27.7 % Mean Corpuscular Volume 86.1 FL Mean Corpuscular Hemoglobin 29.1 PG Mean Corpuscular Hemoglobin 33.8 % Concent Red Cell Distribution Width 15.8 % Platelet Count 279 TH/MM3 Mean Platelet Volume 8.0 FL Neutrophils (%) (Auto) 77.1 % Lymphocytes (%) (Auto) 7.5 % Monocytes (%) (Auto) 6.9 % Eosinophils (%) (Auto) 7.5 % Basophils (%) (Auto) 1.0 % Neutrophils # (Auto) 7.8 TH/MM3 Lymphocytes # (Auto) 0.8 TH/MM3 Monocytes # (Auto) 0.7 TH/MM3 Eosinophils # (Auto) 0.8 TH/MM3 Basophils # (Auto) 0.1 TH/MM3 CBC Comment AUTO DIFF Prothrombin Time 25.0 SEC Prothromb Time International 2.2 RATIO Ratio Carbon Dioxide Level 25.0 MEQ/L Blood Urea Nitrogen 31 MG/DL Creatinine 2.09 MG/DL Estimat Glomerular Filtration 31 ML/MIN Rate Random Glucose 76 MG/DL Calcium Level 8.3 MG/DL Aspartate Amino Transf 41 U/L (AST/SGOT) Alanine Aminotransferase 56 U/L (ALT/SGPT) Albumin 2.7 GM/DL Imaging Last Impressions Toe X-Ray 04/30/17 0000 Signed Impressions: Service Date/Time: Sunday, April 30, 2017 12:27 - CONCLUSION: Bony destruction involving the first distal phalanx with abnormal soft tissue changes characteristic of osteomyelitis. Jerry Mireles MD Assessment and Plan Problem List: (1) VT (ventricular tachycardia) (2) Coronary artery disease (3) History of coronary artery bypass surgery (4) Sepsis (5) Cellulitis of great toe of right foot (6) Osteomyelitis of toe of right foot (7) PVD (peripheral vascular disease) Assessment and Plan No cardiac symptoms. Tele with recurrent episodes of sustained monomorphic VT ( asymptomatic). He refused any cardiology intervention including ICD at this time. Continue beta shirin. He understands the risk of SCD. Continue current program. Landon Mahoney MD May 10, 2017 08:51
[2017-05-10 08:55] LABS: ANION GAP 7 MEQ/L (5-15); CHLORIDE 107 MEQ/L (98-107); POTASSIUM 3.8 MEQ/L (3.5-5.1); SODIUM (NA) 139 MEQ/L (136-145)
[2017-05-10] MEDS: COLLAGENASE OINT 30 GM TUBE TOPICAL SCH (09:00)
[2017-05-10] MEDS: DOCUSATE SODIUM 50 MG/SENNA 8.6 MG TAB PO SCH ×2 (09:09→20:10)
[2017-05-10] MEDS: LISINOPRIL 20 MG TAB PO SCH (09:09)
[2017-05-10 09:14] LABS: ALKALINE PHOSPHATASE 80 U/L (45-117); TOTAL BILIRUBIN ADULT 0.3 MG/DL (0.2-1.0)
[2017-05-10] MEDS: METOPROLOL TARTRATE 25 MG TAB PO SCH ×2 (09:17→20:10)
[2017-05-10] MEDS: SODIUM CHLORIDE 0.9% FLUSH 10 ML FLUSH IV FLUSH SCH ×2 (09:18→20:11)
[2017-05-10 09:20] LABS: BANDS 4 % (0-6); BASOPHILS 1 % (0-2); EOSINOPHILS 12 % (0-4); METAMYELOCYTES 1 % (0-1); MYELOCYTES 2 % (0-0); NEUTROPHIL # MANUAL DIFF 7.9 TH/MM3 (1.8-7.7); PLATELET ESTIMATE SMEAR NORMAL (NORMAL); PLATELET MORPHOLOGY NORMAL (NORMAL); POLYS (SEG NEUTROPHILS) 70 % (16-70); SCAN/DIFF FINAL DIFF MANUAL; WBC DIFF SAMPLE 100
--- NOTE | 2017-05-10 09:51 | HHI.PR ---
Subjective History of Present Illness Patient feel better no acute issue. Review of Systems Constitutional Constitutional: Fatigue, Weakness Musculoskeletal MS Remarks S/P Aortogram w/ R LE angiogram and TPT orbital atherectomy and GRADE TEACHER (3mm) and L CHANNEL MARKETING MANAGER angioseal 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 Integumentary Skin Remarks S/P Aortogram w/ R LE angiogram and TPT orbital atherectomy and GRADE TEACHER (3mm) and L CHANNEL MARKETING MANAGER angioseal 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 Vitals/Results Intake & Output 05/09/17 05/09/17 05/10/17 14:59 22:59 06:59 Intake Total 940 ml Output Total 1350 ml Balance -410 ml Intake Oral 240 ml IV Total 700 ml Output Urine Total 1350 ml # Bowel Movements 0 Vital Signs Vital Signs Date Time Temp Pulse Resp B/P Pulse Ox O2 Delivery O2 Flow Rate FiO2 05/10/17 09:00 83 05/10/17 08:00 73 05/10/17 07:55 97.8 81 18 186/94 93 05/10/17 07:00 73 05/10/17 06:00 69 05/10/17 05:00 77 05/10/17 04:00 65 05/10/17 03:30 97.6 69 18 152/72 95 05/10/17 03:00 67 05/10/17 02:00 64 05/10/17 01:00 66 05/10/17 00:00 97.4 76 18 159/76 96 05/10/17 00:00 62 05/09/17 23:00 60 05/09/17 22:00 68 05/09/17 21:00 88 05/09/17 20:00 97.9 78 18 184/92 97 05/09/17 20:00 76 05/09/17 19:00 74 05/09/17 16:00 97.8 68 20 175/88 95 05/09/17 12:00 97.8 67 20 150/88 98 CBC/BMP: 05/10/17 0647 05/10/17 0647 Lab Results Laboratory Tests Test 05/10/17 06:47 White Blood Count 10.2 TH/MM3 Red Blood Count 3.22 MIL/MM3 Hemoglobin 9.4 GM/DL Hematocrit 27.7 % Mean Corpuscular Volume 86.1 FL Mean Corpuscular Hemoglobin 29.1 PG Mean Corpuscular Hemoglobin 33.8 % Concent Red Cell Distribution Width 15.8 % Platelet Count 279 TH/MM3 Mean Platelet Volume 8.0 FL Neutrophils (%) (Auto) 77.1 % Lymphocytes (%) (Auto) 7.5 % Monocytes (%) (Auto) 6.9 % Eosinophils (%) (Auto) 7.5 % Basophils (%) (Auto) 1.0 % Neutrophils # (Auto) 7.8 TH/MM3 Lymphocytes # (Auto) 0.8 TH/MM3 Monocytes # (Auto) 0.7 TH/MM3 Eosinophils # (Auto) 0.8 TH/MM3 Basophils # (Auto) 0.1 TH/MM3 CBC Comment AUTO DIFF Differential Total Cells 100 Counted Neutrophils % (Manual) 70 % Band Neutrophils % 4 % Lymphocytes % 9 % Monocytes % 1 % Eosinophils % 12 % Basophils % 1 % Neutrophils # (Manual) 7.9 TH/MM3 Metamyelocytes 1 % Myelocytes 2 % Differential Comment FINAL DIFF MANUAL Platelet Estimate NORMAL Platelet Morphology Comment NORMAL Prothrombin Time 25.0 SEC Prothromb Time International 2.2 RATIO Ratio Sodium Level 139 MEQ/L Potassium Level 3.8 MEQ/L Chloride Level 107 MEQ/L Carbon Dioxide Level 25.0 MEQ/L Anion Gap 7 MEQ/L Blood Urea Nitrogen 31 MG/DL Creatinine 2.09 MG/DL Estimat Glomerular Filtration 31 ML/MIN Rate Random Glucose 76 MG/DL Calcium Level 8.3 MG/DL Total Bilirubin 0.3 MG/DL Aspartate Amino Transf 41 U/L (AST/SGOT) Alanine Aminotransferase 56 U/L (ALT/SGPT) Alkaline Phosphatase 80 U/L Total Protein 6.9 GM/DL Albumin 2.7 GM/DL Microbiology Microbiology 05/09/17 Stool Occult Blood (SOSA) - Final, Complete HEMOCCULT NEGATIVE Physical Exam General General Appearance: Well Developed, Well Nourished, No Acute Distress, Comfortable Eyes Eye Exam: Sclera White, Extraocular Movement Intact Throat Throat Exam: Oral Mucosa [place]air & Moist, Oral Pharynx Normal Neck Neck Exam: Neck Supple, Trachea Midline Pulmonary Resp Exam: Clear Bilaterally, Breath Sounds Equal Cardiology CV Exam: Regular, Normal Sinus Rhythm Gastrointestinal/Abdomen GI Exam: Soft, Non-Tender Musculoskeletal MS Exam: Normal Tone MS Remarks S/P Aortogram w/ R LE angiogram and TPT orbital atherectomy and GRADE TEACHER (3mm) and L CHANNEL MARKETING MANAGER angioseal 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 Integumentary Skin Remarks S/P Aortogram w/ R LE angiogram and TPT orbital atherectomy and GRADE TEACHER (3mm) and L CHANNEL MARKETING MANAGER angioseal 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 Extremeties Extremeties Remarks S/P Aortogram w/ R LE angiogram and TPT orbital atherectomy and GRADE TEACHER (3mm) and L CHANNEL MARKETING MANAGER angioseal 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 This is a 76-year male who came to the ER diagnosed with blackening, erythema, pain and swelling of the right great toe rule out osteomyelitis/peripheral vascular disease. Podiatry and vascular surgeon and infectious disease / Cardiology input noted The patient on Zosyn. Further recommendation per excellence consultant. S/P Aortogram w/ R LE angiogram and TPT orbital atherectomy and GRADE TEACHER (3mm) and L CHANNEL MARKETING MANAGER angioseal 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 . have INR 2.4 s/p Transfusion 4 units FFP. Have low Hemoglobin s/p transfusion 2 units PRBC and Check fecal occult blood test. 2. Diabetes mellitus, ADA 1800 calorie diet. NovoLog low-dose sliding scale. Check blood sugars. We will monitor blood sugar. 3. Renal failure, creatinine was 1.84, BUN was 37, now BUN of 33 and creatinine 2.1 4. History of stroke and TIA. The patient was on Coumadin. INR 2.4. holding coumadin We will Monitor PT/ INR Daily. Transfuse 1 more units FFP. 5. History of hypertension. Continue home medication. Monitor blood pressure. 6. History of coronary artery disease continue home medication. 7. History of hyperlipidemia. Continue home medications. 8. DVT prophylaxis. The patient was on Coumadin... INR 2.4 today. holding coumadin. S/P Transfusion of 4 units FFP. 9. GI prophylaxis, Protonix 40 mg p.o. daily. 10. Leukocytosis secondary to right foot cellulitis will monitor. down trend. 11. No recurrent VT on beta shirin. No angina or CHF symptoms. 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 He refused any cardiology intervention including ICD at this time. He understands the risk of Sudden Cardiac . Proceed with potential revascularization as planned. 12. Hyponatremia will monitor. 13. Low Hemoglobin S/P transfusion of 2 units PRBC and Check fecal occult blood test. Check CBC with diff CMP in AM. we are going to manage the patient on a daily basis and make recommendations on a daily basis. Don Kothari MD May 10, 2017 09:51 recommendations on a daily basis. Don Kothari MD May 10, 2017 09:51
[2017-05-10] MEDS: ACETAMINOPHEN/HYDROcodone 325 MG/5 MG TAB PO PRN ×3 (11:05→20:26)
--- NOTE | 2017-05-10 15:21 | HHI.FF ---
Infusion Therapy Location of Infusion Therapy: Home Health Care IV Infusion Order Patient Information Patient Weight 83 kg Diagnosis: (1) Osteomyelitis of toe of right foot (2) Cellulitis of great toe of right foot Coded Allergies: No Known Allergies (Unverified , 04/30/17) Administer Medication Ceftriaxone 2 grams IV q 24 hours Stop Treatment: May 24, 2017 Additional Information Venous access: PICC Line Additional Instructions [x] Peripheral flush and dressing changes per protocol [x] Implanted port and central pipelines manager: * Implanted port: 10 ml Normal Saline followed by 5 ml Heparin 100 units/ml Heparin flush after each use and monthly to maintain. [] May leave port accessed during therapy. [] May leave peripheral site accessed for duration of therapy. [x] If patient has SOB or respiratory distress, check oxygen saturation. If less than 90% or clinical signs of respiratory distress, administer oxygen at 2 L/min. via nasal cannula and notify physician. [x] Anaphylaxis/Reaction orders: * Stop infusion. * Keep IV line open with saline flush. * Notify physician. * Monitor vital signs every 15 minutes until symptoms resolve. * Check Oxygen saturation; Oxygen at 2 L/min. via nasal cannula if less than 90% or clinical signs of respiratory distress. * Administer diphenhydramine (Benadryl) 25 mg IV STAT, (unless patient has received as pre-med). May repeat once, if necessary. * Solu-Cortef 250 mg IVP over 30-60 seconds, use 100 mg vials for each dissolution. * Epinephrine (1mg/1 ml) 0.3 mg subcutaneously or IVP now with any signs of respiratory distress. * Check with physician for new additional pre-med orders if patient is re- challenged or re-treated. [x] May remove PICC line when treatment complete, after confirming with Physician. [x] If the patient is admitted to the hospital, the ED, or transferred via [facility] , complete transfer form including medication reconciliation order sheet. Laboratory Tests Weekly Labs: BMP Additional Information Follow up with Dr Jacqueline Sheldon in 1 week. Guerrero Lee MD May 10, 2017 15:21
--- NOTE | 2017-05-10 15:29 | HHI.IDPN ---
Note Infectious Disease Note Patient is without complaints. Afebrile. Mild pain in the surgical site r. foot. Had revascularization and amputation of the right great toe. PAST MEDICAL HISTORY 1. Coronary artery disease. 2. History of four vessel bypass surgery. 3. Hypertension. 4. Diabetes mellitus. 5. Hyperlipidemia. 6. TIA. ALLERGIES NO KNOWN DRUG ALLERGIES. ANTIBIOTICS: Piperacillin/tazobactam. OBJECTIVE: Vital Signs Date Time Temp Pulse Resp B/P Pulse Ox O2 Delivery O2 Flow Rate FiO2 05/10/17 14:00 62 05/10/17 13:00 69 05/10/17 12:00 70 05/10/17 11:00 97.4 73 18 192/93 05/10/17 11:00 68 05/10/17 10:00 79 05/10/17 09:00 83 05/10/17 08:00 73 05/10/17 07:55 97.8 81 18 186/94 93 05/10/17 07:00 73 05/10/17 06:00 69 05/10/17 05:00 77 05/10/17 04:00 65 05/10/17 03:30 97.6 69 18 152/72 95 05/10/17 03:00 67 05/10/17 02:00 64 05/10/17 01:00 66 05/10/17 00:00 97.4 76 18 159/76 96 05/10/17 00:00 62 05/09/17 23:00 60 05/09/17 22:00 68 05/09/17 21:00 88 05/09/17 20:00 97.9 78 18 184/92 97 05/09/17 20:00 76 05/09/17 19:00 74 05/09/17 16:00 97.8 68 20 175/88 95 Laboratory Tests Test 05/09/17 05/10/17 06:08 06:47 White Blood Count 11.8 TH/MM3 10.2 TH/MM3 Red Blood Count 3.04 MIL/MM3 3.22 MIL/MM3 Hemoglobin 8.7 GM/DL 9.4 GM/DL Hematocrit 25.7 % 27.7 % Mean Corpuscular Volume 84.6 FL 86.1 FL Mean Corpuscular Hemoglobin 28.7 PG 29.1 PG Mean Corpuscular Hemoglobin 34.0 % 33.8 % Concent Red Cell Distribution Width 15.6 % 15.8 % Platelet Count 269 TH/MM3 279 TH/MM3 Mean Platelet Volume 8.1 FL 8.0 FL Neutrophils (%) (Auto) 86.2 % 77.1 % Lymphocytes (%) (Auto) 5.8 % 7.5 % Monocytes (%) (Auto) 5.7 % 6.9 % Eosinophils (%) (Auto) 1.8 % 7.5 % Basophils (%) (Auto) 0.5 % 1.0 % Neutrophils # (Auto) 10.1 TH/MM3 7.8 TH/MM3 Lymphocytes # (Auto) 0.7 TH/MM3 0.8 TH/MM3 Monocytes # (Auto) 0.7 TH/MM3 0.7 TH/MM3 Eosinophils # (Auto) 0.2 TH/MM3 0.8 TH/MM3 Basophils # (Auto) 0.1 TH/MM3 0.1 TH/MM3 CBC Comment DIFF FINAL AUTO DIFF Differential Comment FINAL DIFF MANUAL Differential Total Cells 100 Counted Neutrophils % (Manual) 70 % Band Neutrophils % 4 % Lymphocytes % 9 % Monocytes % 1 % Eosinophils % 12 % Basophils % 1 % Neutrophils # (Manual) 7.9 TH/MM3 Metamyelocytes 1 % Myelocytes 2 % Platelet Estimate NORMAL Platelet Morphology Comment NORMAL Laboratory Tests Test 05/09/17 05/10/17 06:08 06:47 Sodium Level 135 MEQ/L 139 MEQ/L Potassium Level 3.9 MEQ/L 3.8 MEQ/L Chloride Level 102 MEQ/L 107 MEQ/L Carbon Dioxide Level 22.6 MEQ/L 25.0 MEQ/L Anion Gap 10 MEQ/L 7 MEQ/L Blood Urea Nitrogen 33 MG/DL 31 MG/DL Creatinine 2.12 MG/DL 2.09 MG/DL Estimat Glomerular Filtration 31 ML/MIN 31 ML/MIN Rate Random Glucose 168 MG/DL 76 MG/DL Calcium Level 8.0 MG/DL 8.3 MG/DL Total Bilirubin 0.4 MG/DL 0.3 MG/DL Aspartate Amino Transf 58 U/L 41 U/L (AST/SGOT) Alanine Aminotransferase 68 U/L 56 U/L (ALT/SGPT) Alkaline Phosphatase 83 U/L 80 U/L Total Protein 7.0 GM/DL 6.9 GM/DL Albumin 2.6 GM/DL 2.7 GM/DL Microbiology Date/Time Procedure Status Source Growth 05/09/17 18:49 Stool Occult Blood (SOSA) - Final Complete Stool Stool HEMOCCULT NEGATIVE PHYSICAL EXAMINATION GENERAL: No acute distress. Awake and alert and oriented. HEENT: No icterus. Neck: Supple without adenopathy. Lungs: Clear to auscultation. Heart: Regular S1-S2 without audible murmurs. Abdomen: Bowel sounds present, soft, benign. EXTREMITIES: The right great toe is post amputation. Erythema of the foot has resolved. The other extremities have no clubbing, cyanosis or edema. Skin: No diffuse rash. Neuro: Nonfocal. IMPRESSION Osteomyelitis/gangrene of the right great toe. Now post amputation. Open wound at op site. RECOMMENDATIONS D/C piperacillin. Discharge on IV Ceftriaxone x 2 weeks. Midline ordered. Follow up with ID outpatient Dr. Sheldon in 1 week after discharge. Discussed with patient, case management. Guerrero Lee MD May 10, 2017 15:29
--- NOTE | 2017-05-10 16:58 | PD.CONS ---
[facility] Service Nephrology Consult Requested By Jesus Reason for Consult Evaluation for Midline placement Primary Care Physician Boris Aguilar MD History of Present Illness This is a 76 y/o male patient. He was admitted n 04/24 for right toe pain. He was diagnosed with osteomyelitis, had right great toe amputated. PMH listed below includes CAD, HTN, and DM II. He is n metformin at home. He likely has CKD, baseline creatinine around 2, CKD 3. He needs outpatient antibiotic treatment, we were consulted for question of type of IV access. He is a full code. ( Lauren Little) Review of Systems Constitutional: COMPLAINS OF: Fatigue Musculoskeletal: COMPLAINS OF: Joint pain, DENIES: Muscle aches, Stiffness Integumentary: DENIES: Nail changes (Lauren Little) Past Family Social History Allergies: Coded Allergies: No Known Allergies (Unverified , 04/30/17) Past Medical History CAD s/p CABG x 4 HTN DM II Hyperlipidemia CVA on coumadin Past Surgical History CABG x 4 recent right toe amputation Reported Medications Simvastatin 40 Mg Tab 40 Mg PO HS Warfarin 10 Mg Tab 10 Mg PO DAILY Lisinopril 20 Mg Tab 20 Mg PO DAILY Glipizide 5 Mg Tab 5 Mg PO BIDAC Take 30 minutes before a meal Metformin (Metformin HCl) 1,000 Mg Tab 1,000 Mg PO BIDPC With meals Active Ordered Medications Current Medications Medications (Trade) Dose Ordered Sig/Jorge L Route Start Time Stop Time Status Last Admin (Glucotrol) 5 mg BIDAC PO 04/30/17 16:00 05/10/17 16:00 (Prinivil) 20 mg DAILY PO 05/01/17 09:00 05/10/17 09:09 Pravastatin Sodium 80 mg 80 mg HS PO 04/30/17 21:00 05/09/17 21:05 (1/2 NS 1000 ml Inj) 1,000 ml @ 75 mls/hr [id number] IV 04/30/17 14:00 05/10/17 16:31 (NS Flush) 2 ml UNSCH PRN IV FLUSH 04/30/17 14:00 (NS Flush) 2 ml BID IV FLUSH 04/30/17 21:00 05/10/17 09:18 (Zofran Inj) 4 mg Q6H PRN IVP 04/30/17 14:00 (Narcan Inj) 0.4 mg UNSCH PRN IV 04/30/17 14:00 (Cherrie-Colace) 1 tab BID PO 04/30/17 21:00 05/10/17 09:09 (Milk Of Magnesia Liq) 30 ml Q12H PRN PO 04/30/17 14:00 (Senokot) 17.2 mg Q12H PRN PO 04/30/17 14:00 (Dulcolax Supp) 10 mg DAILY PRN RECTAL 04/30/17 14:00 (Lactulose Liq) 30 ml DAILY PRN PO 04/30/17 14:00 05/02/17 09:09 (D50w (Vial) Inj) 50 ml UNSCH PRN IV 04/30/17 14:00 (Glucagon Inj) 1 mg UNSCH PRN OTHER 04/30/17 14:00 (Santyl Oint) 1 applic DAILY TOPICAL 04/30/17 18:15 05/07/17 09:11 Acetaminophen/ Hydrocodone Bitart 1 tab 1 tab Q4H PRN PO 04/30/17 21:15 05/10/17 16:30 Pharmacy Profile Note 0 ml @ 0 mls/hr UNSCH OTHER 05/05/17 17:15 Piperacillin Sod/ Tazobactam Sod 50 ml @ 100 mls/hr Q6H IV 05/07/17 18:00 05/10/17 16:31 Lactated Ringer's 1,000 ml @ 30 mls/hr Q24H PRN IV 05/08/17 04:00 05/11/17 03:59 (NS 500 ml Inj) 500 ml @ 30 mls/hr [id number] PRN IV 05/08/17 04:00 05/11/17 03:59 (Lopressor) 50 mg Q12HR PO 05/09/17 21:00 05/10/17 09:17 Family History no hx of renal disorders multiple members with DM II, HTN, CAD Social History former smoker + daily ETOH lives alone full code retired (Lauren Little) Physical Exam Vital Signs Vital Signs Date Time Temp Pulse Resp B/P Pulse Ox O2 Delivery O2 Flow Rate FiO2 05/10/17 16:00 71 05/10/17 15:33 97.6 68 18 164/81 05/10/17 15:31 68 05/10/17 14:00 62 05/10/17 13:00 69 05/10/17 12:00 70 05/10/17 11:00 97.4 73 18 192/93 05/10/17 11:00 68 05/10/17 10:00 79 05/10/17 09:00 83 05/10/17 08:00 73 05/10/17 07:55 97.8 81 18 186/94 93 05/10/17 07:00 73 05/10/17 06:00 69 05/10/17 05:00 77 05/10/17 04:00 65 05/10/17 03:30 97.6 69 18 152/72 95 05/10/17 03:00 67 05/10/17 02:00 64 05/10/17 01:00 66 05/10/17 00:00 97.4 76 18 159/76 96 05/10/17 00:00 62 05/09/17 23:00 60 05/09/17 22:00 68 05/09/17 21:00 88 05/09/17 20:00 97.9 78 18 184/92 97 05/09/17 20:00 76 05/09/17 19:00 74 Physical Exam GENERAL: In NAD; awake, alert, follows commands SKIN: Warm and dry.right foot dressing dry/intact HEAD: Normocephalic. EYES: No scleral icterus. No injection or drainage. NECK: Supple, trachea midline. No JVD or lymphadenopathy. CARDIOVASCULAR: Regular rate and rhythm without murmurs, gallops, or rubs. RESPIRATORY: Breath sounds equal bilaterally. No accessory muscle use. GASTROINTESTINAL: Abdomen soft, non-tender, nondistended. MUSCULOSKELETAL: No cyanosis, or edema. s/p right toe amputation Laboratory Laboratory Tests Test 05/10/17 06:47 White Blood Count 10.2 Red Blood Count 3.22 Hemoglobin 9.4 Hematocrit 27.7 Mean Corpuscular Volume 86.1 Mean Corpuscular Hemoglobin 29.1 Mean Corpuscular Hemoglobin 33.8 Concent Red Cell Distribution Width 15.8 Platelet Count 279 Mean Platelet Volume 8.0 Neutrophils (%) (Auto) 77.1 Lymphocytes (%) (Auto) 7.5 Monocytes (%) (Auto) 6.9 Eosinophils (%) (Auto) 7.5 Basophils (%) (Auto) 1.0 Neutrophils # (Auto) 7.8 Lymphocytes # (Auto) 0.8 Monocytes # (Auto) 0.7 Eosinophils # (Auto) 0.8 Basophils # (Auto) 0.1 CBC Comment AUTO DIFF Differential Total Cells 100 Counted Neutrophils % (Manual) 70 Band Neutrophils % 4 Lymphocytes % 9 Monocytes % 1 Eosinophils % 12 Basophils % 1 Neutrophils # (Manual) 7.9 Metamyelocytes 1 Myelocytes 2 Differential Comment FINAL DIFF MANUAL Platelet Estimate NORMAL Platelet Morphology Comment NORMAL Prothrombin Time 25.0 Prothromb Time International 2.2 Ratio Sodium Level 139 Potassium Level 3.8 Chloride Level 107 Carbon Dioxide Level 25.0 Anion Gap 7 Blood Urea Nitrogen 31 Creatinine 2.09 Estimat Glomerular Filtration 31 Rate Random Glucose 76 Calcium Level 8.3 Total Bilirubin 0.3 Aspartate Amino Transf 41 (AST/SGOT) Alanine Aminotransferase 56 (ALT/SGPT) Alkaline Phosphatase 80 Total Protein 6.9 Albumin 2.7 Date/Time Procedure Status Source Growth 05/09/17 18:49 Stool Occult Blood (SOSA) - Final Complete Stool Stool HEMOCCULT NEGATIVE 05/07/17 12:30 Gram Stain - Final Complete Wound Toe 05/07/17 12:30 Wound Culture - Final Complete Providencia Stuartii (Lauren Little) Result Diagram: 05/10/17 0647 05/10/17 0647 Imaging Last Impressions Toe X-Ray 04/30/17 0000 Signed Impressions: Service Date/Time: Sunday, April 30, 2017 12:27 - CONCLUSION: Bony destruction involving the first distal phalanx with abnormal soft tissue changes characteristic of osteomyelitis. Jerry Mireles MD (Lauren Little) Assessment and Plan Problem List: (1) Osteomyelitis of toe of right foot Plan: s/p amputation, ID following with vascular he needs Rocephin for 2 weeks. It is okay to place midline given likely CKD hx (2) CKD (chronic kidney disease), stage III Plan: undiagnosed, but it appears he has CKD 3, baseline creatinine around 2, GFR in 30s. his renal function has been stable may have underlying diabetic nephropathy, proteinuria is the hallmark of that diagnosis. He is on metformin, which should be stopped and he changed to another oral agent or possibly an insulin. at any rate we discussed NSAIDs to avoid, some basic dietary considerations when i t comes to renal management. We will follow in our CKD clinic. (Lauren Little) Assessment and Plan patient was seen and examined. Avoid PICCLINE. May have CKD due to diabetic nephropathy, UA is not available. Admitted for osteomyelitis. Apparently needs continued Rocephin after discharge. Followup in our CKD clinic after discharge. (Liu Galvez MD) Lauren Little May 10, 2017 16:58 Liu Galvez MD May 10, 2017 21:23
[2017-05-10] MEDS: PRAVASTATIN SOD 80 MG TAB PO SCH (20:10)
[2017-05-11] VITALS (25 sets, daily range): BP systolic 147–195; BP diastolic 74–96; PULSE 62–78; RESP 18–20; TEMP 97.7–98.3; O2SAT 96–100
[2017-05-11] MEDS: PIPERACIL-TAZO 2.25 GM PREMIX 50 ML IV SCH ×5 (00:09→23:23)
[2017-05-11] MEDS: SODIUM CHLOR 0.45% 1000 ML INJ 1,000 ML IV SCH ×2 (04:53→16:50)
[2017-05-11] MEDS: INSULIN ASPART SUPPLEMENTAL SCALE SQ SCH ×4 (06:01→21:00)
[2017-05-11] MEDS: glipiZIDE 5 MG TAB PO SCH ×2 (06:01→15:50)
[2017-05-11] MEDS: LISINOPRIL 20 MG TAB PO SCH (09:14)
[2017-05-11] MEDS: DOCUSATE SODIUM 50 MG/SENNA 8.6 MG TAB PO SCH ×2 (09:15→21:23)
[2017-05-11] MEDS: METOPROLOL TARTRATE 25 MG TAB PO SCH ×2 (09:15→21:24)
[2017-05-11] MEDS: SODIUM CHLORIDE 0.9% FLUSH 10 ML FLUSH IV FLUSH SCH ×2 (09:15→21:24)
[2017-05-11 09:48] LABS: PROTHROMBIN TIME - PATIENT 22.4 SEC (9.8-11.6)
[2017-05-11 09:55] LABS: AUTOMATED NEUTROPHIL # 7.6 TH/MM3 (1.8-7.7); BASOPHIL # 0.1 TH/MM3 (0-0.2); EOSINOPHIL # 1.1 TH/MM3 (0-0.4); EOSINOPHIL % 10.5 % (0.0-4.0); HEMATOCRIT 29.1 % (39.0-51.0); HEMO FLAGS DIFF FINAL; LYMPH % 6.5 % (9.0-44.0); LYMPHOCYTE # 0.7 TH/MM3 (1.0-4.8); MEAN CELL VOLUME 86.7 FL (80.0-100.0); MEAN CORPUSCULAR HEMOGLOBIN 28.7 PG (27.0-34.0); MEAN CORPUSCULAR HGB CONC 33.1 % (32.0-36.0); MONO % 6.6 % (0.0-8.0); NEUT % 75.4 % (16.0-70.0); PLATELET COUNT 323 TH/MM3 (150-450); RED BLOOD COUNT 3.36 MIL/MM3 (4.50-5.90); RED CELL DISTRIBUTION WIDTH 15.8 % (11.6-17.2); WHITE BLOOD COUNT 10.1 TH/MM3 (4.0-11.0)
[2017-05-11 10:01] LABS: ALT (GPT) 48 U/L (12-78); ANION GAP 8 MEQ/L (5-15); AST (GOT) 30 U/L (15-37); BICARBONATE 22.9 MEQ/L (21.0-32.0); CHLORIDE 106 MEQ/L (98-107); GLOMERULAR FILTRATION RATE 36 ML/MIN (>89); POTASSIUM 3.8 MEQ/L (3.5-5.1); SODIUM (NA) 137 MEQ/L (136-145)
[2017-05-11 10:05] LABS: ALKALINE PHOSPHATASE 82 U/L (45-117); BLOOD UREA NITROGEN 27 MG/DL (7-18); TOTAL BILIRUBIN ADULT 0.4 MG/DL (0.2-1.0)
--- NOTE | 2017-05-11 10:06 | HHI.PR ---
Subjective History of Present Illness Patient feel better no acute issue. ok to discharge if ok with all. 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 Vitals/Results Intake & Output 05/10/17 05/10/17 05/11/17 15:00 23:00 07:00 Intake Total 1987 ml 1430 ml Output Total 700 ml 500 ml 700 ml Balance -700 ml 1487 ml 730 ml Intake Oral 600 ml 480 ml IV Total 1387 ml 950 ml Output Urine Total 700 ml 500 ml 700 ml # Bowel Movements 0 Vital Signs Vital Signs Date Time Temp Pulse Resp B/P Pulse Ox O2 Delivery O2 Flow Rate FiO2 05/11/17 07:01 65 05/11/17 06:00 69 05/11/17 05:00 70 05/11/17 04:00 98.1 67 18 157/76 96 05/11/17 04:00 67 05/11/17 03:00 71 05/11/17 02:00 66 05/11/17 01:00 71 05/11/17 00:00 98.3 73 18 147/74 96 05/11/17 00:00 73 05/10/17 23:00 68 05/10/17 22:00 65 05/10/17 21:00 69 05/10/17 20:00 98.0 72 20 160/69 97 05/10/17 20:00 72 05/10/17 18:02 73 05/10/17 17:33 69 05/10/17 16:00 71 05/10/17 15:33 97.6 68 18 164/81 05/10/17 15:31 68 05/10/17 14:00 62 05/10/17 13:00 69 05/10/17 12:00 70 05/10/17 11:00 97.4 73 18 192/93 05/10/17 11:00 68 CBC/BMP: 05/11/17 0928 05/11/17 0928 Lab Results Laboratory Tests Test 05/11/17 09:28 White Blood Count 10.1 TH/MM3 Red Blood Count 3.36 MIL/MM3 Hemoglobin 9.6 GM/DL Hematocrit 29.1 % Mean Corpuscular Volume 86.7 FL Mean Corpuscular Hemoglobin 28.7 PG Mean Corpuscular Hemoglobin 33.1 % Concent Red Cell Distribution Width 15.8 % Platelet Count 323 TH/MM3 Mean Platelet Volume 7.6 FL Neutrophils (%) (Auto) 75.4 % Lymphocytes (%) (Auto) 6.5 % Monocytes (%) (Auto) 6.6 % Eosinophils (%) (Auto) 10.5 % Basophils (%) (Auto) 1.0 % Neutrophils # (Auto) 7.6 TH/MM3 Lymphocytes # (Auto) 0.7 TH/MM3 Monocytes # (Auto) 0.7 TH/MM3 Eosinophils # (Auto) 1.1 TH/MM3 Basophils # (Auto) 0.1 TH/MM3 CBC Comment DIFF FINAL Differential Comment Prothrombin Time 22.4 SEC Prothromb Time International 2.0 RATIO Ratio Sodium Level 137 MEQ/L Potassium Level 3.8 MEQ/L Chloride Level 106 MEQ/L Carbon Dioxide Level 22.9 MEQ/L Anion Gap 8 MEQ/L Blood Urea Nitrogen 27 MG/DL Creatinine 1.85 MG/DL Estimat Glomerular Filtration 36 ML/MIN Rate Random Glucose 134 MG/DL Calcium Level 8.1 MG/DL Total Bilirubin 0.4 MG/DL Aspartate Amino Transf 30 U/L (AST/SGOT) Alanine Aminotransferase 48 U/L (ALT/SGPT) Alkaline Phosphatase 82 U/L Total Protein 7.2 GM/DL Albumin 2.9 GM/DL Random Vancomycin Level 17.0 COMMENT Physical Exam General General Appearance: Well Developed, Well Nourished, No Acute Distress, Comfortable Eyes Eye Exam: Sclera White, Extraocular Movement Intact Throat Throat Exam: Oral Mucosa Christmas & Moist, Oral Pharynx Normal Neck Neck Exam: Neck Supple, Trachea Midline Pulmonary Resp Exam: Clear Bilaterally, Breath Sounds Equal Cardiology CV Exam: Regular, Normal Sinus Rhythm Gastrointestinal/Abdomen GI Exam: Soft, Non-Tender Musculoskeletal MS Exam: Normal Tone MS Remarks S/P Aortogram w/ R LE angiogram and TPT orbital atherectomy and ORDNANCE MECHANIC (3mm) and L THIRD HELPER angioseal 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 This is a 76-year male who came to the ER diagnosed with blackening, erythema, pain and swelling of the right great toe rule out osteomyelitis/peripheral vascular disease. Podiatry and vascular surgeon and infectious disease / Cardiology input noted The patient on Zosyn. Further recommendation per personnel consultant. 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 have INR 2.0 s/p Transfusion 4 units FFP. Have low Hemoglobin s/p transfusion 2 units PRBC and Check fecal occult blood test. 2. Diabetes mellitus, ADA 1800 calorie diet. NovoLog low-dose sliding scale. Check blood sugars. We will monitor blood sugar. 3. Renal failure, creatinine was 1.84, BUN was 37, now BUN of 27 and creatinine 1.8 4. History of stroke and TIA. The patient was on Coumadin. INR 2.0. holding coumadin We will Monitor PT/ INR Daily. Transfuse 1 more units FFP. 5. History of hypertension. Continue home medication. Monitor blood pressure. 6. History of coronary artery disease continue home medication. 7. History of hyperlipidemia. Continue home medications. 8. DVT prophylaxis. The patient was on Coumadin... INR 2.0 today. holding coumadin. S/P Transfusion of 4 units FFP. 9. GI prophylaxis, Protonix 40 mg p.o. daily. 10. Leukocytosis secondary to right foot cellulitis will monitor. down trend. 11. No recurrent VT on beta shirin. No angina or CHF symptoms. 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 He refused any cardiology intervention including ICD at this time. He understands the risk of Sudden Cardiac . Proceed with potential revascularization as planned. 12. Hyponatremia will monitor. 13. Low Hemoglobin S/P transfusion of 2 units PRBC and Check fecal occult blood test. Check CBC with diff CMP in AM. we are going to manage the patient on a daily basis and make recommendations on a daily basis. ok to discharge today if ok with all. f/u with PCP/Infectious disease/ vascular surgeon/ Podiatry 1 week. Discussed Condition with: Patient Don Kothari MD May 11, 2017 10:06
[2017-05-11] MEDS: ACETAMINOPHEN/HYDROcodone 325 MG/5 MG TAB PO PRN ×3 (11:42→21:23)
--- NOTE | 2017-05-11 12:12 | PD.VS.PN ---
Subjective Procedure(s): Aortogram w/ R LE angiogram TPT orbital atherectomy and TRAFFIC CONTROL SUPERVISOR 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 Subjective/Hospital Course Pt sitting in chair without complaints states he is leaving later today since his PICC line was placed. Objective Vitals/I&O Date Time Temp Pulse Resp B/P Pulse Ox O2 Delivery O2 Flow Rate FiO2 05/11/17 09:01 97.8 76 20 195/96 98 05/11/17 07:01 65 05/11/17 06:00 69 05/11/17 05:00 70 05/11/17 04:00 98.1 67 18 157/76 96 05/11/17 04:00 67 05/11/17 03:00 71 05/11/17 02:00 66 05/11/17 01:00 71 05/11/17 00:00 98.3 73 18 147/74 96 05/11/17 00:00 73 05/10/17 23:00 68 05/10/17 22:00 65 05/10/17 21:00 69 05/10/17 20:00 98.0 72 20 160/69 97 05/10/17 20:00 72 05/10/17 18:02 73 05/10/17 17:33 69 05/10/17 16:00 71 05/10/17 15:33 97.6 68 18 164/81 05/10/17 15:31 68 05/10/17 14:00 62 05/10/17 13:00 69 05/11/17 05/11/17 05/11/17 07:00 15:00 23:00 Intake Total 1430 ml Output Total 700 ml Balance 730 ml Pulses: Right great ray amp site appears clean with some granulation tissue at base. Laboratory Laboratory Tests Test 05/11/17 09:28 White Blood Count 10.1 Red Blood Count 3.36 Hemoglobin 9.6 Hematocrit 29.1 Mean Corpuscular Volume 86.7 Mean Corpuscular Hemoglobin 28.7 Mean Corpuscular Hemoglobin 33.1 Concent Red Cell Distribution Width 15.8 Platelet Count 323 Mean Platelet Volume 7.6 Neutrophils (%) (Auto) 75.4 Lymphocytes (%) (Auto) 6.5 Monocytes (%) (Auto) 6.6 Eosinophils (%) (Auto) 10.5 Basophils (%) (Auto) 1.0 Neutrophils # (Auto) 7.6 Lymphocytes # (Auto) 0.7 Monocytes # (Auto) 0.7 Eosinophils # (Auto) 1.1 Basophils # (Auto) 0.1 CBC Comment DIFF FINAL Differential Comment Prothrombin Time 22.4 Prothromb Time International 2.0 Ratio Sodium Level 137 Potassium Level 3.8 Chloride Level 106 Carbon Dioxide Level 22.9 Anion Gap 8 Blood Urea Nitrogen 27 Creatinine 1.85 Estimat Glomerular Filtration 36 Rate Random Glucose 134 Calcium Level 8.1 Total Bilirubin 0.4 Aspartate Amino Transf 30 (AST/SGOT) Alanine Aminotransferase 48 (ALT/SGPT) Alkaline Phosphatase 82 Total Protein 7.2 Albumin 2.9 Random Vancomycin Level 17.0 Date/Time Procedure Status Source Growth 05/09/17 18:49 Stool Occult Blood (SOSA) - Final Complete Stool Stool HEMOCCULT NEGATIVE 05/07/17 12:30 Gram Stain - Final Complete Wound Toe 05/07/17 12:30 Wound Culture - Final Complete Providencia Stuartii Assessment and Plan Assessment: (1) Necrotic toes Status: Acute Plan Patient appears to have stable right 1st ray amp site. Continue IV antibiotics. will need wound care if discharged either by wound care center or wound care physician in SNF. Ricci Zazueta DO May 11, 2017 12:12
[2017-05-11] MEDS ORDERED: METO25TA3 PO (12:43)
--- NOTE | 2017-05-11 12:45 | HHI.FF ---
Face to Face Verification Diagnosis: (1) Slurred speech (2) Diabetes (3) Hyponatremia (4) Renal insufficiency (5) CKD (chronic kidney disease), stage III (6) Osteomyelitis of toe of right foot (7) Cellulitis of great toe of right foot (8) PVD (peripheral vascular disease) (9) Necrotic toes (10) Sepsis (11) VT (ventricular tachycardia) (12) Coronary artery disease Physical Therapy Order: Evaluate and Treat, Improve ambulation Occupational Therapy Order: Evaluate and Treat Home Health Nursing Order: Medical education Medication education-adverse effect IV medication administration Home Health Aide Order: To Assist In: Bathing and personal care Sweep Press Operator Order: To Evaluate: Living conditions/environment I have seen patient Reji Doherty on 05/11/17. My clinical findings support the need for the requested home health care services because: Ltd mobility - disease progression Limited ability to care for self High risk of falls I certify that my clinical findings support that this patient is homebound because: Post-op weakness Unsteady gait/balance Unable to use public transportation Don Kothari MD May 11, 2017 12:45
[2017-05-11] MEDS ORDERED: VANCOMYCIN INJ 1,250 MG in SODIUM CHLOR 0.9% 250 ML INJ 250 ML IV ONE (18:00)
[2017-05-11] MEDS: PRAVASTATIN SOD 80 MG TAB PO SCH (21:23)
[2017-05-12] VITALS (26 sets, daily range): BP systolic 148–182; BP diastolic 74–91; PULSE 47–72; RESP 18; TEMP 97.9–98.3; O2SAT 96–98
[2017-05-12 05:09] LABS: INTERNATIONAL NORMALIZED RATIO 1.7 RATIO; PROTHROMBIN TIME - PATIENT 19.2 SEC (9.8-11.6)
[2017-05-12 05:13] LABS: AUTOMATED NEUTROPHIL # 6.7 TH/MM3 (1.8-7.7); BASOPHIL # 0.1 TH/MM3 (0-0.2); BASOPHIL % 0.9 % (0.0-2.0); EOSINOPHIL # 1.1 TH/MM3 (0-0.4); EOSINOPHIL % 11.6 % (0.0-4.0); HEMATOCRIT 26.2 % (39.0-51.0); LYMPH % 8.5 % (9.0-44.0); LYMPHOCYTE # 0.8 TH/MM3 (1.0-4.8); MEAN CELL VOLUME 86.5 FL (80.0-100.0); MEAN CORPUSCULAR HEMOGLOBIN 29.4 PG (27.0-34.0); MONO % 8.1 % (0.0-8.0); NEUT % 70.9 % (16.0-70.0); PLATELET COUNT 260 TH/MM3 (150-450); RED BLOOD COUNT 3.03 MIL/MM3 (4.50-5.90); RED CELL DISTRIBUTION WIDTH 15.7 % (11.6-17.2); WHITE BLOOD COUNT 9.4 TH/MM3 (4.0-11.0)
[2017-05-12 05:15] LABS: HEMO FLAGS AUTO DIFF
[2017-05-12 05:24] LABS: ALT (GPT) 38 U/L (12-78); ANION GAP 10 MEQ/L (5-15); AST (GOT) 23 U/L (15-37); BICARBONATE 24.4 MEQ/L (21.0-32.0); BLOOD UREA NITROGEN 27 MG/DL (7-18); CHLORIDE 106 MEQ/L (98-107); GLOMERULAR FILTRATION RATE 34 ML/MIN (>89); POTASSIUM 3.8 MEQ/L (3.5-5.1); SODIUM (NA) 140 MEQ/L (136-145)
[2017-05-12 05:27] LABS: ALKALINE PHOSPHATASE 67 U/L (45-117); TOTAL BILIRUBIN ADULT 0.3 MG/DL (0.2-1.0)
[2017-05-12] MEDS: SODIUM CHLOR 0.45% 1000 ML INJ 1,000 ML IV SCH (05:36)
[2017-05-12] MEDS: glipiZIDE 5 MG TAB PO SCH ×2 (05:36→15:34)
[2017-05-12] MEDS: PIPERACIL-TAZO 2.25 GM PREMIX 50 ML IV SCH ×4 (05:36→23:46)
[2017-05-12 06:10] LABS: BASOPHILS 1 % (0-2); CORRECTED NUCLEATED RBC 1 /100 WBC (0-0); EOSINOPHILS 8 % (0-4); METAMYELOCYTES 1 % (0-1); MYELOCYTES 3 % (0-0); NEUTROPHIL # MANUAL DIFF 7.1 TH/MM3 (1.8-7.7); POLYS (SEG NEUTROPHILS) 72 % (16-70); WBC DIFF SAMPLE 100
[2017-05-12 06:11] LABS: PLATELET ESTIMATE SMEAR NORMAL (NORMAL); PLATELET MORPHOLOGY NORMAL (NORMAL); SCAN/DIFF FINAL DIFF MANUAL
[2017-05-12] MEDS: INSULIN ASPART SUPPLEMENTAL SCALE SQ SCH ×4 (06:15→20:29)
[2017-05-12] MEDS: DOCUSATE SODIUM 50 MG/SENNA 8.6 MG TAB PO SCH ×2 (09:18→20:22)
[2017-05-12] MEDS: LISINOPRIL 20 MG TAB PO SCH (09:19)
[2017-05-12] MEDS: METOPROLOL TARTRATE 25 MG TAB PO SCH ×2 (09:21→20:22)
[2017-05-12] MEDS: SODIUM CHLORIDE 0.9% FLUSH 10 ML FLUSH IV FLUSH SCH ×2 (09:21→20:21)
--- NOTE | 2017-05-12 13:12 | PD.CARD.PN ---
Subjective Subjective Remarks CTSP due to episodes of bradicardia and NSVT followed by a long pause. Objective Medications Current Medications Medications (Trade) Dose Ordered Sig/Jorge L Route PRN Reason Start Time Stop Time Status Last Admin Dose Admin Glipizide (Glucotrol) 5 mg BIDAC PO 04/30/17 16:00 05/12/17 05:36 Pravastatin Sodium (Pravachol) 80 mg HS PO 04/30/17 21:00 05/11/17 21:23 Sodium Chloride 1,000 ml @ 75 mls/hr [id number] IV 04/30/17 14:00 05/11/17 16:50 Sodium Chloride (NS Flush) 2 ml UNSCH PRN IV FLUSH FLUSH AFTER USING IV ACCESS 04/30/17 14:00 Sodium Chloride (NS Flush) 2 ml BID IV FLUSH 04/30/17 21:00 05/11/17 21:24 Ondansetron HCl (Zofran Inj) 4 mg Q6H PRN IVP NAUSEA OR VOMITING 04/30/17 14:00 Naloxone HCl (Narcan Inj) 0.4 mg UNSCH PRN IV SEE LABEL COMMENTS 04/30/17 14:00 Senna/Docusate Sodium (Cherrie-Colace) 1 tab BID PO 04/30/17 21:00 05/11/17 21:23 Magnesium Hydroxide (Milk Of Magnesia Liq) 30 ml Q12H PRN PO MILD - MODERATE CONSTIPATION 04/30/17 14:00 Sennosides (Senokot) 17.2 mg Q12H PRN PO MODERATE - SEVERE CONSTIPATION 04/30/17 14:00 Bisacodyl (Dulcolax Supp) 10 mg DAILY PRN RECTAL SEVERE CONSITIPATION 04/30/17 14:00 Lactulose (Lactulose Liq) 30 ml DAILY PRN PO SEVERE CONSITIPATION 04/30/17 14:00 05/02/17 09:09 Dextrose (D50w (Vial) Inj) 50 ml UNSCH PRN IV HYPOGLYCEMIA-SEE COMMENTS 04/30/17 14:00 Glucagon (Glucagon Inj) 1 mg UNSCH PRN OTHER HYPOGLYCEMIA-SEE COMMENTS 04/30/17 14:00 Insulin Aspart (NovoLOG SUPPLEMENTAL SCALE) 1 ACHS SLIDING SCALE SQ 04/30/17 16:00 05/11/17 16:00 Acetaminophen/ Hydrocodone Bitart ([place]redell 5-325 Mg) 1 tab Q4H PRN PO MOD TO SEVERE PAIN 04/30/17 21:15 05/11/17 21:23 Pharmacy Profile Note 0 ml @ 0 mls/hr UNSCH OTHER 05/05/17 17:15 Piperacillin Sod/ Tazobactam Sod 50 ml @ 100 mls/hr Q6H IV 05/07/17 18:00 05/12/17 05:36 Metoprolol Tartrate (Lopressor) 25 mg Q12HR PO 05/12/17 09:00 Lisinopril (Prinivil) 40 mg DAILY PO 05/12/17 09:00 Vital Signs / I&O Vital Signs Date Time Temp Pulse Resp B/P (MAP) Pulse Ox O2 Delivery O2 Flow Rate FiO2 05/12/17 06:00 61 05/12/17 05:00 63 05/12/17 04:00 98.1 61 18 148/87 (107) 96 05/12/17 04:00 61 05/12/17 03:00 62 05/12/17 02:00 60 05/12/17 01:00 64 05/12/17 00:00 63 05/12/17 00:00 98.1 69 18 155/87 (109) 98 05/11/17 23:00 64 05/11/17 22:00 69 05/11/17 21:00 74 05/11/17 20:00 98.2 65 18 164/90 (114) 99 05/11/17 20:00 65 05/11/17 18:42 17 05/11/17 18:00 70 05/11/17 17:00 66 05/11/17 16:00 68 05/11/17 15:01 98.0 69 20 182/89 (120) 100 05/11/17 15:01 68 05/11/17 14:01 66 I/O 05/11/17 05/11/17 05/11/17 05/12/17 05/12/17 05/12/17 07:00 15:00 23:00 07:00 15:00 23:00 Intake Total 1430 ml 1500 ml 1190 ml Output Total 700 ml 750 ml 650 ml Balance 730 ml 750 ml 540 ml Intake Oral 480 ml 720 ml 240 ml IV Total 950 ml 780 ml 950 ml Output Urine Total 700 ml 750 ml 650 ml # Bowel Movements 0 1 1 Physical Exam Physical Exam GENERAL: In NAD SKIN: Warm and dry. HEAD: Normocephalic. EYES: No scleral icterus. No injection or drainage. NECK: Supple, trachea midline. No JVD or lymphadenopathy. CARDIOVASCULAR: Regular rate and rhythm without murmurs, gallops, or rubs. RESPIRATORY: Breath sounds equal bilaterally. No accessory muscle use. GASTROINTESTINAL: Abdomen soft, non-tender, nondistended. MUSCULOSKELETAL: No cyanosis, or edema. R foot infection. Laboratory Laboratory Tests Test 05/12/17 03:50 White Blood Count 9.4 TH/MM3 Red Blood Count 3.03 MIL/MM3 Hemoglobin 8.9 GM/DL Hematocrit 26.2 % Mean Corpuscular Volume 86.5 FL Mean Corpuscular Hemoglobin 29.4 PG Mean Corpuscular Hemoglobin Concent 34.0 % Red Cell Distribution Width 15.7 % Platelet Count 260 TH/MM3 Mean Platelet Volume 8.0 FL Neutrophils (%) (Auto) 70.9 % Lymphocytes (%) (Auto) 8.5 % Monocytes (%) (Auto) 8.1 % Eosinophils (%) (Auto) 11.6 % Basophils (%) (Auto) 0.9 % Neutrophils # (Auto) 6.7 TH/MM3 Lymphocytes # (Auto) 0.8 TH/MM3 Monocytes # (Auto) 0.8 TH/MM3 Eosinophils # (Auto) 1.1 TH/MM3 Basophils # (Auto) 0.1 TH/MM3 CBC Comment AUTO DIFF Differential Total Cells Counted 100 Neutrophils % (Manual) 72 % Lymphocytes % 9 % Monocytes % 6 % Eosinophils % 8 % Basophils % 1 % Neutrophils # (Manual) 7.1 TH/MM3 Metamyelocytes 1 % Myelocytes 3 % Nucleated Red Blood Cells 1 /100 WBC Differential Comment FINAL DIFF MANUAL Platelet Estimate NORMAL Platelet Morphology Comment NORMAL Red Cell Morphology Comment NORMAL Prothrombin Time 19.2 SEC Prothromb Time International Ratio 1.7 RATIO Blood Urea Nitrogen 27 MG/DL Creatinine 1.95 MG/DL Random Glucose 120 MG/DL Total Protein 6.5 GM/DL Albumin 2.6 GM/DL Calcium Level 8.4 MG/DL Alkaline Phosphatase 67 U/L Aspartate Amino Transf (AST/SGOT) 23 U/L Alanine Aminotransferase (ALT/SGPT) 38 U/L Total Bilirubin 0.3 MG/DL Sodium Level 140 MEQ/L Potassium Level 3.8 MEQ/L Chloride Level 106 MEQ/L Carbon Dioxide Level 24.4 MEQ/L Anion Gap 10 MEQ/L Estimat Glomerular Filtration Rate 34 ML/MIN Random Vancomycin Level 24.7 COMMENT Assessment and Plan Problem List: (1) VT (ventricular tachycardia) ICD Codes: I47.2 - Ventricular tachycardia Status: Acute (2) Coronary artery disease ICD Codes: I25.10 - Coronary artery disease Status: Chronic (3) History of coronary artery bypass surgery ICD Codes: Z95.1 - History of coronary artery bypass surgery Status: Acute (4) Sepsis ICD Codes: A41.9 - Sepsis, unspecified organism Status: Acute (5) Cellulitis of great toe of right foot ICD Codes: L03.031 - Cellulitis of right toe Status: Acute (6) Osteomyelitis of toe of right foot ICD Codes: M86.9 - Osteomyelitis, unspecified Status: Acute (7) PVD (peripheral vascular disease) ICD Codes: I73.9 - Peripheral vascular disease, unspecified Status: Acute (8) LV dysfunction ICD Codes: I51.9 - Heart disease, unspecified Status: Chronic Assessment and Plan Pause > 5 seconds and episodes of bradycardia noted. Will decrease metoprolol dose. BP high will increase lisinopril to 40 mg daily. Discussed recommendations for further cardiac workup and possible ICD but he is still declining that. Understands possible high risk of SCD. Dr. Philip is covering Dr. Mahoney tomorrow. Problem Qualifiers (1) Coronary artery disease: Michael Stewart MD May 12, 2017 13:12
--- NOTE | 2017-05-12 13:36 | PD.VS.PN ---
Subjective Procedure(s): Aortogram w/ R LE angiogram TPT orbital atherectomy and CHAIR CAR ATTENDANT 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 Subjective/Hospital Course Pt sitting in chair without complaints states he is leaving later today since his PICC line was placed. Objective Vitals/I&O Date Time Temp Pulse Resp B/P (MAP) Pulse Ox O2 Delivery O2 Flow Rate FiO2 05/12/17 06:00 61 05/12/17 05:00 63 05/12/17 04:00 98.1 61 18 148/87 (107) 96 05/12/17 04:00 61 05/12/17 03:00 62 05/12/17 02:00 60 05/12/17 01:00 64 05/12/17 00:00 63 05/12/17 00:00 98.1 69 18 155/87 (109) 98 05/11/17 23:00 64 05/11/17 22:00 69 05/11/17 21:00 74 05/11/17 20:00 98.2 65 18 164/90 (114) 99 05/11/17 20:00 65 05/11/17 18:42 17 05/11/17 18:00 70 05/11/17 17:00 66 05/11/17 16:00 68 05/11/17 15:01 98.0 69 20 182/89 (120) 100 05/11/17 15:01 68 05/11/17 14:01 66 05/12/17 05/12/17 05/12/17 07:00 15:00 23:00 Intake Total 1190 ml Output Total 650 ml Balance 540 ml Exam: right 1st ray site is clean. RIght DP and PT with phasic signals. Laboratory Laboratory Tests Test 05/12/17 03:50 White Blood Count 9.4 Red Blood Count 3.03 Hemoglobin 8.9 Hematocrit 26.2 Mean Corpuscular Volume 86.5 Mean Corpuscular Hemoglobin 29.4 Mean Corpuscular Hemoglobin Concent 34.0 Red Cell Distribution Width 15.7 Platelet Count 260 Mean Platelet Volume 8.0 Neutrophils (%) (Auto) 70.9 Lymphocytes (%) (Auto) 8.5 Monocytes (%) (Auto) 8.1 Eosinophils (%) (Auto) 11.6 Basophils (%) (Auto) 0.9 Neutrophils # (Auto) 6.7 Lymphocytes # (Auto) 0.8 Monocytes # (Auto) 0.8 Eosinophils # (Auto) 1.1 Basophils # (Auto) 0.1 CBC Comment AUTO DIFF Differential Total Cells Counted 100 Neutrophils % (Manual) 72 Lymphocytes % 9 Monocytes % 6 Eosinophils % 8 Basophils % 1 Neutrophils # (Manual) 7.1 Metamyelocytes 1 Myelocytes 3 Nucleated Red Blood Cells 1 Differential Comment FINAL DIFF MANUAL Platelet Estimate NORMAL Platelet Morphology Comment NORMAL Red Cell Morphology Comment NORMAL Prothrombin Time 19.2 Prothromb Time International Ratio 1.7 Blood Urea Nitrogen 27 Creatinine 1.95 Random Glucose 120 Total Protein 6.5 Albumin 2.6 Calcium Level 8.4 Alkaline Phosphatase 67 Aspartate Amino Transf (AST/SGOT) 23 Alanine Aminotransferase (ALT/SGPT) 38 Total Bilirubin 0.3 Sodium Level 140 Potassium Level 3.8 Chloride Level 106 Carbon Dioxide Level 24.4 Anion Gap 10 Estimat Glomerular Filtration Rate 34 Random Vancomycin Level 24.7 Date/Time Source Procedure Growth Status 04/30/17 13:10 Blood Peripheral Aerobic Blood Culture - Final NO GROWTH IN 5 DAYS Complete 04/30/17 13:10 Blood Peripheral Anaerobic Blood Culture - Final NO GROWTH IN 5 DAYS Complete 05/09/17 18:49 Stool Stool Stool Occult Blood (SOSA) - Final HEMOCCULT NEGATIVE Complete 05/07/17 12:30 Wound Toe Gram Stain - Final Complete 05/07/17 12:30 Wound Culture - Final Providencia Stuartii Complete Assessment and Plan Assessment: (1) Necrotic toes Status: Acute Plan Patient appears to have stable right 1st ray amp site. May benefit from wound vac. Sounds like has appropriate arterial supply with phasic signals of PT and DP. Continue IV antibiotics. will need wound care if discharged either by wound care center or wound care physician in SNF. Will follow along as patient with run of V-tach and bradycardic episode being worked up by cardiology. Ricci Zazueta DO May 12, 2017 13:36
[2017-05-12] MEDS: VANCOMYCIN INJ 1,250 MG in SODIUM CHLOR 0.9% 250 ML INJ 250 ML IV SCH (20:21)
[2017-05-12] MEDS: PRAVASTATIN SOD 80 MG TAB PO SCH (20:22)
[2017-05-12] MEDS: ACETAMINOPHEN/HYDROcodone 325 MG/5 MG TAB PO PRN (20:22)
[2017-05-13] VITALS (27 sets, daily range): BP systolic 148–192; BP diastolic 70–87; PULSE 38–112; RESP 16–19; TEMP 97.6–98.6; O2SAT 93–99
[2017-05-13] MEDS: PIPERACIL-TAZO 2.25 GM PREMIX 50 ML IV SCH ×2 (05:18→12:00)
[2017-05-13] MEDS: glipiZIDE 5 MG TAB PO SCH ×2 (05:18→16:55)
[2017-05-13] MEDS: INSULIN ASPART SUPPLEMENTAL SCALE SQ SCH ×4 (06:30→21:00)
[2017-05-13 06:49] LABS: INTERNATIONAL NORMALIZED RATIO 1.3 RATIO; PROTHROMBIN TIME - PATIENT 15.1 SEC (9.8-11.6)
[2017-05-13] MEDS: METOPROLOL TARTRATE 25 MG TAB PO SCH ×2 (08:16→22:13)
[2017-05-13] MEDS: LISINOPRIL 20 MG TAB PO SCH (08:17)
[2017-05-13] MEDS: ACETAMINOPHEN/HYDROcodone 325 MG/5 MG TAB PO PRN ×2 (08:17→22:12)
[2017-05-13] MEDS: SODIUM CHLORIDE 0.9% FLUSH 10 ML FLUSH IV FLUSH SCH ×2 (08:22→22:13)
[2017-05-13] MEDS: DOCUSATE SODIUM 50 MG/SENNA 8.6 MG TAB PO SCH ×2 (08:22→21:00)
--- NOTE | 2017-05-13 08:47 | HHI.PR ---
Subjective History of Present Illness Patient seen on 05/12/17 Patient feel better. no acute issue. ok to discharge if ok with all. 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 Vitals/Results Vital Signs Vital Signs Date Time Temp Pulse Resp B/P (MAP) Pulse Ox O2 Delivery O2 Flow Rate FiO2 05/13/17 08:04 66 05/13/17 08:00 97.6 75 16 179/84 (115) 97 05/13/17 06:00 77 05/13/17 05:00 57 05/13/17 04:00 46 05/13/17 04:00 98.0 46 18 152/81 (104) 95 05/13/17 03:00 42 05/13/17 02:00 38 05/13/17 01:00 54 05/13/17 00:00 98.3 48 18 148/82 (104) 96 05/13/17 00:00 48 05/12/17 23:00 69 05/12/17 22:00 61 05/12/17 21:00 69 05/12/17 20:00 98.1 68 18 150/89 (109) 96 05/12/17 20:00 68 05/12/17 18:01 68 05/12/17 17:03 68 05/12/17 16:00 48 05/12/17 15:14 97.9 70 18 151/74 (99) 98 05/12/17 15:01 63 05/12/17 14:01 66 05/12/17 13:00 62 05/12/17 12:00 60 05/12/17 11:30 98.3 64 18 182/91 (121) 98 05/12/17 11:00 63 05/12/17 10:00 66 05/12/17 09:00 70 CBC/BMP: 05/12/17 0350 05/12/17 0350 Lab Results Laboratory Tests Test 05/12/17 20:19 8/21/17 06:04 Magnesium Level 2.1 MG/DL Prothrombin Time 15.1 SEC Prothromb Time International Ratio 1.3 RATIO Physical Exam General General Appearance: Well Developed, Well Nourished, No Acute Distress, Comfortable Eyes Eye Exam: Sclera White, Extraocular Movement Intact Throat Throat Exam: Oral Mucosa [place] & Moist, Oral Pharynx Normal Neck Neck Exam: Neck Supple, Trachea Midline Pulmonary Resp Exam: Clear Bilaterally, Breath Sounds Equal Cardiology CV Exam: Regular, Normal Sinus Rhythm Gastrointestinal/Abdomen GI Exam: Soft, Non-Tender Musculoskeletal MS Exam: Normal Tone MS Remarks S/P Aortogram w/ R LE angiogram and TPT orbital atherectomy and GLOBAL MANAGER (3mm) and L PORTER LUGGAGE angioseal 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 This is a 76-year male who came to the ER diagnosed with blackening, erythema, pain and swelling of the right great toe rule out osteomyelitis/peripheral vascular disease. Podiatry and vascular surgeon and infectious disease / Cardiology input noted The patient on Zosyn. Further recommendation per interventional sale consultant. 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 have INR 2.0 s/p Transfusion 4 units FFP. Have low Hemoglobin s/p transfusion 2 units PRBC and Check fecal occult blood test. 2. Diabetes mellitus, ADA 1800 calorie diet. NovoLog low-dose sliding scale. Check blood sugars. We will monitor blood sugar. 3. Renal failure, creatinine was 1.84, BUN was 37, now BUN of 27 and creatinine 1.8 4. History of stroke and TIA. The patient was on Coumadin. INR 2.0. holding coumadin We will Monitor PT/ INR Daily. Transfuse 1 more units FFP. 5. History of hypertension. Continue home medication. Monitor blood pressure. 6. History of coronary artery disease continue home medication. 7. History of hyperlipidemia. Continue home medications. 8. DVT prophylaxis. The patient was on Coumadin... INR 2.0 today. holding coumadin. S/P Transfusion of 4 units FFP. 9. GI prophylaxis, Protonix 40 mg p.o. daily. 10. Leukocytosis secondary to right foot cellulitis will monitor. down trend. 11. No recurrent VT on beta shirin. No angina or CHF symptoms. 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 He refused any cardiology intervention including ICD at this time. He understands the risk of Sudden Cardiac . Proceed with potential revascularization as planned. 12. Hyponatremia will monitor. 13. Low Hemoglobin S/P transfusion of 2 units PRBC and Check fecal occult blood test. Check CBC with diff CMP in AM. we are going to manage the patient on a daily basis and make recommendations on a daily basis. ok to discharge today if ok with all. f/u with PCP/Infectious disease/ vascular surgeon/ Podiatry 1 week. Discussed Condition with: Patient Don Kothari MD May 13, 2017 08:47
--- NOTE | 2017-05-13 08:47 | HHI.PR ---
Subjective History of Present Illness Patient feel better no acute issue. wants AICD Placement now. d/w RN. 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 Vitals/Results Vital Signs Vital Signs Date Time Temp Pulse Resp B/P (MAP) Pulse Ox O2 Delivery O2 Flow Rate FiO2 05/13/17 08:04 66 05/13/17 08:00 97.6 75 16 179/84 (115) 97 05/13/17 06:00 77 05/13/17 05:00 57 05/13/17 04:00 46 05/13/17 04:00 98.0 46 18 152/81 (104) 95 05/13/17 03:00 42 05/13/17 02:00 38 05/13/17 01:00 54 05/13/17 00:00 98.3 48 18 148/82 (104) 96 05/13/17 00:00 48 05/12/17 23:00 69 05/12/17 22:00 61 05/12/17 21:00 69 05/12/17 20:00 98.1 68 18 150/89 (109) 96 05/12/17 20:00 68 05/12/17 18:01 68 05/12/17 17:03 68 05/12/17 16:00 48 05/12/17 15:14 97.9 70 18 151/74 (99) 98 05/12/17 15:01 63 05/12/17 14:01 66 05/12/17 13:00 62 05/12/17 12:00 60 05/12/17 11:30 98.3 64 18 182/91 (121) 98 05/12/17 11:00 63 05/12/17 10:00 66 05/12/17 09:00 70 CBC/BMP: 05/12/17 0350 05/12/17 0350 Lab Results Laboratory Tests Test 05/12/17 20:19 05/13/17 06:04 Magnesium Level 2.1 MG/DL Prothrombin Time 15.1 SEC Prothromb Time International Ratio 1.3 RATIO Physical Exam General General Appearance: Well Developed, Well Nourished, No Acute Distress, Comfortable Eyes Eye Exam: Sclera White, Extraocular Movement Intact Throat Throat Exam: Oral Mucosa [place] & Moist, Oral Pharynx Normal Neck Neck Exam: Neck Supple, Trachea Midline Pulmonary Resp Exam: Clear Bilaterally, Breath Sounds Equal Cardiology CV Exam: Regular, Normal Sinus Rhythm Gastrointestinal/Abdomen GI Exam: Soft, Non-Tender Musculoskeletal MS Exam: Normal Tone MS Remarks S/P Aortogram w/ R LE angiogram and TPT orbital atherectomy and X RAY EQUIPMENT TESTER (3mm) and L PRACTICE MANAGER angioseal 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 Integumentary Skin Remarks S/P Aortogram w/ R LE angiogram and TPT orbital atherectomy and X RAY EQUIPMENT TESTER (3mm) and L PRACTICE MANAGER angioseal 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 This is a 76-year male who came to the ER diagnosed with blackening, erythema, pain and swelling of the right great toe rule out osteomyelitis/peripheral vascular disease. Podiatry and vascular surgeon and infectious disease / Cardiology input noted The patient on Zosyn. Further recommendation per corporate consultant. S/P Aortogram w/ R LE angiogram and TPT orbital atherectomy and X RAY EQUIPMENT TESTER (3mm) and L PRACTICE MANAGER angioseal 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 . have INR 1.3 s/p Transfusion 4 units FFP. Have low Hemoglobin s/p transfusion 2 units PRBC and Check fecal occult blood test. 2. Diabetes mellitus, ADA 1800 calorie diet. NovoLog low-dose sliding scale. Check blood sugars. We will monitor blood sugar. 3. Renal failure, creatinine was 1.84, BUN was 37, now BUN of 27 and creatinine 1.95 4. History of stroke and TIA. The patient was on Coumadin. INR 1.3. holding coumadin We will Monitor PT/ INR Daily. 5. History of hypertension. Continue home medication. Monitor blood pressure. 6. History of coronary artery disease continue home medication. 7. History of hyperlipidemia. Continue home medications. 8. DVT prophylaxis. The patient was on Coumadin... INR 1.3 today. holding coumadin. S/P Transfusion of 4 units FFP. 9. GI prophylaxis, Protonix 40 mg p.o. daily. 10. Leukocytosis secondary to right foot cellulitis will monitor. down trend. 11. No recurrent VT on beta shirin. No angina or CHF symptoms. 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 He wants ICD at this time. 12. Hyponatremia resolved. 13. Low Hemoglobin S/P transfusion of 2 units PRBC and Check fecal occult blood test. Check CBC with diff CMP in AM. we are going to manage the patient on a daily basis and make recommendations on a daily basis. Discussed Condition with: Patient Don Kothari MD May 13, 2017 08:47
--- NOTE | 2017-05-13 10:46 | PD.VS.PN ---
Subjective POD #: 5 Procedure(s): Aortogram w/ R LE angiogram TPT orbital atherectomy and SURGICAL NURSE PRACTITIONER 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 Subjective/Hospital Course Pt sitting in chair Pt alert in NAD w/o complaints Dressing to Right LE I/C/D Objective Vitals/I&O Date Time Temp Pulse Resp B/P (MAP) Pulse Ox O2 Delivery O2 Flow Rate FiO2 05/13/17 10:24 63 05/13/17 09:08 59 05/13/17 08:04 66 05/13/17 08:00 97.6 75 16 179/84 (115) 97 05/13/17 06:00 77 05/13/17 05:00 57 05/13/17 04:00 46 05/13/17 04:00 98.0 46 18 152/81 (104) 95 05/13/17 03:00 42 05/13/17 02:00 38 05/13/17 01:00 54 05/13/17 00:00 98.3 48 18 148/82 (104) 96 05/13/17 00:00 48 05/12/17 23:00 69 05/12/17 22:00 61 05/12/17 21:00 69 05/12/17 20:00 98.1 68 18 150/89 (109) 96 05/12/17 20:00 68 05/12/17 18:01 68 05/12/17 17:03 68 05/12/17 16:00 48 05/12/17 15:14 97.9 70 18 151/74 (99) 98 05/12/17 15:01 63 05/12/17 14:01 66 05/12/17 13:00 62 05/12/17 12:00 60 05/12/17 11:30 98.3 64 18 182/91 (121) 98 05/12/17 11:00 63 05/13/17 05/13/17 05/13/17 06:59 14:59 22:59 Intake Total 830 ml Output Total 700 ml Balance 130 ml Exam: GENERAL: A&OX3,NAD SKIN: Warm and dry/ Right great toe amputation site w/o swelling/redness/odor MUSCULOSKELETAL: No cyanosis, or edema. BLE warm with motor intact Phasic Doppler signals to R DP/PT Laboratory Laboratory Tests Test 05/12/17 20:19 05/13/17 06:04 Magnesium Level 2.1 Prothrombin Time 15.1 Prothromb Time International Ratio 1.3 Date/Time Source Procedure Growth Status 04/30/17 13:10 Blood Peripheral Aerobic Blood Culture - Final NO GROWTH IN 5 DAYS Complete 04/30/17 13:10 Blood Peripheral Anaerobic Blood Culture - Final NO GROWTH IN 5 DAYS Complete 05/09/17 18:49 Stool Stool Stool Occult Blood (SOSA) - Final HEMOCCULT NEGATIVE Complete 05/07/17 12:30 Wound Toe Gram Stain - Final Complete 05/07/17 12:30 Wound Culture - Final Providencia Stuartii Complete Assessment and Plan Assessment: (1) Necrotic toes Status: Acute (2) Hypertension Status: Chronic (3) PVD (peripheral vascular disease) Status: Acute (4) Osteomyelitis of toe of right foot Status: Acute (5) Diabetes Status: Chronic Plan Patient appears to have stable right 1st ray amp site. Sounds like has appropriate arterial supply with phasic signals of PT and DP. Plan Pt Ok for D/C from a Vascular standpoint Continue IV antibiotics Pt will need to continue out patient wound care either by Wound care center/ Wound care physician (SNF) Will Arrange post op F/U Sarah GERMAIN [facility] [phone] Discharge Planning Pt cleared for D/C from a vascular standpoint Will Arrange out patient follow up Sarah Brannon May 13, 2017 10:46
--- NOTE | 2017-05-13 14:05 | PD.CARD.PN ---
Subjective Subjective Remarks Recurrent runs of NSVT and bradycardia. BP high. The patient denies lightheadedness, SOB, CP, palpitations, edema. (Melia Menendez) Objective Medications Current Medications Medications (Trade) Dose Ordered Sig/Jorge L Route Start Time Stop Time Status Last Admin (Glucotrol) 5 mg BIDAC PO 04/30/17 16:00 05/13/17 05:18 (Pravachol) 80 mg HS PO 04/30/17 21:00 05/12/17 20:22 (NS Flush) 2 ml UNSCH PRN IV FLUSH 04/30/17 14:00 (NS Flush) 2 ml BID IV FLUSH 04/30/17 21:00 05/13/17 08:22 (Zofran Inj) 4 mg Q6H PRN IVP 04/30/17 14:00 (Narcan Inj) 0.4 mg UNSCH PRN IV 04/30/17 14:00 (Cherrie-Colace) 1 tab BID PO 04/30/17 21:00 05/11/17 21:23 (Milk Of Magnesia Liq) 30 ml Q12H PRN PO 04/30/17 14:00 (Senokot) 17.2 mg Q12H PRN PO 04/30/17 14:00 (Dulcolax Supp) 10 mg DAILY PRN RECTAL 04/30/17 14:00 (Lactulose Liq) 30 ml DAILY PRN PO 04/30/17 14:00 05/02/17 09:09 (D50w (Vial) Inj) 50 ml UNSCH PRN IV 04/30/17 14:00 (Glucagon Inj) 1 mg UNSCH PRN OTHER 04/30/17 14:00 (NovoLOG SUPPLEMENTAL SCALE) 1 ACHS SLIDING SCALE SQ 04/30/17 16:00 05/12/17 15:34 ([place] 5-325 Mg) 1 tab Q4H PRN PO 04/30/17 21:15 05/13/17 08:17 Pharmacy Profile Note 0 ml @ 0 mls/hr UNSCH OTHER 05/05/17 17:15 Piperacillin Sod/ Tazobactam Sod 50 ml @ 100 mls/hr Q6H IV 05/07/17 18:00 05/13/17 05:18 (Lopressor) 25 mg Q12HR PO 05/12/17 09:00 05/13/17 08:16 (Prinivil) 40 mg DAILY PO 05/12/17 09:00 05/13/17 08:17 Vancomycin HCl 1250 mg/Sodium Chloride 262.5 ml @ 250 mls/hr Q24H IV 05/12/17 20:00 05/12/17 20:21 Miscellaneous Information SPECIFIC LAB TO BE DRAWN:VANCOMY... ONCE ONCE .XX 05/14/17 19:45 05/14/17 19:46 Vital Signs / I&O Vital Signs Date Time Temp Pulse Resp B/P (MAP) Pulse Ox O2 Delivery O2 Flow Rate FiO2 05/13/17 13:02 67 05/13/17 12:27 61 05/13/17 11:44 98.4 63 16 188/86 (120) 97 05/13/17 11:15 61 05/13/17 10:24 63 05/13/17 09:08 59 05/13/17 08:04 66 05/13/17 08:00 97.6 75 16 179/84 (115) 97 05/13/17 06:00 77 05/13/17 05:00 57 05/13/17 04:00 46 05/13/17 04:00 98.0 46 18 152/81 (104) 95 05/13/17 03:00 42 05/13/17 02:00 38 05/13/17 01:00 54 05/13/17 00:00 98.3 48 18 148/82 (104) 96 05/13/17 00:00 48 05/12/17 23:00 69 05/12/17 22:00 61 05/12/17 21:00 69 05/12/17 20:00 98.1 68 18 150/89 (109) 96 05/12/17 20:00 68 05/12/17 18:01 68 05/12/17 17:03 68 05/12/17 16:00 48 05/12/17 15:14 97.9 70 18 151/74 (99) 98 05/12/17 15:01 63 05/12/17 14:01 66 I/O 05/12/17 05/12/17 05/12/17 05/13/17 05/13/17 05/13/17 07:00 15:00 23:00 07:00 15:00 23:00 Intake Total 1190 ml 700 ml 830 ml Output Total 650 ml 650 ml 700 ml Balance 540 ml 50 ml 130 ml Intake Oral 240 ml 600 ml 480 ml IV Total 950 ml 100 ml 350 ml Output Urine Total 650 ml 650 ml 700 ml # Voids 5 # Bowel Movements 1 1 0 Physical Exam GENERAL: Elderly male, at bedside SKIN: Warm and dry. HEAD: Normocephalic. EYES: No scleral icterus. No injection or drainage. NECK: Supple, trachea midline. No JVD or lymphadenopathy. CARDIOVASCULAR: Regular rate and rhythm without murmurs, gallops, or rubs. RESPIRATORY: Breath sounds equal bilaterally. No accessory muscle use. GASTROINTESTINAL: Abdomen soft, non-tender, nondistended. MUSCULOSKELETAL: No cyanosis, or edema. Right foot dressing/surgical shoe BACK: Nontender without obvious deformity. No CVA tenderness. Laboratory Laboratory Tests Test 05/12/17 20:19 05/13/17 06:04 Magnesium Level 2.1 MG/DL Prothrombin Time 15.1 SEC Prothromb Time International Ratio 1.3 RATIO (Melia Menendez) Assessment and Plan Problem List: (1) VT (ventricular tachycardia) ICD Codes: I47.2 - Ventricular tachycardia Status: Acute (2) Coronary artery disease ICD Codes: I25.10 - Coronary artery disease Status: Chronic (3) History of coronary artery bypass surgery ICD Codes: Z95.1 - History of coronary artery bypass surgery Status: Acute (4) Sepsis ICD Codes: A41.9 - Sepsis, unspecified organism Status: Acute (5) Cellulitis of great toe of right foot ICD Codes: L03.031 - Cellulitis of right toe Status: Acute (6) Osteomyelitis of toe of right foot ICD Codes: M86.9 - Osteomyelitis, unspecified Status: Acute (7) PVD (peripheral vascular disease) ICD Codes: I73.9 - Peripheral vascular disease, unspecified Status: Acute (8) LV dysfunction ICD Codes: I51.9 - Heart disease, unspecified Status: Chronic Assessment and Plan Pending echo results Add amlodipine [address] Mahoney will follow up tomorrow to make final decision about ICD vs lifevest. Patient seen and evaluated by Dr Philip who completed face to face encounter and participated in evaluation and management. (Melia Menendez) Assessment and Plan The exam, history, and the medical decision-making described in the above note were completed with the assistance of the mid-level provider. I reviewed and agree with the findings presented. I attest that I had a [id number] encounter with the patient on the same day, and personally performed and documented my assessment and findings in the medical record. Overall appears to be stable at this time. (Travis Philip MD) Problem Qualifiers (1) Coronary artery disease: Melia Menendez May 13, 2017 14:05 Travis Philip MD May 13, 2017 18:55
[2017-05-13] MEDS: amLODIPine BESYLATE 5 MG TAB PO SCH (15:02)
--- NOTE | 2017-05-13 15:40 | ECHRPT ---
Indication: CARDIOMYOPATHY CONCLUSIONS The left ventricular systolic function is cmmbdsql-pe-cjyeket reduced with an estimated ejection fra ction in the range of 35-40%. Wall thickness is measured at the upper limits of normal. Normal left ventricular size. The right ventriclar size is upper limits of normal. Mild thickening of the mitral valve leaflets. Severe mitral valve regurgitation. There is trace tricuspid valve regurgitation. The estimated pulmonary arterial pressure is 43 mmHg. Mild pulmonary valve regurgitation. BP: 152 / 81 HR: 46 Rhythm: Sinus MEASUREMENTS (Male / Female) Normal Values Technical Quality:Good 2D ECHO LV Diastolic Diameter PLAX 6.0 cm 4.2 - 5.9 / 3.9 - 5.3 cm LV Systolic Diameter PLAX 5.3 cm IVS Diastolic Thickness 1.2 cm 0.6 - 1.0 / 0.6 - 0.9 cm LVPW Diastolic Thickness 1.2 cm 0.6 - 1.0 / 0.6 - 0.9 cm LV Relative Wall Thickness 0.4 RV Internal Dim ED PLAX 3.6 cm LVOT Diameter 2.0 cm LA Systolic Diameter LX 4.0 cm 3.0 - 4.0 / 2.7 - 3.8 cm LV Ejection Fraction MOD 4C 37.0 % LV Cardiac Index MOD 4C 1724.2 cm/minm LV Ejection Fraction 4C AL 37.8 % LV Cardiac Index 4C AL 1814.7 cm/minm LA Volume Index 43.8 cm/m 16 - 28 cm/m M-MODE Aortic Root Diameter MM 3.6 cm LA Systolic Diameter MM 4.0 cm LA Ao Ratio MM 1.1 AV Cusp Separation MM 2.3 cm DOPPLER AV Peak Velocity 138.0 cm/s AV Peak Gradient 7.6 mmHg LVOT Peak Velocity 80.9 cm/s LVOT Peak Gradient 2.6 mmHg AV Area Cont Eq pk 1.8 cm MV Area PHT 4.3 cm Mitral E Point Velocity 112.0 cm/s Mitral A Point Velocity 78.5 cm/s Mitral E to A Ratio 1.4 LV E' Lateral Velocity 4.1 cm/s Mitral E to LV E' Lateral Ratio 27.4 LV E' Septal Velocity 4.0 cm/s Mitral E to LV E' Septal Ratio 28.0 TR Peak Velocity 327.0 cm/s TR Peak Gradient 42.8 mmHg PV Peak Velocity 97.7 cm/s PV Peak Gradient 3.8 mmHg FINDINGS LEFT VENTRICLE The left ventricular systolic function is rrpymbxx-eh-uxsastm reduced with an estimated ejection fra ction in the range of 35-40%. Wall thickness is measured at the upper limits of normal. Normal left ventricular size. RIGHT VENTRICLE The right ventriclar size is upper limits of normal. LEFT ATRIUM The left atrial size is normal. RIGHT ATRIUM The right atrial size is normal. ATRIAL SEPTUM Normal atrial septal thickness without atrial level shunting by limited color doppler interrogation. AORTA The aortic root and proximal ascending aorta are normal in size on limited imaging. MITRAL VALVE Mild thickening of the mitral valve leaflets. Severe mitral valve regurgitation. AORTIC VALVE Trileaflet aortic valve. No aortic valve stenosis or regurgitation. TRICUSPID VALVE There is trace tricuspid valve regurgitation. The estimated pulmonary arterial pressure is 43 mmHg. PULMONARY VALVE Mild pulmonary valve regurgitation. VESSELS The inferior vena cava is normal in size. PERICARDIUM No pericardial effusion. Javy Higgins MD (Electronically Signed) Final Date:13 May 2017 15:38
[2017-05-13] MEDS: cefTRIAXone 2,000 MG/NS 100 ML IV SCH ×2 (16:55)
[2017-05-13] MEDS: PRAVASTATIN SOD 80 MG TAB PO SCH (22:13)
[2017-05-13] MEDS: VANCOMYCIN INJ 1,250 MG in SODIUM CHLOR 0.9% 250 ML INJ 250 ML IV SCH (22:13)
[2017-05-14] VITALS (29 sets, daily range): BP systolic 158–191; BP diastolic 67–89; PULSE 57–78; RESP 16–20; TEMP 97.5–98.6; O2SAT 18–99
[2017-05-14 06:35] LABS: BASOPHIL # 0.1 TH/MM3 (0-0.2); EOSINOPHIL # 1.1 TH/MM3 (0-0.4); EOSINOPHIL % 11.1 % (0.0-4.0); HEMATOCRIT 28.6 % (39.0-51.0); LYMPH % 10.2 % (9.0-44.0); MEAN CELL VOLUME 86.3 FL (80.0-100.0); MEAN CORPUSCULAR HEMOGLOBIN 28.7 PG (27.0-34.0); MEAN CORPUSCULAR HGB CONC 33.3 % (32.0-36.0); MONO % 6.7 % (0.0-8.0); PLATELET COUNT 285 TH/MM3 (150-450); RED BLOOD COUNT 3.32 MIL/MM3 (4.50-5.90); RED CELL DISTRIBUTION WIDTH 15.9 % (11.6-17.2); WHITE BLOOD COUNT 9.9 TH/MM3 (4.0-11.0)
[2017-05-14 06:45] LABS: HEMO FLAGS AUTO DIFF
[2017-05-14 06:59] LABS: INTERNATIONAL NORMALIZED RATIO 1.2 RATIO; PROTHROMBIN TIME - PATIENT 13.8 SEC (9.8-11.6)
[2017-05-14] MEDS: glipiZIDE 5 MG TAB PO SCH ×2 (07:00→16:00)
[2017-05-14] MEDS: INSULIN ASPART SUPPLEMENTAL SCALE SQ SCH ×4 (07:00→21:00)
[2017-05-14 07:29] LABS: ALT (GPT) 30 U/L (12-78); ANION GAP 10 MEQ/L (5-15); AST (GOT) 23 U/L (15-37); BLOOD UREA NITROGEN 18 MG/DL (7-18); CHLORIDE 108 MEQ/L (98-107); GLOMERULAR FILTRATION RATE 42 ML/MIN (>89); POTASSIUM 3.6 MEQ/L (3.5-5.1); SODIUM (NA) 141 MEQ/L (136-145)
[2017-05-14 07:36] LABS: ALKALINE PHOSPHATASE 66 U/L (45-117); TOTAL BILIRUBIN ADULT 0.3 MG/DL (0.2-1.0)
[2017-05-14 07:55] LABS: BANDS 4 % (0-6); EOSINOPHILS 11 % (0-4); NEUTROPHIL # MANUAL DIFF 7.5 TH/MM3 (1.8-7.7); OVALOCYTES 1+ (NORMAL); PLATELET ESTIMATE SMEAR NORMAL (NORMAL); POLYS (SEG NEUTROPHILS) 72 % (16-70); WBC DIFF SAMPLE 100
[2017-05-14 07:56] LABS: PLATELET MORPHOLOGY NORMAL (NORMAL); SCAN/DIFF FINAL DIFF MANUAL
[2017-05-14] MEDS: amLODIPine BESYLATE 5 MG TAB PO SCH (08:37)
[2017-05-14] MEDS: DOCUSATE SODIUM 50 MG/SENNA 8.6 MG TAB PO SCH ×2 (08:37→21:00)
[2017-05-14] MEDS: LISINOPRIL 20 MG TAB PO SCH (08:38)
[2017-05-14] MEDS: METOPROLOL TARTRATE 25 MG TAB PO SCH ×2 (08:38→21:23)
[2017-05-14] MEDS: SODIUM CHLORIDE 0.9% FLUSH 10 ML FLUSH IV FLUSH SCH ×2 (08:39→21:23)
--- NOTE | 2017-05-14 08:46 | MD ---
cc: DON BARRIENTOS MD ADMISSION DATE: 04/30/2017 DISCHARGE DATE: [place] Visit Search.Discharge Date DATE OF DISCHARGE 05/13/2017 DISPOSITION Okay to discharge the patient home with home health care. The patient needs IV antibiotic and also monitoring of the PT/INR. CONDITION AT THE TIME OF DISCHARGE Satisfactory. ACTIVITY As tolerated. DIET Cardiac diet. ALLERGIES No known drug allergies. DISCHARGE MEDICATIONS 1. Metoprolol 50 mg q.12 hours. 2. Glipizide 5 mg p.o. b.i.d. 3. Lisinopril 20 mg p.o. daily. 4. Metformin 1000 mg twice a day. 5. Simvastatin 40 mg p.o. at bedtime. 6. Coumadin 10 mg p.o. daily. FOLLOWUP The patient advised to follow up with Infectious Disease, primary care doctor, Podiatry and vascular surgeon. The patient verbalized understanding of special instructions. The patient advised to check PT/INR with home health care and give report to the primary care doctor. ADMISSION DIAGNOSIS 1. Blackening, erythema and swelling and pain of the right great toe. The patient had gangrene of the right great toe. The patient refused amputation before and eventually agreed to do that. The patient was given IV antibiotic. The patient was seen by vascular surgeon, Infectious Disease, Cardiology. The patient is status post aortogram with right lower extremity angiogram and had PTP, orbital arthrectomy and SALES AND RETAIL MANAGEMENT RECRUITER 3-mm and left AUTO ELECTRICAL TECHNICIAN, Angio-Seal. 2. The patient had anemia. The patient got 2 units of packed RBCs. 3. The patient also had a high INR, needed surgery. He got 4 units of fresh frozen plasma. The patient had amputation of the right first toe and the patient's INR decreased down to 1.3 at the time of discharge. The patient was started on Coumadin back, advised to check PT/INR. 4. Diabetes mellitus. 5. Renal failure. The patient had a high BUN, creatinine, has chronic renal failure. 6. History of stroke or TIA. The patient was on Coumadin. 7. History of hypertension. 8. History of coronary artery disease. 9. History of hyperlipidemia. 10. Leukocytosis secondary to cellulitis which is improved. 11. Recurrent ventricular tachycardia. The patient refused ICD placement. The risks, benefits and alternatives were explained to the patient including sudden . The patient refused and verbalized understanding. 12. Low hemoglobin status post 2 units packed RBC blood transfusion. Check fecal blood test. HOSPITAL COURSE This is a 76-year-old male admitted with the above-mentioned complaints and problems, seen by vascular surgeon and had vascular intervention done. The patient also seen by Podiatry and Infectious Disease doctor. The patient needed ceftriaxone. The patient needed IV antibiotic per Infectious Disease recommendation, Rocephin for two weeks, home health care set up by the case repairer. The patient remained stable. No acute event happened except for ventricular tachycardia, asymptomatic. The patient's leukocytosis resolved. The patient at the time of discharge had a hemoglobin of 8.9 and 26.2. The patient had anemia secondary to chronic disease. The patient had renal failure with a creatinine of 1.7, 1.8, 1.9 baseline creatinine. The patient's sugar was high. The patient sugar was managed during the hospital stay. The patient had toe x-rays done showing bony destruction involving the first distal phalanx with abnormal soft tissue changes characteristic of osteomyelitis. Lower extremity arterial study was done and shows equivocal ankle indices secondary to noncompressibility. Satisfactory preservation of pulsatile flow in the left toes. Absent signal on right. Further details in the medical record. Don Barrientos MD EA/SHAHID /12:54 PM /8:26 AM
[2017-05-14] MEDS: ACETAMINOPHEN/HYDROcodone 325 MG/5 MG TAB PO PRN (09:26)
--- NOTE | 2017-05-14 16:01 | PD.CARD.PN ---
Subjective Subjective Remarks No CP or SOB, still w episodes of sustained monomorphic VT Objective Medications Current Medications Medications (Trade) Dose Ordered Sig/Jorge L Route Start Time Stop Time Status Last Admin (Glucotrol) 5 mg BIDAC PO 04/30/17 16:00 05/13/17 16:55 (Pravachol) 80 mg HS PO 04/30/17 21:00 05/13/17 22:13 (NS Flush) 2 ml UNSCH PRN IV FLUSH 04/30/17 14:00 (NS Flush) 2 ml BID IV FLUSH 04/30/17 21:00 05/14/17 08:39 (Zofran Inj) 4 mg Q6H PRN IVP 04/30/17 14:00 (Narcan Inj) 0.4 mg UNSCH PRN IV 04/30/17 14:00 (Cherrie-Colace) 1 tab BID PO 04/30/17 21:00 05/14/17 08:37 (Milk Of Magnesia Liq) 30 ml Q12H PRN PO 04/30/17 14:00 (Senokot) 17.2 mg Q12H PRN PO 04/30/17 14:00 (Dulcolax Supp) 10 mg DAILY PRN RECTAL 04/30/17 14:00 (Lactulose Liq) 30 ml DAILY PRN PO 04/30/17 14:00 05/02/17 09:09 (D50w (Vial) Inj) 50 ml UNSCH PRN IV 04/30/17 14:00 (Glucagon Inj) 1 mg UNSCH PRN OTHER 04/30/17 14:00 (NovoLOG SUPPLEMENTAL SCALE) 1 ACHS SLIDING SCALE SQ 04/30/17 16:00 05/14/17 11:24 ([place] 5-325 Mg) 1 tab Q4H PRN PO 04/30/17 21:15 05/14/17 09:26 (Lopressor) 25 mg Q12HR PO 05/12/17 09:00 05/14/17 08:38 (Prinivil) 40 mg DAILY PO 05/12/17 09:00 05/14/17 08:38 Miscellaneous Information SPECIFIC LAB TO BE DRAWN:VANCOMY... ONCE ONCE .XX 05/14/17 19:45 05/14/17 19:46 (Norvasc) 5 mg DAILY PO 05/13/17 14:15 05/14/17 08:37 Ceftriaxone Sodium 2000 mg/ Sodium Chloride 100 ml @ 200 mls/hr Q24H IV 05/13/17 16:00 05/13/17 16:55 Vital Signs / I&O Vital Signs Date Time Temp Pulse Resp B/P (MAP) Pulse Ox O2 Delivery O2 Flow Rate FiO2 05/14/17 13:00 65 05/14/17 12:00 62 05/14/17 11:25 97.9 66 16 158/67 (97) 98 05/14/17 11:00 64 05/14/17 10:00 68 05/14/17 09:00 72 05/14/17 08:00 68 05/14/17 07:47 98.0 72 16 179/89 (119) 97 05/14/17 07:00 63 05/14/17 06:14 68 05/14/17 05:03 66 05/14/17 04:39 67 05/14/17 03:20 97.9 65 18 163/69 (100) 95 05/14/17 03:17 68 05/14/17 02:03 57 05/14/17 01:01 62 05/14/17 00:46 59 05/13/17 23:00 98.4 58 19 177/75 (109) 97 05/13/17 23:00 63 05/13/17 22:00 72 05/13/17 21:58 112 05/13/17 21:00 70 05/13/17 20:15 64 05/13/17 20:15 98.6 77 18 192/87 (122) 93 05/13/17 19:00 86 05/13/17 18:40 62 05/13/17 17:05 63 05/13/17 17:02 97.9 74 16 162/70 (100) 99 05/13/17 16:24 70 I/O 05/13/17 05/13/17 05/13/17 05/14/17 05/14/17 05/14/17 06:59 14:59 22:59 06:59 14:59 22:59 Intake Total 830 ml 700 ml 240 ml 262.5 ml Output Total 700 ml 1150 ml 1235 ml Balance 130 ml -450 ml -995 ml 262.5 ml Intake Oral 480 ml 600 ml 240 ml IV Total 350 ml 100 ml 262.5 ml Output Urine Total 700 ml 1150 ml 1235 ml # Voids 4 # Bowel Movements 0 Physical Exam GENERAL: In NAD SKIN: Warm and dry. HEAD: Normocephalic. EYES: No scleral icterus. No injection or drainage. NECK: Supple, trachea midline. No JVD or lymphadenopathy. CARDIOVASCULAR: Regular rate and rhythm without murmurs, gallops, or rubs. RESPIRATORY: Breath sounds equal bilaterally. No accessory muscle use. GASTROINTESTINAL: Abdomen soft, non-tender, nondistended. MUSCULOSKELETAL: No cyanosis, or edema. R foot s/p surgery. Laboratory Laboratory Tests Test 05/14/17 06:00 White Blood Count 9.9 TH/MM3 Red Blood Count 3.32 MIL/MM3 Hemoglobin 9.5 GM/DL Hematocrit 28.6 % Mean Corpuscular Volume 86.3 FL Mean Corpuscular Hemoglobin 28.7 PG Mean Corpuscular Hemoglobin Concent 33.3 % Red Cell Distribution Width 15.9 % Platelet Count 285 TH/MM3 Mean Platelet Volume 7.5 FL Neutrophils (%) (Auto) 71.0 % Lymphocytes (%) (Auto) 10.2 % Monocytes (%) (Auto) 6.7 % Eosinophils (%) (Auto) 11.1 % Basophils (%) (Auto) 1.0 % Neutrophils # (Auto) 7.0 TH/MM3 Lymphocytes # (Auto) 1.0 TH/MM3 Monocytes # (Auto) 0.7 TH/MM3 Eosinophils # (Auto) 1.1 TH/MM3 Basophils # (Auto) 0.1 TH/MM3 CBC Comment AUTO DIFF Differential Total Cells Counted 100 Neutrophils % (Manual) 72 % Band Neutrophils % 4 % Lymphocytes % 6 % Monocytes % 7 % Eosinophils % 11 % Neutrophils # (Manual) 7.5 TH/MM3 Differential Comment FINAL DIFF MANUAL Platelet Estimate NORMAL Platelet Morphology Comment NORMAL Ovalocytes 1+ Prothrombin Time 13.8 SEC Prothromb Time International Ratio 1.2 RATIO Blood Urea Nitrogen 18 MG/DL Creatinine 1.60 MG/DL Random Glucose 84 MG/DL Total Protein 6.6 GM/DL Albumin 2.7 GM/DL Calcium Level 8.8 MG/DL Alkaline Phosphatase 66 U/L Aspartate Amino Transf (AST/SGOT) 23 U/L Alanine Aminotransferase (ALT/SGPT) 30 U/L Total Bilirubin 0.3 MG/DL Sodium Level 141 MEQ/L Potassium Level 3.6 MEQ/L Chloride Level 108 MEQ/L Carbon Dioxide Level 23.0 MEQ/L Anion Gap 10 MEQ/L Estimat Glomerular Filtration Rate 42 ML/MIN Imaging Last Impressions Toe X-Ray 04/30/17 0000 Signed Impressions: Service Date/Time: Sunday, April 30, 2017 12:27 - CONCLUSION: Bony destruction involving the first distal phalanx with abnormal soft tissue changes characteristic of osteomyelitis. Jerry Mireles MD Assessment and Plan Problem List: (1) VT (ventricular tachycardia) ICD Codes: I47.2 - Ventricular tachycardia Status: Acute (2) Coronary artery disease ICD Codes: I25.10 - Coronary artery disease Status: Chronic (3) History of coronary artery bypass surgery ICD Codes: Z95.1 - History of coronary artery bypass surgery Status: Acute (4) Sepsis ICD Codes: A41.9 - Sepsis, unspecified organism Status: Acute (5) Cellulitis of great toe of right foot ICD Codes: L03.031 - Cellulitis of right toe Status: Acute (6) Osteomyelitis of toe of right foot ICD Codes: M86.9 - Osteomyelitis, unspecified Status: Acute (7) PVD (peripheral vascular disease) ICD Codes: I73.9 - Peripheral vascular disease, unspecified Status: Acute (8) LV dysfunction ICD Codes: I51.9 - Heart disease, unspecified Status: Chronic Assessment and Plan Tele with recurrent episodes of sustained monomorphic VT despite beta shirin therapy. He wishes to proceed with further evaluation at this time. Proceed with cath and possible PCI tomorrow. Tentatively plan on EPS and ICD placement later this week. Continue beta shirin. Problem Qualifiers (1) Coronary artery disease: Landon Mahoney MD May 14, 2017 16:01
[2017-05-14] MEDS: cefTRIAXone 2,000 MG/NS 100 ML IV SCH ×2 (16:42)
[2017-05-14] MEDS: cloNIDine HCL 0.1 MG TAB PO PRN ×2 (18:06→22:52)
[2017-05-14] MEDS ORDERED: PHARMACY ORDERED LAB ONE (19:45)
[2017-05-14] MEDS: PRAVASTATIN SOD 80 MG TAB PO SCH (21:22)
[2017-05-15] VITALS (29 sets, daily range): BP systolic 142–181; BP diastolic 65–84; PULSE 47–67; RESP 16–20; TEMP 97.5–98; O2SAT 93–98
[2017-05-15] MEDS: cloNIDine HCL 0.1 MG TAB PO PRN ×4 (04:25→20:18)
[2017-05-15] MEDS: INSULIN ASPART SUPPLEMENTAL SCALE SQ SCH ×4 (06:44→21:00)
[2017-05-15] MEDS: glipiZIDE 5 MG TAB PO SCH ×2 (06:44→16:00)
[2017-05-15 06:45] LABS: INTERNATIONAL NORMALIZED RATIO 1.2 RATIO
[2017-05-15] MEDS: METOPROLOL TARTRATE 25 MG TAB PO SCH ×2 (08:09→20:18)
[2017-05-15] MEDS: LISINOPRIL 20 MG TAB PO SCH (08:10)
[2017-05-15] MEDS: DOCUSATE SODIUM 50 MG/SENNA 8.6 MG TAB PO SCH ×2 (08:10→20:18)
[2017-05-15] MEDS: amLODIPine BESYLATE 5 MG TAB PO SCH (08:10)
[2017-05-15] MEDS: SODIUM CHLORIDE 0.9% FLUSH 10 ML FLUSH IV FLUSH SCH ×2 (08:11→20:18)
--- NOTE | 2017-05-15 08:30 | HHI.PR ---
Subjective History of Present Illness Patient feel better no acute issue. cardiology input noted getting cardiac cath PCI and AICD Placement. d/w RN. Review of Systems Constitutional Constitutional: Fatigue, Weakness Musculoskeletal MS Remarks S/P Aortogram w/ R LE angiogram and TPT orbital atherectomy and TOOL ROOM SUPERVISOR (3mm) and [employer] angioseal 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 Integumentary Skin Remarks S/P Aortogram w/ R LE angiogram and TPT orbital atherectomy and TOOL ROOM SUPERVISOR (3mm) and [employer] angioseal 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 Vitals/Results Vital Signs Vital Signs Date Time Temp Pulse Resp B/P (MAP) Pulse Ox O2 Delivery O2 Flow Rate FiO2 05/15/17 06:19 52 05/15/17 05:16 58 05/15/17 04:48 54 05/15/17 03:42 97.7 67 17 165/65 (98) 95 05/15/17 03:16 54 05/15/17 02:10 55 05/15/17 01:49 56 05/15/17 00:24 62 05/14/17 23:15 97.5 66 18 191/75 (113) 95 05/14/17 23:00 58 05/14/17 22:00 60 05/14/17 21:00 68 05/14/17 20:15 64 05/14/17 19:20 97.7 66 20 179/83 (115) 99 05/14/17 19:20 63 05/14/17 18:00 78 05/14/17 17:00 68 05/14/17 16:00 68 05/14/17 15:15 98.6 71 19 168/70 (102) 96 05/14/17 15:00 69 05/14/17 14:00 66 05/14/17 13:00 65 05/14/17 12:00 62 05/14/17 11:25 97.9 66 16 158/67 (97) 98 05/14/17 11:00 64 05/14/17 10:00 68 05/14/17 09:00 72 CBC/BMP: 05/14/17 0600 05/14/17 0600 Lab Results Laboratory Tests Test 05/15/17 05:58 Prothrombin Time 13.0 SEC Prothromb Time International Ratio 1.2 RATIO Physical Exam General General Appearance: Well Developed, Well Nourished, No Acute Distress, Comfortable Eyes Eye Exam: Sclera White, Extraocular Movement Intact Throat Throat Exam: Oral Mucosa Kinder & Moist, Oral Pharynx Normal Neck Neck Exam: Neck Supple, Trachea Midline Pulmonary Resp Exam: Clear Bilaterally, Breath Sounds Equal Cardiology CV Exam: Regular, Normal Sinus Rhythm Gastrointestinal/Abdomen GI Exam: Soft, Non-Tender Musculoskeletal MS Exam: Normal Tone MS Remarks S/P Aortogram w/ R LE angiogram and TPT orbital atherectomy and TOOL ROOM SUPERVISOR (3mm) and [employer] angioseal 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 Integumentary Skin Remarks S/P Aortogram w/ R LE angiogram and TPT orbital atherectomy and TOOL ROOM SUPERVISOR (3mm) and [employer] angioseal 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 Extremeties Extremeties Remarks S/P Aortogram w/ R LE angiogram and TPT orbital atherectomy and TOOL ROOM SUPERVISOR (3mm) and [employer] angioseal 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 This is a 76-year male who came to the ER diagnosed with blackening, erythema, pain and swelling of the right great toe rule out osteomyelitis/peripheral vascular disease. Podiatry and vascular surgeon and infectious disease / Cardiology input noted wound culture grows Providencia Stuartii ..sensitive to all antibiotic.. The patient on Rocephin. . S/P Aortogram w/ R LE angiogram and TPT orbital atherectomy and TOOL ROOM SUPERVISOR (3mm) and [employer] angioseal Right 1st toe Open Ray amputation . have INR 1.2 s/p Transfusion 4 units FFP. Have low Hemoglobin s/p transfusion 2 units PRBC and Checked fecal occult blood test...Negative. 2. Diabetes mellitus, ADA 1800 calorie diet. NovoLog low-dose sliding scale. Check blood sugars. We will monitor blood sugar. 3. Renal failure, creatinine was 1.84, BUN was 37, now BUN of 16 and creatinine 1.6. 4. History of stroke and TIA. The patient was on Coumadin. INR 1.2. holding coumadin We will Monitor PT/ INR Daily. 5. History of hypertension. Continue home medication. Monitor blood pressure. 6. History of coronary artery disease continue home medication. 7. History of hyperlipidemia. Continue home medications. 8. DVT prophylaxis. The patient was on Coumadin... INR 1.2 today. holding coumadin. S/P Transfusion of 4 units FFP. 9. GI prophylaxis, Protonix 40 mg p.o. daily. 10. Leukocytosis secondary to right foot cellulitis will monitor. resolved. 11. Recurrent VT on beta shirin. No angina or CHF symptoms. 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 He wants ICD at this time. getting cardiac cath and PCI and AICD Placement soon per cardiology. 12. Hyponatremia resolved. 13. Low Hemoglobin S/P transfusion of 2 units PRBC and Checked fecal occult blood test...Negative. Check CBC with diff CMP in AM. we are going to manage the patient on a daily basis and make recommendations on a daily basis. Discussed Condition with: Patient Don Kothari MD May 15, 2017 08:30
--- NOTE | 2017-05-15 09:35 | PD.VS.PN ---
Subjective POD #: 6 Procedure(s): Aortogram w/ R LE angiogram TPT orbital atherectomy and DRAWING IN HAND 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 Subjective/Hospital Course Pt in bed resting Pt alert in NAD w/o complaints Dressing to Right LE I/C/D Objective Vitals/I&O Date Time Temp Pulse Resp B/P (MAP) Pulse Ox O2 Delivery O2 Flow Rate FiO2 05/15/17 07:43 97.7 53 16 179/75 (109) 98 05/15/17 06:19 52 05/15/17 05:16 58 05/15/17 04:48 54 05/15/17 03:42 97.7 67 17 165/65 (98) 95 05/15/17 03:16 54 05/15/17 02:10 55 05/15/17 01:49 56 05/15/17 00:24 62 05/14/17 23:15 97.5 66 18 191/75 (113) 95 05/14/17 23:00 58 05/14/17 22:00 60 05/14/17 21:00 68 05/14/17 20:15 64 05/14/17 19:20 97.7 66 20 179/83 (115) 99 05/14/17 19:20 63 05/14/17 18:00 78 05/14/17 17:00 68 05/14/17 16:00 68 05/14/17 15:15 98.6 71 19 168/70 (102) 96 05/14/17 15:00 69 05/14/17 14:00 66 05/14/17 13:00 65 05/14/17 12:00 62 05/14/17 11:25 97.9 66 16 158/67 (97) 98 05/14/17 11:00 64 05/14/17 10:00 68 05/15/17 05/15/17 05/15/17 07:00 15:00 23:00 Intake Total 480 ml Output Total 775 ml Balance -295 ml Exam: GENERAL: A&OX3,NAD SKIN: Warm and dry/ Right great toe amputation site w/o swelling/redness/odor. + granulation tissue present to right 1st ray amp site MUSCULOSKELETAL: No cyanosis, or edema. BLE warm with motor intact Phasic Doppler signals to R DP/PT Laboratory Laboratory Tests Test 05/15/17 05:58 Prothrombin Time 13.0 Prothromb Time International Ratio 1.2 Date/Time Source Procedure Growth Status 04/30/17 13:10 Blood Peripheral Aerobic Blood Culture - Final NO GROWTH IN 5 DAYS Complete 04/30/17 13:10 Blood Peripheral Anaerobic Blood Culture - Final NO GROWTH IN 5 DAYS Complete 05/09/17 18:49 Stool Stool Stool Occult Blood (SOSA) - Final HEMOCCULT NEGATIVE Complete 05/07/17 12:30 Wound Toe Gram Stain - Final Complete 05/07/17 12:30 Wound Culture - Final Providencia Stuartii Complete Assessment and Plan Assessment: (1) Necrotic toes Status: Acute (2) Hypertension Status: Chronic (3) PVD (peripheral vascular disease) Status: Acute (4) Osteomyelitis of toe of right foot Status: Acute (5) Diabetes Status: Chronic Plan Patient appears to have stable right 1st ray amp site. Sounds like has appropriate arterial supply with phasic signals of PT and DP. Plan Dressing changed this am Continue IV antibiotics Pt will need to continue out patient wound care either by Wound care center/ Wound care physician (SNF) Arranged post op F/U Sarah GERMAIN [facility] [phone] Discharge Planning Pt cleared for D/C from a vascular standpoint Will Arrange out patient follow up Sarah Brannon May 15, 2017 09:35
[2017-05-15] MEDS: cefTRIAXone 2,000 MG/NS 100 ML IV SCH ×2 (16:34)
[2017-05-15] MEDS ORDERED: IOHEXOL 350 MG/ML 100 ML BTL (for Cath Lab) OTHER ONE (17:38)
[2017-05-15] MEDS ORDERED: NITROGLYCERIN 0.4 MG SL 25 TABS/BTL SL ONE (17:45)
[2017-05-15] MEDS ORDERED: SODIUM CHLOR 0.9% 1000 ML INJ 500 ML IV SCH (18:40)
--- NOTE | 2017-05-15 18:50 | CATHPROC ---
C$ cMoney HIS Report Study Information Study Number Admission Scheduled Start Study Start [id number] Apr 30 2017 1:47PM 05/15/2017 May 15 2017 5:38PM [place] Service Cardiac Catheterization Admit Source Facility Department Emergency department [facility] - Contract Associate Physician and Clinical Staff Initial Landon [facility] Attendant Maggie Sparrow,RN Other cathlab, cathlab Recorder Kaylee Talbot,(R) Recorder Leonardo Morgan RCIS(BS) Scrub Silvano Scott RCIS(BS) Procedures Performed Procedure Location (Site) Vessel Name Angiogram LV LV Ventricle Coronary Angiograms LCA Left Coronary Coronary Angiograms RCA Right Coronary Coronary Angiograms MORAN-LAD Left Coronary Coronary Angiograms SVG-DIAG Left Coronary Coronary Angiograms SVG-RCA Right Coronary Coronary Angiograms Gft. Stump 1 SVG Graft L Heart Cath Equipment Time Starch Treating Assistant Description Size Mfg Part Number Used/Scraped TRANSDUCER, TRUWAVE [id number] 17:55 [employer] * Used W/STOCKCOCK *[id number] *[id number] [id number] *[id number] [id number] *[id number] [id number] *[id number] WIRE, HYDROSTEER 150CM [id number] 18:17 DAIG/ST. MARIA [employer] 150CM Used ANGLED GLIDE *[id number] 17:55 [employer] PACK, CCL CUSTOM * Used *[id number] 17:55 [employer] PACER PEN, SKIN DUAL W/ RULER * Used *[id number] 17:55 [employer] WIRE, 3MMJ .035 180CM 180CM Used *[id number] PROBE COVER, STERILE [id number] 17:55 [employer] MEDICAL * Used ULTRASOUND W/ GEL *[id number] 17:55 NAMIC MANIFOLD, 4 PORT * Used *[id number] 17:55 NAMIC TUBING, HIGH PRESSURE 48" 48" Used *[id number] 17:55 [employer] OMNIPAQUE, 350 MG, 150ML 150ML [id number] Used [id number] 17:55 LE MEDICAL BLANKET,WARM AIR CCL * Used *[id number] 17:55 TERUMO MEDICAL SHEATH, FR5 TERUMO (10CM) FR 5 Used *[id number] History: Current Medications Medication Dosage/Unit Route Frequency Last Date/Time Taken LISINOPRIL Glypizide Coumadin Zocor Glucophage LOPRESSOR Statins (any) History: Allergies Allergy Reaction No Known Allergies History: Risk Factors Family History of Hypertension Dyslipidemia Previous MN Previous Heart Failure Premature CAD Yes Yes No No No Prior Valve Prior PCI Prior CABG Prior CABGDate Surgery No No Yes 09/23/2006 Cerebrovascular Peripheral Artery Chronic Lung On Dialysis Diabetes Disease Disease Disease No Yes Yes No No History: Stress Tests Stress or Imaging Studies Performed No History: Other Disease Selection Items CAD HTN History: Other Current Smoker Quit Packs a Day Years Used Pack Years No 20 Years Ago 1 20 20 Labs Hgb (g/dl) Hct (%) RBC (MIL/MM3) WBC (l/cumm) Platelets (thousands) 11.60-17.00 35.00-51.00 4.00-5.90 4.00-11.00 150.00-450.00 7.0 20.9 2.4 10 250 Glucose (mg/dl) BUN (mg/dl) Creatinine (mg/dl) BUN:Creatinine (1:x) 74.00-106.00 7.00-18.00 0.50-1.30 10.00-20.00 93 33 2.0 16.5 Na (meq/l) K (meq/l) 136.00-145.00 3.50-5.10 135 3.8 CPK-MB (ng/ML) 0.50-3.60 Not Drawn Medication Medication Total Dose (Bolus/Oral) Medication Total Dosage/Unit 1% XYLOCAINE 20 mL FENTANYL 50 mcg OXYGEN 2 l/min VERSED 1 mg Medications (Bolus/Oral) Medication Time Given Dosage/Unit Administered By Reason VERSED 05/15/2017 5:58:55 PM 1 mg Maggie Sparrow 1 mg VERSED given in lab by Maggie Sparrow, RN in Right Arm via Peripheral IV. Ordered by Ronan Mahoney. FENTANYL 05/15/2017 5:59:30 PM 50 mcg Maggie Sparrow 50 mcg FENTANYL given in lab by Maggie Sparrow, RN in Right Arm via Peripheral IV. Ordered by Landon Galeano. 1% XYLOCAINE 05/15/2017 6:03:05 PM 20 mL Landon Mahoney 20 mL 1% XYLOCAINE given in lab by Landon Mahoney in Right Groin via Subcutaneous. Ordered by Landon Galeano. OXYGEN 05/15/2017 6:09:12 PM 2 l/min Maggie Sparrow 2 l/min OXYGEN given in lab by Maggie Sparrow, YVONNE via Nasal. Ordered by Landon Mahoney. Initial Case Assessment Cardiovascular HR NIBP Chest Pain 70 183/70 0 Edema Present Skin color Skin None Normal Warm Circulatory - Right Pulses Dorsalis Pedis Femoral 2 2 Scale (0,1,2,3,4,d) Circulatory - Left Pulses Dorsalis Pedis Femoral 2 2 Scale (0,1,2,3,4,d) Neurological State Oriented to time-place- Alert Moves all extremities person Respiration - General Respiration Rate SpO2 (%) (B/min) 14 99 Final Case Assessment Cardiovascular HR NIBP Chest Pain 57 166/79 0 Edema Present Skin color Skin None Normal Warm Circulatory - Right Pulses Dorsalis Pedis Femoral 2 2 Scale (0,1,2,3,4,d) Circulatory - Left Pulses Dorsalis Pedis Femoral 2 2 Scale (0,1,2,3,4,d) Neurological State Oriented to time-place- Alert Moves all extremities person Respiration - General Respiration Rate SpO2 (%) O2 (lpm) (B/min) 11 99 2 Chronological Log Time Study Chronological Log 17:38:51 Patient arrived via Bed. 17:38:52 Patient Name, D.O.B, / Armband Verified By R.N. 17:38:53 Consent signed by the physician and the patient and verified by the Contract Associate staff. 17:38:54 Pre-op and post- op instructions given; patient acknowledges understanding of instructions. 17:38:56 Presedation assessment performed by Contract Associate RN. 17:39:00 Patient has been NPO for Less than 6Hrs. 17:39:01 Skin Breakdown- right great toe amputation, left groin bruising from previous procedure 17:39:02 Patient Warmer Placed on the Table. 17:39:04 Isabella Prominences Protected 17:39:07 A # 20 IV was noted in the Upper Arm (right). Grade = 0 17:39:08 History and physical on the chart or being dictated. Assessment: Initial Case, HR=70 BPM, OKDF=218/70 mmhg, Chest Pain=0, Edema=None, Color=Normal, Skin = Warm Right Pulses: Daniel Ped=2, Femoral=2 17:39:09 Left Pulses: Daniel Ped=2, Femoral=2 Neurological: State=Alert, Ox3, WRIGHT Respiration: Resp=14 B/min, SpO2=99 % Vitals capture started with the following parameters, Patient=Adult, Interval=5 min, Initial Pr guxrab=681 mmHg, 17:40:50 Deflation Rate=5 mmHg, Cuff placed on Left Arm 17:42:06 HR=70 bpm, CKQM=876/92 mmhg, SpO2=96.0 %, Resp=16 B/min 17:44:58 Reference ECG taken 17:46:34 HR=65 bpm, PASZ=916/89 mmhg, SpO2=95.0 %, Resp=17 B/min 17:51:35 HR=61 bpm, ZMTX=712/87 mmhg, SpO2=92.0 %, Resp=17 B/min, Pain=0, Kaleigh=10, Mclaughlin=2 17:54:00 Bilateral groins prepped with 2% chlorhexidine, and with a 3 min. waiting time. 17:56:32 HR=95 bpm, MOSR=813/89 mmhg, SpO2=96.0 %, Resp=13 B/min, Pain=0, Kaleigh=10, Mclaughlin=2 17:58:55 1 mg VERSED given in lab by Maggie Sparrow RN in Right Arm via Peripheral IV. Ordered by Landon Mahoney. 17:59:30 50 mcg FENTANYL given in lab by Maggie Sparrow RN in Right Arm via Peripheral IV. Ordered by Landon Mahoney. 18:01:35 HR=61 bpm, WRSY=759/80 mmhg, SpO2=95.0 %, Resp=12 B/min, Pain=0, Kaleigh=10, Mclaughlin=2 18:02:01 MD arrived. Time Out. Correct patient, correct procedure,correct physician, power injector loaded with cont rast with surgical team 18:02:22 present. Time Out Concurred by MD, individual staff in procedure 18:03:01 Case Start 18:03:05 20 mL 1% XYLOCAINE given in lab by Landon Mahoney in Right Groin via Subcutaneous. Ordered by Landon Mahoney. 18:03:10 Pressure channel 1 zeroed. 18:04:09 Access site was Right Femoral Artery. 18:04:20 A SHEATH, FR5 TERUMO (10CM) FR 5 was advanced into the Fem Art (right) using the Percutaneo us technique. A PIGTAIL ANG. INFINITI CATHETER FR 5 was advanced over a wire. OMNIPAQUE, 350 MG, 150ML 150ML was used 18:04:46 for injections. Recorded Pressure: LV, HR=56, Condition=Condition 1 18:05:39 (Left Ventricle) LV 154/5/8 Recorded Pressure: LV, HR=55, Condition=Condition 1 18:05:44 (Left Ventricle) LV 156/4/14 18:06:02 The LV was injected at 10 cc/sec for a total of 20. OMNIPAQUE, 350 MG, 150ML 150ML used. 18:06:36 HR=53 bpm, WVFR=852/70 mmhg, JqV3=874.0 %, Resp=13 B/min, Pain=0, Kaleigh=10, Mclaughlin=2 Recorded Pressure: LV, Ao, HR=57, Condition=Condition 1 18:07:17 (Left Ventricle) LV 135/10/13, (Aorta) Ao 124/54/83 18:07:35 Catheter was removed A JL 4.0 INFINITI CATHETER FR 5 was advanced over a wire. OMNIPAQUE, 350 MG, 150ML 150ML was us ed for 18:07:44 injections. 18:08:11 Wire removed 18:08:42 The LCA was injected and visualized at various angles. OMNIPAQUE, 350 MG, 150ML 150ML used . 18:09:12 2 l/min OXYGEN given in lab by Maggie Sparrow RN via Nasal. Ordered by Landon Mahoney. Recorded Pressure: Ao, HR=53, Condition=Condition 1 18:09:43 (Aorta) Ao 152/54/89 18:10:20 Catheter was removed A AR MOD INFINITI CATHETER FR 5 was advanced over a wire. OMNIPAQUE, 350 MG, 150ML 150ML was us ed for 18:10:22 injections. 18:11:31 HR=54 bpm, CVHN=223/76 mmhg, IiO9=422.0 %, Resp=12 B/min, Pain=0, Kaleigh=10, Mclaughlin=2 18:11:37 Wire removed 18:12:01 The MORAN-LAD was injected and visualized at various angles. OMNIPAQUE, 350 MG, 150ML 150ML used. 18:12:57 The RCA was injected and visualized at various angles. OMNIPAQUE, 350 MG, 150ML 150ML used . 18:13:43 The SVG-DIAG was injected and visualized at various angles. OMNIPAQUE, 350 MG, 150ML 150ML used. 18:14:39 The Gft. Stump 1 was injected and visualized at various angles. OMNIPAQUE, 350 MG, 150ML 15 0ML used. 18:15:11 The SVG-RCA was injected and visualized at various angles. OMNIPAQUE, 350 MG, 150ML 150ML u sed. 18:16:32 HR=55 bpm, NIOE=092/76 mmhg, SpO2=97.0 %, Resp=18 B/min, Pain=0, Kaleigh=10, Mclaughlin=2 18:16:50 Catheter was removed A RAJAN INFINITI CATHETER FR 5 was advanced over a wire. OMNIPAQUE, 350 MG, 150ML 150ML was used for 18:16:52 injections. 18:17:51 The previous wire was exchanged for a WIRE, HYDROSTEER 150CM ANGLED GLIDE 150CM. 18:20:10 Wire removed 18:20:15 Catheter was removed A AR MOD INFINITI CATHETER FR 5 was advanced over a wire. OMNIPAQUE, 350 MG, 150ML 150ML was us ed for 18:20:17 injections. 18:21:33 HR=57 bpm, LMRX=307/67 mmhg, SpO2=86.0 %, Resp=18 B/min, Pain=0, Kaleigh=10, Mclaughlin=2 18:22:57 The MORAN-LAD was injected and visualized at various angles. OMNIPAQUE, 350 MG, 150ML 150ML used. 18:24:57 Wire removed 18:25:05 Catheter was removed 18:25:08 Case End 18:26:30 HR=55 bpm, BBRP=320/89 mmhg, SpO2=90.0 %, Resp=12 B/min, Pain=0, Kaleigh=10, Mclaughlin=2 18:30:18 Sheath removed; pressure applied to access site for 20 minutes. 18:30:35 Sterile dressing applied to site 18:30:39 No case complications noted. 18:30:40 Cine recording checked. 18:30:42 Bedside Report will be given. 18:30:45 Contrast Scanned 18:30:50 A Left Heart Cath was performed. 18:31:35 HR=55 bpm, VZRG=649/79 mmhg, SpO2=99.0 %, Resp=13 B/min, Pain=0, Kaleigh=10, Mclaughlin=2 Assessment: Final Case, HR=57 BPM, FYXV=263/79 mmhg, Chest Pain=0, Edema=None, Color=Normal, Sk in = Warm Right Pulses: Daniel Ped=2, Femoral=2 18:31:54 Left Pulses: Daniel Ped=2, Femoral=2 Neurological: State=Alert, Ox3, WRIGHT Respiration: Resp=11 B/min, SpO2=99 %, O2=2 lpm 18:36:34 HR=56 bpm, MIBR=271/82 mmhg, SpO2=98.0 %, Resp=16 B/min, Pain=0, Kaleigh=10, Mclaughlin=2 18:41:35 HR=56 bpm, JNQD=401/83 mmhg, SpO2=98.0 %, Resp=17 B/min, Pain=0, Kaleigh=10, Mclaughlin=2 18:46:41 Vitals capture stopped. 18:48:51 Patient moved to [facility] End Study - Contrast Media Used In Study Contrast Total Opened (mL) Total Used (mL) Total Wasted (mL) Omnipaque 105 105 0 End Study - Maximum Contrast Load Max Contrast Load (mL) 200.0 End Study - Radiation Exposure Fluoro Time (minutes) 7.0 End Study - Sheaths Sheaths Pulled By Sheath Hold Time (min) Maggie Sparrow 20 End Study - Patient Disposition Complications Transferred To Interventional Outcome No Telemetry Bed No attempt made
[2017-05-15] MEDS: PRAVASTATIN SOD 80 MG TAB PO SCH (20:18)
[2017-05-15 20:25] LABS: HDL CHOLESTEROL 35.6 MG/DL (40.0-60.0)
[2017-05-15] MEDS ORDERED: SODIUM CHLOR 0.9% 1000 ML INJ 1,000 ML IV SCH (21:00)
[2017-05-15] MEDS ORDERED: MIDAZOLAM HCL 5 MG/ML VIAL (1 ML) IV ONE (21:00)
[2017-05-16] VITALS (25 sets, daily range): BP systolic 149–176; BP diastolic 73–83; PULSE 48–72; RESP 16–18; TEMP 97.6–97.8; O2SAT 93–100
[2017-05-16] MEDS: cloNIDine HCL 0.1 MG TAB PO PRN ×2 (00:51→15:54)
[2017-05-16 06:04] LABS: AUTOMATED NEUTROPHIL # 6.1 TH/MM3 (1.8-7.7); BASOPHIL # 0.2 TH/MM3 (0-0.2); EOSINOPHIL # 0.6 TH/MM3 (0-0.4); EOSINOPHIL % 7.1 % (0.0-4.0); HEMATOCRIT 29.6 % (39.0-51.0); HEMO FLAGS DIFF FINAL; LYMPH % 8.1 % (9.0-44.0); LYMPHOCYTE # 0.6 TH/MM3 (1.0-4.8); MEAN CELL VOLUME 86.9 FL (80.0-100.0); MEAN CORPUSCULAR HGB CONC 33.4 % (32.0-36.0); MONO % 6.1 % (0.0-8.0); NEUT % 75.7 % (16.0-70.0); PLATELET COUNT 276 TH/MM3 (150-450); RED BLOOD COUNT 3.41 MIL/MM3 (4.50-5.90); RED CELL DISTRIBUTION WIDTH 16.5 % (11.6-17.2)
[2017-05-16 06:15] LABS: INTERNATIONAL NORMALIZED RATIO 1.1 RATIO; PROTHROMBIN TIME - PATIENT 12.4 SEC (9.8-11.6)
[2017-05-16 06:29] LABS: ALT (GPT) 22 U/L (12-78); ANION GAP 6 MEQ/L (5-15); AST (GOT) 16 U/L (15-37); BICARBONATE 26.7 MEQ/L (21.0-32.0); BLOOD UREA NITROGEN 17 MG/DL (7-18); CHLORIDE 104 MEQ/L (98-107); GLOMERULAR FILTRATION RATE 48 ML/MIN (>89); POTASSIUM 3.8 MEQ/L (3.5-5.1); SODIUM (NA) 137 MEQ/L (136-145)
[2017-05-16 06:31] LABS: ALKALINE PHOSPHATASE 71 U/L (45-117); TOTAL BILIRUBIN ADULT 0.3 MG/DL (0.2-1.0)
[2017-05-16] MEDS: INSULIN ASPART SUPPLEMENTAL SCALE SQ SCH ×4 (07:00→21:00)
[2017-05-16] MEDS: glipiZIDE 5 MG TAB PO SCH ×2 (07:00→15:46)
--- NOTE | 2017-05-16 08:25 | HHI.PR ---
Subjective History of Present Illness Patient feel better no acute issue. cardiology input noted getting cardiac cath PCI and AICD Placement tomorrow. d/w [email or web address]. 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 Vitals/Results Vital Signs Vital Signs Date Time Temp Pulse Resp B/P (MAP) Pulse Ox O2 Delivery O2 Flow Rate FiO2 05/16/17 07:27 57 05/16/17 05:16 54 05/16/17 04:21 55 05/16/17 03:20 72 05/16/17 03:20 97.7 56 16 176/81 (112) 93 05/16/17 02:26 51 05/16/17 01:21 53 05/16/17 00:00 54 05/15/17 23:30 97.9 53 18 153/84 (107) 95 05/15/17 23:00 52 05/15/17 22:00 50 05/15/17 21:00 64 05/15/17 20:00 62 05/15/17 19:20 59 05/15/17 19:20 98.0 57 20 167/83 (111) 93 05/15/17 17:30 142/69 (93) 05/15/17 17:00 60 05/15/17 16:00 97.5 59 18 170/82 (111) 96 05/15/17 16:00 58 05/15/17 15:00 59 05/15/17 14:00 52 05/15/17 13:07 172/68 (102) 05/15/17 13:04 47 05/15/17 12:00 58 05/15/17 11:08 97.7 58 16 181/75 (110) 97 05/15/17 11:00 52 05/15/17 10:00 54 05/15/17 09:00 54 CBC/BMP: 05/16/17 0517 05/16/17 05 Lab Results Laboratory Tests Test 05/15/17 19:48 05/16/17 05:17 Triglycerides Level 129 MG/DL Cholesterol Level 97 MG/DL LDL Cholesterol 36 MG/DL HDL Cholesterol 35.6 MG/DL Cholesterol/HDL Ratio 2.72 RATIO White Blood Count 8.0 TH/MM3 Red Blood Count 3.41 MIL/MM3 Hemoglobin 9.9 GM/DL Hematocrit 29.6 % Mean Corpuscular Volume 86.9 FL Mean Corpuscular Hemoglobin 29.0 PG Mean Corpuscular Hemoglobin Concent 33.4 % Red Cell Distribution Width 16.5 % Platelet Count 276 TH/MM3 Mean Platelet Volume 8.3 FL Neutrophils (%) (Auto) 75.7 % Lymphocytes (%) (Auto) 8.1 % Monocytes (%) (Auto) 6.1 % Eosinophils (%) (Auto) 7.1 % Basophils (%) (Auto) 3.0 % Neutrophils # (Auto) 6.1 TH/MM3 Lymphocytes # (Auto) 0.6 TH/MM3 Monocytes # (Auto) 0.5 TH/MM3 Eosinophils # (Auto) 0.6 TH/MM3 Basophils # (Auto) 0.2 TH/MM3 CBC Comment DIFF FINAL Differential Comment Prothrombin Time 12.4 SEC Prothromb Time International Ratio 1.1 RATIO Blood Urea Nitrogen 17 MG/DL Creatinine 1.44 MG/DL Random Glucose 169 MG/DL Total Protein 6.6 GM/DL Albumin 2.7 GM/DL Calcium Level 8.3 MG/DL Alkaline Phosphatase 71 U/L Aspartate Amino Transf (AST/SGOT) 16 U/L Alanine Aminotransferase (ALT/SGPT) 22 U/L Total Bilirubin 0.3 MG/DL Sodium Level 137 MEQ/L Potassium Level 3.8 MEQ/L Chloride Level 104 MEQ/L Carbon Dioxide Level 26.7 MEQ/L Anion Gap 6 MEQ/L Estimat Glomerular Filtration Rate 48 ML/MIN Physical Exam General General Appearance: Well Developed, Well Nourished, No Acute Distress, Comfortable Eyes Eye Exam: Sclera White, Extraocular Movement Intact Throat Throat Exam: Oral Mucosa [place] & Moist, Oral Pharynx Normal Neck Neck Exam: Neck Supple, Trachea Midline Pulmonary Resp Exam: Clear Bilaterally, Breath Sounds Equal Cardiology CV Exam: Regular, Normal Sinus Rhythm Gastrointestinal/Abdomen GI Exam: Soft, Non-Tender Musculoskeletal MS Exam: Normal Tone MS Remarks S/P Aortogram w/ R LE angiogram and TPT orbital atherectomy and BONDERIZER OPERATOR (3mm) and L QUALITY CONTROL ASSISTANT angioseal 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 Integumentary Skin Remarks S/P Aortogram w/ R LE angiogram and TPT orbital atherectomy and BONDERIZER OPERATOR (3mm) and L QUALITY CONTROL ASSISTANT angioseal 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 This is a 76-year male who came to the ER diagnosed with blackening, erythema, pain and swelling of the right great toe rule out osteomyelitis/peripheral vascular disease. Podiatry and vascular surgeon and infectious disease / Cardiology input noted wound culture grows Providencia Stuartii ..sensitive to all antibiotic.. The patient on Rocephin. . 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 have INR 1.1 s/p Transfusion 4 units FFP. Have low Hemoglobin s/p transfusion 2 units PRBC and Checked fecal occult blood test...Negative. 2. Diabetes mellitus, ADA 1800 calorie diet. NovoLog low-dose sliding scale. Check blood sugars. We will monitor blood sugar. 3. Renal failure, creatinine was 1.84, BUN was 37, now BUN of 21 and creatinine 1.4. 4. History of stroke and TIA. The patient was on Coumadin. INR 1.1. holding coumadin We will Monitor PT/ INR Daily. 5. History of hypertension. Continue home medication. Monitor blood pressure. 6. History of coronary artery disease continue home medication. 7. History of hyperlipidemia. Continue home medications. 8. DVT prophylaxis. The patient was on Coumadin... INR 1.1 today. holding coumadin. S/P Transfusion of 4 units FFP. 9. GI prophylaxis, Protonix 40 mg p.o. daily. 10. Leukocytosis secondary to right foot cellulitis will monitor. resolved. 11. Recurrent VT on beta shirin. No angina or CHF symptoms. 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 He wants ICD at this time. getting cardiac cath and PCI and AICD Placement tomorrow per cardiology. 12. Hyponatremia resolved. 13. Low Hemoglobin S/P transfusion of 2 units PRBC and Checked fecal occult blood test...Negative. Check CBC with diff CMP in AM. we are going to manage the patient on a daily basis and make recommendations on a daily basis. Discussed Condition with: Patient Don Kothari MD May 16, 2017 08:25
[2017-05-16] MEDS: amLODIPine BESYLATE 5 MG TAB PO SCH (08:39)
[2017-05-16] MEDS: METOPROLOL TARTRATE 25 MG TAB PO SCH ×2 (08:39→21:13)
[2017-05-16] MEDS: DOCUSATE SODIUM 50 MG/SENNA 8.6 MG TAB PO SCH ×2 (08:39→21:13)
[2017-05-16] MEDS: LISINOPRIL 20 MG TAB PO SCH (08:41)
[2017-05-16] MEDS: SODIUM CHLORIDE 0.9% FLUSH 10 ML FLUSH IV FLUSH SCH ×2 (08:43→21:13)
--- NOTE | 2017-05-16 10:15 | PD.CARD.PN ---
Subjective Subjective Remarks No CP or SOB, cath yest with EF 30% and 3/4 grafts patent. Objective Medications Current Medications Medications (Trade) Dose Ordered Sig/Jorge L Route Start Time Stop Time Status Last Admin (Glucotrol) 5 mg BIDAC PO 04/30/17 16:00 05/16/17 07:00 (Pravachol) 80 mg HS PO 04/30/17 21:00 05/15/17 20:18 (NS Flush) 2 ml UNSCH PRN IV FLUSH 04/30/17 14:00 (NS Flush) 2 ml BID IV FLUSH 04/30/17 21:00 05/16/17 08:43 (Zofran Inj) 4 mg Q6H PRN IVP 04/30/17 14:00 (Narcan Inj) 0.4 mg UNSCH PRN IV 04/30/17 14:00 (Cherrie-Colace) 1 tab BID PO 04/30/17 21:00 05/16/17 08:39 (Milk Of Magnesia Liq) 30 ml Q12H PRN PO 04/30/17 14:00 (Senokot) 17.2 mg Q12H PRN PO 04/30/17 14:00 (Dulcolax Supp) 10 mg DAILY PRN RECTAL 04/30/17 14:00 (Lactulose Liq) 30 ml DAILY PRN PO 04/30/17 14:00 05/02/17 09:09 (D50w (Vial) Inj) 50 ml UNSCH PRN IV 04/30/17 14:00 (Glucagon Inj) 1 mg UNSCH PRN OTHER 04/30/17 14:00 (NovoLOG SUPPLEMENTAL SCALE) 1 ACHS SLIDING SCALE SQ 04/30/17 16:00 05/16/17 07:00 ([place] 5-325 Mg) 1 tab Q4H PRN PO 04/30/17 21:15 05/14/17 09:26 (Lopressor) 25 mg Q12HR PO 05/12/17 09:00 05/16/17 08:39 (Prinivil) 40 mg DAILY PO 05/12/17 09:00 05/16/17 08:41 (Norvasc) 5 mg DAILY PO 05/13/17 14:15 05/16/17 08:39 Ceftriaxone Sodium 2000 mg/ Sodium Chloride 100 ml @ 200 mls/hr Q24H IV 05/13/17 16:00 05/15/17 16:34 (Catapres) 0.1 mg Q4H PRN PO 05/14/17 18:00 05/16/17 00:51 Vital Signs / I&O Vital Signs Date Time Temp Pulse Resp B/P (MAP) Pulse Ox O2 Delivery O2 Flow Rate FiO2 05/16/17 09:27 57 05/16/17 08:00 97.7 59 16 159/83 (108) 97 05/16/17 07:27 57 05/16/17 07:00 97.7 59 16 159/83 (108) 97 05/16/17 05:16 54 05/16/17 04:21 55 05/16/17 03:20 72 05/16/17 03:20 97.7 56 16 176/81 (112) 93 05/16/17 02:26 51 05/16/17 01:21 53 05/16/17 00:00 54 05/15/17 23:30 97.9 53 18 153/84 (107) 95 05/15/17 23:00 52 05/15/17 22:00 50 05/15/17 21:00 64 05/15/17 20:00 62 05/15/17 19:20 59 05/15/17 19:20 98.0 57 20 167/83 (111) 93 05/15/17 17:30 142/69 (93) 05/15/17 17:00 60 05/15/17 16:00 97.5 59 18 170/82 (111) 96 05/15/17 16:00 58 05/15/17 15:00 59 05/15/17 14:00 52 05/15/17 13:07 172/68 (102) 05/15/17 13:04 47 05/15/17 12:00 58 05/15/17 11:08 97.7 58 16 181/75 (110) 97 05/15/17 11:00 52 I/O 05/15/17 05/15/17 05/15/17 05/16/17 05/16/17 05/16/17 07:00 15:00 23:00 07:00 15:00 23:00 Intake Total 480 ml 25 ml 880 ml Output Total 775 ml 800 ml 1125 ml Balance -295 ml -775 ml -245 ml Intake Oral 480 ml 25 ml 480 ml IV Total 400 ml Output Urine Total 775 ml 800 ml 1125 ml # Bowel Movements 0 Physical Exam GENERAL: In NAD SKIN: Warm and dry. HEAD: Normocephalic. EYES: No scleral icterus. No injection or drainage. NECK: Supple, trachea midline. No JVD or lymphadenopathy. CARDIOVASCULAR: Regular rate and rhythm without murmurs, gallops, or rubs. RESPIRATORY: Breath sounds equal bilaterally. No accessory muscle use. GASTROINTESTINAL: Abdomen soft, non-tender, nondistended. MUSCULOSKELETAL: No cyanosis, or edema. R foot s/p surgery. Groin benign Laboratory Laboratory Tests Test 05/15/17 19:48 05/16/17 05:17 Triglycerides Level 129 MG/DL Cholesterol Level 97 MG/DL LDL Cholesterol 36 MG/DL HDL Cholesterol 35.6 MG/DL Cholesterol/HDL Ratio 2.72 RATIO White Blood Count 8.0 TH/MM3 Red Blood Count 3.41 MIL/MM3 Hemoglobin 9.9 GM/DL Hematocrit 29.6 % Mean Corpuscular Volume 86.9 FL Mean Corpuscular Hemoglobin 29.0 PG Mean Corpuscular Hemoglobin Concent 33.4 % Red Cell Distribution Width 16.5 % Platelet Count 276 TH/MM3 Mean Platelet Volume 8.3 FL Neutrophils (%) (Auto) 75.7 % Lymphocytes (%) (Auto) 8.1 % Monocytes (%) (Auto) 6.1 % Eosinophils (%) (Auto) 7.1 % Basophils (%) (Auto) 3.0 % Neutrophils # (Auto) 6.1 TH/MM3 Lymphocytes # (Auto) 0.6 TH/MM3 Monocytes # (Auto) 0.5 TH/MM3 Eosinophils # (Auto) 0.6 TH/MM3 Basophils # (Auto) 0.2 TH/MM3 CBC Comment DIFF FINAL Differential Comment Prothrombin Time 12.4 SEC Prothromb Time International Ratio 1.1 RATIO Blood Urea Nitrogen 17 MG/DL Creatinine 1.44 MG/DL Random Glucose 169 MG/DL Total Protein 6.6 GM/DL Albumin 2.7 GM/DL Calcium Level 8.3 MG/DL Alkaline Phosphatase 71 U/L Aspartate Amino Transf (AST/SGOT) 16 U/L Alanine Aminotransferase (ALT/SGPT) 22 U/L Total Bilirubin 0.3 MG/DL Sodium Level 137 MEQ/L Potassium Level 3.8 MEQ/L Chloride Level 104 MEQ/L Carbon Dioxide Level 26.7 MEQ/L Anion Gap 6 MEQ/L Estimat Glomerular Filtration Rate 48 ML/MIN Imaging Last Impressions Toe X-Ray 04/30/17 0000 Signed Impressions: Service Date/Time: Sunday, April 30, 2017 12:27 - CONCLUSION: Bony destruction involving the first distal phalanx with abnormal soft tissue changes characteristic of osteomyelitis. Jerry Mireles MD Assessment and Plan Problem List: (1) VT (ventricular tachycardia) ICD Codes: I47.2 - Ventricular tachycardia Status: Acute (2) Coronary artery disease ICD Codes: I25.10 - Coronary artery disease Status: Chronic (3) History of coronary artery bypass surgery ICD Codes: Z95.1 - History of coronary artery bypass surgery Status: Acute (4) Sepsis ICD Codes: A41.9 - Sepsis, unspecified organism Status: Acute (5) Cellulitis of great toe of right foot ICD Codes: L03.031 - Cellulitis of right toe Status: Acute (6) Osteomyelitis of toe of right foot ICD Codes: M86.9 - Osteomyelitis, unspecified Status: Acute (7) PVD (peripheral vascular disease) ICD Codes: I73.9 - Peripheral vascular disease, unspecified Status: Acute (8) LV dysfunction ICD Codes: I51.9 - Heart disease, unspecified Status: Chronic Assessment and Plan Cath with 3/4 grafts patent and EF 30%. Tele with recurrent episodes of sustained monomorphic VT despite beta shirin therapy. Proceed with EPS and ICD placement tomorrow. Continue beta shirin. Problem Qualifiers (1) Coronary artery disease: Landon Mahoney MD May 16, 2017 10:15
[2017-05-16] MEDS: cefTRIAXone 2,000 MG/NS 100 ML IV SCH ×2 (15:45)
[2017-05-16] MEDS: PRAVASTATIN SOD 80 MG TAB PO SCH (21:12)
[2017-05-16] MEDS: ACETAMINOPHEN/HYDROcodone 325 MG/5 MG TAB PO PRN (21:13)
[2017-05-17] VITALS (22 sets, daily range): BP systolic 123–171; BP diastolic 64–84; PULSE 48–64; RESP 16–20; TEMP 97.4–98.4; O2SAT 94–97
[2017-05-17] MEDS: glipiZIDE 5 MG TAB PO SCH ×2 (06:15→15:11)
[2017-05-17] MEDS: INSULIN ASPART SUPPLEMENTAL SCALE SQ SCH ×4 (06:15→19:40)
[2017-05-17 06:52] LABS: INTERNATIONAL NORMALIZED RATIO 1.1 RATIO; PROTHROMBIN TIME - PATIENT 11.8 SEC (9.8-11.6)
[2017-05-17 07:04] LABS: AUTOMATED NEUTROPHIL # 6.7 TH/MM3 (1.8-7.7); BASOPHIL # 0.1 TH/MM3 (0-0.2); BASOPHIL % 1.2 % (0.0-2.0); EOSINOPHIL # 0.6 TH/MM3 (0-0.4); HEMATOCRIT 31.5 % (39.0-51.0); HEMO FLAGS DIFF FINAL; LYMPH % 11.3 % (9.0-44.0); MEAN CELL VOLUME 86.9 FL (80.0-100.0); MEAN CORPUSCULAR HEMOGLOBIN 28.8 PG (27.0-34.0); MEAN CORPUSCULAR HGB CONC 33.1 % (32.0-36.0); MONO % 7.6 % (0.0-8.0); NEUT % 72.9 % (16.0-70.0); PLATELET COUNT 287 TH/MM3 (150-450); RED BLOOD COUNT 3.62 MIL/MM3 (4.50-5.90); RED CELL DISTRIBUTION WIDTH 16.3 % (11.6-17.2); WHITE BLOOD COUNT 9.1 TH/MM3 (4.0-11.0)
[2017-05-17 07:10] LABS: ANION GAP 9 MEQ/L (5-15); AST (GOT) 15 U/L (15-37); BICARBONATE 23.9 MEQ/L (21.0-32.0); BLOOD UREA NITROGEN 21 MG/DL (7-18); CHLORIDE 102 MEQ/L (98-107); GLOMERULAR FILTRATION RATE 47 ML/MIN (>89); POTASSIUM 3.4 MEQ/L (3.5-5.1); SODIUM (NA) 135 MEQ/L (136-145)
[2017-05-17 07:12] LABS: ALT (GPT) 22 U/L (12-78)
[2017-05-17 07:14] LABS: ALKALINE PHOSPHATASE 79 U/L (45-117); TOTAL BILIRUBIN ADULT 0.3 MG/DL (0.2-1.0)
--- NOTE | 2017-05-17 07:37 | MA ---
cc: NNEKA BAEZ DATE 05/15/2017 INDICATIONS FOR PROCEDURE Sustained monomorphic ventricular tachycardia, coronary artery disease, history of coronary bypass, cardiomyopathy, congestive heart failure. PROCEDURE PERFORMED 1. Retrograde left heart catheterization with left ventriculography and selective coronary angiography 2. Saphenous venous graft angiography 3. Left internal mammary artery angiography 4. Left subclavian angiography 5. Moderate sedation ACCESS SITE Right femoral artery EQUIPMENT USED 5-English pigtail catheter, 5-English JL-4 and AR modified coronary catheters. MEDICATIONS Versed IV Fentanyl IV CONTRAST Omnipaque 105 cc COMPLICATIONS None METHOD OF HEMOSTASIS Manual compression. RESULTS HEMODYNAMICS Heart rate 68 beats per minute. Left ventricular end-diastolic pressure 5 mmHg. Left ventricle 153/5 Aorta 153/54/89. LEFT VENTRICULOGRAPHY The left ventricular ejection fraction 30%, wall motion: inferobasal akinesis. CORONARY ANGIOGRAPHY Left main coronary artery has 80% distal stenosis. Left anterior descending artery has 80% ostial stenosis and is totally occluded in the mid portion. The first diagonal artery is totally occluded. The left circumflex artery is occluded at its ostium. Right coronary artery is totally occluded in the proximal portion. Left mammary artery graft to the left anterior descending artery was patent. Left subclavian artery was patent. Saphenous venous graft to the right coronary was patent. PDA had 70% stenosis. Saphenous venous graft to the first obtuse marginal artery was totally occluded. Saphenous venous graft to the first diagonal artery had 50% stenosis in the midportion and 30% stenosis in the distal portion. DIAGNOSIS 1. Severe multivessel coronary artery disease with 3/4 grafts patent. 2. Severe left ventricular dysfunction consistent with ischemic cardiomyopathy. DISPOSITION Mr. Doherty was found to have evidence of 3/4 patent grafts. There are no stenoses amenable to coronary intervention. Left ventricular function is severely decreased. We will proceed with electrophysiology study and placement of implantable defibrillator in the near future. MD GERALDO Diaz/CORA /6:36 PM /7:18 AM JUDIE
[2017-05-17] MEDS: METOPROLOL TARTRATE 25 MG TAB PO SCH ×2 (08:42→19:36)
[2017-05-17] MEDS: DOCUSATE SODIUM 50 MG/SENNA 8.6 MG TAB PO SCH ×2 (08:42→19:37)
[2017-05-17] MEDS: amLODIPine BESYLATE 5 MG TAB PO SCH (08:43)
[2017-05-17] MEDS: SODIUM CHLORIDE 0.9% FLUSH 10 ML FLUSH IV FLUSH SCH ×2 (08:43→19:43)
[2017-05-17] MEDS: LISINOPRIL 20 MG TAB PO SCH (08:43)
--- NOTE | 2017-05-17 10:44 | HHI.PR ---
Subjective History of Present Illness Patient feel better no acute issue. cardiology input noted getting cardiac cath PCI and AICD Placement today. d/w RN.Maddi at bed side. 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 Vitals/Results Vital Signs Vital Signs Date Time Temp Pulse Resp B/P (MAP) Pulse Ox O2 Delivery O2 Flow Rate FiO2 05/17/17 08:45 97.7 64 16 167/77 (107) 97 05/17/17 08:45 56 05/17/17 07:00 Room Air 05/17/17 06:00 58 05/17/17 05:56 152/64 (93) 05/17/17 05:00 60 05/17/17 04:00 61 05/17/17 04:00 Room Air 05/17/17 04:00 97.4 64 18 171/69 (103) 94 05/17/17 03:00 52 05/17/17 02:00 52 05/17/17 01:00 48 05/17/17 00:00 98.4 61 18 123/68 (86) 96 05/17/17 00:00 Room Air 05/17/17 00:00 54 05/16/17 23:00 48 05/16/17 22:13 20 05/16/17 20:00 Room Air 05/16/17 20:00 97.6 57 18 161/75 (103) 95 05/16/17 20:00 55 05/16/17 19:40 56 05/16/17 19:00 56 05/16/17 18:00 58 05/16/17 17:00 48 05/16/17 16:14 62 05/16/17 16:10 97.8 60 17 160/73 (102) 100 05/16/17 15:00 56 05/16/17 14:00 50 05/16/17 13:00 54 05/16/17 12:17 97.6 54 16 149/76 (100) 99 05/16/17 12:00 52 05/16/17 11:00 54 CBC/BMP: 05/17/17 0529 05/17/17 0529 Lab Results Laboratory Tests Test 05/17/17 05:29 White Blood Count 9.1 TH/MM3 Red Blood Count 3.62 MIL/MM3 Hemoglobin 10.4 GM/DL Hematocrit 31.5 % Mean Corpuscular Volume 86.9 FL Mean Corpuscular Hemoglobin 28.8 PG Mean Corpuscular Hemoglobin Concent 33.1 % Red Cell Distribution Width 16.3 % Platelet Count 287 TH/MM3 Mean Platelet Volume 8.8 FL Neutrophils (%) (Auto) 72.9 % Lymphocytes (%) (Auto) 11.3 % Monocytes (%) (Auto) 7.6 % Eosinophils (%) (Auto) 7.0 % Basophils (%) (Auto) 1.2 % Neutrophils # (Auto) 6.7 TH/MM3 Lymphocytes # (Auto) 1.0 TH/MM3 Monocytes # (Auto) 0.7 TH/MM3 Eosinophils # (Auto) 0.6 TH/MM3 Basophils # (Auto) 0.1 TH/MM3 CBC Comment DIFF FINAL Differential Comment Prothrombin Time 11.8 SEC Prothromb Time International Ratio 1.1 RATIO Blood Urea Nitrogen 21 MG/DL Creatinine 1.47 MG/DL Random Glucose 116 MG/DL Total Protein 7.2 GM/DL Albumin 3.1 GM/DL Calcium Level 8.8 MG/DL Alkaline Phosphatase 79 U/L Aspartate Amino Transf (AST/SGOT) 15 U/L Alanine Aminotransferase (ALT/SGPT) 22 U/L Total Bilirubin 0.3 MG/DL Sodium Level 135 MEQ/L Potassium Level 3.4 MEQ/L Chloride Level 102 MEQ/L Carbon Dioxide Level 23.9 MEQ/L Anion Gap 9 MEQ/L Estimat Glomerular Filtration Rate 47 ML/MIN Physical Exam General General Appearance: Well Developed, Well Nourished, No Acute Distress, Comfortable Eyes Eye Exam: Sclera White, Extraocular Movement Intact Throat Throat Exam: Oral Mucosa [place] & Moist, Oral Pharynx Normal Neck Neck Exam: Neck Supple, Trachea Midline Pulmonary Resp Exam: Clear Bilaterally, Breath Sounds Equal Cardiology CV Exam: Regular, Normal Sinus Rhythm Gastrointestinal/Abdomen GI Exam: Soft, Non-Tender Musculoskeletal MS Exam: Normal Tone MS Remarks S/P Aortogram w/ R LE angiogram and TPT orbital atherectomy and BRAKE REPAIRER AIR (3mm) and L OPERATOR LIGHTS angioseal 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 Integumentary Skin Remarks S/P Aortogram w/ R LE angiogram and TPT orbital atherectomy and BRAKE REPAIRER AIR (3mm) and L OPERATOR LIGHTS angioseal 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 Extremeties Extremeties Remarks S/P Aortogram w/ R LE angiogram and TPT orbital atherectomy and BRAKE REPAIRER AIR (3mm) and L OPERATOR LIGHTS angioseal 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 This is a 76-year male who came to the ER diagnosed with blackening, erythema, pain and swelling of the right great toe rule out osteomyelitis/peripheral vascular disease. Podiatry and vascular surgeon and infectious disease / Cardiology input noted wound culture grows Providencia Stuartii ..sensitive to all antibiotic.. The patient on Rocephin. . S/P Aortogram w / R LE angiogram and TPT orbital atherectomy and BRAKE REPAIRER AIR (3mm) and L OPERATOR LIGHTS angioseal Right 1st toe Open Ray amputation . have INR 1.1 s/p Transfusion 4 units FFP. Have low Hemoglobin s/p transfusion 2 units PRBC and Checked fecal occult blood test...Negative. 2. Diabetes mellitus, ADA 1800 calorie diet. NovoLog low-dose sliding scale. Check blood sugars. We will monitor blood sugar. 3. Renal failure, creatinine was 1.84, BUN was 37, now BUN of 21 and creatinine 1.4. 4. History of stroke and TIA. The patient was on Coumadin. INR 1.1. holding coumadin We will Monitor PT/ INR Daily. 5. History of hypertension. Continue home medication. Monitor blood pressure. 6. History of coronary artery disease continue home medication. 7. History of hyperlipidemia. Continue home medications. 8. DVT prophylaxis. The patient was on Coumadin... INR 1.1 today. holding coumadin. S/P Transfusion of 4 units FFP. 9. GI prophylaxis, Protonix 40 mg p.o. daily. 10. Leukocytosis secondary to right foot cellulitis will monitor. resolved. 11. Recurrent VT on beta shirin. No angina or CHF symptoms. 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 He wants ICD at this time. getting cardiac cath and PCI and AICD Placement today per cardiology. 12. Hyponatremia resolved. 13. Low Hemoglobin S/P transfusion of 2 units PRBC and Checked fecal occult blood test...Negative. Check CBC with diff CMP in AM. we are going to manage the patient on a daily basis and make recommendations on a daily basis. Discussed Condition with: Patient Don Kothari MD May 17, 2017 10:44
[2017-05-17] MEDS: cloNIDine HCL 0.1 MG TAB PO PRN (10:54)
--- NOTE | 2017-05-17 14:04 | HHI.IDPN ---
Note Infectious Disease Note Patient is without complaints. Afebrile. Denies foot pain. Had revascularization and amputation of the right great toe by vascular surgeon. Patient going for defibrillator today. PAST MEDICAL HISTORY 1. Coronary artery disease. 2. History of four vessel bypass surgery. 3. Hypertension. 4. Diabetes mellitus. 5. Hyperlipidemia. 6. TIA. ALLERGIES NO KNOWN DRUG ALLERGIES. ANTIBIOTICS: Ceftriaxone. OBJECTIVE: Vital Signs Date Time Temp Pulse Resp B/P (MAP) Pulse Ox O2 Delivery O2 Flow Rate FiO2 05/17/17 12:13 50 05/17/17 12:13 97.9 51 17 152/76 (101) 97 05/17/17 11:00 52 05/17/17 10:45 97.8 56 16 171/84 (113) 96 05/17/17 10:00 54 05/17/17 09:00 64 05/17/17 08:45 97.7 64 16 167/77 (107) 97 05/17/17 08:45 56 05/17/17 07:00 58 05/17/17 07:00 Room Air 05/17/17 06:00 58 05/17/17 05:56 152/64 (93) 05/17/17 05:00 60 05/17/17 04:00 61 05/17/17 04:00 Room Air 05/17/17 04:00 97.4 64 18 171/69 (103) 94 05/17/17 03:00 52 05/17/17 02:00 52 05/17/17 01:00 48 05/17/17 00:00 98.4 61 18 123/68 (86) 96 05/17/17 00:00 Room Air 05/17/17 00:00 54 05/16/17 23:00 48 05/16/17 22:13 20 05/16/17 20:00 Room Air 05/16/17 20:00 97.6 57 18 161/75 (103) 95 05/16/17 20:00 55 05/16/17 19:40 56 05/16/17 19:00 56 05/16/17 18:00 58 05/16/17 17:00 48 05/16/17 16:14 62 05/16/17 16:10 97.8 60 17 160/73 (102) 100 05/16/17 15:00 56 05/16/17 14:00 50 Laboratory Tests Test 05/16/17 05:17 05/17/17 05:29 White Blood Count 8.0 TH/MM3 9.1 TH/MM3 Red Blood Count 3.41 MIL/MM3 3.62 MIL/MM3 Hemoglobin 9.9 GM/DL 10.4 GM/DL Hematocrit 29.6 % 31.5 % Mean Corpuscular Volume 86.9 FL 86.9 FL Mean Corpuscular Hemoglobin 29.0 PG 28.8 PG Mean Corpuscular Hemoglobin Concent 33.4 % 33.1 % Red Cell Distribution Width 16.5 % 16.3 % Platelet Count 276 TH/MM3 287 TH/MM3 Mean Platelet Volume 8.3 FL 8.8 FL Neutrophils (%) (Auto) 75.7 % 72.9 % Lymphocytes (%) (Auto) 8.1 % 11.3 % Monocytes (%) (Auto) 6.1 % 7.6 % Eosinophils (%) (Auto) 7.1 % 7.0 % Basophils (%) (Auto) 3.0 % 1.2 % Neutrophils # (Auto) 6.1 TH/MM3 6.7 TH/MM3 Lymphocytes # (Auto) 0.6 TH/MM3 1.0 TH/MM3 Monocytes # (Auto) 0.5 TH/MM3 0.7 TH/MM3 Eosinophils # (Auto) 0.6 TH/MM3 0.6 TH/MM3 Basophils # (Auto) 0.2 TH/MM3 0.1 TH/MM3 CBC Comment DIFF FINAL DIFF FINAL Differential Comment Laboratory Tests Test 05/15/17 19:48 05/16/17 05:17 05/17/17 05:29 Triglycerides Level 129 MG/DL Cholesterol Level 97 MG/DL LDL Cholesterol 36 MG/DL HDL Cholesterol 35.6 MG/DL Cholesterol/HDL Ratio 2.72 RATIO Blood Urea Nitrogen 17 MG/DL 21 MG/DL Creatinine 1.44 MG/DL 1.47 MG/DL Random Glucose 169 MG/DL 116 MG/DL Total Protein 6.6 GM/DL 7.2 GM/DL Albumin 2.7 GM/DL 3.1 GM/DL Calcium Level 8.3 MG/DL 8.8 MG/DL Alkaline Phosphatase 71 U/L 79 U/L Aspartate Amino Transf (AST/SGOT) 16 U/L 15 U/L Alanine Aminotransferase (ALT/SGPT) 22 U/L 22 U/L Total Bilirubin 0.3 MG/DL 0.3 MG/DL Sodium Level 137 MEQ/L 135 MEQ/L Potassium Level 3.8 MEQ/L 3.4 MEQ/L Chloride Level 104 MEQ/L 102 MEQ/L Carbon Dioxide Level 26.7 MEQ/L 23.9 MEQ/L Anion Gap 6 MEQ/L 9 MEQ/L Estimat Glomerular Filtration Rate 48 ML/MIN 47 ML/MIN PHYSICAL EXAMINATION GENERAL: No acute distress. Awake and alert and oriented. HEENT: No icterus. Lungs: Clear to auscultation. Heart: Regular S1-S2 without audible murmurs. EXTREMITIES: The right great toe is post amputation. Erythema of the foot has resolved. Wound ulcerated bed at right foot op site is clean. 2 tiny area of dark discoloration in the wound bed. The other extremities have no clubbing, cyanosis or edema. Skin: No diffuse rash. Neuro: Nonfocal. IMPRESSION Osteomyelitis/gangrene of the right great toe. Providencia. Now post amputation. Open wound at op site. RECOMMENDATIONS Discharge on IV Ceftriaxone x 2 weeks per previous orders. Wound care and follow up per vascular surgeon who did amputation. Follow up with ID outpatient Dr. Sheldon in 1 week after discharge. Guerrero Lee MD May 17, 2017 14:04
[2017-05-17] MEDS: cefTRIAXone 2,000 MG/NS 100 ML IV SCH ×2 (15:34)
[2017-05-17] MEDS: PRAVASTATIN SOD 80 MG TAB PO SCH (19:36)
--- NOTE | 2017-05-17 21:53 | CATHPROC ---
[place] HIS Report Study Information Study Number Admission Scheduled Start Study Start [id number] Apr 30 2017 1:47PM 05/17/2017 May 17 2017 8:18PM [place] Service Electrophysiology Study Admit Source Facility Department Other [facility] Physician and Clinical Staff Initial Landon Bhagat Core Machine Operator Violeta Wright,RT(R) TECH2 Other Anesthesia, BUILDING MAINTENANCE REPAIRER Recorder Park Owen,YVONNE Scrub Mackenzie Wilson RCIS Equipment Time Tape Folding Machine Operator Description Size Mfg Part Number Used/Scraped 21:15 [employer] LEADWIRE, DEFIBRILLATION PAD 2001M-PC Used [id number] 21:15 [employer] INDUSTRIES PACK, CCL CUSTOM * Used *[id number] 21:15 [employer] PACER YIN, LIMB * 2530 *[id number] Used [id number] 21:15 LE MEDICAL BLANKET,WARM AIR CCL * Used *[id number] 21:00 [employer] MEDICAL CATHETER, JSN, QUAD FR 5 Used *[id number] 21:00 [employer] MEDICAL CATHETER, JSN, QUAD FR 5 Used *[id number] 21:00 [employer] MEDICAL CATHETER, JSN, QUAD FR 5 Used *[id number] 21:00 [employer] MEDICAL SHEATH, EPS, FR7 FAST CATH FR 7 [id number] Used 21:00 [employer] MEDICAL SHEATH, EPS, FR7 FAST CATH FR [address] [id number] Used 21:00 [employer] MEDICAL SHEATH, EPS, FR7 FAST CATH FR 7 [id number] Used [facility] PAD, ELECTROSURGICAL 21:15 * [id number] *[id number] Used SURGICAL GROUNDING (BLUE) History: Allergies Allergy Reaction No Known Allergies History: Risk Factors Hypertension Dyslipidemia Yes Yes Prior CABG Yes Cerebrovascular Diabetes Disease Yes Yes Labs Hgb (g/dl) Hct (%) 11.60-17.00 35.00-51.00 10.0 31 Medication Medication Total Dose (Bolus/Oral) Medication Total Dosage/Unit 1% XYLOCAINE 20 mL Medications (Bolus/Oral) Medication Time Given Dosage/Unit Administered By Reason 1% XYLOCAINE 05/17/2017 9:17:08 PM 20 mL Landon Mahoney As per physicians verb al order 20 mL 1% XYLOCAINE given by Landon Mahoney in Right Groin via Subcutaneous. Reason: As per physician s verbal order. Initial Case Assessment Initial Case Assessment Cardiovascular HR Rhythm NIBP Chest Pain 60 sr 170/80 0 Circulatory - Right Pulses Dorsalis Pedis 1 Scale (0,1,2,3,4,d) Circulatory - Left Pulses Dorsalis Pedis 1 Scale (0,1,2,3,4,d) Circulatory - Lower Extremities Color Lower Right Color Lower Left Normal Normal Neurological State Oriented to time-place- Alert Moves all extremities person Respiration - General Respiration Rate SpO2 (%) (B/min) 20 97 Chronological Log Time Study Chronological Log 20:42:16 Patient arrived via Bed. 20:42:17 Patient Name, D.O.B, / Armband Verified By R.N. 20:42:18 Consent signed by the physician and the patient and verified by the [facility] staff. 20:42:18 Pre-op and post- op instructions given; patient acknowledges understanding of instructions. 20:42:19 Verbal Stimulation=2 Physical Stimulation=2 Airway=2 Respiration=2 TOTAL=8. (0=absent, 1=li mited, 2=present) 20:42:19 Anesthesia at bedside. Assumes care of patient. 20:42:21 Patient has been NPO for More than 6Hrs. 20:42:27 Skin Breakdown- 20:42:29 Patient Warmer Placed on the Table. 20:42:30 Disposable Defibrillator Pads Placed On Patient. 20:42:31 Isabella Prominences Protected 20:42:39 A # 20 IV was noted in the Forearm (left). Grade = 0 0.9ns kvo 20:42:40 A # ~SIZE~ IV was noted in the Upper Arm (right). Grade = 0 midine iv 0.9ns kvo 20:42:42 History and physical on the chart or being dictated. 20:56:06 Bilateral groins prepped with 2% chlorhexidine, and with a 3 min. waiting time. 20:59:03 Assessment: Initial Case 20:59:13 MD arrived. Assessment: Initial Case, HR=60 BPM, Rhythm=sr, KFEC=410/80 mmhg, Chest Pain=0 Right Pulses: Daniel Ped=1 Left Pulses: Daniel Ped=1 21:04:43 Lower Right Extremities: Color=Normal Lower Left Extremities: Color=Normal Neurological: State=Alert, Ox3, WRIGHT Respiration: Resp=20 B/min, SpO2=97 % 21:10:17 paged 21:14:31 MD arrived. Time Out. Correct patient, procedure, procedure equipment, site and side verified with physici an present. Time 21:16:21 concurred by MD, individual staff and BUILDING MAINTENANCE REPAIRER. Time Out #2 - Consents verified, patient in correct position, all results are labled and displ ayed, safety precautions 21:16:43 taken, antibiotics administered. Time out concurred by MD, individual staff and BUILDING MAINTENANCE REPAIRER in proced ure 21:16:53 Case Start 20 mL 1% XYLOCAINE given by Landon Mahoney in Right Groin via Subcutaneous. Reason: As per ph ysicians verbal 21:17:08 order. 21:17:22 Vascular access was obtained in the Fem Vein (right). 21:17:25 Vascular access was obtained in the Fem Vein (right). 21:17:29 Vascular access was obtained in the Fem Vein (right). 21:20:18 A SHEATH, EPS, FR7 FAST CATH FR 7 was advanced into the Fem Vein (right) using the Modifie d Seldinger technique. 21:20:26 A SHEATH, EPS, FR7 FAST CATH FR 7 was advanced into the Fem Vein (right) using the Modifie d Seldinger technique. 21:20:33 A SHEATH, EPS, FR7 FAST CATH FR 7 was advanced into the Fem Vein (right) using the Modifie d Seldinger technique. A CATHETER, JSN, QUAD FR 5 was advanced vis Fem Vein (right) and placed in the CS. Placement w as visually 21:23:10 confirmed under fluoroscopy. A CATHETER, JSN, QUAD FR 5 was advanced vis Fem Vein (right) and placed in the HIS. Placement was visually 21:25:17 confirmed under fluoroscopy. 21:25:23 Reference ECG taken A CATHETER, JSN, QUAD FR 5 was advanced vis Fem Vein (right) and placed in the RVA. Placement was visually 21:26:54 confirmed under fluoroscopy. 21:30:28 EPS in progress 21:51:52 EPS complete 21:52:15 CS and HIS Catheter(s) removed without difficulty. RV catheter remains 21:53:11 NOTE: This patient is undergoing an additional procedure while still in the Cardiac Cath L ab. End Study - Contrast Media Used In Study Contrast Total Opened (mL) Total Used (mL) Total Wasted (mL) Unspecified 0 0 0 End Study - Radiation Exposure Fluoro Time (minutes) 5.0 End Study - Patient Disposition Complications Transferred To Interventional Outcome No [facility] Holding successful
[2017-05-18] VITALS (16 sets, daily range): BP systolic 156–181; BP diastolic 67–97; PULSE 63–81; RESP 18–20; TEMP 97.1–98.2; O2SAT 93–99
--- NOTE | 2017-05-18 00:03 | CATHPROC ---
[facility] HIS Report Study Information Study Number Admission Scheduled Start Study Start [id number] Apr 30 2017 1:47PM 05/17/2017 May 17 2017 9:54PM [place] [facility] Cardiac Pacer/ICD Admit Source Facility Department Other [facility] - Foundry Engineer Physician and Clinical Staff Initial Landon Bhagat Network Security Consultant Violeta Wright,RT(R) TECH2 Other Anesthesia, APPLICATION TECHNICIAN Recorder Park Owen,RN Scrub Mackenzie Wilson,TORSTEN Procedures Performed Procedure Lead Insertion Equipment Time Inspector And Tester Description Size Mfg Part Number Used/Scraped 22:14 [employer] MEDICAL DRAPE, [place] X-RAY 12X17 12X17 D-100 *[id number] Used MPIS-502-10.0- INTRODUCER SET, 22:14 [employer]. FR 5 SC-NT-U-SST Used MICROPUNCTURE, STIFFENED *[id number] MPIS-502-10.0- INTRODUCER SET, 22:14 [employer] FR 5 SC-NT-U-SST Used MICROPUNCTURE, STIFFENED *[id number] 22:14 [employer] DRAPE, IOBAN 2 6661EZ 26cm x 20cm Used *[id number] TP-1103 22:14 [employer] SUTURE, STRIP PLUS 1/2" * Used *[id number] 22:14 MEDLINE PACER ADHESIVE, MASTISOL 2/3CC 2/3CC 0523-48 Used 22:14 MEDLINE PACER YIN, LIMB * 2530 *[id number] Used [id number] 22:14 MEDLINE PACER PACK, PACER CUSTOM * Used *[id number] 22:14 MEDLINE PACER PEN, SKIN DUAL W/ RULER * Used *[id number] 22:50 [employer] PACER SAFE SHEATH, FR7, 13CM FR 7 CLS-1007 Used 22:50 [employer] MEDICAL PACER SAFE SHEATH, FR7, 13CM FR 7 CLS-1007 Used PROBE COVER, STERILE [id number] 22:14 [employer] MEDICAL * Used ULTRASOUND W/ GEL *[id number] 22:16 Needle Sponge Count 1 111 Used 22:24 Needle Sponge Count 30 1 Used 22:24 Needle Sponge Count 5 5 Used [id number] *[id number] SUTURE, 0 ETHIBOND [CT1] (CX21D), 8pk SUTURE, 2-0 VICRYL [CT1] (SQP492P) SUTURE, 2-0 VICRYL [CT1] (TTI318V) SUTURE, 4-0 VICRYL [PS2] (NNO829X) [id number] 22:14 LE MEDICAL BLANKET,WARM AIR CCL * Used *[id number] DEFIBRILLATOR, FORTIFY 23:07 [facility] [employer] VVEVVVIRV [id number] Used MATTHEW JAMISON LEAD, DURATA ACTIVE FIXATION 7121Q-58 22:53 [facility] [employer] 58CM Used 7121Q/58 *[id number] LEAD, TENDRIL SDX 1688TC 1688TC/46CM 22:58 [facility] [employer] 46CM Used 46CM *[id number] [facility] PAD, ELECTROSURGICAL 22:14 * [id number] *[id number] Used SURGICAL GROUNDING ORANGE 22:14 V[employer] MED[employer]ON[employer] PLASMABLADE, PEAD 3.0S * [id number] Used [id number] 22:14 [employer] ANGELICA. ELECTRODE, PRO-PADZ BIPHASIC * Used *[id number] Equipment Model, Serial, Lot Number and Expiration Data Description Model Number Serial Number Lot Number Expiration D ate DEFIBRILLATOR, FORTIFY ASSURA [id number] 12-21-2017 LEAD, DURATA ACTIVE FIXATION 7121Q-58 [id number] 05-23-2017 7121Q/58 LEAD, TENDRIL SDX 1688TC 46CM 1688tc-46 [id number] 08-22-2018 Medication Medication Total Dose (Bolus/Oral) Medication Total Dosage/Unit 2% XYLOCAINE 50 mL Medications (Bolus/Oral) Medication Time Given Dosage/Unit Administered By Reason 2% XYLOCAINE 05/17/2017 10:38:19 PM 50 mL Anesthesia, APPLICATION TECHNICIAN 50 mL 2% XYLOCAINE given in lab by Anesthesia, APPLICATION TECHNICIAN in Left upper chest via Subcutaneous. Ordered by Landon Mahoney. Medication (Drip) Medication Time Given Dosage/Unit Concentration/Unit Diluent (ml) Solution ANCEF 05/17/2017 9:10:30 PM 2 g 2 g ANCEF given by Anesthesia, APPLICATION TECHNICIAN via Peripheral IV. Ordered by Landon Mahoney. Reason: As per malick sanchez verbal order. VANCOMYCIN DRIP 05/17/2017 9:10:20 PM 1 g 1 g VANCOMYCIN DRIP given in lab by Anesthesia, APPLICATION TECHNICIAN via Peripheral IV. Ordered by Landon Mahoney. R matthew: As per physicians verbal order. Final Case Assessment Cardiovascular HR Rhythm NIBP Chest Pain 75 sr 125/74 0 Edema Present Skin color Skin None Normal Warm Dry Neurological State Oriented to time-place- Alert Moves all extremities person Respiration - General Respiration Rate SpO2 (%) (B/min) 18 99 Chronological Log Time Study Chronological Log 1 g VANCOMYCIN DRIP given in lab by Anesthesia, APPLICATION TECHNICIAN via Peripheral IV. Ordered by Abhijit Mahoney. Reason: As 21:10:20 per physicians verbal order. 2 g ANCEF given by Anesthesia, APPLICATION TECHNICIAN via Peripheral IV. Ordered by Landon Mahoney. Reason: As per physicians verbal 21:10:30 order. 21:53:40 NOTE: This patient is undergoing an additional procedure while still in the Cardiac Cath La b. 21:53:44 Initial procedure has been completed. Beginning additional procedure. 21:53:47 2% CHLORHEXIDINE GLUCONATE WASH AND NASAL SWIPE DONE PRIOR TO PROCEDURE. 21:53:52 Anesthesia remains at bedside. Assuming care of patient. 22:11:18 Upper Chest Prepped Times Two. 22:14:05 Bovie ground pad applied to: right thigh First Sponge And Instrument Count Done by Mackenzie Wilson RCIS. 22:14:18 Hypo's: 5, Sponges: 30, Bovie/scratch: 1 Sutures: 11, Blades: 2, Instruments: 26, Syveck Patches: 0 22:27:45 Reference ECG taken Time Out. Correct patient, procedure, procedure equipment, site and side verified with physicia n present. Time 22:37:05 concurred by MD, individual staff and APPLICATION TECHNICIAN. 22:37:52 Case Start 50 mL 2% XYLOCAINE given in lab by Anesthesia, APPLICATION TECHNICIAN in Left upper chest via Subcutaneous. Order ed by Denzel, 22:38:19 Landon. 22:40:30 Vascular access was obtained in the Subclav. Vein (Lft. 22:40:36 Wire inserted 22:40:43 Surgical Incision Made. 22:46:18 PACU called. Spoke to Dilma 22:46:35 Bedside Report will be given. 22:47:37 A pocket was created at the L Upper Chest. A INTRODUCER SET, MICROPUNCTURE, STIFFENED FR 5 was advanced into the Subclav. Vein (Lft using the Modified 22:49:46 Seldinger technique. 22:49:54 A SAFE SHEATH, FR7, 13CM FR 7 was advanced into the Subclav. Vein (Lft using the Modified S eldinger technique. 22:50:00 1 antibiotic soaked sponge in pocket. 22:53:07 A LEAD, DURATA ACTIVE FIXATION 7121Q/58 58CM was inserted and positioned in the RV. 22:54:44 Lead placement verified under fluoroscopy 22:56:20 The RV lead impedance and threshold being tested. 22:57:55 The RV lead was sutured to the fascia. 22:58:10 RV quad Catheter removed without difficulty. right groin sheaths remain with 0.9ns kvo conn ected at this time. 22:58:46 Vascular access was obtained in the Subclav. Vein (Lft. 22:58:56 Wire inserted A INTRODUCER SET, MICROPUNCTURE, STIFFENED FR 5 was advanced into the Subclav. Vein (Lft using the Modified 22:59:18 Seldinger technique. 22:59:30 A SAFE SHEATH, FR7, 13CM FR 7 was advanced into the Subclav. Vein (Lft using the Modified S eldinger technique. 23:01:00 A LEAD, TENDRIL SDX 1688TC 46CM 46CM was inserted and positioned in the RA. 23:03:00 Lead placement verified under fluoroscopy 23:04:03 The Atrial lead impedance and threshold is being tested. 23:09:21 Antibiotic sponge removed from the surgical pocket. 23:09:55 RV Catheter removed without difficulty Second Sponge And Instrument Count Done by Mackenzie Wilson RCIS. 23:14:10 Hypo's: 5, Sponges: 30, Bovie/scratch: 1 Sutures: 11, Blades: 2, Instruments: 26, Syveck Patches: 0 23:16:21 The DFT was Success at 20 Joules, 42 Ohms lead impedance and 3.4 ms charge time. 23:23:15 Implant Procedure was performed. 23:23:24 A ICD Implant . (Dual) 23:30:41 The pocket was closed. 23:31:37 Steri-strips and a sterile dressing applied to site. Final Sponge And Instrument Count Done by Mackenzie Wilson RCIS. 23:31:55 Hypo's: 5, Sponges: 30, Bovie/scratch: 1 Sutures: 11, Blades: 2, Instruments: 26, Syveck Patches: 0 23:32:45 Case End 23:39:00 A sling was placed on the affected arm. Assessment: Final Case, HR=75 BPM, Rhythm=sr, QDUE=485/74 mmhg, Chest Pain=0, Edema=None, [place] r=Normal, Skin = Warm, Dry 23:57:57 Neurological: State=Alert, Ox3, WRIGHT Respiration: Resp=18 B/min, SpO2=99 % 23:58:18 Sheaths were pulled, pressure applied until hemostasis achieved. 23:58:56 No case complications noted. 0:00:21 Cine recording checked. 0:00:49 Sterile dressing applied to site 0:01:52 Patient moved to stretcher End Study - Radiation Exposure Fluoro Time (minutes) 9.0 End Study - Patient Disposition Complications Transferred To No Telemetry Bed
[2017-05-18] MEDS: ACETAMINOPHEN/HYDROcodone 325 MG/5 MG TAB PO PRN (01:02)
--- NOTE | 2017-05-18 03:52 | RADRPT ---
EXAM DATE/TIME: 05/18/2017 03:06 [place] COMPARISON: CHEST SINGLE AP, February 04, 2014, 18:37. INDICATIONS : Pacemeker placement. MEDICAL HISTORY : Diabetes mellitus type II. Hypertension SURGICAL HISTORY : Pacemaker. ENCOUNTER: Initial ACUITY: 1 day PAIN SCORE: 6/10 LOCATION: Left chest FINDINGS: A single view of the chest demonstrates a minimal patchy infiltrate left lower lobe. Small amount of airspace disease the left upper lobe. There numerous mediastinal wires and left subclavian bipolar pa cer.. The cardiomediastinal contours are unremarkable. Osseous structures are intact. CONCLUSION: Minimal infiltrate in the left lung could be a small area of pneumonia new since January 2014. Truman Lincoln MD on May 18, 2017 at 3:49 Board Certified Radiologist. This report was verified electronically.
[2017-05-18] MEDS: INSULIN ASPART SUPPLEMENTAL SCALE SQ SCH ×3 (05:59→16:00)
[2017-05-18] MEDS: glipiZIDE 5 MG TAB PO SCH ×2 (05:59→16:00)
[2017-05-18 06:19] LABS: AUTOMATED NEUTROPHIL # 9.1 TH/MM3 (1.8-7.7); BASOPHIL # 0.1 TH/MM3 (0-0.2); BASOPHIL % 0.6 % (0.0-2.0); EOSINOPHIL # 0.3 TH/MM3 (0-0.4); EOSINOPHIL % 3.1 % (0.0-4.0); HEMATOCRIT 31.6 % (39.0-51.0); HEMO FLAGS DIFF FINAL; LYMPH % 6.2 % (9.0-44.0); LYMPHOCYTE # 0.7 TH/MM3 (1.0-4.8); MEAN CELL VOLUME 87.8 FL (80.0-100.0); MEAN CORPUSCULAR HEMOGLOBIN 28.7 PG (27.0-34.0); MEAN CORPUSCULAR HGB CONC 32.7 % (32.0-36.0); MONO % 8.2 % (0.0-8.0); NEUT % 81.9 % (16.0-70.0); PLATELET COUNT 246 TH/MM3 (150-450); RED CELL DISTRIBUTION WIDTH 16.9 % (11.6-17.2); WHITE BLOOD COUNT 11.1 TH/MM3 (4.0-11.0)
[2017-05-18 07:08] LABS: ALT (GPT) 17 U/L (12-78); ANION GAP 12 MEQ/L (5-15); AST (GOT) 16 U/L (15-37); BICARBONATE 22.9 MEQ/L (21.0-32.0); BLOOD UREA NITROGEN 18 MG/DL (7-18); CHLORIDE 105 MEQ/L (98-107); GLOMERULAR FILTRATION RATE 49 ML/MIN (>89); POTASSIUM 3.6 MEQ/L (3.5-5.1); SODIUM (NA) 140 MEQ/L (136-145)
[2017-05-18 07:13] LABS: ALKALINE PHOSPHATASE 75 U/L (45-117); TOTAL BILIRUBIN ADULT 0.3 MG/DL (0.2-1.0)
[2017-05-18] MEDS: LISINOPRIL 20 MG TAB PO SCH (09:20)
[2017-05-18] MEDS: SODIUM CHLORIDE 0.9% FLUSH 10 ML FLUSH IV FLUSH SCH (09:20)
[2017-05-18] MEDS: amLODIPine BESYLATE 5 MG TAB PO SCH (09:20)
[2017-05-18] MEDS: METOPROLOL TARTRATE 25 MG TAB PO SCH (09:20)
[2017-05-18] MEDS: DOCUSATE SODIUM 50 MG/SENNA 8.6 MG TAB PO SCH (09:20)
--- NOTE | 2017-05-18 11:25 | HHI.PR ---
Subjective History of Present Illness Patient feel better no acute issue. cardiology input noted S/P cardiac and AICD Placement yesterday discharge plan when ok with cardiology. 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 Vitals/Results Vital Signs Vital Signs Date Time Temp Pulse Resp B/P (MAP) Pulse Ox O2 Delivery O2 Flow Rate FiO2 05/18/17 10:00 77 05/18/17 09:00 76 05/18/17 08:00 72 05/18/17 07:00 97.1 81 20 181/97 (125) 96 05/18/17 07:00 96 Nasal Cannula 2.00 05/18/17 06:00 74 05/18/17 05:00 75 05/18/17 04:00 77 05/18/17 04:00 Room Air 05/18/17 04:00 98.2 77 18 156/76 (102) 99 05/18/17 03:00 70 05/18/17 02:00 71 05/18/17 01:30 79 05/18/17 01:25 98.0 79 18 159/86 (110) 93 05/18/17 01:25 Room Air 05/18/17 00:30 77 20 149/66 (93) 97 Nasal Cannula 3 05/18/17 00:15 97.7 79 21 179/75 (109) 97 Nasal Cannula 3 05/17/17 20:00 97.7 61 20 163/84 (110) 97 05/17/17 20:00 61 05/17/17 20:00 Room Air 05/17/17 18:00 60 05/17/17 17:00 62 05/17/17 16:01 98.0 57 16 170/80 (110) 97 05/17/17 16:01 54 05/17/17 15:00 54 05/17/17 14:00 52 05/17/17 13:00 48 05/17/17 12:13 50 05/17/17 12:13 97.9 51 17 152/76 (101) 97 CBC/BMP: 05/18/17 0510 05/18/17 0510 Lab Results Laboratory Tests Test 05/18/17 05:10 White Blood Count 11.1 TH/MM3 Red Blood Count 3.60 MIL/MM3 Hemoglobin 10.3 GM/DL Hematocrit 31.6 % Mean Corpuscular Volume 87.8 FL Mean Corpuscular Hemoglobin 28.7 PG Mean Corpuscular Hemoglobin Concent 32.7 % Red Cell Distribution Width 16.9 % Platelet Count 246 TH/MM3 Mean Platelet Volume 8.6 FL Neutrophils (%) (Auto) 81.9 % Lymphocytes (%) (Auto) 6.2 % Monocytes (%) (Auto) 8.2 % Eosinophils (%) (Auto) 3.1 % Basophils (%) (Auto) 0.6 % Neutrophils # (Auto) 9.1 TH/MM3 Lymphocytes # (Auto) 0.7 TH/MM3 Monocytes # (Auto) 0.9 TH/MM3 Eosinophils # (Auto) 0.3 TH/MM3 Basophils # (Auto) 0.1 TH/MM3 CBC Comment DIFF FINAL Differential Comment Blood Urea Nitrogen 18 MG/DL Creatinine 1.41 MG/DL Random Glucose 146 MG/DL Total Protein 7.0 GM/DL Albumin 2.9 GM/DL Calcium Level 8.4 MG/DL Alkaline Phosphatase 75 U/L Aspartate Amino Transf (AST/SGOT) 16 U/L Alanine Aminotransferase (ALT/SGPT) 17 U/L Total Bilirubin 0.3 MG/DL Sodium Level 140 MEQ/L Potassium Level 3.6 MEQ/L Chloride Level 105 MEQ/L Carbon Dioxide Level 22.9 MEQ/L Anion Gap 12 MEQ/L Estimat Glomerular Filtration Rate 49 ML/MIN Physical Exam General General Appearance: Well Developed, Well Nourished, No Acute Distress, Comfortable Eyes Eye Exam: Sclera White, Extraocular Movement Intact Throat Throat Exam: Oral Mucosa [place] & Moist, Oral Pharynx Normal Neck Neck Exam: Neck Supple, Trachea Midline Pulmonary Resp Exam: Clear Bilaterally, Breath Sounds Equal Cardiology CV Exam: Regular, Normal Sinus Rhythm Gastrointestinal/Abdomen GI Exam: Soft, Non-Tender Musculoskeletal MS Exam: Normal Tone MS Remarks S/P Aortogram w/ R LE angiogram and TPT orbital atherectomy and KENNEL TECHNICIAN (3mm) and L THERMITE WELDER angioseal 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 Integumentary Skin Remarks S/P Aortogram w/ R LE angiogram and TPT orbital atherectomy and KENNEL TECHNICIAN (3mm) and L THERMITE WELDER angioseal 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 This is a 76-year male who came to the ER diagnosed with blackening, erythema, pain and swelling of the right great toe rule out osteomyelitis/peripheral vascular disease. Podiatry and vascular surgeon and infectious disease / Cardiology input noted wound culture grows Providencia Stuartii ..sensitive to all antibiotic.. The patient on Rocephin. . 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 have INR 1.1 s/p Transfusion 4 units FFP. Have low Hemoglobin s/p transfusion 2 units PRBC and Checked fecal occult blood test...Negative. 2. Diabetes mellitus, ADA 1800 calorie diet. NovoLog low-dose sliding scale. Check blood sugars. We will monitor blood sugar. 3. Renal failure, creatinine was 1.84, BUN was 37, now BUN of 18 and creatinine 1.4. 4. History of stroke and TIA. The patient was on Coumadin. INR 1.1. holding coumadin We will Monitor PT/ INR Daily. 5. History of hypertension. Continue home medication. Monitor blood pressure. 6. History of coronary artery disease continue home medication. 7. History of hyperlipidemia. Continue home medications. 8. DVT prophylaxis. The patient was on Coumadin... INR 1.1 today. holding coumadin. S/P Transfusion of 4 units FFP. 9. GI prophylaxis, Protonix 40 mg p.o. daily. 10. Leukocytosis secondary to right foot cellulitis will monitor. resolved. 11. Recurrent VT on beta shirin. No angina or CHF symptoms. 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 He wants ICD at this time. s/p cardiac cath and AICD Placement per cardiology. 12. Hyponatremia resolved. 13. Low Hemoglobin S/P transfusion of 2 units PRBC and Checked fecal occult blood test...Negative. Check CBC with diff CMP in AM. we are going to manage the patient on a daily basis and make recommendations on a daily basis. Discussed Condition with: Patient Don Kothari MD May 18, 2017 11:25
[2017-05-18] MEDS: cloNIDine HCL 0.1 MG TAB PO PRN (11:33)
[2017-05-18 12:03] LABS: INTERNATIONAL NORMALIZED RATIO 1.1 RATIO; PROTHROMBIN TIME - PATIENT 12.2 SEC (9.8-11.6)
[2017-05-18] MEDS ORDERED: VANCOMYCIN INJ 1,000 MG in SODIUM CHLOR 0.9% 250 ML INJ 250 ML IV ONE (14:00)
--- NOTE | 2017-05-18 14:33 | HHI.FF ---
Face to Face Verification Diagnosis: (1) Cellulitis of great toe of right foot (2) Hyponatremia (3) Osteomyelitis of toe of right foot (4) CKD (chronic kidney disease), stage III (5) VT (ventricular tachycardia) (6) Disequilibrium (7) Cerebral vascular accident (8) Diabetes (9) Hypertension Physical Therapy Order: Evaluate and Treat, Improve ambulation Occupational Therapy Order: Evaluate and Treat, Gross motor coordination Home Health Nursing Order: Medical education Medication education-adverse effect Wound care and dressing changes IV medication administration Home Health Aide Order: To Assist In: information strategist and meal prep Electric Trucker Order: To Evaluate: Living conditions/environment I have seen patient Reji Doherty on 05/18/17. My clinical findings support the need for the requested home health care services because: Deconditioned w/ increased weakness Limited ability to care for self High risk of falls Infection w/ risk of complications I certify that my clinical findings support that this patient is homebound because: Unsafe to leave home unassisted Don Kothari MD May 18, 2017 14:33
[2017-05-18] MEDS: cefTRIAXone 2,000 MG/NS 100 ML IV SCH ×2 (16:25)
[2017-05-19] MEDS ORDERED: ceFAZolin 2 GM PREMIX 50 ML IV SCH (04:00)
[2017-05-19] MEDS ORDERED: VANCOMYCIN INJ 1,000 MG in SODIUM CHLOR 0.9% 250 ML INJ 250 ML IV ONE (14:00)
--- NOTE | 2017-05-20 13:43 | MR ---
cc: NNEKA BAEZ DATE: 05/17/2017 INDICATION Ventricular tachycardia, ischemic cardiomyopathy with moderate to severe left ventricular systolic dysfunction, coronary artery disease, history of coronary bypass. PROCEDURE PERFORMED 1. Comprehensive electrophysiology study with right atrial and right ventricular pacing and sensing. 2. Coronary sinus cannulation with coronary sinus pacing and sensing. ACCESS SITE Right femoral vein. EQUIPMENT USED Quadripolar catheter x3. COMPLICATIONS None. ESTIMATED BLOOD LOSS Less than 10 cc. MEDICATIONS Sedation provided by Anesthesia. METHOD OF HEMOSTASIS Manual compression. RESULTS 1. Baseline EKG: Normal sinus rhythm, first-degree AV block, mild intraventricular conduction delay, mild nonspecific ST changes, PVCs. 2. Baseline intervals (milliseconds): RR 880, NJ 242, QRS 114, QT 438, 178, HV 56. 3. Right atrial programmed stimulation: Right atrial pressure programmed stimulation was performed at baseline. No atrial arrhythmias were induced. AV Wenckebach 750 milliseconds. 4. Coronary sinus stimulation: Coronary sinus stimulation was performed at baseline. No arrhythmias were induced. 5. Right ventricle programmed electrical stimulation: RVRP 600/440/417. 600/320/350. 400/300/330. 6. Closest coupling intervals: 600/500/420. 500/320/280. 400/350/260. 600/480/440/400. 500/360/350/320. 400/380/280/260. 7. Arrhythmias induced: Sustained monomorphic ventricular tachycardia. Cycle length 314 milliseconds, left axis, left bundle branch block, induction : S4's at right ventricular apex, termination: RV burst pacing, symptoms: palpitations. DIAGNOSIS 1. Sustained monomorphic ventricular tachycardia inducible at baseline. 2. No inducible atrial arrhythmias. 3. HV interval 56 milliseconds. DISPOSITION Mr. Doherty will undergo placement of a dual-chamber implantable defibrillator. MD GERALDO Diaz/JOHN /10:11 PM /1:21 PM MTDD
--- NOTE | 2017-05-20 13:53 | MP ---
cc: NNEKA BAEZ DATE OF SURGERY: 05/15/2017 INDICATION Sustained monomorphic ventricular tachycardia, spontaneous and inducible on electrophysiology study, ischemic cardiomyopathy, ejection fraction 30%, congestive heart failure class II. Pt on maximum GDMT. Secondary prevention. PROCEDURE PERFORMED 1. Placement of [employer] dual-chamber defibrillator. 2. Testing of [employer] dual-chamber defibrillator system. ACCESS SITE Left subclavian vein. EQUIPMENT USED [employer] model CD 2357-40Q dual-chamber defibrillator, serial number [id number]. Right atrial lead is [employer] model 1688TC-46 cm screw-in atrial lead, serial number [id number]. Right ventricular lead is [employer] model 7121Q-58 cm screw-in ventricular lead, serial number [id number]. LEAD TESTING Right atrial lead P-wave 1.2 mV with impedance 460 ohms, pacing threshold 1.0 volts at 0.5 milliseconds. Pacing intervals, no diaphragmatic stimulation. Right ventricular lead R wave 7.3 mV, lead impedance 750 ohms, pacing threshold 1.0 volts at 0.5 milliseconds. Pacing at 10 volts, no diaphragmatic stimulation. Ventricular fibrillation was induced on one occasion and terminated with a single 20 joule shock with an impedance of 42 ohms resulting in sinus rhythm. PARAMETERS Mode: DDD, lower rate 60, upper rate 120, burst pacing times four, ramp pacing x4 for ATP. PREPARE settings for VF. DIAGNOSIS 1. Successful placement of [employer] Danny dual-chamber defibrillator. 2. Successful testing of [employer] Danny dual-chamber defibrillator system. 3. Defibrillation threshold of 20 joules or less. DISPOSITION Mr. Doherty will be monitored on telemetry with serial EKGs and chest x-rays. He will be scheduled for a wound check and chronic device reprogramming in our office within 2 weeks. We will then initiate long-term remote monitoring of his device. MD GERALDO Diaz/ANGE /11:23 PM /1:29 PM JUDIE
--- NOTE | 2017-05-22 08:06 | MD ---
cc: DON BARRIENTOS MD ADMISSION DATE: 04/30/2017 DISCHARGE DATE: 05/18/2017 ADDENDUM The patient finally agreed to have AICD placement. The patient is status post AICD placement and cardiology cleared the patient for discharge. The patient is status post cardiac catheterization. The patient needs IV antibiotic Rocephin per ID recommendation as an outpatient. Okay to discharge per cardiology. Further details in the medical record. Don Barrientos MD EA/CORA /1:41 PM /7:59 AM
--- NOTE | 2017-05-23 13:08 | PQ ---
Physician Query Response Document PATIENT: EUNICE ELLSWORTH : 1940 ADMIT DATE: 04/30/2017 1:47 PM DISCH DATE: RESPONDING PROVIDER #: EAhmed QUERY TEXT: Acuity Specificity _renal failure is documented in the Medical Record. Please specify the acuity of this condition with terms such as: -- Acute -- Chronic -- Acute and chronic -- Acute on chronic -- Other (please specify in the medical record) The patient's Clinical Indicators include: renal failure is documented BUN 37 AND ELECTRIC SHAVER MECHANIC 1.80 ON ADMISSION GFR 37 Query created by: Marilee Rdz on 05/01/2017 12:41 PM RESPONSE TEXT: Acute on chronic renal failure. Electronically signed by: Don Kothari MD 05/13/2017 8:44 AM
== END 2017-05-18 17:58 | disposition home health service (06) | DRG 225 ==
LOC: PHED 11:48 → PHEDA 13:47 → PH3A 17:46 → HCIS 05-02 18:09
PROVIDERS: ADMIT Family Medicine; ATTEND Family Medicine
PROC: 30233K1 Transfusion of Nonautologous Frozen Plasma into Peripheral Vein, Percutaneous Approach (ICD-10-PCS; 2017-05-05)
PROC: 30233N1 Transfusion of Nonautologous Red Blood Cells into Peripheral Vein, Percutaneous Approach (ICD-10-PCS; 2017-05-07)
PROC: 0Y6Q0Z0 Detachment at Left 1st Toe, Complete, Open Approach (ICD-10-PCS; 2017-05-08)
PROC: 047U3ZZ Dilation of Left Peroneal Artery, Percutaneous Approach (ICD-10-PCS; 2017-05-08)
PROC: B41D1ZZ Fluoroscopy of Aorta and Bilateral Lower Extremity Arteries using Low Osmolar Contrast (ICD-10-PCS; 2017-05-08)
PROC: 04CM3ZZ Extirpation of Matter from Right Popliteal Artery, Percutaneous Approach (ICD-10-PCS; principal; 2017-05-08 07:41)
PROC: 0JH608Z Insertion of Defibrillator Generator into Chest Subcutaneous Tissue and Fascia, Open Approach (ICD-10-PCS; 2017-05-17)
PROC: 02HK3KZ Insertion of Defibrillator Lead into Right Ventricle, Percutaneous Approach (ICD-10-PCS; 2017-05-17)
PROC: B2181ZZ Fluoroscopy of Left Internal Mammary Bypass Graft using Low Osmolar Contrast (ICD-10-PCS; 2017-05-17)
PROC: 02H63KZ Insertion of Defibrillator Lead into Right Atrium, Percutaneous Approach (ICD-10-PCS; 2017-05-17)
PROC: B2151ZZ Fluoroscopy of Left Heart using Low Osmolar Contrast (ICD-10-PCS; 2017-05-17)
PROC: B2131ZZ Fluoroscopy of Multiple Coronary Artery Bypass Grafts using Low Osmolar Contrast (ICD-10-PCS; 2017-05-17)
PROC: 4A023N7 Measurement of Cardiac Sampling and Pressure, Left Heart, Percutaneous Approach (ICD-10-PCS; 2017-05-17)
PROC: B2111ZZ Fluoroscopy of Multiple Coronary Arteries using Low Osmolar Contrast (ICD-10-PCS; 2017-05-17)
PROC: B2121ZZ Fluoroscopy of Single Coronary Artery Bypass Graft using Low Osmolar Contrast (ICD-10-PCS; 2017-05-17)
PROC: 4A0234Z Measurement of Cardiac Electrical Activity, Percutaneous Approach (ICD-10-PCS; 2017-05-17)
DX: E11.52 Type 2 diabetes mellitus with diabetic peripheral angiopathy with gangrene (principal); I47.2 Ventricular tachycardia; T82.858A Stenosis of other vascular prosthetic devices, implants and grafts, initial encounter; I13.0 Hypertensive heart and chronic kidney disease with heart failure and stage 1 through stage 4 chronic kidney disease, or unspecified chronic kidney disease; E11.21 Type 2 diabetes mellitus with diabetic nephropathy; I50.9 Heart failure, unspecified; M86.9 Osteomyelitis, unspecified; E87.1 Hypo-osmolality and hyponatremia; E11.40 Type 2 diabetes mellitus with diabetic neuropathy, unspecified; E11.22 Type 2 diabetes mellitus with diabetic chronic kidney disease; E11.69 Type 2 diabetes mellitus with other specified complication; L03.031 Cellulitis of right toe; E11.621 Type 2 diabetes mellitus with foot ulcer; E11.628 Type 2 diabetes mellitus with other skin complications; Z86.73 Personal history of transient ischemic attack (TIA), and cerebral infarction without residual deficits; E78.00 Pure hypercholesterolemia, unspecified; Z79.01 Long term (current) use of anticoagulants; Z79.84 Long term (current) use of oral hypoglycemic drugs; I25.10 Atherosclerotic heart disease of native coronary artery without angina pectoris; N18.3 Chronic kidney disease, stage 3 (moderate); E11.622 Type 2 diabetes mellitus with other skin ulcer; D63.8 Anemia in other chronic diseases classified elsewhere; I25.5 Ischemic cardiomyopathy; Z87.891 Personal history of nicotine dependence; M20.42 Other hammer toe(s) (acquired), left foot; I45.10 Unspecified right bundle-branch block; Y71.3 Surgical instruments, materials and cardiovascular devices (including sutures) associated with adverse incidents; Y92.9 Unspecified place or not applicable; Y83.8 Other surgical procedures as the cause of abnormal reaction of the patient, or of later complication, without mention of misadventure at the time of the procedure
CPT/HCPCS: 33249; 36430; 36569; 71010; 73660; 75716; 76937; 80048; 80053; 80061; 80202; 82272; 82948; 83605; 83735; 85007; 85025; 85027; 85610; 86403; 86850; 86900; 86901; 86920; 86927; 87040; 87070; 87077; 87186; 87205; 88305; 88311; 93005; 93306; 93459; 93620; 93922; 96365; C1721; C1725; C1730; C1769; C1777; C1893; C1895; J0131; J0690; J0696; J1100; J1644; J1815; J2270; J2405; J2543; J2720; J3010; J3370; J7030; J7040; J7050; L3260; P9016; P9017; Q9967

== ENCOUNTER 2017-07-05 15:48 | Inpatient (IN) | payer MEDICARE ==
[~2017-07-05] VITALS: Ht 180.3 cm; Wt 83.1 kg
[~2017-07-05 15:48] MED LIST changes: -ASPI81 CHEW; -COUM5TAB PO; -ENOX40P SQ; -GLIP5 PO; +GLIP5TAB8 PO; +LISI-515 PO; -LISI10TA PO; +METF1000 PO; +METO25TA3 PO; -SIMV20TA PO; +SIMV40TA PO; -VITA-13 PO; +WARF-22 PO
[2017-07-05 15:50] VITALS: BP 171/77; PULSE 93; RESP 15; TEMP 98.5; O2SAT 95
--- NOTE | 2017-07-05 16:54 | PD ---
HPI Chief Complaint: Abnormal Results Time Seen by Provider: 16:29 Travel History International Travel<30 days: No Contact w/Intl Traveler<30days: No Traveled to known affect area: No History of Present Illness HPI 76-year-old male presents to the emergency department for "amputation of my toe ". Patient was sent by Angélica Sheldon, vascular surgeon, for infection/ amputation of right second toe. Patient had amputation of the right great toe in April. This was done by Dr. Tinsley, but Dr. Tinsley's office was not local so he has been seeing Dr. Sheldon. He saw Dr. Sheldon yesterday and was told to come the emergency department. However, he came today. The patient has history of diabetes diet, diabetic neuropathy, AICD placement. Patient states that he does not know when he had blackness to his right second toe. She denies any pain due to neuropathy. He is not currently on any antibiotics. PFSH Past Medical History Hx Anticoagulant Therapy: Yes (COUMADIN) Cancer: No Cardiovascular Problems: Yes High Cholesterol: Yes Cerebrovascular Accident: Yes Diabetes: Yes Patient Takes Glucophage: Yes Endocrine: Yes Genitourinary: No Hypertension: Yes Immune Disorder: No Implanted Vascular Access Dvce: No Musculoskeletal: No Neurologic: No Psychiatric: No Reproductive: No Respiratory: Yes (sinus ) Tetanus Vaccination: Unknown Influenza Vaccination: Yes ?: Not Past Surgical History Cardiac Surgery: Yes (OPEN HEART) Other Surgery: Yes Social History Alcohol Use: Yes (BEER SOCIALLY) Tobacco Use: No Substance Use: No Allergies-Medications (Allergen,Severity, Reaction): Coded Allergies: No Known Allergies (Unverified , 04/30/17) Reported Meds & Prescriptions Reported Meds & Active Scripts Active Metoprolol Tartrate 25 Mg Tab 50 Mg PO Q12HR Reported Simvastatin 40 Mg Tab 40 Mg PO HS Warfarin 10 Mg Tab 10 Mg PO DAILY Lisinopril 20 Mg Tab 20 Mg PO DAILY Glipizide 5 Mg Tab 5 Mg PO BIDAC Take 30 minutes before a meal Metformin (Metformin HCl) 1,000 Mg Tab 1,000 Mg PO BIDPC With meals Review of Systems Except as stated in HPI: all other systems reviewed are Neg Physical Exam Narrative GENERAL: Well-nourished, well-developed male patient, afebrile SKIN: Focused skin assessment warm/dry. Patient is status post invitation to the right great toe. There is drainage noted to the wound bed with erythema that extends across the entire dorsal aspect of the right foot. The right second toe is necrotic at the distal aspect. HEAD: Normocephalic. Atraumatic. EYES: No scleral icterus. No injection or drainage. NECK: Supple, trachea midline. No JVD or lymphadenopathy. CARDIOVASCULAR: Regular rate and rhythm without murmurs, gallops, or rubs. Right pedal pulse is easily found with Doppler. RESPIRATORY: Breath sounds equal bilaterally. No accessory muscle use. Lungs sounds are clear to auscultation. GASTROINTESTINAL: Abdomen soft, non-tender, nondistended. MUSCULOSKELETAL: No cyanosis, or edema. BACK: Nontender without obvious deformity. No CVA tenderness. Data Data Last Documented VS Vital Signs Date Time Temp Pulse Resp B/P (MAP) Pulse Ox O2 Delivery O2 Flow Rate FiO2 07/05/17 17:14 98 Room Air 07/05/17 16:07 18 07/05/17 15:50 98.5 93 171/77 (108) Orders Orders Complete Blood Count With Diff (07/05/17 16:52) Comprehensive Metabolic Panel (07/05/17 16:52) Prothrombin Time / Inr (Pt) (07/05/17 16:52) Act Partial Throm Time (Ptt) (07/05/17 16:52) Blood Culture (07/05/17 16:52) Ecg Monitoring (07/05/17 16:52) Iv Access Insert/Monitor (07/05/17 16:52) Oximetry (07/05/17 16:52) Oxygen Administration (07/05/17 16:52) Westergren Sedimentation Rate (07/05/17 16:52) C-Reactive Protein (Crp) (07/05/17 16:52) Vancomycin Inj (Vancomycin Inj) (07/05/17 17:00) Piperacil-Tazo 3.375 Gm Premix (Zosyn 3. (07/05/17 17:00) Foot, Complete ([id number]) (07/05/17 ) Wound Culture And Gram Stain (07/05/17 16:58) Sodium Chlor 0.9% 1000 Ml Inj (Ns 1000 M (07/05/17 18:30) Admit Order (Ed Use Only) (07/05/17 18:53) Labs Laboratory Tests Test 07/05/17 17:10 White Blood Count 15.1 TH/MM3 Red Blood Count 3.71 MIL/MM3 Hemoglobin 10.1 GM/DL Hematocrit 31.2 % Mean Corpuscular Volume 84.1 FL Mean Corpuscular Hemoglobin 27.4 PG Mean Corpuscular Hemoglobin Concent 32.5 % Red Cell Distribution Width 16.6 % Platelet Count 255 TH/MM3 Mean Platelet Volume 8.3 FL Neutrophils (%) (Auto) 87.2 % Lymphocytes (%) (Auto) 3.9 % Monocytes (%) (Auto) 8.3 % Eosinophils (%) (Auto) 0.2 % Basophils (%) (Auto) 0.4 % Neutrophils # (Auto) 13.2 TH/MM3 Lymphocytes # (Auto) 0.6 TH/MM3 Monocytes # (Auto) 1.3 TH/MM3 Eosinophils # (Auto) 0.0 TH/MM3 Basophils # (Auto) 0.1 TH/MM3 CBC Comment DIFF FINAL Differential Comment Erythrocyte Sedimentation Rate 69 mm/hr Prothrombin Time 15.6 SEC Prothromb Time International Ratio 1.4 RATIO Activated Partial Thromboplast Time 41.1 SEC Blood Urea Nitrogen 34 MG/DL Creatinine 1.88 MG/DL Random Glucose 89 MG/DL Total Protein 8.1 GM/DL Albumin 3.4 GM/DL Calcium Level 8.7 MG/DL Alkaline Phosphatase 78 U/L Aspartate Amino Transf (AST/SGOT) 18 U/L Alanine Aminotransferase (ALT/SGPT) 13 U/L Total Bilirubin 0.4 MG/DL Sodium Level 133 MEQ/L Potassium Level 4.2 MEQ/L Chloride Level 101 MEQ/L Carbon Dioxide Level 23.7 MEQ/L Anion Gap 8 MEQ/L Estimat Glomerular Filtration Rate 35 ML/MIN C-Reactive Protein 11.80 MG/DL [facility] Medical Decision Making Medical Screen Exam Complete: Yes Emergency Medical Condition: Yes Medical Record Reviewed: Yes Interpretation(s) x-ray right foot- CONCLUSION: Amputation with apparent gas soft tissues between the second and third digits. Extensive vascular calcifications Differential Diagnosis Cellulitis versus necrosis versus osteomyelitis Narrative Course 76-year-old male presents to the emergency department, sent by Dr. Sheldon, vascular surgeon. CBC, CMP, sedimentation rate, CRP, PTT, PT/INR, blood cultures 2 are ordered and pending. Wound culture is taken. X-ray of the right foot is ordered and pending. Patient is given vancomycin 1 g IV, Zosyn 3.375 g IV. CBC shows leukocytosis 15.1. CMP shows elevated BUN 34, creatinine 1.88. Sed rate is 69. CRP is 11.80. PT is 15.6, INR 1.4, PTT 41.1. X-ray of the right foot shows amputation with apparent gas soft tissues between the second and third digits. Extensive vascular calcifications Patient is also given normal saline [address] Santiago accepted admission. Sepsis Criteria SIRS Criteria (2 or more): Heart rate over 90, WBC > 75864, < 4000 or > 10% bands Sepsis Criteria (SIRS+source): Infect source susp/known Diagnosis Primary Impression: Cellulitis of foot Additional Impressions: Sepsis Qualified Codes: A41.9 - Sepsis, unspecified organism Necrotic toes Admitting Information Admitting Physician Requests: Admit Susie Montgomery Jul 05, 2017 16:54
[2017-07-05] MEDS ORDERED: PIPERACIL-TAZO 3.375 GM PREMIX 50 ML IV ONE (17:00)
[2017-07-05] MEDS ORDERED: VANCOMYCIN INJ 1,000 MG in SODIUM CHLOR 0.9% 250 ML INJ 250 ML IV ONE (17:00)
--- NOTE | 2017-07-05 17:29 | RADRPT ---
EXAM DATE/TIME: 07/05/2017 17:14 [place] COMPARISON: No previous studies available for comparison. INDICATIONS : Right foot pain post 1st digit amputation MEDICAL HISTORY : Diabetes mellitus type II. Hypertension SURGICAL HISTORY : Right 1st digit amputation ENCOUNTER: Initial ACUITY: 3 days PAIN SCORE: 10/10 LOCATION: Right entire foot FINDINGS: Amputation of the distal first metacarpal and digit. Extensive vascular calcifications are noted. T here is some gas in the soft tissues between the second and third distal metacarpals. CONCLUSION: Amputation with apparent gas soft tissues between the second and third digits. Extensive vascular calcifications Farrukh Patel MD FACR on July 05, 2017 at 17:23 Board Certified Radiologist. This report was verified electronically.
[2017-07-05 17:38] LABS: AUTOMATED NEUTROPHIL # 13.2 TH/MM3 (1.8-7.7); BASOPHIL # 0.1 TH/MM3 (0-0.2); BASOPHIL % 0.4 % (0.0-2.0); EOSINOPHIL % 0.2 % (0.0-4.0); HEMATOCRIT 31.2 % (39.0-51.0); HEMO FLAGS DIFF FINAL; LYMPH % 3.9 % (9.0-44.0); LYMPHOCYTE # 0.6 TH/MM3 (1.0-4.8); MEAN CELL VOLUME 84.1 FL (80.0-100.0); MEAN CORPUSCULAR HEMOGLOBIN 27.4 PG (27.0-34.0); MEAN CORPUSCULAR HGB CONC 32.5 % (32.0-36.0); MONO % 8.3 % (0.0-8.0); NEUT % 87.2 % (16.0-70.0); PLATELET COUNT 255 TH/MM3 (150-450); RED BLOOD COUNT 3.71 MIL/MM3 (4.50-5.90); RED CELL DISTRIBUTION WIDTH 16.6 % (11.6-17.2); WHITE BLOOD COUNT 15.1 TH/MM3 (4.0-11.0)
[2017-07-05 17:50] LABS: APTT (PATIENT) 41.1 SEC (24.3-30.1); INTERNATIONAL NORMALIZED RATIO 1.4 RATIO; PROTHROMBIN TIME - PATIENT 15.6 SEC (9.8-11.6)
[2017-07-05 17:55] LABS: ALT (GPT) 13 U/L (12-78); ANION GAP 8 MEQ/L (5-15); AST (GOT) 18 U/L (15-37); BICARBONATE 23.7 MEQ/L (21.0-32.0); BLOOD UREA NITROGEN 34 MG/DL (7-18); CHLORIDE 101 MEQ/L (98-107); GLOMERULAR FILTRATION RATE 35 ML/MIN (>89); POTASSIUM 4.2 MEQ/L (3.5-5.1); SODIUM (NA) 133 MEQ/L (136-145)
[2017-07-05 17:58] LABS: ALKALINE PHOSPHATASE 78 U/L (45-117); TOTAL BILIRUBIN ADULT 0.4 MG/DL (0.2-1.0)
[2017-07-05] MEDS ORDERED: SODIUM CHLOR 0.9% 1000 ML INJ 1,000 ML IV ONE (18:30)
[2017-07-05 19:26] VITALS: O2SAT 98
[2017-07-05] MEDS ORDERED: SENNOSIDES 8.6 MG TAB PO PRN (19:30)
[2017-07-05] MEDS ORDERED: ONDANSETRON HCL 4 MG/2 ML VIAL IVP PRN (19:30)
[2017-07-05] MEDS ORDERED: ACETAMINOPHEN 325 MG TAB PO PRN (19:30)
[2017-07-05] MEDS ORDERED: LACTULOSE SYRUP 20 GM/30 ML CUP PO PRN (19:30)
[2017-07-05] MEDS ORDERED: Vancomycin Consult Pharmacy 1 EA OTHER SCH (19:30)
[2017-07-05] MEDS ORDERED: BISACODYL 10 MG SUPP RECTAL PRN (19:30)
[2017-07-05] MEDS ORDERED: DEXTROSE 50% IN WATER 50 ML VIAL(D50) IV PUSH PRN (19:30)
[2017-07-05] MEDS ORDERED: GLUCAGON 1 MG/ML VIAL OTHER PRN (19:30)
[2017-07-05] MEDS ORDERED: NALOXONE HCL 0.4 MG/ML AMP IV PUSH PRN (19:30)
[2017-07-05] MEDS ORDERED: MAGNESIUM HYDROXIDE SUSP 30 ML CUP PO PRN (19:30)
[2017-07-05] MEDS ORDERED: SODIUM CHLORIDE 0.9% FLUSH 10 ML FLUSH IV FLUSH PRN (19:30)
[2017-07-05] MEDS: SODIUM CHLOR 0.9% 1000 ML INJ 1,000 ML IV SCH (19:44)
[2017-07-05 20:36] VITALS: BP 158/72; PULSE 90; RESP 20; TEMP 99.2; O2SAT 98
[2017-07-05] MEDS: INSULIN ASPART SUPPLEMENTAL SCALE SQ SCH (21:00)
[2017-07-05] MEDS: METOPROLOL TARTRATE 25 MG TAB PO SCH (21:07)
[2017-07-05] MEDS: PRAVASTATIN SOD 80 MG TAB PO SCH (21:07)
[2017-07-05] MEDS: DOCUSATE SODIUM 50 MG/SENNA 8.6 MG TAB PO SCH (21:07)
[2017-07-05] MEDS: SODIUM CHLORIDE 0.9% FLUSH 10 ML FLUSH IV FLUSH SCH (21:08)
[2017-07-05] MEDS: ACETAMINOPHEN/HYDROcodone 325 MG/7.5 MG TAB PO PRN (22:10)
[2017-07-05] MEDS: PIPERACIL-TAZO 2.25 GM PREMIX 50 ML IV SCH (23:31)
[2017-07-06 00:23] VITALS: BP 98/53; PULSE 88; RESP 17; TEMP 99.2; O2SAT 96
[2017-07-06] MEDS: PIPERACIL-TAZO 2.25 GM PREMIX 50 ML IV SCH ×3 (06:09→17:43)
--- NOTE | 2017-07-06 07:25 | PD.VS.PN ---
Subjective Subjective/Hospital Course Pt adm with R 2nd toe cellulitis. He is well known to me and on 05/08/17 I performed tibial atherectomy and great toe amputation. I have seen him weekly in clinic and his wound has progressively looked worse, and I have urged the patient and his to have a repeat angiogram and foot debridement but they have refused. No fevers but + chills. Has been seeing wound care. Objective Vitals/I&O Date Time Temp Pulse Resp B/P (MAP) Pulse Ox O2 Delivery O2 Flow Rate FiO2 07/06/17 00:23 99.2 88 17 98/53 (68) 96 07/05/17 20:36 99.2 90 20 158/72 (100) 98 07/05/17 19:26 98 Room Air 07/05/17 17:14 98 Room Air 07/05/17 16:07 18 98 Room Air 07/05/17 15:50 98.5 93 15 171/77 (108) 95 07/06/17 07/06/17 07/06/17 07:00 15:00 23:00 Intake Total 1394 ml Output Total 480 ml Balance 914 ml Physical Exam R foot with necrotic tissue base of first toe amputation 2nd toe with clear osteo no palpable pedal pulses Laboratory Laboratory Tests Test 07/05/17 17:10 07/06/17 06:32 White Blood Count 15.1 Red Blood Count 3.71 Hemoglobin 10.1 Hematocrit 31.2 Mean Corpuscular Volume 84.1 Mean Corpuscular Hemoglobin 27.4 Mean Corpuscular Hemoglobin Concent 32.5 Red Cell Distribution Width 16.6 Platelet Count 255 Mean Platelet Volume 8.3 Neutrophils (%) (Auto) 87.2 Lymphocytes (%) (Auto) 3.9 Monocytes (%) (Auto) 8.3 Eosinophils (%) (Auto) 0.2 Basophils (%) (Auto) 0.4 Neutrophils # (Auto) 13.2 Lymphocytes # (Auto) 0.6 Monocytes # (Auto) 1.3 Eosinophils # (Auto) 0.0 Basophils # (Auto) 0.1 CBC Comment DIFF FINAL Differential Comment Erythrocyte Sedimentation Rate 69 Prothrombin Time 15.6 Prothromb Time International Ratio 1.4 Activated Partial Thromboplast Time 41.1 Blood Urea Nitrogen 34 Creatinine 1.88 Random Glucose 89 Total Protein 8.1 Albumin 3.4 Calcium Level 8.7 Alkaline Phosphatase 78 Aspartate Amino Transf (AST/SGOT) 18 Alanine Aminotransferase (ALT/SGPT) 13 Total Bilirubin 0.4 Sodium Level 133 Potassium Level 4.2 Chloride Level 101 Carbon Dioxide Level 23.7 Anion Gap 8 Estimat Glomerular Filtration Rate 35 C-Reactive Protein 11.80 Date/Time Source Procedure Growth Status 07/05/17 17:15 Blood Peripheral Aerobic Blood Culture Pending Received 07/05/17 17:15 Blood Peripheral Anaerobic Blood Culture Pending Received 07/05/17 17:10 Wound Foot Gram Stain - Final Resulted 07/05/17 17:10 Wound Foot Wound Culture Pending Resulted Imaging Last 48 hours Impressions Foot X-Ray 07/05/17 0000 Signed Impressions: Service Date/Time: Wednesday, July 05, 2017 17:14 - CONCLUSION: Amputation with apparent gas soft tissues between the second and third digits. Extensive vascular calcifications Farrukh Patel MD FACR Assessment and Plan Plan Osteo R 2nd toe, PAD 1. Hold coumadin 2. Broad antibiotics and wound care (W to D) 3. Plan angio, 2nd and maybe third toe amps on Saturday. Discussed with patient the need for further revascularization and toe amputations, even possibly 3rd toe given XRay with gas. He understands and will proceed Saturday. Jose Juan Tinsley MD FACS RPVI inpatient care manager rn [facility] - Heart and Vascular Surgery at [facility] [phone] Jose Juan Tinsley MD Jul 06, 2017 07:25
[2017-07-06 07:45] LABS: ALKALINE PHOSPHATASE 65 U/L (45-117); ALT (GPT) 12 U/L (12-78); ANION GAP 6 MEQ/L (5-15); AST (GOT) 16 U/L (15-37); BICARBONATE 23.7 MEQ/L (21.0-32.0); BLOOD UREA NITROGEN 30 MG/DL (7-18); CHLORIDE 106 MEQ/L (98-107); GLOMERULAR FILTRATION RATE 35 ML/MIN (>89); SODIUM (NA) 136 MEQ/L (136-145); TOTAL BILIRUBIN ADULT 0.4 MG/DL (0.2-1.0)
[2017-07-06 08:00] VITALS: BP 134/71; PULSE 71; RESP 17; TEMP 96.3; O2SAT 93
[2017-07-06] MEDS: INSULIN ASPART SUPPLEMENTAL SCALE SQ SCH ×4 (08:00→21:00)
[2017-07-06] MEDS: ACETAMINOPHEN/HYDROcodone 325 MG/7.5 MG TAB PO PRN ×2 (08:52→22:05)
[2017-07-06] MEDS: LISINOPRIL 20 MG TAB PO SCH (08:52)
[2017-07-06] MEDS: glipiZIDE 5 MG TAB PO SCH ×2 (08:52→15:55)
[2017-07-06] MEDS: DOCUSATE SODIUM 50 MG/SENNA 8.6 MG TAB PO SCH ×2 (08:52→21:00)
[2017-07-06] MEDS: METOPROLOL TARTRATE 25 MG TAB PO SCH ×2 (08:53→22:01)
[2017-07-06] MEDS: SODIUM CHLORIDE 0.9% FLUSH 10 ML FLUSH IV FLUSH SCH ×2 (08:54→21:00)
[2017-07-06 09:09] LABS: INTERNATIONAL NORMALIZED RATIO 1.4 RATIO; PROTHROMBIN TIME - PATIENT 15.7 SEC (9.8-11.6)
[2017-07-06 12:00] VITALS: BP_SYST 124; PULSE 60; RESP 16; TEMP 96.5; O2SAT 97
[2017-07-06] MEDS: SODIUM CHLOR 0.9% 1000 ML INJ 1,000 ML IV SCH (12:09)
--- NOTE | 2017-07-06 12:28 | MB ---
cc: JORGE JEAN DPM DATE OF CONSULTATION: 07/06/17 REASON FOR CONSULTATION Gangrenous presentation, cellulitis with open wound right second digit. HISTORY OF PRESENT ILLNESS This is a 76-year-old male who is status post tibial arthrectomy and hallux amputation per Dr. Tinsley. The patient has been followed outpatient weekly however the foot continued to worsen. The patient has already been seen this a.m. by Dr. Tinsley and the plan is for a repeat look at the circulation with possible moving forward with second digit amputation. I spoke with Dr. Tinsley. There is a possibility of a transmetatarsal amputation in the future. Recommend MRI possibly to have done within the next few days. The patient is adamantly refusing transmetatarsal amputation and wished for only digit amputation. PAST MEDICAL HISTORY 1. Poor circulation. 2. Diabetes. 3. History of CVA. 4. High cholesterol. OUTPATIENT MEDICATIONS Reviewed and verified. INPATIENT MEDICATIONS Reviewed and the patient is receiving - 1. Zosyn. 2. Vancomycin. ALLERGIES NO KNOWN DRUG ALLERGIES LISTED. PHYSICAL EXAMINATION VITAL SIGNS: Temperature 99.2, pulse rate 88, respiratory rate 17, blood pressure 98/53. He is sating 96% on room air. GENERAL: This is an alert and oriented gentleman seen bedside exhibiting nonlabored respirations. LEFT LOWER EXTREMITY: Left lower extremity is examined. There is noted to be a mainly fibrotic serous draining with minimal purulence at the level of the hallux partial first ray amputation site. There is distal gangrene of the second digit. It appears to be dry, stable, isolated to the second digit however the skin is frail, appears to be thin. The foot is warm. The remaining digits 3, 4 and 5 appear to have capillary fill time however it is delayed. There is decreased sensation below the patient's ankle. The ankle appears to have good function. There is no cellulitis extending beyond the foot. LABORATORY FINDINGS White blood cell 15.1, hemoglobin/hematocrit 10/31, platelet count is 255, ESR 69. Microbial findings: Gram stain appears to be ordered and pending. IMAGING FINDINGS Foot x-ray: There appears to be irregular border at the first metatarsal amputation site with soft tissue in between the second and third digits. 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 The wound is open and draining. I spoke with Dr. Tinsley. I did recommend that an MRI be performed when his kidneys can handle the contrast for he may have osteomyelitis within multiple metatarsals. If that is the case and the circulation be corrected, the best approach would be a transmetatarsal amputation. I will continue to follow along with Dr. Tinsley. It appears the plan is Saturday for repeat angiogram to see if we can improve circulation. Dr. Tinsley may move forward with just a second and third digit amputation. I will continue to follow along to see how this develops. Continue antibiotics. BYRON De La Rosa/BJF /8:13 AM /12:01 PM
--- NOTE | 2017-07-06 12:40 | MH ---
cc: BORIS HOUGH MD DATE OF ADMISSION: 07/05/2017 DATE OF : 1940 ADMITTING PHYSICIAN: Dr. Jeannette Santiago. PRIMARY CARE PHYSICIAN Dr. Boris Hough. REASON FOR ADMISSION Black toe need amputation. HISTORY OF PRESENT ILLNESS: The patient is very pleasant 76-year male with significant past history of Coronary artery disease. Sustained ventricular tachycardia with cardiomyopathy, status post dual-chamber ICD. Peripheral vascular disease. The patient had amputation of the big toe done not too long ago by Dr. Tinsley. The patient is following with Dr. Sheldon, Infectious disease doctor who told him to go to the hospital because his second toe is was also getting blue and gangrenous and he needed amputation. The patient had a amputation of right big toe, Last April. The patient did not come in the day before yesterday but came yesterday finally. Came to the emergency room and was evaluated by the emergency room physician because of the gangrenous toe. The patient with infection. The patient was admitted for further evaluation and management. At present the patient is seen in his room with registered nurse at bedside. The patient has pain in his foot area. No nausea or vomiting. No other complaint. Narco is helping. He has no fever, no chills. PAST MEDICAL HISTORY 1. Significant for coronary artery disease, last cath was done on May 15, 2017 shows severe multivessel coronary artery disease with 11/24 grafts patent, severe left ventricular dysfunction consistent with ischemic cardiomyopathy ejection fraction of 30%. 2. Diabetes 3. History of transient ischemic attack. 4. Hypertension. 5. Hyperlipidemia. 6. Peripheral vascular disease. 7. History of gangrene in the past. A right big toe amputation and April. 8. History of cerebrovascular accident on Coumadin. MEDICATIONS Reviewed please see electronic medical record. ALLERGIES The patient has NO KNOWN DRUG ALLERGIES.. REVIEW OF SYSTEMS Described above in the history of present illness, review of systems otherwise unremarkable for ten systems. SOCIAL HISTORY: The patient denies smoking, or doing any drugs. He occasionally drinks beer. FAMILY HISTORY Noncontributory. PAST SURGICAL HISTORY Open-heart amputation of the toe ICD placement. In the past. PHYSICAL EXAMINATION IN GENERAL: The patient is alert, oriented x3 well-built, well-nourished lying on bed without any apparent distress was enjoying her breakfast before interim examination. VITAL SIGNS: Show the patient is afebrile, pulse is 71. 17, blood pressure 134/71, pulse ox 93 on room air. HEAD, EYES, EARS, NOSE, AND THROAT: Head is atraumatic, normocephalic. Negative conjunctival icterus was unremarkable. Neck: Supple. No increased JVD. Negative thyromegaly. Central trachea. CHEST: Clear to auscultation. CARDIOVASCULAR SYSTEM: S1, S2, audible. Unable to hear any gallop. GASTROINTESTINAL: Abdomen soft, no organomegaly. Positive bowel sounds. MUSCULOSKELETAL: Extremities no edema noted. There is positive cyanosis and gangrene of the right second toe distal digit area. There is amputation of the right toe with a open wound and that is slightly pinkish, yellowish and erythematous adjacent area, erythema on the dorsal aspect of the right foot. CENTRAL NERVOUS SYSTEM: Alert, oriented, normal facial features moving his extremities. PSYCHIATRIC: Psych appropriate mood and affect. MEDICATIONS WBC 15.1, hemoglobin 10, hematocrit 31. Platelet count is 255. Basic metabolic profile shows BUN 30, creatinine 1.90. Calcium 7.8. Albumin 2.7, PT 15.6, INR 1.4, APTT 41.4. RADIOLOGIC: X-ray foot was done which shows amputation with apparently gas and soft tissue between the second and third digit extensive vascular calcification. ASSESSMENT 1. Right second gangrenous necrotic toe with cellulitis of foot 2. Sough/Sepsis. 3. Hypertension. 4. Coronary artery disease. 5. Status post ICD 6. Hyperlipidemia. 7. History of transient ischemic attack and stroke on Coumadin with subtherapeutic INR. 8. CKD PLAN 1. Admit to the floor. 2. IV antibiotic. 3. Cautious IV hydration. 4. Vascular surgical consult. 5. Podiatry consult. 6. We will get cardiology consult. 7. Continue home medications as indicated. 8. Analgesics. 9. Antiemetics on a p.r.n. basis. 10. Labs for tomorrow. 11. Monitor leukocytosis and kidney function. 12. Anemia of chronic disease. Will monitor intermittently. 13. Condition discussed with the patient and to be compliant with 14. Instructions. 15. Sliding scale insulin coverage to monitor sugar. 16. Condition guarded prognosis guarded. 17. Discussed with the patient. 18. Discussed with RN. MD Allison Chiang 9:01 AM 11:10 AM
--- NOTE | 2017-07-06 13:48 | MB ---
cc: CHICHI GAONA MD DATE OF CONSULTATION: 07/06/2017. REASON FOR CONSULTATION: Right second toe infection. REQUESTING PHYSICIAN: Dr. Santiago. HISTORY OF PRESENT ILLNESS: This is a 76-year-old white male who has undergone amputation of the right great toe back in April of 2017. The patient was followed up with infectious disease and the vascular surgeon. He also had a revascularization procedure in April of 2017 as well. He was noted to have worsening of the right second toe with gangrenous changes and was sent to the emergency department for evaluation. The patient is not a very good historian. He tells me that he has been using a salve on the area for about a month. He was evaluated by the vascular surgeon and is due to undergo surgical intervention in a couple of days. His white count yesterday was 15.1 with 87% neutrophils. He is afebrile. He denies chills, nausea or vomiting. He tells me that he feels well and has no complaints at this time. PAST MEDICAL HISTORY: 1. Diabetes mellitus. 2. Hypertension. 3. Hypercholesterolemia. 4. Defibrillator placement. 5. Infection of the right great toe due to Provid[place] in April of 2017. 6. Coronary artery bypass graft surgery. ALLERGIES: NO KNOWN DRUG ALLERGIES. MEDICATIONS: 1. Piperacillin / tazobactam. 2. Vancomycin, dose was given on 07/05. 3. Prinivil. 4. Coumadin. 5. Glucotrol. 6. Lopressor. 7. Pravachol. 8. Cherrie-Colace. SOCIAL HISTORY: No tobacco use. Occasional alcohol in the form of a beer. No illicit drugs. FAMILY HISTORY: Noncontributory. REVIEW OF SYSTEMS: Review of systems negative on 10-point review. PHYSICAL EXAMINATION:: GENERAL: On physical exam this is a well-developed male who is in no acute distress. He is awake and alert and oriented. VITAL SIGNS: Temperature of 96.3, blood pressure 134/71, respirations 17, heart rate 71. HEAD, EYES, EARS, NOSE, THROAT: Head atraumatic. Extraocular movements grossly intact, pupils reactive to light without icterus. Oropharynx no visible lesions. NECK: The neck is supple. No adenopathy. LUNGS: Clear breath sounds bilateral. HEART: Distant S1-S2. No murmurs audible. ABDOMEN: Bowel sounds present, soft, no tenderness. RECTAL: Not performed. EXTREMITIES: No clubbing or cyanosis. The right second toe has necrosis at the distal aspect and there is an area with raised blister appearance with mullins discoloration around the mid toe region and there is erythema at the base of the second toe and there is an ulcerated area at the surgical site from the right great toe amputation. There is a very foul smell to the second toe. The left lower extremity has no clubbing, cyanosis or edema. SKIN: No rash. NEUROLOGIC: Nonfocal. PSYCHIATRIC: The patient calm and cooperative. LABORATORY DATA: WBCs 15.1, platelet 255,000, hemoglobin 10.1, 87% neutrophils. Sedimentation rate 69. Creatinine 1.90, estimated GFR was 35, sodium 136. Blood cultures pending. Wound culture pending. IMAGING STUDIES: A foot x-ray shows apparent gas in the soft tissues between the second and third digits. IMPRESSION: 1. Gangrene of the second toe on the right foot. Wound culture pending. 2. Leukocytosis secondary to infection. 3. Diabetes mellitus. RECOMMENDATIONS: 1. Continue piperacillin / tazobactam. 2. Monitor the wound culture. 3. Monitor the patient's clinical status. 4. Further antibiotic determination will be made after the surgical procedure or depending on the culture results if the culture information is obtained prior to the procedure planned for two days. Thank you for this consultation. The patient's progress will be monitored and further recommendations will be given upon followup if necessary. Chichi Gaona MD FD/KING /10:51 AM /1:29 PM
[2017-07-06 16:00] VITALS: BP 135/70; PULSE 71; RESP 17; TEMP 96.9; O2SAT 96
[2017-07-06] MEDS ORDERED: WARFARIN SOD 10 MG TAB PO SCH (16:00)
--- NOTE | 2017-07-06 20:18 | MB ---
cc: SCOTTY HOUGH MD, OTAKAR ELSAKR, ASHRAF S. M.D. QUADRAT, OTAKAR MD DATE OF CONSULTATION 07/06/17 HISTORY OF PRESENT ILLNESS This is a 76-year-old gentleman with a history of significant heart disease status post carotid artery bypass graft surgery. He was admitted in April with toe gangrene and had an amputation of his right foot big toe. At that time, he underwent a cardiac catheterization that revealed distal left main 80% with 100% occlusion of the LAD, LCX and RCA. He had patent MORAN to the LAD and a patent SVG with moderate disease to the diagonal branch that was occluded proximally. SVG to OM was occluded and the SVG to RCA was patent with a 70% PDA disease and medical therapy was suggested. His LVEF by catheterization was 30% and by echo was 35-40%. He had severe mitral regurgitation by echo at that time. He underwent dual chamber ICD placement because of recurrent VT and also bradycardia. He has done well from the cardiac standpoint. Denies chest pain or shortness of breath. Denies palpitations, dizziness or syncope. Denies orthopnea, PND or leg swellings. He was seen by his infectious disease doctor as an outpatient, Dr. Sheldon, and had second toe gangrene and was sent to the hospital. He came a day later for further management. ALLERGIES NO KNOWN DRUG ALLERGIES. PAST MEDICAL HISTORY/PAST SURGICAL HISTORY As mentioned above. 1. History of diabetes. 2. History of transient ischemic attack twice apparently according to the records and that is why he has been on Coumadin. 3. History of hypertension, 4. Hyperlipidemia, 5. Peripheral vascular disease. REVIEW OF SYSTEMS A 12-point system review was unremarkable except what is mentioned in the history of present illness. SOCIAL HISTORY Currently denies any smoking, ETOH abuse or recreational drug use. FAMILY HISTORY Noncontributory. PAST SURGICAL HISTORY Includes as mentioned above, otherwise noncontributory. MEDICATIONS At home includes the following 1. Coumadin 10 mg by mouth daily. 2. Simvastatin 40 mg by mouth q.h.s. 3. Metoprolol 50 mg by mouth b.i.d. 4. Lisinopril 20 cm by mouth daily. 5. Metformin 1000 mg by mouth b.i.d. 6. Glipizide 5 mg by mouth b.i.d. PHYSICAL EXAMINATION GENERAL: A 36-year-old gentleman lying in bed in no apparent distress, alert and oriented x3 answering questions appropriately. VITAL SIGNS: Blood pressure is 135/70 mmHg, pulse of 70 beats per minute and regular, respirations 40 per minute, afebrile. HEENT: Head is normocephalic. Pupils equal and active. Throat is within normal limits. NECK: Supple. No carotid bruit. No thyromegaly or jugular venous distension noted. LUNGS: Clear to auscultation and percussion. CARDIOVASCULAR: S1, S2 are normal with an S4 gallop and 2/6 systolic murmur at the apex and also faintly at the left sternal border. ABDOMEN: Lax, nontender. Normoactive bowel sounds. No organomegaly or masses felt. EXTREMITIES: The right foot is wrapped status post big toe amputation and second finger is gangrenous with foul-smell. The left foot decreased distal pulse. No clubbing or edema noted. Pulses 2+ bilaterally all the way down to the femorals with no bruit. NEUROLOGIC: Grossly intact. RECTAL: Exam deferred. CARDIOLOGY STUDIES EEG not done in this admission. There is an EKG from April 30 and May 01 that showed sinus tachycardia with PVCs in singles and couplets and nonspecific intraventricular conduction defect and anterolateral ST changes which were more prominent compared to the prior day. LABORATORY DATA White count of 15.1, hemoglobin of 10.1 and platelet count of 255,000. Chemistry shows a sodium 136, potassium 4.0, BUN of 30, creatinine 1.9 which is somewhat more elevated compared to before. Coags came with an INR of 1.4. ASSESSMENT AND RECOMMENDATIONS 1. Moderate to severe cardiomyopathy with mitral regurgitation. From the CHF standpoint, he appears to be ____. His lungs are clear. No signs of congestive heart failure and will continue his beta blockers and BILLY inhibitors. With this level of his kidney function, would hold off on potassium-sparing diuretics at the present time. If he is going for toe amputation I would advise cautious use of IV fluids to avoid progression and acute on chronic systolic heart failure. 2. History of V-tach/bradycardia. Status post dual____, appears stable from the arrhythmia standpoint and continue metoprolol. If cautery is going to be used in surgery then should put a magnet on the ICD and recheck it afterwards. 3. 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 He is subtherapeutic. Consider covering with Lovenox or IV heparin until the toe surgery and then can resume Coumadin and keep an INR between 2.0 and 3.0. 4. Hyperlipidemia. Can continue statins. 5. Peripheral vascular disease per Dr. Tinsley and podiatry is also on the case. I will be available during the weekend on as-needed basis. If needed, Dr. Mahoney will be back Saturday. Otherwise, follow up with him in 2 weeks upon discharge. I thank you for the consultation. ANESTHESIA Ziac up to Dr. Mahoney and to my office and And liz thank you MD JORGE Vasquez/ /7:13 PM /7:57 PM
[2017-07-06 20:30] VITALS: BP 119/58; PULSE 74; RESP 18; TEMP 98.6; O2SAT 99
[2017-07-06] MEDS: PRAVASTATIN SOD 80 MG TAB PO SCH (22:01)
[2017-07-07 00:23] VITALS: BP 107/64; PULSE 69; RESP 17; TEMP 97.8; O2SAT 98
[2017-07-07] MEDS: PIPERACIL-TAZO 2.25 GM PREMIX 50 ML IV SCH ×4 (00:50→18:16)
[2017-07-07] MEDS: ACETAMINOPHEN/HYDROcodone 325 MG/7.5 MG TAB PO PRN ×4 (02:37→22:50)
[2017-07-07] MEDS: SODIUM CHLOR 0.9% 1000 ML INJ 1,000 ML IV SCH ×3 (02:41→18:41)
[2017-07-07 05:53] LABS: HEMATOCRIT 23.9 % (39.0-51.0); MEAN CELL VOLUME 83.4 FL (80.0-100.0); MEAN CORPUSCULAR HEMOGLOBIN 27.1 PG (27.0-34.0); MEAN CORPUSCULAR HGB CONC 32.5 % (32.0-36.0); PLATELET COUNT 181 TH/MM3 (150-450); RED BLOOD COUNT 2.87 MIL/MM3 (4.50-5.90); RED CELL DISTRIBUTION WIDTH 16.8 % (11.6-17.2); REVIEW FLAG FINAL; WHITE BLOOD COUNT 11.8 TH/MM3 (4.0-11.0)
[2017-07-07] MEDS: glipiZIDE 5 MG TAB PO SCH ×2 (05:53→16:45)
[2017-07-07 06:17] LABS: BICARBONATE 22.2 MEQ/L (21.0-32.0); INTERNATIONAL NORMALIZED RATIO 1.6 RATIO; POTASSIUM 3.9 MEQ/L (3.5-5.1); PROTHROMBIN TIME - PATIENT 17.6 SEC (9.8-11.6)
[2017-07-07 08:00] VITALS: BP 120/59; PULSE 68; RESP 16; TEMP 97.6; O2SAT 92
[2017-07-07] MEDS: INSULIN ASPART SUPPLEMENTAL SCALE SQ SCH ×4 (08:33→20:06)
[2017-07-07] MEDS: LISINOPRIL 20 MG TAB PO SCH (08:34)
[2017-07-07] MEDS: DOCUSATE SODIUM 50 MG/SENNA 8.6 MG TAB PO SCH ×2 (08:34→19:52)
[2017-07-07] MEDS: METOPROLOL TARTRATE 25 MG TAB PO SCH ×2 (08:34→19:52)
[2017-07-07] MEDS: SODIUM CHLORIDE 0.9% FLUSH 10 ML FLUSH IV FLUSH SCH ×2 (08:35→19:52)
[2017-07-07] MEDS ORDERED: ENOXAPARIN SODIUM 80 MG/0.8 ML SYRINGE SQ ONE (10:00)
[2017-07-07 12:00] VITALS: BP 100/56; PULSE 61; RESP 17; TEMP 96.7; O2SAT 94
[2017-07-07] MEDS ORDERED: VANCOMYCIN INJ 1,250 MG in SODIUM CHLOR 0.9% 250 ML INJ 250 ML IV ONE (13:00)
--- NOTE | 2017-07-07 13:23 | HHI.PR ---
Subjective Remarks pt is feeling ok meds helping him offering no complaint ROS for 10 point system is unremarkable Objective Objective Results - Vital Signs Date Time Temp Pulse Resp B/P (MAP) Pulse Ox O2 Delivery O2 Flow Rate FiO2 07/07/17 12:00 96.7 61 17 100/56 (71) 94 07/07/17 08:00 97.6 68 16 120/59 (79) 92 07/07/17 00:23 97.8 69 17 107/64 (78) 98 07/06/17 23:05 18 07/06/17 20:30 98.6 74 18 119/58 (78) 99 07/06/17 16:00 96.9 71 17 135/70 (91) 96 I/O 07/06/17 07/06/17 07/06/17 07/07/17 07/07/17 07/07/17 07:00 15:00 23:00 07:00 15:00 23:00 Intake Total 1394 ml 50 ml 1939 ml 730 ml Output Total 480 ml 600 ml 1000 ml Balance 914 ml 50 ml 1339 ml -270 ml Intake Oral 580 ml 640 ml 680 ml IV Total 814 ml 50 ml 1299 ml 50 ml Output Urine Total 480 ml 600 ml 1000 ml # Bowel Movements 0 1 Result Diagram: 07/07/17 0521 07/07/17 0521 Other Results Laboratory Tests Test 07/07/17 05:21 White Blood Count 11.8 Red Blood Count 2.87 Hemoglobin 7.8 Hematocrit 23.9 Mean Corpuscular Volume 83.4 Mean Corpuscular Hemoglobin 27.1 Mean Corpuscular Hemoglobin Concent 32.5 Red Cell Distribution Width 16.8 Platelet Count 181 Mean Platelet Volume 8.0 Prothrombin Time 17.6 Prothromb Time International Ratio 1.6 Blood Urea Nitrogen 34 Creatinine 1.99 Random Glucose 97 Calcium Level 7.8 Sodium Level 137 Potassium Level 3.9 Chloride Level 105 Carbon Dioxide Level 22.2 Anion Gap 10 Estimat Glomerular Filtration Rate 33 Random Vancomycin Level 6.0 Date/Time Source Procedure Growth Status 07/05/17 17:15 Blood Peripheral Aerobic Blood Culture - Preliminary NO GROWTH IN 2 DAYS Resulted 07/05/17 17:15 Blood Peripheral Anaerobic Blood Culture - Preliminary NO GROWTH IN 2 DAYS Resulted 07/05/17 17:10 Wound Foot Gram Stain - Final Resulted 07/05/17 17:10 Wound Culture - Preliminary Pseudomonas Aeruginosa Group D Enterococcus Resulted Physical Exam Physical Exam IN GENERAL: The patient is alert, oriented x3 well-built, well-nourished lying on bed without any apparent distress was enjoying her breakfast before interim examination. VITAL SIGNS: reviewed HEAD, EYES, EARS, NOSE, AND THROAT: Head is atraumatic, normocephalic. Negative conjunctival icterus was unremarkable. Neck: Supple. No increased JVD. Negative thyromegaly. Central trachea. CHEST: Clear to auscultation. CARDIOVASCULAR SYSTEM: S1, S2, audible. Unable to hear any gallop. GASTROINTESTINAL: Abdomen soft, no organomegaly. Positive bowel sounds. MUSCULOSKELETAL: Extremities no edema noted. There is positive cyanosis and gangrene of the right second toe distal digit area. There is amputation of the right toe with a open wound and that is slightly pinkish, yellowish and erythematous adjacent area, erythema on the dorsal aspect of the right foot. CENTRAL NERVOUS SYSTEM: Alert, oriented, normal facial features moving his extremities. PSYCHIATRIC: Psych appropriate mood and affect. A/P Assessment and Plan 1. Right second gangrenous necrotic toe with cellulitis of foot 2. Sough/Sepsis. 3. Hypertension. 4. Coronary artery disease. 5. Status post ICD 6. Hyperlipidemia. 7. History of transient ischemic attack and stroke on Coumadin with subtherapeutic INR. 8. CKD PLAN 1. so cardiology input. dwcardiology yesterday. hold coumadin , on lovenox one dose given today hold tomorrow for sx 2. IV antibiotic. 3. Cautious IV hydration. 4. Vascular surgical consult input so 5. 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 meds reivewed 7. Continue home medications as indicated. 8. Analgesics. 9. Antiemetics on a p.r.n. basis. 10. labs reivewed, Labs for tomorrow. 11. Monitor leukocytosis and kidney function. 12. Anemia of chronic disease. Will monitor intermittently. 13. Condition discussed with the patient and to be compliant with 14. Instructions. 15. Sliding scale insulin coverage to monitor sugar. 16. Condition guarded prognosis guarded. 17. Discussed with the patient. 18. Discussed with RN. Jeannette Santiago MD Jul 07, 2017 13:23
[2017-07-07 16:00] VITALS: BP 144/68; PULSE 70; RESP 17; TEMP 96.5; O2SAT 93
[2017-07-07] MEDS: PRAVASTATIN SOD 80 MG TAB PO SCH (19:52)
[2017-07-07 20:00] VITALS: BP 117/56; PULSE 64; RESP 20; TEMP 97.2; O2SAT 96
[2017-07-07] MEDS ORDERED: POVIDONE IODINE 5% (ANTISEPSIS KIT) 4 APPLICATIONS EACH NARE PRN (22:30)
[2017-07-07] MEDS ORDERED: INSULIN HUMAN REGULAR 1,000 UNITS/10 ML VIAL SQ PRN (22:30)
[2017-07-07] MEDS ORDERED: LACTATED RINGER'S 1000 ML IV PRN (22:30)
[2017-07-07] MEDS ORDERED: CHLORHEXIDINE GLUCONATE 2 % 1 PACK (2 CLOTHS) TOPICAL PRN (22:30)
[2017-07-07] MEDS ORDERED: SODIUM CHLORID 0.9% 500 ML IV PRN (22:30)
[2017-07-08] VITALS: BP 94/55; PULSE 61; RESP 20; TEMP 97.3; O2SAT 94
[2017-07-08] MEDS: PIPERACIL-TAZO 2.25 GM PREMIX 50 ML IV SCH ×5 (00:08→23:44)
[2017-07-08 04:00] VITALS: BP 112/58; PULSE 61; RESP 18; TEMP 96.6; O2SAT 95
[2017-07-08] MEDS: SODIUM CHLOR 0.9% 1000 ML INJ 1,000 ML IV SCH ×2 (04:29→07:16)
[2017-07-08 05:31] LABS: HEMATOCRIT 24.6 % (39.0-51.0); MEAN CELL VOLUME 83.4 FL (80.0-100.0); MEAN CORPUSCULAR HEMOGLOBIN 27.9 PG (27.0-34.0); MEAN CORPUSCULAR HGB CONC 33.5 % (32.0-36.0); PLATELET COUNT 183 TH/MM3 (150-450); RED BLOOD COUNT 2.94 MIL/MM3 (4.50-5.90); RED CELL DISTRIBUTION WIDTH 16.8 % (11.6-17.2); REVIEW FLAG FINAL; WHITE BLOOD COUNT 8.5 TH/MM3 (4.0-11.0)
[2017-07-08 05:34] LABS: INTERNATIONAL NORMALIZED RATIO 1.7 RATIO; PROTHROMBIN TIME - PATIENT 18.9 SEC (9.8-11.6)
[2017-07-08 05:53] LABS: BICARBONATE 20.6 MEQ/L (21.0-32.0); POTASSIUM 4.1 MEQ/L (3.5-5.1)
[2017-07-08] MEDS: glipiZIDE 5 MG TAB PO SCH ×2 (06:14→17:20)
[2017-07-08 08:00] VITALS: BP 152/72; PULSE 73; RESP 17; TEMP 95.3; O2SAT 98
[2017-07-08] MEDS: INSULIN ASPART SUPPLEMENTAL SCALE SQ SCH ×4 (08:00→23:43)
--- NOTE | 2017-07-08 08:03 | HHI.PR ---
Subjective Remarks pt is feeling ok meds helping him offering no complaint ROS for 10 point system is unremarkable Objective Objective Results - Vital Signs Date Time Temp Pulse Resp B/P (MAP) Pulse Ox O2 Delivery O2 Flow Rate FiO2 07/08/17 04:00 96.6 61 18 112/58 (76) 95 07/08/17 00:00 97.3 61 20 94/55 (68) 94 07/07/17 23:50 20 07/07/17 20:00 97.2 64 20 117/56 (76) 96 07/07/17 16:00 96.5 70 17 144/68 (93) 93 07/07/17 12:00 96.7 61 17 100/56 (71) 94 I/O 07/07/17 07/07/17 07/07/17 07/08/17 07/08/17 07/08/17 07:00 15:00 23:00 07:00 15:00 23:00 Intake Total 730 ml 50 ml 2260 ml 420 ml Output Total 1000 ml 275 ml 200 ml Balance -270 ml 50 ml 1985 ml 220 ml Intake Oral 680 ml 960 ml 320 ml IV Total 50 ml 50 ml 1300 ml 100 ml Output Urine Total 1000 ml 275 ml 200 ml # Bowel Movements 1 0 0 Result Diagram: 07/08/17 0509 07/08/17 0509 Other Results Laboratory Tests Test 07/08/17 05:09 White Blood Count 8.5 Red Blood Count 2.94 Hemoglobin 8.2 Hematocrit 24.6 Mean Corpuscular Volume 83.4 Mean Corpuscular Hemoglobin 27.9 Mean Corpuscular Hemoglobin Concent 33.5 Red Cell Distribution Width 16.8 Platelet Count 183 Mean Platelet Volume 8.2 Prothrombin Time 18.9 Prothromb Time International Ratio 1.7 Blood Urea Nitrogen 34 Creatinine 2.07 Random Glucose 115 Calcium Level 7.8 Sodium Level 136 Potassium Level 4.1 Chloride Level 106 Carbon Dioxide Level 20.6 Anion Gap 9 Estimat Glomerular Filtration Rate 31 Random Vancomycin Level 14.6 Date/Time Source Procedure Growth Status 07/05/17 17:15 Blood Peripheral Aerobic Blood Culture - Preliminary NO GROWTH IN 2 DAYS Resulted 07/05/17 17:15 Blood Peripheral Anaerobic Blood Culture - Preliminary NO GROWTH IN 2 DAYS Resulted 07/05/17 17:10 Wound Foot Gram Stain - Final Resulted 07/05/17 17:10 Wound Culture - Preliminary Pseudomonas Aeruginosa Group D Enterococcus Resulted Physical Exam Physical Exam IN GENERAL: The patient is alert, oriented x3 well-built, well-nourished lying on bed without any apparent distress was enjoying her breakfast before interim examination. VITAL SIGNS: reviewed HEAD, EYES, EARS, NOSE, AND THROAT: Head is atraumatic, normocephalic. Negative conjunctival icterus was unremarkable. Neck: Supple. No increased JVD. Negative thyromegaly. Central trachea. CHEST: Clear to auscultation. CARDIOVASCULAR SYSTEM: S1, S2, audible. Unable to hear any gallop. GASTROINTESTINAL: Abdomen soft, no organomegaly. Positive bowel sounds. MUSCULOSKELETAL: Extremities no edema noted. There is positive cyanosis and gangrene of the right second toe distal digit area. There is amputation of the right toe with a open wound and that is slightly pinkish, yellowish and erythematous adjacent area, erythema on the dorsal aspect of the right foot. CENTRAL NERVOUS SYSTEM: Alert, oriented, normal facial features moving his extremities. PSYCHIATRIC: Psych appropriate mood and affect. A/P Assessment and Plan 1. Right second gangrenous necrotic toe with cellulitis of foot 2. Sough/Sepsis. 3. Hypertension. 4. Coronary artery disease. 5. Status post ICD 6. Hyperlipidemia. 7. History of transient ischemic attack and stroke on Coumadin with subtherapeutic INR. 8. CKD PLAN 1. so cardiology input. [facility] cardiology before. Coumadin on hold for surgery today 2. IV antibiotic. 3. Cautious IV hydration. 4. Vascular surgical consult input so 5. 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 meds reivewed 7. Continue home medications as indicated. 8. Analgesics. 9. Antiemetics on a p.r.n. basis. 10. labs reivewed, 11. Monitor leukocytosis and kidney function. 12. Anemia of chronic disease. Will monitor intermittently. 13. Condition discussed with the patient and to be compliant with 14. Instructions. 15. Sliding scale insulin coverage to monitor sugar. 16. Condition guarded prognosis guarded. 17. Discussed with the patient. 18. Discussed with YVONNE. Jeannette Santiago MD Jul 08, 2017 08:03
[2017-07-08] MEDS: SODIUM CHLORIDE 0.9% FLUSH 10 ML FLUSH IV FLUSH SCH ×2 (09:00→21:00)
[2017-07-08] MEDS: LISINOPRIL 20 MG TAB PO SCH (09:21)
[2017-07-08] MEDS: METOPROLOL TARTRATE 25 MG TAB PO SCH ×2 (09:21→21:44)
[2017-07-08] MEDS: DOCUSATE SODIUM 50 MG/SENNA 8.6 MG TAB PO SCH ×2 (09:21→21:43)
--- NOTE | 2017-07-08 11:22 | PD.VS.PN ---
Subjective Subjective/Hospital Course Afebrile 76/M Pt sitting up in bed w/o complaints NPO since midnight last night Pt awaiting R LE Angio/ Toe amputation (scheduled for this afternoon) Objective Vitals/I&O Date Time Temp Pulse Resp B/P (MAP) Pulse Ox O2 Delivery O2 Flow Rate FiO2 07/08/17 08:00 95.3 73 17 152/72 (98) 98 07/08/17 04:00 96.6 61 18 112/58 (76) 95 07/08/17 00:00 97.3 61 20 94/55 (68) 94 07/07/17 23:50 20 07/07/17 20:00 97.2 64 20 117/56 (76) 96 07/07/17 16:00 96.5 70 17 144/68 (93) 93 07/07/17 12:00 96.7 61 17 100/56 (71) 94 07/08/17 07/08/17 07/08/17 07:00 15:00 23:00 Intake Total 420 ml Output Total 200 ml Balance 220 ml Physical Exam GENERAL: A&Ox3, NAD, GCS 15 SKIN: Warm/Dry LE warm with motor intact Dressing to R Foot I/C/D Laboratory Laboratory Tests Test 07/08/17 05:09 White Blood Count 8.5 Red Blood Count 2.94 Hemoglobin 8.2 Hematocrit 24.6 Mean Corpuscular Volume 83.4 Mean Corpuscular Hemoglobin 27.9 Mean Corpuscular Hemoglobin Concent 33.5 Red Cell Distribution Width 16.8 Platelet Count 183 Mean Platelet Volume 8.2 Prothrombin Time 18.9 Prothromb Time International Ratio 1.7 Blood Urea Nitrogen 34 Creatinine 2.07 Random Glucose 115 Calcium Level 7.8 Sodium Level 136 Potassium Level 4.1 Chloride Level 106 Carbon Dioxide Level 20.6 Anion Gap 9 Estimat Glomerular Filtration Rate 31 Random Vancomycin Level 14.6 Date/Time Source Procedure Growth Status 07/05/17 17:15 Blood Peripheral Aerobic Blood Culture - Preliminary NO GROWTH IN 3 DAYS Resulted 07/05/17 17:15 Blood Peripheral Anaerobic Blood Culture - Preliminary NO GROWTH IN 3 DAYS Resulted 07/05/17 17:10 Wound Foot Gram Stain - Final Resulted 07/05/17 17:10 Wound Culture - Preliminary Pseudomonas Aeruginosa Group D Enterococcus Resulted Assessment and Plan Assessment: (1) PVD (peripheral vascular disease) Status: Acute (2) Necrotic toes Status: Acute Plan 76/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 Tinsley Continue to Hold coumadin Continue Broad antibiotics and wound care (W to D) ROSA GERMAIN [facility]/[place] [phone] Sarah Brannon Jul 08, 2017 11:22
[2017-07-08 12:00] VITALS: BP 139/71; PULSE 60; RESP 17; TEMP 95.3; O2SAT 96
[2017-07-08] MEDS ORDERED: PROTAMINE SULFATE 50 MG/5 ML VIAL ONE (12:58)
[2017-07-08] MEDS ORDERED: HEPARIN SODIUM - IV 10,000 UNITS/10 ML VIAL ONE (12:59)
[2017-07-08] MEDS ORDERED: HEPARIN-NS/PF INJ 500 ML ONE (13:00)
[2017-07-08] MEDS ORDERED: VANCOMYCIN INJ 1,250 MG in SODIUM CHLOR 0.9% 250 ML INJ 250 ML IV SCH (14:00)
--- NOTE | 2017-07-08 15:18 | HHI.PR ---
cc: Canelo Leal DPM Immediate Post Op Note Procedure Date: Jul 08, 2017 Pre Op Diagnosis: PAD, R LE tissue loss Post Op Diagnosis: PAD, R LE tissue loss Surgeon: Jose Juan Tinsley Student Development Advisor(s): None Procedure: 1. R LE angiogram 2. R AT orbital atherectomy and MANAGER OF PMO (3mm) 3. R 2nd toe Ray amputation 4. L ASSET PROTECTION ASSISTANT Angioseal Findings: 1. Occlusion proximal AT, able to recanalize and atherectomy/MANAGER OF PMO - excellent result 2. infection base of 2nd toe, resected with reasonable perfusion Complications: none Specimen(s) removed: toe for pathology Estimated blood loss: 10mL Anesthesia: LMA Drains: None Fluids: 500mL IVF Patient to: PACU Patient Condition: Good Implant/Devices: SEE IMPLANT LOG (if applicable) Date/Time of Procedure: SEE SURGICAL CARE RECORD Jose Juan Tinsley MD Jul 08, 2017 15:18
[2017-07-08] MEDS ORDERED: DO NOT ADM ANY ANTICOAGULANT DRUGS PRN (15:22)
[2017-07-08] MEDS ORDERED: IOHEXOL 350 MG/ML 50 ML BTL (for RAD DIAG) IVCONTRAST ONE (15:44)
[2017-07-08] MEDS: ACETAMINOPHEN/HYDROcodone 325 MG/7.5 MG TAB PO PRN (20:08)
[2017-07-08] MEDS: PRAVASTATIN SOD 80 MG TAB PO SCH (21:43)
[2017-07-09] VITALS: BP 103/55; PULSE 63; RESP 20; TEMP 97.3; O2SAT 95
[2017-07-09 05:36] LABS: INTERNATIONAL NORMALIZED RATIO 2.1 RATIO; PROTHROMBIN TIME - PATIENT 23.4 SEC (9.8-11.6)
[2017-07-09] MEDS: PIPERACIL-TAZO 2.25 GM PREMIX 50 ML IV SCH (06:09)
[2017-07-09] MEDS: glipiZIDE 5 MG TAB PO SCH ×2 (06:09→18:30)
[2017-07-09] MEDS: INSULIN ASPART SUPPLEMENTAL SCALE SQ SCH ×4 (07:47→21:44)
[2017-07-09 08:00] VITALS: BP 168/83; PULSE 67; RESP 18; TEMP 96.1; O2SAT 100
[2017-07-09] MEDS: SODIUM CHLORIDE 0.9% FLUSH 10 ML FLUSH IV FLUSH SCH ×2 (09:00→21:00)
--- NOTE | 2017-07-09 09:11 | PD.VS.PN ---
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 WORKER Angioseal Subjective/Hospital Course Afebrile 76/M Pt sitting up in bed w/o complaints Pain controlled Dressing to R foot intact Objective Vitals/I&O Date Time Temp Pulse Resp B/P (MAP) Pulse Ox O2 Delivery O2 Flow Rate FiO2 07/09/17 08:00 96.1 67 18 168/83 (111) 100 07/09/17 00:00 97.3 63 20 103/55 (71) 95 07/08/17 16:15 98.0 60 20 152/71 (98) 99 Nasal Cannula 2 07/08/17 16:00 60 20 166/75 (105) 99 Nasal Cannula 2 07/08/17 15:45 58 20 133/63 (86) 100 Nasal Cannula 2 07/08/17 15:30 60 20 131/56 (81) 100 Nasal Cannula 2 07/08/17 15:23 98.0 60 20 138/84 (102) 100 Nasal Cannula 2 07/08/17 12:00 95.3 60 17 139/71 (93) 96 07/09/17 07/09/17 07/09/17 07:00 15:00 23:00 Intake Total 1180 ml Output Total 600 ml Balance 580 ml Exam: GENERAL: A&OX3, GCS15,NAD SKIN: Warm and dry R 2nd toe Ray amputation site w/o redness/swelling/odor Red tissue present with mild sanguineous drainage LE warm with motor intact Palpable R DP Biphasic PT heard via Doppler GASTROINTESTINAL: Abdomen soft, non-tender, nondistended. MUSCULOSKELETAL: No cyanosis, or edema. Pulses: Palpable Right DP Biphasic Right PT heard via Doppler Incisions: Left groin w/o mild swelling No hematoma No pain Laboratory Laboratory Tests Test 07/09/17 05:20 Prothrombin Time 23.4 Prothromb Time International Ratio 2.1 Date/Time Source Procedure Growth Status 07/05/17 17:15 Blood Peripheral Aerobic Blood Culture - Preliminary NO GROWTH IN 3 DAYS Resulted 07/05/17 17:15 Blood Peripheral Anaerobic Blood Culture - Preliminary NO GROWTH IN 3 DAYS Resulted 07/05/17 17:10 Wound Foot Gram Stain - Final Complete 07/05/17 17:10 Wound Culture - Final Pseudomonas Aeruginosa Enterococcus Faecalis Complete Assessment and Plan Assessment: (1) PVD (peripheral vascular disease) Status: Acute (2) Necrotic toes Status: Acute Plan 76/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
[2017-07-09] MEDS: METOPROLOL TARTRATE 25 MG TAB PO SCH ×2 (09:23→21:44)
[2017-07-09] MEDS: DOCUSATE SODIUM 50 MG/SENNA 8.6 MG TAB PO SCH ×2 (09:23→21:44)
[2017-07-09] MEDS: LISINOPRIL 20 MG TAB PO SCH (09:23)
[2017-07-09] MEDS: SODIUM CHLOR 0.9% 1000 ML INJ 1,000 ML IV SCH (09:24)
--- NOTE | 2017-07-09 09:31 | MP ---
cc: DEMI TINSLEY MD DATE OF SURGERY 07/08/2017 PREOPERATIVE DIAGNOSIS Right lower extremity tissue loss and peripheral arterial occlusive disease. POSTOPERATIVE DIAGNOSIS Right lower extremity tissue loss and peripheral arterial occlusive disease. PROCEDURE 1. Right lower extremity angiogram. 2. Right anterior tibial artery atherectomy with an orbital atherectomy device and angioplasty with 3 mm balloon. 3. Left common femoral artery Angio-Seal. 4. Right second ray amputation. MEDICATIONS Demi Tinsley MD TRICOT KNITTER SURGEON Darron Nagy ANESTHESIA General INDICATIONS Mr. Doherty is a 76-year-old gentleman with diabetes and peripheral arterial occlusive disease. He previously underwent endovascular reconstruction, as well as toe amputation. This wound is not healing and his second toe is frankly necrotic and he is taken back to the operating room for repeat angiogram and endovascular intervention, as well as toe amputation. There is no prior catheterization imaging to go with my review since the deterioration of his wounds. DESCRIPTION OF THE PROCEDURE Informed consent was obtained from the patient. He was taken to the operating room, placed supine on the operating table and an appropriate time-out was taken to ensure the patient's identity, operative site and planned procedure. The administration of both vancomycin and Zosyn were initiated prior to the skin incision and will be continued postoperatively for ongoing therapy of his diabetic foot infection. Everyone in the room agreed with the time-out and we proceeded. His right foot and bilateral groins were prepped and draped. A 21 gauge micropuncture needle was used to access the left common femoral artery. This was exchanged using Seldinger technique through a micropuncture sheath through which a 0.035 Glidewire was introduced. The micropuncture technique sheath was exchanged for a 4-Burundian sheath. The VCF catheter was placed over the wire into the sheath and using the VCF and glide, we were able to navigate down to the right common femoral artery and the VCF catheter was advanced to the right SFA. A right lower extremity angiogram was obtained. The patient was heparinized with 5000 units of IV heparin. A 0.035 Torres wire was introduced through the VCF catheter down to the popliteal artery and the VCF catheter and 4-Burundian sheath removed. A 6-Burundian 90 cm sheath was then introduced and a long vertebral catheter was then placed over the Torres and through the 6-Burundian sheath, this was navigated down to the below-knee popliteal artery and indeed into the proximal aspect of the anterior tibial artery at which point it occluded. The DIVING BOARD ASSEMBLER wire was then used along with a angled catheter and this was used to recanalized the proximal anterior tibial artery. The wire then passed down to the distal anterior tibial artery and a CXI 0.018 catheter was advanced to the distal anterior tibial artery. Angiogram confirmed we were indeed in the lumen and the CXI catheter was removed and a Vicryl wire was then introduced. A 1.25 crown orbital CSI atherectomy device was then introduced and the proximal anterior tibial artery was atherectomized without difficulty. This was postdilated with a 3-mm balloon both in the proximal aspect of the anterior tibial artery that had been recanalized, as well as in the mid anterior tibial artery which had a high-grade stenosis. The completion angiogram showed excellent result without any recoil extravasation and excellent in-line flow to the dorsalis pedis. Wire, catheter and sheath removed and the groin was closed with Angio-Seal. We then turned our attention towards the toe amputation. The incision was made between the second and third toes, carried down through the subcutaneous tissue with electrocautery. The entire phalanx was removed, as well as the metatarsal head which was removed with an oscillating saw. The wound was then irrigated and sharply debrided and then wrapped in Kerlix. There are no complications. I was present and scrubbed for the entire procedure. MD CORENLL Atkins/CORA /4:36 AM /9:18 AM
--- NOTE | 2017-07-09 11:00 | HHI.PR ---
Subjective Remarks pt is feeling ok Had surgery done yesterday meds helping him offering no complaint ROS for 10 point system is unremarkable Objective Objective Results - Vital Signs Date Time Temp Pulse Resp B/P (MAP) Pulse Ox O2 Delivery O2 Flow Rate FiO2 07/09/17 08:00 96.1 67 18 168/83 (111) 100 07/09/17 00:00 97.3 63 20 103/55 (71) 95 07/08/17 16:15 98.0 60 20 152/71 (98) 99 Nasal Cannula 2 07/08/17 16:00 60 20 166/75 (105) 99 Nasal Cannula 2 07/08/17 15:45 58 20 133/63 (86) 100 Nasal Cannula 2 07/08/17 15:30 60 20 131/56 (81) 100 Nasal Cannula 2 07/08/17 15:23 98.0 60 20 138/84 (102) 100 Nasal Cannula 2 07/08/17 12:00 95.3 60 17 139/71 (93) 96 I/O 07/08/17 07/08/17 07/08/17 07/09/17 07/09/17 07/09/17 07:00 15:00 23:00 07:00 15:00 23:00 Intake Total 420 ml 1200 ml 1180 ml Output Total 200 ml 13 ml 600 ml Balance 220 ml 1187 ml 580 ml Intake Oral 320 ml 0 ml 240 ml IV Total 100 ml 940 ml Tube Feeding 700 ml Other 500 ml Output Urine Total 200 ml 3 ml 600 ml Estimated Blood Loss 10 ml # Bowel Movements 0 1 Result Diagram: 07/08/17 0509 07/08/17 0509 Other Results Laboratory Tests Test 07/09/17 05:20 Prothrombin Time 23.4 Prothromb Time International Ratio 2.1 Date/Time Source Procedure Growth Status 07/05/17 17:15 Blood Peripheral Aerobic Blood Culture - Preliminary NO GROWTH IN 3 DAYS Resulted 07/05/17 17:15 Blood Peripheral Anaerobic Blood Culture - Preliminary NO GROWTH IN 3 DAYS Resulted 07/05/17 17:10 Wound Foot Gram Stain - Final Complete 07/05/17 17:10 Wound Culture - Final Pseudomonas Aeruginosa Enterococcus Faecalis Complete Physical Exam Physical Exam IN GENERAL: The patient is alert, oriented x3 well-built, well-nourished lying on bed without any apparent distress was enjoying her breakfast before interim examination. VITAL SIGNS: reviewed HEAD, EYES, EARS, NOSE, AND THROAT: Head is atraumatic, normocephalic. Negative conjunctival icterus was unremarkable. Neck: Supple. No increased JVD. Negative thyromegaly. Central trachea. CHEST: Clear to auscultation. CARDIOVASCULAR SYSTEM: S1, S2, audible. Unable to hear any gallop. GASTROINTESTINAL: Abdomen soft, no organomegaly. Positive bowel sounds. MUSCULOSKELETAL: Extremities no edema noted. Dressing on right foot CENTRAL NERVOUS SYSTEM: Alert, oriented, normal facial features moving his extremities. PSYCHIATRIC: Psych appropriate mood and affect. A/P Assessment and Plan 1. Right second gangrenous necrotic toe with cellulitis of foot 2. Sough/Sepsis. 3. Hypertension. 4. Coronary artery disease. 5. Status post ICD 6. Hyperlipidemia. 7. History of transient ischemic attack and stroke on Coumadin with subtherapeutic INR. 8. CKD PLAN 1. so cardiology input. dw cardiology before. Coumadin on hold for surgery today 2. IV antibiotic. 3. Cautious IV hydration. 4. Vascular surgical consult input so . Status post surgery. Right anterior tibial artery atherectomy with an orbital atherectomy device and angioplasty with 3 mm balloon. Left common femoral artery Angio-Seal. Right second ray amputation. The #1 5. Podiatry consult so. 6. meds reivewed 7. Continue home medications as indicated. 8. Analgesics. 9. Antiemetics on a p.r.n. basis. 10. labs reivewed, 11. Monitor leukocytosis and kidney function. 12. Anemia of chronic disease. Will monitor intermittently. 13. Condition discussed with the patient and to be compliant with 14. Instructions. 15. Sliding scale insulin coverage to monitor sugar. 16. Condition stable 17. Discussed with the patient. 18. Discussed with RN. Jeannette Santiago MD Jul 09, 2017 11:00
[2017-07-09 12:00] VITALS: BP 140/72; PULSE 61; RESP 17; TEMP 97.3; O2SAT 91
--- NOTE | 2017-07-09 12:50 | HHI.IDPN ---
Note Infectious Disease Note Patient is status post R. second ray amputation. No complaints except foot pain. Afebrile. Patient underwent amputation of the r The patient was followed up with infectious disease and the vascular surgeon. He also had a revascularization procedure in April of 2017 as well. He was noted to have worsening of the right second toe with gangrenous changes and was sent to the emergency department for evaluation. The patient is not a very good historian. He tells me that he has been using a salve on the area for about a month. He was evaluated by the vascular surgeon and is due to undergo surgical intervention in a couple of days. His white count yesterday was 15.1 with 87% neutrophils. He is afebrile. He denies chills, nausea or vomiting. He tells me that he feels well and has no complaints at this time. PAST MEDICAL HISTORY: 1. Diabetes mellitus. 2. Hypertension. 3. Hypercholesterolemia. 4. Defibrillator placement. 5. Infection of the right great toe due to [place] in April of 2017. 6. Coronary artery bypass graft surgery. 7. Right great toe amputation in April of 2017. ALLERGIES: NO KNOWN DRUG ALLERGIES. ABX: 1. Piperacillin / tazobactam. 2. Vancomycin, dose was given on 07/05. SOCIAL HISTORY: No tobacco use. Occasional alcohol in the form of a beer. No illicit drugs. Vital Signs Date Time Temp Pulse Resp B/P (MAP) Pulse Ox O2 Delivery O2 Flow Rate FiO2 07/09/17 08:00 96.1 67 18 168/83 (111) 100 07/09/17 00:00 97.3 63 20 103/55 (71) 95 07/08/17 16:15 98.0 60 20 152/71 (98) 99 Nasal Cannula 2 07/08/17 16:00 60 20 166/75 (105) 99 Nasal Cannula 2 07/08/17 15:45 58 20 133/63 (86) 100 Nasal Cannula 2 07/08/17 15:30 60 20 131/56 (81) 100 Nasal Cannula 2 07/08/17 15:23 98.0 60 20 138/84 (102) 100 Nasal Cannula 2 Laboratory Tests Test 07/09/17 05:20 Prothrombin Time 23.4 SEC Prothromb Time International Ratio 2.1 RATIO PHYSICAL EXAMINATION:: GENERAL: No acute distress. He is awake and alert and oriented. HEAD, EYES, EARS, NOSE, THROAT: Head atraumatic. Extraocular movements grossly intact, pupils reactive to light without icterus. Oropharynx no visible lesions. NECK: The neck is supple. No adenopathy. LUNGS: Clear breath sounds. HEART: Distant S1-S2. No murmurs audible. EXTREMITIES: No clubbing or cyanosis. The right second toe is post amputation and has dressing in place. SKIN: No rash. NEUROLOGIC: Nonfocal. PSYCHIATRIC: The patient calm and cooperative. IMPRESSION: 1. Gangrene of the second toe on the right foot. 2. Leukocytosis secondary to infection. Pseudomonas and Enterococcus. 3. Diabetes mellitus. RECOMMENDATIONS: Stop antibiotics now that patient has had surgical amputation. I will sign off now. Please reconsult if further input is needed. Guerrero Lee MD Jul 09, 2017 12:49
[2017-07-09 16:00] VITALS: BP 174/79; PULSE 68; RESP 17; TEMP 95.9; O2SAT 98
[2017-07-09] MEDS: ACETAMINOPHEN/HYDROcodone 325 MG/7.5 MG TAB PO PRN (18:30)
[2017-07-09 20:00] VITALS: BP 152/73; PULSE 69; RESP 17; TEMP 95.7; O2SAT 99
[2017-07-09] MEDS ORDERED: BACLOFEN 10 MG TAB PO SCH (21:00)
[2017-07-09] MEDS: PRAVASTATIN SOD 80 MG TAB PO SCH (21:44)
[2017-07-10] VITALS: BP 132/71; PULSE 62; RESP 17; TEMP 96; O2SAT 98
[2017-07-10] MEDS: SODIUM CHLOR 0.9% 1000 ML INJ 1,000 ML IV SCH ×2 (01:41→13:03)
[2017-07-10] MEDS: glipiZIDE 5 MG TAB PO SCH (07:00)
[2017-07-10 07:12] LABS: INTERNATIONAL NORMALIZED RATIO 1.8 RATIO
[2017-07-10 08:00] VITALS: BP 192/91; PULSE 70; RESP 16; TEMP 96.2; O2SAT 98
[2017-07-10] MEDS: INSULIN ASPART SUPPLEMENTAL SCALE SQ SCH ×2 (08:00→13:03)
[2017-07-10] MEDS: SODIUM CHLORIDE 0.9% FLUSH 10 ML FLUSH IV FLUSH SCH (09:00)
[2017-07-10] MEDS: DOCUSATE SODIUM 50 MG/SENNA 8.6 MG TAB PO SCH (09:25)
[2017-07-10] MEDS: LISINOPRIL 20 MG TAB PO SCH (09:25)
[2017-07-10] MEDS: METOPROLOL TARTRATE 25 MG TAB PO SCH (09:26)
[2017-07-10 12:00] VITALS: BP 172/80; PULSE 67; RESP 19; TEMP 96.5; O2SAT 99
--- NOTE | 2017-07-10 13:55 | HHI.PR ---
Subjective Remarks pt is feeling ok meds helping him offering no complaint ROS for 10 point system is unremarkable Objective Objective Results - Vital Signs Date Time Temp Pulse Resp B/P (MAP) Pulse Ox O2 Delivery O2 Flow Rate FiO2 07/10/17 08:00 96.2 70 16 192/91 (124) 98 07/10/17 00:00 96.0 62 17 132/71 (91) 98 07/09/17 20:00 95.7 69 17 152/73 (99) 99 07/09/17 16:00 95.9 68 17 174/79 (110) 98 I/O 07/09/17 07/09/17 07/09/17 07/10/17 07/10/17 07/10/17 07:00 15:00 23:00 07:00 15:00 23:00 Intake Total 1180 ml 600 ml 1797 ml 450 ml Output Total 600 ml 700 ml 250 ml Balance 580 ml -100 ml 1547 ml 450 ml Intake Oral 240 ml 600 ml 240 ml IV Total 940 ml 1557 ml 450 ml Output Urine Total 600 ml 700 ml 250 ml # Bowel Movements 2 Result Diagram: 07/08/17 0509 07/08/17 0509 Other Results Laboratory Tests Test 07/10/17 05:37 Prothrombin Time 20.0 Prothromb Time International Ratio 1.8 Date/Time Source Procedure Growth Status 07/05/17 17:15 Blood Peripheral Aerobic Blood Culture - Final NO GROWTH IN 5 DAYS Complete 07/05/17 17:15 Blood Peripheral Anaerobic Blood Culture - Final NO GROWTH IN 5 DAYS Complete 07/05/17 17:10 Wound Foot Gram Stain - Final Complete 07/05/17 17:10 Wound Culture - Final Pseudomonas Aeruginosa Enterococcus Faecalis Complete Physical Exam Physical Exam IN GENERAL: The patient is alert, oriented x3 well-built, well-nourished lying on bed without any apparent distress was enjoying her breakfast before interim examination. VITAL SIGNS: reviewed HEAD, EYES, EARS, NOSE, AND THROAT: Head is atraumatic, normocephalic. Negative conjunctival icterus was unremarkable. Neck: Supple. No increased JVD. Negative thyromegaly. Central trachea. CHEST: Clear to auscultation. CARDIOVASCULAR SYSTEM: S1, S2, audible. Unable to hear any gallop. GASTROINTESTINAL: Abdomen soft, no organomegaly. Positive bowel sounds. MUSCULOSKELETAL: Extremities no edema noted. Dressing on right foot CENTRAL NERVOUS SYSTEM: Alert, oriented, normal facial features moving his extremities. PSYCHIATRIC: Psych appropriate mood and affect. A/P Assessment and Plan 1. Right second gangrenous necrotic toe with cellulitis of foot 2. Sough/Sepsis. 3. Hypertension. 4. Coronary artery disease. 5. Status post ICD 6. Hyperlipidemia. 7. History of transient ischemic attack and stroke on Coumadin with subtherapeutic INR. 8. CKD PLAN 1. so cardiology input. [facility] cardiology before. 2. no need for antibiotic as per ID 3. Cautious IV hydration. 4. Vascular surgical consult input so . Status post surgery. Right anterior tibial artery atherectomy with an orbital atherectomy device and angioplasty with 3 mm balloon. Left common femoral artery Angio-Seal. Right second ray amputation. freddie sx ok to dc home and start coumadin today 5. Podiatry consult so. 6. meds reivewed 7. Continue home medications as indicated. 8. Analgesics. 9. Antiemetics on a p.r.n. basis. 10. labs reivewed, 11. meds reviewed 12. Anemia of chronic disease. stable 13. Condition discussed with the patient and to be compliant with Instructions. 15. Sliding scale insulin coverage to monitor sugar. 16. Condition stable and improved 17. Discussed with the patient about dc planning he wants to go home with [facility] 18. Discussed with RN. freddie home today with [facility] Jeannette Santiago MD Jul 10, 2017 13:55
[2017-07-10] MEDS ORDERED: HYDR-3580 PO (14:01)
--- NOTE | 2017-07-10 14:02 | HHI.FF ---
Face to Face Verification Diagnosis: (1) CKD (chronic kidney disease), stage III (2) Osteomyelitis of toe of right foot (3) Renal insufficiency (4) Diabetes (5) Hypertension (6) Necrotic toes (7) Amputated toe of right foot (8) Cellulitis of foot Physical Therapy Order: Evaluate and Treat Home Health Nursing Order: Medical education Medication education-adverse effect Wound care and dressing changes Nursing assessment with vital signs I have seen patient Reji Doherty on 07/10/17. My clinical findings support the need for the requested home health care services because: Ltd mobility - disease progression I certify that my clinical findings support that this patient is homebound because: Unsafe to leave home unassisted Jeannette Santiago MD Jul 10, 2017 14:02
[2017-07-10 16:00] VITALS: BP 123/74; PULSE 88; RESP 17; TEMP 96.7; O2SAT 98
== END 2017-07-10 17:31 | disposition home health service (06) | DRG 270 ==
LOC: NEPE 15:48 → NEDA 18:54 → N07A 20:26
PROVIDERS: ADMIT Specialist; ATTEND Specialist
PROC: 047P3ZZ Dilation of Right Anterior Tibial Artery, Percutaneous Approach (ICD-10-PCS; 2017-07-08)
PROC: 0Y6M0ZB Detachment at Right Foot, Partial 2nd Ray, Open Approach (ICD-10-PCS; 2017-07-08)
PROC: B41F1ZZ Fluoroscopy of Right Lower Extremity Arteries using Low Osmolar Contrast (ICD-10-PCS; 2017-07-08)
PROC: 04CP3ZZ Extirpation of Matter from Right Anterior Tibial Artery, Percutaneous Approach (ICD-10-PCS; principal; 2017-07-08 12:30)
DX: E11.52 Type 2 diabetes mellitus with diabetic peripheral angiopathy with gangrene (principal); A41.9 Sepsis, unspecified organism; I47.2 Ventricular tachycardia; M86.171 Other acute osteomyelitis, right ankle and foot; I42.9 Cardiomyopathy, unspecified; L03.115 Cellulitis of right lower limb; E11.22 Type 2 diabetes mellitus with diabetic chronic kidney disease; E11.40 Type 2 diabetes mellitus with diabetic neuropathy, unspecified; Z79.84 Long term (current) use of oral hypoglycemic drugs; I12.9 Hypertensive chronic kidney disease with stage 1 through stage 4 chronic kidney disease, or unspecified chronic kidney disease; N18.9 Chronic kidney disease, unspecified; Z95.810 Presence of automatic (implantable) cardiac defibrillator; Z89.411 Acquired absence of right great toe; I25.10 Atherosclerotic heart disease of native coronary artery without angina pectoris; Z95.1 Presence of aortocoronary bypass graft; Z86.73 Personal history of transient ischemic attack (TIA), and cerebral infarction without residual deficits; Z79.01 Long term (current) use of anticoagulants; E78.5 Hyperlipidemia, unspecified; D63.8 Anemia in other chronic diseases classified elsewhere; B95.2 Enterococcus as the cause of diseases classified elsewhere; B96.5 Pseudomonas (aeruginosa) (mallei) (pseudomallei) as the cause of diseases classified elsewhere
CPT/HCPCS: 73630; 80048; 80053; 80202; 82948; 85025; 85027; 85610; 85652; 85730; 86140; 87040; 87070; 87077; 87186; 88305; 88311; 96365; 96367; J1644; J1650; J1815; J2543; J2720; J3370; J7030; J7050; Q9967

== ENCOUNTER 2017-11-05 11:40 | Inpatient (IN) | payer MEDICARE ==
[2017-11-05] VITALS (8 sets, daily range): BP systolic 153–176; BP diastolic 77–96; PULSE 68–88; RESP 20–22; TEMP 97.4–97.6; O2SAT 91–98
[~2017-11-05] VITALS: Ht 172.7 cm; Wt 88.0 kg
[2017-11-05] MEDS ORDERED: SODIUM CHLOR 0.9% 1000 ML INJ 1,000 ML IV ONE (11:51)
--- NOTE | 2017-11-05 12:10 | RADRPT ---
EXAM DATE/TIME: 11/05/2017 11:57 [facility] COMPARISON: No previous studies available for comparison. INDICATIONS : Stroke alert. Slurred speech. Right facial droop. Right sided weakness. RADIATION DOSE: 56.35 CTDIvol (mGy) This report was called by Dr Eason to Dr Li at 1205 MEDICAL HISTORY : Non-responsive. SURGICAL HISTORY : Non-responsive. ENCOUNTER: Initial ACUITY: 1 day PAIN SCALE: 0/10 LOCATION: cranial TECHNIQUE: Multiple contiguous axial images were obtained of the head. Using automated exposure control and adj ustment of the mA and/or kV according to patient size, radiation dose was kept as low as reasonably a chievable to obtain optimal diagnostic quality images. DICOM format image data is available electro nically for review and comparison. FINDINGS: CEREBRUM: There is an area of encephalomalacia consistent with prior infarction involving the right [employer] territo ry. Old chronic lacunar infarction involving the right thalamus. The ventricles are normal for age. No evidence of midline shift, mass lesion, hemorrhage or acute infarction. No extra-axial fluid mattie ections are seen. POSTERIOR FOSSA: The cerebellum and brainstem are intact. The 4th ventricle is midline. The cerebellopontine angle i s unremarkable. EXTRACRANIAL: The visualized portion of the orbits is intact. SKULL: The calvaria is intact. No evidence of skull fracture. CONCLUSION: 1. No acute intracranial abnormality. 2. Old right [employer] territory infarction. Jay Eason Jr., MD on November 05, 2017 at 12:03 Board Certified Radiologist. This report was verified electronically.
[2017-11-05 12:11] LABS: AUTOMATED NEUTROPHIL # 9.3 TH/MM3 (1.8-7.7); BASOPHIL # 0.1 TH/MM3 (0-0.2); BASOPHIL % 0.9 % (0.0-2.0); EOSINOPHIL # 0.1 TH/MM3 (0-0.4); EOSINOPHIL % 0.8 % (0.0-4.0); HEMATOCRIT 35.9 % (39.0-51.0); HEMOGLOBIN 11.7 GM/DL (13.0-17.0); LYMPHOCYTE # 0.4 TH/MM3 (1.0-4.8); MEAN CELL VOLUME 75.1 FL (80.0-100.0); MEAN CORPUSCULAR HEMOGLOBIN 24.5 PG (27.0-34.0); MEAN CORPUSCULAR HGB CONC 32.6 % (32.0-36.0); MEAN PLATELET VOLUME 9.3 FL (7.0-11.0); MONO % 5.1 % (0.0-8.0); MONOCYTE # 0.5 TH/MM3 (0-0.9); NEUT % 89.2 % (16.0-70.0); PLATELET COUNT 140 TH/MM3 (150-450); RED BLOOD COUNT 4.78 MIL/MM3 (4.50-5.90); RED CELL DISTRIBUTION WIDTH 19.1 % (11.6-17.2); WHITE BLOOD COUNT 10.5 TH/MM3 (4.0-11.0)
--- NOTE | 2017-11-05 12:19 | PD ---
HPI Chief Complaint: Neuro Symptoms/ Deficits Time Seen by Provider: 11:51 Travel History International Travel<30 days: No Contact w/Intl Traveler<30days: No Traveled to known affect area: No History of Present Illness HPI The patient is a 76-year-old male who presents to the emergency department via private vehicle for possible stroke. Daughter states she got a call from family members that the patient had fallen. She went over there at 10 AM doubt the patient up off of the floor when she noticed the patient had a right facial droop. The patient also appeared to have some difficulty walking after he fell. The patient does have a history of previous stroke according to the daughter which left him with diminished visual muller. The patient also has a history of previous CABG and open-heart surgery, is currently on Coumadin. The symptoms started at 10 AM. He denies any headache, neck pain, chest pain, shortness breath, nausea, vomiting, or abdominal pain. He denies any specific weakness of the arms or legs. Symptoms are moderate. PFSH Past Medical History Hx Anticoagulant Therapy: Yes (COUMADIN) Cancer: No Cardiovascular Problems: Yes High Cholesterol: Yes COPD: Yes Cerebrovascular Accident: Yes Diabetes: Yes Endocrine: Yes Genitourinary: No Hypertension: Yes Immune Disorder: No Implanted Vascular Access Dvce: No Musculoskeletal: No Neurologic: Yes Psychiatric: No Reproductive: No Respiratory: Yes Past Surgical History AICD: Yes Cardiac Surgery: Yes (OPEN HEART) Other Surgery: Yes Social History Alcohol Use: Yes (BEER SOCIALLY) Tobacco Use: No Substance Use: No Allergies-Medications (Allergen,Severity, Reaction): Coded Allergies: No Known Allergies (Verified Adverse Reaction, Unknown, 10/21/17) Reported Meds & Prescriptions Reported Meds & Active Scripts Active Reported Cardizem CD 24 HR (Diltiazem CD 24 HR) 120 Mg Caper 120 Mg PO DAILY Duoneb (Ipratropium-Albuterol Neb) 0.5-2.5 Mg/3 Ml Neb 3 Ml NEB BID Breo Ellipta Inh (Fluticasone/Vilanterol) 200-25 Mcg/Act Inh 1 Puff INH DAILY Use daily at the same time. Ipratropium Nasal 0.06% [place] 1 [place] EACH NARE BID Lisinopril 5 Mg Tab 5 Mg PO DAILY Hydrochlorothiazide 12.5 Mg Cap 12.5 Mg PO DAILY Warfarin 7.5 Mg Tab 7.5 Mg PO DAILY Simvastatin 40 Mg Tab 40 Mg PO HS Metformin (Metformin HCl) 1,000 Mg Tab 1,000 Mg PO BIDPC With meals Review of Systems Except as stated in HPI: all other systems reviewed are Neg General / Constitutional: No: Fever Cardiovascular: No: Chest Pain or Discomfort Respiratory: No: Shortness of Breath Gastrointestinal: No: Nausea, Vomiting, Abdominal Pain Musculoskeletal: No: Weakness Neurologic: Positive: Focal Abnormalities (right facial droop) Physical Exam Narrative GENERAL: Awake, alert, pleasant 76-year-old male who appears his stated age and is in no acute respiratory distress. SKIN: Focused skin assessment warm/dry. HEAD: Atraumatic. Normocephalic. EYES: Pupils equal and round. Pupils are 3 mm bilateral and reactive. ENT: No nasal bleeding or discharge. Mucous membranes pink and moist. NECK: Trachea midline. No JVD. CARDIOVASCULAR: Regular rate and rhythm. No murmur appreciated. Well-healed midline sternal scar. RESPIRATORY: No accessory muscle use. Clear to auscultation. Breath sounds equal bilaterally. GASTROINTESTINAL: Abdomen soft, non-tender, nondistended. No rebound tenderness. MUSCULOSKELETAL: No obvious deformities. No clubbing. No cyanosis. No edema. NEUROLOGICAL: Awake and alert. Slight asymmetry to the smile on the right. He is able to raise both eyebrows. No drift of the arms or legs. Sensation is symmetric on the face, arms, and legs. Finger to nose is normal. [id number] is normal. Patient is oriented 3. He follows commands without difficulty. Visual muller reveal diminished vision in the bilateral lateral muller. PSYCHIATRIC: Appropriate mood and affect; insight and judgment normal. Data Data Last Documented VS Vital Signs Date Time Temp Pulse Resp B/P (MAP) Pulse Ox O2 Delivery O2 Flow Rate FiO2 11/05/17 12:39 74 22 159/89 (112) 97 Room Air 11/05/17 12:12 97.4 Orders Orders Diet Npo (11/05/17 Lunch) Activity Bed Rest (11/05/17 ) Electrocardiogram (11/05/17 ) I-Stat Profile (11/05/17 11:51) Prothrombin Time / Inr (Pt) (11/05/17 11:51) Act Partial Throm Time (Ptt) (11/05/17 11:51) Complete Blood Count With Diff (11/05/17 11:51) Fibrinogen (11/05/17 11:51) Creatine Kinase (Cpk) (11/05/17 11:51) Troponin I (11/05/17 11:51) Ua Includes Microscopic (11/05/17 11:51) Drug Screen, Random Urine (11/05/17 11:51) Type And Screen (11/05/17 11:51) Ct Brain W/O Iv Contrast(Rout) (11/05/17 ) Chest, Single Ap (11/05/17 ) Consult Neurology (11/05/17 ) Blood Glucose (11/05/17 11:51) Ecg Monitoring (11/05/17 11:51) Neuro Checks Q2HX12,Q4H (11/05/17 11:51) Nursing Bedside Swallow Assess .ONCE (11/05/17 11:51) Iv Access Insert/Monitor (11/05/17 11:51) NPO (11/05/17 11:51) Oximetry (11/05/17 11:51) Resp Oxygen Nc Stroke (11/05/17 ) Sodium Chlor 0.9% 1000 Ml Inj (Ns 1000 M (11/05/17 11:51) (Hub Use Only)Inp Phy Cons/Ref (11/05/17 ) Aspirin (Aspirin) (11/05/17 13:15) Labs Laboratory Tests Test 11/05/17 11:51 White Blood Count 10.5 TH/MM3 Red Blood Count 4.78 MIL/MM3 Hemoglobin 11.7 GM/DL Bedside Hemoglobin 13.3 G/DL Hematocrit 35.9 % Bedside Hematocrit 39.0 % Mean Corpuscular Volume 75.1 FL Mean Corpuscular Hemoglobin 24.5 PG Mean Corpuscular Hemoglobin Concent 32.6 % Red Cell Distribution Width 19.1 % Platelet Count 140 TH/MM3 Mean Platelet Volume 9.3 FL Neutrophils (%) (Auto) 89.2 % Lymphocytes (%) (Auto) 4.0 % Monocytes (%) (Auto) 5.1 % Eosinophils (%) (Auto) 0.8 % Basophils (%) (Auto) 0.9 % Neutrophils # (Auto) 9.3 TH/MM3 Lymphocytes # (Auto) 0.4 TH/MM3 Monocytes # (Auto) 0.5 TH/MM3 Eosinophils # (Auto) 0.1 TH/MM3 Basophils # (Auto) 0.1 TH/MM3 CBC Comment DIFF FINAL Differential Comment Prothrombin Time 13.4 SEC Prothromb Time International Ratio 1.3 RATIO Activated Partial Thromboplast Time 30.8 SEC Fibrinogen 298 mg/dL Bedside Sodium 136 MMOL/L Bedside Potassium 4.4 MMOL/L Bedside Chloride 100 MMOL/L Bedside Blood Urea Nitrogen 31 MG/DL Bedside Creatinine 1.6 MG/DL Bedside Glucose 184 MG/DL Total Creatine Kinase 45 U/L Troponin I 0.04 NG/ML [facility] Medical Screen Exam Complete: Yes Emergency Medical Condition: Yes Medical Record Reviewed: Yes EKG Prior to Arrival: No Differential Diagnosis Differential diagnoses includes TIA, CVA, intracranial hemorrhage, subarachnoid hemorrhage, subdural hemorrhage, Rivas's palsy, complicated migraine, seizure. Narrative Course IV was established, labs are drawn and sent, and the patient was placed on cardiac telemetry monitoring and continuous pulse oximetry monitoring. EKG was ordered and interpreted. The patient was called a stroke alert, went immediately to CT for CT the brain. CT of the brain was negative, I discussed the radiographic findings with the on-call radiologist, Dr. Eason. Patient scores only 2, he is on Coumadin, therefore, no TPA was administered. CT of the brain reveals old large MCA infarct, no acute hemorrhage. INR is subtherapeutic at 1.3. Patient was administered aspirin. I discussed the patient with neurology, after discussion, as agreed the patient would not have TPA for right facial droop, family states visual problems are chronic. The patient will be admitted to the on-call medical service. The patient was evaluated by neurology in the emergency department. A call was placed to the on -call medical service for admission. Stroke Alert NIHSS NIH Stroke Scale Result: 2 NIHSS Time Completed: 11:50 Thrombolytic Contraindications Contraindications Comment: Patient is currently on Coumadin, stroke scale is only 2, and one of the points for visual muller may be chronic according to the daughter Procedures Procedure Narrative EKG reveals electronic ventricular pacemaker. No further analysis. Last Impressions Head CT 11/05/17 0000 Signed Impressions: Service Date/Time: Sunday, November 05, 2017 11:57 - CONCLUSION: 1. No acute intracranial abnormality. 2. Old right [employer] territory infarction. Jay Eason Jr., MD Laboratory Tests Test 11/05/17 11:51 White Blood Count 10.5 TH/MM3 Red Blood Count 4.78 MIL/MM3 Hemoglobin 11.7 GM/DL Bedside Hemoglobin 13.3 G/DL Hematocrit 35.9 % Bedside Hematocrit 39.0 % Mean Corpuscular Volume 75.1 FL Mean Corpuscular Hemoglobin 24.5 PG Mean Corpuscular Hemoglobin Concent 32.6 % Red Cell Distribution Width 19.1 % Platelet Count 140 TH/MM3 Mean Platelet Volume 9.3 FL Neutrophils (%) (Auto) 89.2 % Lymphocytes (%) (Auto) 4.0 % Monocytes (%) (Auto) 5.1 % Eosinophils (%) (Auto) 0.8 % Basophils (%) (Auto) 0.9 % Neutrophils # (Auto) 9.3 TH/MM3 Lymphocytes # (Auto) 0.4 TH/MM3 Monocytes # (Auto) 0.5 TH/MM3 Eosinophils # (Auto) 0.1 TH/MM3 Basophils # (Auto) 0.1 TH/MM3 CBC Comment DIFF FINAL Differential Comment Prothrombin Time 13.4 SEC Prothromb Time International Ratio 1.3 RATIO Activated Partial Thromboplast Time 30.8 SEC Fibrinogen 298 mg/dL Bedside Sodium 136 MMOL/L Bedside Potassium 4.4 MMOL/L Bedside Chloride 100 MMOL/L Bedside Blood Urea Nitrogen 31 MG/DL Bedside Creatinine 1.6 MG/DL Bedside Glucose 184 MG/DL Total Creatine Kinase 45 U/L Troponin I 0.04 NG/ML Chest x-ray reveals, stated cardiomegaly and postsurgical features. Physician Communication Physician Communication The on-call medical service was paged for admission. I discussed the patient Dr. Sim Philippe who agrees with admission. Diagnosis Diagnosis: Primary Impression: CVA (cerebral vascular accident) Qualified Codes: I63.9 - Cerebral infarction, unspecified Admitting Physician Requests: Admit Condition: Stable Lamberto Li MD Nov 05, 2017 12:19
[2017-11-05 12:21] LABS: INTERNATIONAL NORMALIZED RATIO 1.3 RATIO; PROTHROMBIN TIME - PATIENT 13.4 SEC (9.8-11.6)
[2017-11-05] MEDS ORDERED: LISI-519 PO (12:43)
[2017-11-05] MEDS ORDERED: FLUT1INH7 INH (12:43)
[2017-11-05] MEDS ORDERED: CARD120C4 PO (12:43)
[2017-11-05] MEDS ORDERED: HYDR12.57 PO (12:43)
[2017-11-05] MEDS ORDERED: WARF-21 PO (12:43)
[2017-11-05] MEDS ORDERED: IPRASOL NEB (12:43)
[2017-11-05] MEDS ORDERED: IPRA0.06 EACH NARE (12:43)
[2017-11-05 13:04] LABS: TROPONIN I 0.04 NG/ML (0.02-0.05)
[2017-11-05] MEDS ORDERED: ASPIRIN 325 MG TAB PO ONE (13:15)
--- NOTE | 2017-11-05 13:20 | RADRPT ---
EXAM DATE/TIME: 11/05/2017 12:12 [facility] COMPARISON: CHEST SINGLE AP, May 18, 2017, 3:06. INDICATIONS : Stroke alert; chest pain. MEDICAL HISTORY : Hypertension. Congestive heart failure. Chronic obstructive pulmonary disease. CVA. Diabetes. SURGICAL HISTORY : Carpal tunnel syndrome. Defibrillator. ENCOUNTER: Initial ACUITY: 1 day PAIN SCORE: 6/10 LOCATION: Bilateral chest FINDINGS: Stable median sternotomy wires and dual-lead AICD device. Cardiac silhouette is enlarged. No signific ant new focal pleural or parenchymal opacities. Bony thorax is intact. CONCLUSION: 1. Postsurgical features with compensated cardiomegaly. Nino Cary MD on November 05, 2017 at 13:17 Board Certified Radiologist. This report was verified electronically.
[2017-11-05] MEDS ORDERED: NALOXONE HCL 0.4 MG/ML AMP IV PUSH PRN (13:30)
[2017-11-05] MEDS ORDERED: SODIUM CHLORIDE 0.9% FLUSH 10 ML FLUSH IV FLUSH PRN ×2 (13:30)
[2017-11-05] MEDS ORDERED: DEXTROSE 50% IN WATER 50 ML VIAL(D50) IV PUSH PRN (13:30)
[2017-11-05] MEDS ORDERED: GLUCAGON 1 MG/ML VIAL OTHER PRN (13:30)
--- NOTE | 2017-11-05 13:42 | HHI.HP ---
[facility] Service [facility] Primary Care Physician Boris Aguilar MD Admission Diagnosis Diagnoses: (1) CVA (cerebral vascular accident) Diagnosis: Principal (2) TYPE 2 DIABETES MELLITUS WITH FOOT ULCER Diagnosis: Secondary (3) Hx of CABG Diagnosis: Secondary Travel History International Travel<30 Days: No Contact w/Intl Traveler <30 Da: No Traveled to Known Affected Are: No History of Present Illness Mr. Doherty is a 76 year old male. Mental the hospital secondary to an acute onset of right facial droop, slurred speech and right leg weakness. The right leg weakness is mild but he is drifted little bit when walking and had a fall. He's had a stroke in the past. He's had TIAs in the past. He has no acute distress when seen including no chest pain or respiratory distress. No severe headaches. Imaging does not reveal a CVA. Patient has a pacemaker and this will preclude him from being able to get an MRI. Symptoms are persisting. No other complaints at this time. He has been on Coumadin as an anticoagulant to prevent strokes. Today his INR is subtherapeutic. Review of Systems Constitutional: DENIES: Fatigue, Fever, Chills, Night Sweats Eyes: COMPLAINS OF: Blurred vision, Vision loss, DENIES: Diplopia, Eye inflammation Ears, nose, mouth, throat: DENIES: Tinnitus, Hearing loss, Vertigo, Nasal discharge Respiratory: DENIES: Apneas, Cough, Wheezing, Shortness of breath Cardiovascular: DENIES: Chest pain, Palpitations, Syncope, Dyspnea on Exertion Gastrointestinal: DENIES: Abdominal pain, Black stools, Bloody stools, Constipation Musculoskeletal: DENIES: Joint pain, Muscle aches, Stiffness, Joint Swelling Integumentary: DENIES: Abnormal pigmentation, Nail changes, Pruritus, Rash Hematologic/lymphatic: DENIES: Bruising, Lymphadenopathy Immunologic/allergic: DENIES: Eczema, Urticaria Neurologic: DENIES: Abnormal gait, Headache, Paresthesias Psychiatric: DENIES: Anxiety, Confusion, Hallucinations Past Family Social History Past Medical History Coronary artery disease Peripheral vascular disease TIA CVA Diabetes mellitus type 2 Hypertension Hyperlipidemia Past Surgical History Cardiac catheter First and second digit amputations of right foot CABG 4 Reported Medications Reported Meds & Active Scripts Active Reported Cardizem CD 24 HR (Diltiazem CD 24 HR) 120 Mg Caper 120 Mg PO DAILY Duoneb (Ipratropium-Albuterol Neb) 0.5-2.5 Mg/3 Ml Neb 3 Ml NEB BID Breo Ellipta Inh (Fluticasone/Vilanterol) 200-25 Mcg/Act Inh 1 Puff INH DAILY Use daily at the same time. Ipratropium Nasal 0.06% Camden 1 Camden EACH NARE BID Lisinopril 5 Mg Tab 5 Mg PO DAILY Hydrochlorothiazide 12.5 Mg Cap 12.5 Mg PO DAILY Warfarin 7.5 Mg Tab 7.5 Mg PO DAILY Simvastatin 40 Mg Tab 40 Mg PO HS Metformin (Metformin HCl) 1,000 Mg Tab 1,000 Mg PO BIDPC With meals Allergies: Coded Allergies: No Known Allergies (Verified Adverse Reaction, Unknown, 10/21/17) Active Ordered Medications Administered Medications Medications (Trade) Dose Ordered Sig/Jorge L Route PRN Reason Start Time Stop Time Status Last Admin Dose Admin Sodium Chloride 1,000 ml @ 70 mls/hr [id number] ONCE IV 11/05/17 11:51 11/06/17 02:08 11/05/17 12:35 Family History Diabetes mellitus type 2 and hypertension run in this patient's family. Social History Distant history of smoking, patient quit when he was 21 Occasional alcohol use No Illicit drug abuse Physical Exam Vital Signs Vital Signs Date Time Temp Pulse Resp B/P (MAP) Pulse Ox O2 Delivery O2 Flow Rate FiO2 11/05/17 12:39 74 22 159/89 (112) 97 Room Air 11/05/17 12:13 75 21 98 Room Air 11/05/17 12:12 97.4 75 20 176/95 (122) 98 Room Air 11/05/17 12:03 98 Room Air 11/05/17 12:03 88 20 176/95 (122) 98 Room Air 11/05/17 11:44 88 20 176/95 (122) Physical Exam GENERAL: This is a well-nourished, well-developed patient, in no apparent distress. SKIN: No rashes, ecchymoses or lesions. Cool and dry. HEAD: Atraumatic. Normocephalic. No temporal or scalp tenderness. EYES: Pupils equal round and reactive. Extraocular motions intact. No scleral icterus. No injection or drainage. ENT: Nose without bleeding, purulent drainage or septal hematoma. Throat without erythema, tonsillar hypertrophy or exudate. Uvula midline. Airway patent. NECK: Trachea midline. No JVD or lymphadenopathy. Supple, nontender, no meningeal signs. CARDIOVASCULAR: Regular rate and rhythm without murmurs, gallops, or rubs. RESPIRATORY: Clear to auscultation. Breath sounds equal bilaterally. No wheezes , rales, or rhonchi. GASTROINTESTINAL: Abdomen soft, non-tender, nondistended. No hepato-splenomegaly , or palpable masses. No guarding. MUSCULOSKELETAL: Extremities without clubbing, cyanosis, or edema. No joint tenderness, effusion, or edema noted. No calf tenderness. Negative Homans sign bilaterally. NEUROLOGICAL: Awake and alert. Cranial nerves II through XII intact. Motor and sensory grossly within normal limits. Five out of 5 muscle strength in all muscle groups. Normal speech. Laboratory Laboratory Tests Test 11/05/17 11:51 White Blood Count 10.5 Red Blood Count 4.78 Hemoglobin 11.7 Bedside Hemoglobin 13.3 Hematocrit 35.9 Bedside Hematocrit 39.0 Mean Corpuscular Volume 75.1 Mean Corpuscular Hemoglobin 24.5 Mean Corpuscular Hemoglobin Concent 32.6 Red Cell Distribution Width 19.1 Platelet Count 140 Mean Platelet Volume 9.3 Neutrophils (%) (Auto) 89.2 Lymphocytes (%) (Auto) 4.0 Monocytes (%) (Auto) 5.1 Eosinophils (%) (Auto) 0.8 Basophils (%) (Auto) 0.9 Neutrophils # (Auto) 9.3 Lymphocytes # (Auto) 0.4 Monocytes # (Auto) 0.5 Eosinophils # (Auto) 0.1 Basophils # (Auto) 0.1 CBC Comment DIFF FINAL Differential Comment Prothrombin Time 13.4 Prothromb Time International Ratio 1.3 Activated Partial Thromboplast Time 30.8 Fibrinogen 298 Bedside Sodium 136 Bedside Potassium 4.4 Bedside Chloride 100 Bedside Blood Urea Nitrogen 31 Bedside Creatinine 1.6 Bedside Glucose 184 Total Creatine Kinase 45 Troponin I 0.04 Result Diagram: 11/05/17 1151 Imaging Last Impressions Head CT 11/05/17 0000 Signed Impressions: Service Date/Time: Sunday, November 05, 2017 11:57 - CONCLUSION: 1. No acute intracranial abnormality. 2. 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 Jay Eason Jr., MD Chest X-Ray 11/05/17 0000 Signed Impressions: Service Date/Time: Sunday, November 05, 2017 12:12 - CONCLUSION: 1. Postsurgical features with compensated cardiomegaly. MD Dominique Ponce VTE Risk Assessment Caprini VTE Risk Assessment: Mod/High Risk (score >= 2) Caprini Risk Assessment Model Point Value = 1 Point Value = 2 Point Value = 3 Point Value = 5 Age 41-60 Minor surgery BMI > 25 kg/m2 Swollen legs Varicose veins or History of unexplained or recurrent spontaneous Oral contraceptives or hormone replacement Sepsis (< 1 month) Serious lung disease, including pneumonia (< 1 month) Abnormal pulmonary function Acute myocardial infarction Congestive heart failure (< 1 month) History of inflammatory bowel disease Medical patient at bed rest Age 61-74 Arthroscopic surgery Major open surgery (> 45 min) Laparoscopic surgery (> 45 min) Malignancy Confined to bed (> 72 hours) Immobilizing plaster cast Central venous access Age >= 75 History of VTE Family history of VTE Factor V Leiden Prothrombin [id number] Lupus anticoagulant Anticardiolipin antibodies Elevated serum homocysteine Heparin-induced thrombocytopenia Other congenital or acquired thrombophilia Stroke (< 1 month) Elective arthroplasty Hip, pelvis, or leg fracture Acute spinal cord injury (< 1 month) Prophylaxis Regimen Total Risk Factor Score Risk Level Prophylaxis Regimen 0-1 Low Early ambulation 2 Moderate Order ONE of the following: *Sequential Compression Device (SCD) *Heparin 5000 units SQ BID 3-4 Higher Order ONE of the following medications: *Heparin 5000 units SQ TID *Enoxaparin/Lovenox 40 mg SQ daily (WT < 150 kg, CrCl > 30 mL/min) *Enoxaparin/Lovenox 30 mg SQ daily (WT < 150 kg, CrCl > 10-29 mL/min) *Enoxaparin/Lovenox 30 mg SQ BID (WT < 150 kg, CrCl > 30 mL/min) AND/OR *Sequential Compression Device (SCD) 5 or more Highest Order ONE of the following medications: *Heparin 5000 units SQ TID (Preferred with Epidurals) *Enoxaparin/Lovenox 40 mg SQ daily (WT < 150 kg, CrCl > 30 mL/min) *Enoxaparin/Lovenox 30 mg SQ daily (WT < 150 kg, CrCl > 10-29 mL/min) *Enoxaparin/Lovenox 30 mg SQ BID (WT < 150 kg, CrCl > 30 mL/min) AND *Sequential Compression Device (SCD) Assessment and Plan Problem List: (1) CVA (cerebral vascular accident) ICD Code: I63.9 - Cerebral infarction, unspecified Status: Acute (2) TYPE 2 DIABETES MELLITUS WITH FOOT ULCER ICD Code: E11.621 - TYPE 2 DIABETES MELLITUS WITH FOOT ULCER Status: Chronic Assessment and Plan 76-year-old male admitted secondary to acute CVA Acute CVA Neurochecks Neurology consulted Monitor neurological status closely MRI of brain possible secondary to pacemaker Obtain carotid ultrasound Obtain echocardiogram Follow INR Daily aspirin Allow for elevations in blood pressures Mild dyspnea Check bilateral lower extremities for DVTs Recent right foot amputations of first and second toes Wound care consult Coronary artery disease Peripheral vascular disease Asymptomatic Follow clinically Diabetes mellitus type 2 Follow blood sugars Insulin sliding scale Diabetic diet Hypertension Follow blood pressures Allow for elevations post CVA Adjust treatments as needed Hyperlipidemia Continue present treatment Follow as an outpatient DVT prophylaxis SCDs Pt on Coumadin Physician Certification 2 Midnight Certification Type: Admission for Inpatient Services Order for Inpatient Services The services are ordered in accordance with Medicare regulations or non- Medicare payer requirements, as applicable. In the case of services not specified as inpatient-only, they are appropriately provided as inpatient services in accordance with the 2-midnight benchmark. Estimated LOS (days): 3 days is the estimated time the patient will need to remain in the hospital, assuming treatment plan goals are met and no additional complications. Post-Hospital Plan: Home Problem Qualifiers (1) CVA (cerebral vascular accident): Qualified Codes: I63.9 - Cerebral infarction, unspecified Sim Philippe MD Nov 05, 2017 13:42
[2017-11-05 14:20] LABS: BACTERIA, URINE RARE /hpf; BILIRUBIN, URINE NEG (NEG); BLOOD, URINE TRACE (NEG); GLUCOSE,URINE NEG (NEG); KETONE, URINE NEG (NEG); MUCUS URINE FEW /lpf (OCC); NITRITE,URINE NEG (NEG); PH, URINE 5.5 (5.0-8.5); URINE COLOR YELLOW (YELLW/STRAW); URINE LEUKOCYTE ESTERASE NEG (NEG)
--- NOTE | 2017-11-05 14:55 | PD.CONS ---
History of Present Illness Service Neurology Consult Requested By ED Reason for Consult Stroke alert Primary Care Physician Boris Aguilar MD History of Present Illness History of present illness The patient is a 76-year-old male admitted to the hospital for possible stroke. Patient states that he was feeling relatively well at home this morning when he suddenly became lightheaded and dizzy, fell down against the chair and had trouble getting off of the floor. Daughter went over at 10 AM and helped the patient up off of the floor when she noticed the patient had right facial droop and some difficulty walking. The patient does have a history of previous stroke according to the daughter which left him with diminished bitemporal visual muller. The patient also has a history of previous CABG and open-heart surgery, is currently on Coumadin with subtherapeutic INR at 1.3 on arrival. Stroke alert was called, however due to Coumadin use the patient was not a candidate. 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 Atrial fibrillation Coronary artery disease status post coronary artery bypass grafting Diabetes mellitus Peripheral vascular disease CKD stage III Past Surgical History AICD placement CABG Right great toe amputation Active Ordered Medications Current Medications Medications (Trade) Dose Ordered Sig/Jorge L Route Start Time Stop Time Status Last Admin Sodium Chloride 1,000 ml @ 70 mls/hr [id number] ONCE IV 11/05/17 11:51 11/06/17 02:08 11/05/17 12:35 (NS Flush) 2 ml UNSCH PRN IV FLUSH 11/05/17 13:30 (NS Flush) 2 ml BID IV FLUSH 11/05/17 21:00 (Zofran Inj) 4 mg Q6H PRN IVP 11/05/17 13:30 UNV (Narcan Inj) 0.4 mg UNSCH PRN IV PUSH 11/05/17 13:30 UNV (Milk Of Magnesia Liq) 30 ml Q12H PRN PO 11/05/17 13:30 UNV (Cardizem Cd) 120 mg DAILY PO 11/06/17 09:00 UNV (Breo Ellipta 200-25 Inh) 1 puff DAILY INH 11/06/17 09:00 UNV (Duoneb Neb) 1 ampule BID NEB 11/05/17 21:00 UNV (Coumadin) 7.5 mg DAILY PO 11/06/17 09:00 UNV Non-Formulary Medication 1 spray BID EACH NARE 11/05/17 21:00 UNV Non-Formulary Medication 40 mg HS PO 11/05/17 21:00 UNV (Aspirin Chew) 81 mg DAILY PO 11/06/17 09:00 UNV (NovoLOG SUPPLEMENTAL SCALE) 1 ACHS SQ 11/05/17 17:00 UNV (D50w (Vial) Inj) 50 ml UNSCH PRN IV PUSH 11/05/17 13:30 UNV (Glucagon Inj) 1 mg UNSCH PRN OTHER 11/05/17 13:30 UNV Family History Cardiac arrest Social History Non-smoker, infrequent alcohol use, no drugs, (Henry Gordillo) Exam I&O / VS 11/05/17 11/05/17 11/06/17 15:00 23:00 07:00 Output Total 250 ml Balance -250 ml Output Urine Total 250 ml Vital Signs Date Time Temp Pulse Resp B/P (MAP) Pulse Ox O2 Delivery O2 Flow Rate FiO2 11/05/17 13:49 98 Room Air 11/05/17 12:39 74 22 159/89 (112) 97 Room Air 11/05/17 12:13 75 21 98 Room Air 11/05/17 12:12 97.4 75 20 176/95 (122) 98 Room Air 11/05/17 12:03 98 Room Air 11/05/17 12:03 88 20 176/95 (122) 98 Room Air 11/05/17 11:44 88 20 176/95 (122) General: Alert and Oriented Eye: PERRL, EOMI Respiratory: Non-labored respirations, Symmetrical expansion Cardiology: Normal rate Neurologic: Alert, Oriented, Normal sensory, Normal DTR's Psychiatric: Cooperative, Appropriate mood & affect, Normal judgement Exam Comments Bitemporal hemianopsia, alert and oriented 3, speech fluent, mild decreased right nasolabial fold, strength full and equal throughout the extremities, no drift, no dysmetria, sensory intact, no clonus (Henry Gordillo) Review/Management Diagnosis/Plan: (1) TYPE 2 DIABETES MELLITUS WITH FOOT ULCER ICD Codes: E11.621 - TYPE 2 DIABETES MELLITUS WITH FOOT ULCER Status: Chronic Plan: Glycemic control, per attending Patient is status post right great toe amputation (2) CKD (chronic kidney disease), stage III ICD Codes: N18.3 - Chronic kidney disease, stage 3 (moderate) Status: Acute Plan: Creatinine 1.6, contrast studies are limited Follow clinically (3) Hypertension ICD Codes: I10 - Hypertension Status: Chronic Plan: Allow for permissible hypertension acutely, however we discussed long- term better control Patient's daughter states his blood pressure has been poorly controlled for the past month (4) 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 Plan: Check echo carotid ultrasound Angiograms are limited due to kidney function and AICD placement (5) CVA (cerebral vascular accident) ICD Codes: I63.9 - Cerebral infarction, unspecified Status: Acute Plan: CT brain with old right 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 seen and examined. agree with above (Yohan Almanzar MD) Problem Qualifiers (1) CVA (cerebral vascular accident): Qualified Codes: I63.9 - Cerebral infarction, unspecified Henry Gordillo Nov 05, 2017 14:55 Yohan Almanzar MD Nov 05, 2017 21:51
[2017-11-05] MEDS ORDERED: ONDANSETRON HCL 4 MG/2 ML VIAL IVP PRN (15:00)
[2017-11-05] MEDS ORDERED: MAGNESIUM HYDROXIDE SUSP 30 ML CUP PO PRN (15:00)
[2017-11-05] MEDS: INSULIN ASPART SUPPLEMENTAL SCALE SQ SCH ×2 (17:00→21:58)
--- NOTE | 2017-11-05 17:03 | RADRPT ---
EXAM DATE/TIME: 11/05/2017 16:09 [facility] COMPARISON: No previous studies available for comparison. INDICATIONS : Bilateral leg pain. MEDICAL HISTORY : Hypercholesterolemia. Congestive heart failure. Cataracts. CVA. Peripheral vascular disease. Anticoa gulant. A.FIB. COPD. Diabetes. Anemia. SURGICAL HISTORY : CABG. Pacemaker. Right toe amputation. ENCOUNTER: Initial ACUITY: 1 day PAIN SCORE: 0/10 LOCATION: Bilateral legs. TECHNIQUE: Venous ultrasound of the left and right leg was performed from the inguinal ligament to the proximal calf. Real-time, color Doppler and spectral tracing, compression and augmentation techniques were us ed. FINDINGS: RIGHT LEG: There is normal compressibility of the deep venous system from the inguinal region to the proximal ca lf. No echogenic clot is seen in the lumen of the common femoral, femoral, popliteal, and posterior tibial veins. There is a normal response of the venous system to proximal and distal augmentation an d respiration. LEFT LEG: There is normal compressibility of the deep venous system from the inguinal region to the proximal ca lf. No echogenic clot is seen in the lumen of the common femoral, femoral, popliteal, and posterior tibial veins. There is a normal response of the venous system to proximal and distal augmentation an d respiration. CONCLUSION: Normal examination. Jay Eason Jr., MD on November 05, 2017 at 16:58 Board Certified Radiologist. This report was verified electronically.
--- NOTE | 2017-11-05 17:13 | RADRPT ---
EXAM DATE/TIME: 11/05/2017 16:26 [facility] COMPARISON: No previous studies available for comparison. INDICATIONS : Cerebrovascular accident. MEDICAL HISTORY : Congestive heart failure. Hypercholesterolemia. Cataracts. CVA. Peripheral vascular disease. Antico agulant. A.FIB. COPD. Diabetes. Anemia. SURGICAL HISTORY : CABG. Pacemaker. Right toe amputation. ENCOUNTER: Initial ACUITY: 1 day PAIN SCORE: 0/10 LOCATION: Bilateral neck PEAK SYSTOLIC VELOCITIES (cm/sec): ICA/CCA RATIO: Right: 3.6 Left: 0.8 ICA: Right: 142 Left: 47 CCA: Right: 40 Left: 58 ECA: Right: 41 Left: 52 VERTEBRAL: Right: 49 antegrade Left: 44 antegrade Elevated flow velocities and ICA/CCA ratios have been found to correlate with increased degrees of vessel stenosis, calculated as percentage of diameter relative to a normal segment of distal ICA/CCA FINDINGS: RIGHT CAROTID: Scattered calcified plaque throughout the common carotid artery and proximal ICA. By grayscale analys is the most significant narrowing is within the proximal ICA measuring approximately 50%. ICA wavefor m is normal. LEFT CAROTID: Scattered calcified plaque throughout the common carotid and proximal ICA. The calcified nature at th e level of the carotid bulb generates shadowing limiting the grayscale analysis. ICA waveform is norm al. VERTEBRAL ARTERIES: Antegrade flow is seen in both vertebral arteries. MISCELLANEOUS: None. CONCLUSION: 1. Calcified plaque throughout the carotid arteries but more abundant on the right. A 50-69% stenosis is suspected involving the right carotid and less than 50% stenosis involving the left. 2. Antegrade flow involving both vertebral arteries. Jay Eason Jr., MD on November 05, 2017 at 17:08 Board Certified Radiologist. This report was verified electronically.
[2017-11-05 17:58] LABS: HEMOGLOBIN A1C 7.9 % (4.3-6.0)
[2017-11-05] MEDS: RESP: ALBUTEROL 2.5 MG/IPRATROPIUM 0.5 MG NEB (SCH) NEB (19:44)
[2017-11-05] MEDS ORDERED: SODIUM CHLORIDE 0.9% FLUSH 10 ML FLUSH IV FLUSH SCH (21:00)
[2017-11-05] MEDS ORDERED: IPRATROPIUM 0.06% NASAL SCH (21:00)
[2017-11-05] MEDS: PRAVASTATIN SOD 80 MG TAB PO SCH (21:57)
[2017-11-05] MEDS: HEPARIN SODIUM - SQ 10,000 UNITS/ML VIAL SQ SCH (21:57)
[2017-11-05] MEDS: SODIUM CHLORIDE 0.9% FLUSH 10 ML FLUSH IV FLUSH SCH (21:58)
[2017-11-06] VITALS (8 sets, daily range): BP systolic 164–200; BP diastolic 79–101; PULSE 61–85; RESP 18–20; TEMP 97–98.1; O2SAT 96–98
[2017-11-06] MEDS: HEPARIN SODIUM - SQ 10,000 UNITS/ML VIAL SQ SCH ×3 (04:37→20:17)
[2017-11-06] MEDS: INSULIN ASPART SUPPLEMENTAL SCALE SQ SCH ×4 (08:00→21:16)
[2017-11-06] MEDS: RESP: ALBUTEROL 2.5 MG/IPRATROPIUM 0.5 MG NEB (SCH) NEB ×2 (08:15→20:00)
--- NOTE | 2017-11-06 08:22 | HHI.PR ---
Review/Management Diagnosis/Plan: (1) CVA (cerebral vascular accident) ICD Codes: I63.9 - Cerebral infarction, unspecified Status: Acute Plan: neuro stable rt ica 50-69% stenosis. states he is following with surgeon outpatient no cta's 2/2 renal function. no mri 2/2 aid recs inr goal 2-2.5, bridge with lovenox if needed d/c planning from neuro once inr >1.8 (2) TYPE 2 DIABETES MELLITUS WITH FOOT ULCER ICD Codes: E11.621 - TYPE 2 DIABETES MELLITUS WITH FOOT ULCER Status: Chronic Plan: Glycemic control, per attending Patient is status post right great toe amputation (3) CKD (chronic kidney disease), stage III ICD Codes: N18.3 - Chronic kidney disease, stage 3 (moderate) Status: Chronic Plan: Creatinine 1.6, contrast studies are limited Follow clinically (4) Hypertension ICD Codes: I10 - Hypertension Status: Chronic Plan: Allow for permissible hypertension acutely, however we discussed long- term better control Patient's daughter states his blood pressure has been poorly controlled for the past month (5) 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 Plan: Angiograms are limited due to kidney function and AICD placement Subjective Subjective Comments No acute events reported No headache No chest pain No dyspnea Active Medications Current Medications Medications (Trade) Dose Ordered Sig/Jorge L Route Start Time Stop Time Status Last Admin (NS Flush) 2 ml UNSCH PRN IV FLUSH 11/05/17 13:30 (NS Flush) 2 ml BID IV FLUSH 11/05/17 21:00 11/05/17 21:58 (Zofran Inj) 4 mg Q6H PRN IVP 11/05/17 15:00 (Narcan Inj) 0.4 mg UNSCH PRN IV PUSH 11/05/17 13:30 (Milk Of Magnesia Liq) 30 ml Q12H PRN PO 11/05/17 15:00 (Cardizem Cd) 120 mg DAILY PO 11/06/17 09:00 (Breo Ellipta 200-25 Inh) 1 puff DAILY INH 11/06/17 09:00 (Duoneb Neb) 1 ampule BID NEB NEB 11/05/17 20:00 11/06/17 08:15 (Coumadin) 7.5 mg DAILY@1600 PO 11/06/17 16:00 Patient Own Medication PT OWN MED: IPRATROP... BID NASAL 11/05/17 21:00 Future Hold (Pravachol) 80 mg HS PO 11/05/17 21:00 11/05/17 21:57 (Aspirin Chew) 81 mg DAILY PO 11/06/17 09:00 (NovoLOG SUPPLEMENTAL SCALE) 1 ACHS SQ 11/05/17 17:00 11/05/17 21:58 (D50w (Vial) Inj) 50 ml UNSCH PRN IV PUSH 11/05/17 13:30 (Glucagon Inj) 1 mg UNSCH PRN OTHER 11/05/17 13:30 (Heparin Inj) 5,000 units Q8H SQ 11/05/17 20:00 11/06/17 04:37 Allergies Allergies Coded Allergies No Known Allergies (Verified Adverse Reaction, Unknown, 10/21/17) Review of Systems Constitutional: Negative except HPI Eye: Negative Except HPI ENMT: Negative except HPI Respiratory: Negative except HPI Cardiovascular: Negative except HPI Gastrointestinal: Negative except HPI Jeffy/Lymph: Negative except HPI Musculoskeletal: Negative except HPI Neurologic: Negative except HPI Psychiatric: Negative except HPI All other ROS: ROS reviewed as documented in chart Exam I&O / VS Vital Signs Date Time Temp Pulse Resp B/P (MAP) Pulse Ox O2 Delivery O2 Flow Rate FiO2 11/06/17 04:49 97.0 74 18 179/91 (120) 97 11/06/17 01:00 98.1 61 18 164/79 (107) 97 11/06/17 00:00 68 11/05/17 21:15 97.6 70 20 153/77 (102) 94 11/05/17 20:00 72 20 170/81 (110) 97 Room Air 11/05/17 19:44 98 11/05/17 16:46 68 20 168/96 (120) 96 Room Air 11/05/17 13:49 98 Room Air 11/05/17 12:39 74 22 159/89 (112) 97 Room Air 11/05/17 12:13 75 21 98 Room Air 11/05/17 12:12 97.4 75 20 176/95 (122) 98 Room Air 11/05/17 12:03 98 Room Air 11/05/17 12:03 88 20 176/95 (122) 98 Room Air 11/05/17 11:44 88 20 176/95 (122) General: Alert and Oriented Eye: PERRL, EOMI Respiratory: Non-labored respirations, Symmetrical expansion Cardiology: Normal rate Neurologic: Alert, Oriented, Normal sensory, Normal motor, No focal defects, CN II-XII intact, Normal DTR's Psychiatric: Cooperative, Appropriate mood & affect, Normal judgement Objective Micro and Labs Laboratory Tests Test 11/05/17 11:51 11/05/17 13:44 White Blood Count 10.5 Red Blood Count 4.78 Hemoglobin 11.7 Bedside Hemoglobin 13.3 Hematocrit 35.9 Bedside Hematocrit 39.0 Mean Corpuscular Volume 75.1 Mean Corpuscular Hemoglobin 24.5 Mean Corpuscular Hemoglobin Concent 32.6 Red Cell Distribution Width 19.1 Platelet Count 140 Mean Platelet Volume 9.3 Neutrophils (%) (Auto) 89.2 Lymphocytes (%) (Auto) 4.0 Monocytes (%) (Auto) 5.1 Eosinophils (%) (Auto) 0.8 Basophils (%) (Auto) 0.9 Neutrophils # (Auto) 9.3 Lymphocytes # (Auto) 0.4 Monocytes # (Auto) 0.5 Eosinophils # (Auto) 0.1 Basophils # (Auto) 0.1 CBC Comment DIFF FINAL Differential Comment Prothrombin Time 13.4 Prothromb Time International Ratio 1.3 Activated Partial Thromboplast Time 30.8 Fibrinogen 298 Bedside Sodium 136 Bedside Potassium 4.4 Bedside Chloride 100 Bedside Blood Urea Nitrogen 31 Bedside Creatinine 1.6 Bedside Glucose 184 Hemoglobin A1c 7.9 Total Creatine Kinase 45 Troponin I 0.04 Urine Opiates Screen NEG Urine Barbiturates Screen NEG Urine Amphetamines Screen NEG Urine Benzodiazepines Screen NEG Urine Cocaine Screen NEG Urine Cannabinoids Screen NEG Urine Color YELLOW Urine Turbidity CLEAR Urine pH 5.5 Urine Specific Elsie 1.014 Urine Protein 30 Urine Glucose (UA) NEG Urine Ketones NEG Urine Occult Blood TRACE Urine Nitrite NEG Urine Bilirubin NEG Urine Urobilinogen LESS THAN 2.0 Urine Leukocyte Esterase NEG Urine RBC 1 Urine WBC LESS THAN 1 Urine Bacteria RARE Urine Mucus FEW Problem Qualifiers (1) CVA (cerebral vascular accident): Qualified Codes: I63.9 - Cerebral infarction, unspecified Yohan Almanzar MD Nov 06, 2017 08:22
[2017-11-06] MEDS: FLUTICASONE 200 MCG/VILANTEROL 25 MCG INHALER INH SCH (09:00)
[2017-11-06] MEDS: SODIUM CHLORIDE 0.9% FLUSH 10 ML FLUSH IV FLUSH SCH ×2 (09:13→20:17)
[2017-11-06] MEDS: ASPIRIN 81 MG CHEW TAB PO SCH (09:14)
[2017-11-06 10:06] LABS: INTERNATIONAL NORMALIZED RATIO 1.4 RATIO; PROTHROMBIN TIME - PATIENT 13.7 SEC (9.8-11.6)
[2017-11-06] MEDS: DILTIAZEM-CD 120 MG CAP ER PO SCH (10:11)
[2017-11-06 10:14] LABS: AUTOMATED NEUTROPHIL # 7.7 TH/MM3 (1.8-7.7); BASOPHIL # 0.1 TH/MM3 (0-0.2); BASOPHIL % 1.2 % (0.0-2.0); EOSINOPHIL # 0.1 TH/MM3 (0-0.4); HEMATOCRIT 34.5 % (39.0-51.0); HEMOGLOBIN 10.9 GM/DL (13.0-17.0); LYMPHOCYTE # 0.5 TH/MM3 (1.0-4.8); MEAN CELL VOLUME 76.1 FL (80.0-100.0); MEAN CORPUSCULAR HGB CONC 31.6 % (32.0-36.0); MEAN PLATELET VOLUME 9.6 FL (7.0-11.0); MONO % 5.5 % (0.0-8.0); MONOCYTE # 0.5 TH/MM3 (0-0.9); NEUT % 86.3 % (16.0-70.0); PLATELET COUNT 128 TH/MM3 (150-450); RED BLOOD COUNT 4.53 MIL/MM3 (4.50-5.90); RED CELL DISTRIBUTION WIDTH 19.2 % (11.6-17.2); WHITE BLOOD COUNT 8.9 TH/MM3 (4.0-11.0)
[2017-11-06 10:45] LABS: ALBUMIN 3.5 GM/DL (3.4-5.0); ALKALINE PHOSPHATASE 102 U/L (45-117); ALT (GPT) 10 U/L (12-78); AST (GOT) 16 U/L (15-37); BICARBONATE 23.3 MEQ/L (21.0-32.0); BLOOD UREA NITROGEN 28 MG/DL (7-18); CALCIUM 8.8 MG/DL (8.5-10.1); CHLORIDE 101 MEQ/L (98-107); CHOLESTEROL 77 MG/DL (120-200); CHOLESTEROL/ HDL RATIO 2.52 RATIO; CREATININE 1.53 MG/DL (0.60-1.30); GLOMERULAR FILTRATION RATE 44 ML/MIN (>89); GLUCOSE,RANDOM 199 MG/DL (74-106); HDL CHOLESTEROL 30.5 MG/DL (40.0-60.0); LDL CHOLESTEROL 34 MG/DL (0-99); SODIUM (NA) 133 MEQ/L (136-145); TOTAL BILIRUBIN ADULT 0.7 MG/DL (0.2-1.0); TRIGLYCERIDES 63 MG/DL (42-150)
--- NOTE | 2017-11-06 14:07 | HHI.PR ---
Subjective Remarks The patient is in the chair he better today. Speech is much better and family at bedside. No new motor deficit. Denies having any pain at this time. He is coughing a little bit but nothing comes out. No fever or chills overnight. Objective Vitals Vital Signs Date Time Temp Pulse Resp B/P (MAP) Pulse Ox O2 Delivery O2 Flow Rate FiO2 11/06/17 12:00 85 11/06/17 12:00 97.5 85 18 177/96 (123) 97 11/06/17 08:00 97.2 82 18 200/101 (134) 98 11/06/17 08:00 96 11/06/17 04:49 97.0 74 18 179/91 (120) 97 11/06/17 01:00 98.1 61 18 164/79 (107) 97 11/06/17 00:00 68 11/05/17 21:15 97.6 70 20 153/77 (102) 94 11/05/17 20:00 72 20 170/81 (110) 97 Room Air 11/05/17 19:44 98 11/05/17 16:46 68 20 168/96 (120) 96 Room Air I/O 11/05/17 11/05/17 11/05/17 11/06/17 11/06/17 11/06/17 06:59 14:59 22:59 06:59 14:59 22:59 Intake Total 1009 ml Output Total 250 ml 200 ml 850 ml Balance -250 ml -200 ml 159 ml Intake IV Total 1009 ml Output Urine Total 250 ml 200 ml 850 ml # Voids 1 1 Result Diagram: 11/06/1736 11/06/17 0836 Imaging Last Impressions Lower Extremity Ultrasound 11/05/17 0000 Signed Impressions: Service Date/Time: Sunday, November 05, 2017 16:09 - CONCLUSION: Normal examination. Jay Eason Jr., MD Head CT 11/05/17 0000 Signed Impressions: Service Date/Time: Sunday, November 05, 2017 11:57 - CONCLUSION: 1. No acute intracranial abnormality. 2. Old right [employer] territory infarction. Jay Eason Jr., MD Chest X-Ray 11/05/17 0000 Signed Impressions: Service Date/Time: Sunday, November 05, 2017 12:12 - CONCLUSION: 1. Postsurgical features with compensated cardiomegaly. Nino Cary MD Carotid Artery Ultrasound 11/05/17 0000 Signed Impressions: Service Date/Time: Sunday, November 05, 2017 16:26 - CONCLUSION: 1. Calcified plaque throughout the carotid arteries but more abundant on the right. A 50-69% % stenosis is suspected involving the right carotid and less than 50%% stenosis involving the left. 2. Antegrade flow involving both vertebral arteries. Jay Eason Jr., MD Objective Remarks GENERAL: This is a well-nourished, well-developed patient, in no apparent distress. SKIN: No rashes, ecchymoses or lesions. Cool and dry. HEAD: Atraumatic. Normocephalic. No temporal or scalp tenderness. EYES: Pupils equal round and reactive. Extraocular motions intact. No scleral icterus. No injection or drainage. ENT: Nose without bleeding, purulent drainage or septal hematoma. Throat without erythema, tonsillar hypertrophy or exudate. Uvula midline. Airway patent. NECK: Trachea midline. No JVD or lymphadenopathy. Supple, nontender, no meningeal signs. CARDIOVASCULAR: Regular rate and rhythm without murmurs, gallops, or rubs. RESPIRATORY: Clear to auscultation. Breath sounds equal bilaterally. No wheezes , rales, or rhonchi. GASTROINTESTINAL: Abdomen soft, non-tender, nondistended. No hepato-splenomegaly , or palpable masses. No guarding. MUSCULOSKELETAL: Extremities without clubbing, cyanosis, or edema. No joint tenderness, effusion, or edema noted. No calf tenderness. Negative Homans sign bilaterally. NEUROLOGICAL: Awake and alert. Cranial nerves II through XII intact. Motor and sensory grossly within normal limits. Five out of 5 muscle strength in all muscle groups. Speech back to normal per patient and family . A/P Problem List: (1) CVA (cerebral vascular accident) ICD Code: I63.9 - Cerebral infarction, unspecified Status: Acute (2) TYPE 2 DIABETES MELLITUS WITH FOOT ULCER ICD Code: E11.621 - TYPE 2 DIABETES MELLITUS WITH FOOT ULCER Status: Chronic Assessment and Plan 76-year-old male admitted secondary to acute CVA Acute CVA Neurochecks Neurology consulted Monitor neurological status closely MRI of brain possible secondary to pacemaker Obtain carotid ultrasound Obtain echocardiogram Follow INR Daily aspirin Allow for elevations in blood pressures Mild dyspnea Check bilateral lower extremities for DVTs Recent right foot amputations of first and second toes Wound care consult Coronary artery disease Peripheral vascular disease Asymptomatic Follow clinically Diabetes mellitus type 2 Follow blood sugars Insulin sliding scale Diabetic diet Hypertension Follow blood pressures Allow for elevations post CVA Adjust treatments as needed Hyperlipidemia Continue present treatment Follow as an outpatient DVT prophylaxis SCDs Pt on Coumadin, bridge with lovenox if need . Can be DC when INR > 1.8 per neuro Discussed with the patient, nurse, family at bedside Problem Qualifiers (1) CVA (cerebral vascular accident): Qualified Codes: I63.9 - Cerebral infarction, unspecified Ludmila Marrufo MD Nov 06, 2017 14:06
[2017-11-06] MEDS: WARFARIN SOD 7.5 MG TAB PO SCH (16:26)
--- NOTE | 2017-11-06 18:14 | ECHRPT ---
Indication: EF assesment of CHF CONCLUSIONS The left ventricular systolic function is moderately reduced with an estimated ejection fraction in the range of 35-40%. Wall thickness is measured at the upper limits of normal. Normal left ventricular size. BP: 179 / 91 HR: 88 Rhythm: Other MEASUREMENTS (Male / Female) Normal Values Technical Quality:Fair 2D ECHO LV Diastolic Diameter PLAX 5.8 cm 4.2 - 5.9 / 3.9 - 5.3 cm LV Systolic Diameter PLAX 4.8 cm IVS Diastolic Thickness 1.1 cm 0.6 - 1.0 / 0.6 - 0.9 cm LVPW Diastolic Thickness 1.1 cm 0.6 - 1.0 / 0.6 - 0.9 cm LV Relative Wall Thickness 0.4 FINDINGS LEFT VENTRICLE The left ventricular systolic function is moderately reduced with an estimated ejection fraction in the range of 35-40%. Wall thickness is measured at the upper limits of normal. Normal left ventricular size. Landon Mahoney MD, FACC (Electronically Signed) Final Date:06 November 2017 18:13
[2017-11-06] MEDS: PRAVASTATIN SOD 80 MG TAB PO SCH (20:17)
--- NOTE | 2017-11-06 22:15 | EKG ---
Date Performed: 11/05/2017 Time Performed: 12:16:27 PTAGE: 76 years EKG: ELECTRONIC VENTRICULAR PACEMAKER ABNORMAL RHYTHM ECG PREVIOUS TRACING : 05/01/2017 08.54 Compared to prior tracing, VENTRICULAR PACEMAKER RHYTHM IS NEW DOCTOR: Austin Araiza Interpretating Date/Time 11/06/2017 22:14:18
[2017-11-07] VITALS (10 sets, daily range): BP systolic 167–186; BP diastolic 84–92; PULSE 71–93; RESP 16–19; TEMP 97.1–97.8; O2SAT 94–98
[2017-11-07] MEDS: HEPARIN SODIUM - SQ 10,000 UNITS/ML VIAL SQ SCH ×3 (04:53→20:35)
[2017-11-07] MEDS: RESP: ALBUTEROL 2.5 MG/IPRATROPIUM 0.5 MG NEB (SCH) NEB ×2 (07:33→21:31)
[2017-11-07] MEDS: INSULIN ASPART SUPPLEMENTAL SCALE SQ SCH ×4 (08:00→21:00)
[2017-11-07] MEDS: FLUTICASONE 200 MCG/VILANTEROL 25 MCG INHALER INH SCH (08:19)
[2017-11-07] MEDS: DILTIAZEM-CD 120 MG CAP ER PO SCH (08:19)
[2017-11-07] MEDS: ASPIRIN 81 MG CHEW TAB PO SCH (08:20)
[2017-11-07] MEDS: SODIUM CHLORIDE 0.9% FLUSH 10 ML FLUSH IV FLUSH SCH ×2 (08:21→20:36)
--- NOTE | 2017-11-07 09:10 | HHI.PR ---
Review/Management Diagnosis/Plan: (1) CVA (cerebral vascular accident) ICD Codes: I63.9 - Cerebral infarction, unspecified Status: Acute Plan: neuro stable rt ica 50-69% stenosis. states he is following with surgeon outpatient no cta's 2/2 renal function. no mri 2/2 aid recs inr 1.4 inr goal 2-2.5, bridge with lovenox if needed; social work can arrange d/c planning from neuro and outpatient f/u (2) TYPE 2 DIABETES MELLITUS WITH FOOT ULCER ICD Codes: E11.621 - TYPE 2 DIABETES MELLITUS WITH FOOT ULCER Status: Chronic Plan: Glycemic control, per attending Patient is status post right great toe amputation (3) CKD (chronic kidney disease), stage III ICD Codes: N18.3 - Chronic kidney disease, stage 3 (moderate) Status: Chronic Plan: Creatinine 1.6, contrast studies are limited Follow clinically (4) Hypertension ICD Codes: I10 - Hypertension Status: Chronic Plan: Allow for permissible hypertension acutely, however we discussed long- term better control Patient's daughter states his blood pressure has been poorly controlled for the past month (5) 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 Plan: Angiograms are limited due to kidney function and AICD placement Subjective Subjective Comments No acute events reported No headache No chest pain No dyspnea Active Medications Current Medications Medications (Trade) Dose Ordered Sig/Jorge L Route Start Time Stop Time Status Last Admin (NS Flush) 2 ml UNSCH PRN IV FLUSH 11/05/17 13:30 (NS Flush) 2 ml BID IV FLUSH 11/05/17 21:00 11/07/17 08:21 (Zofran Inj) 4 mg Q6H PRN IVP 11/05/17 15:00 (Narcan Inj) 0.4 mg UNSCH PRN IV PUSH 11/05/17 13:30 (Milk Of Magnesia Liq) 30 ml Q12H PRN PO 11/05/17 15:00 11/06/17 16:27 (Cardizem Cd) 120 mg DAILY PO 11/06/17 09:00 11/07/17 08:19 (Breo Ellipta 200-25 Inh) 1 puff DAILY INH 11/06/17 09:00 11/07/17 08:19 (Duoneb Neb) 1 ampule BID NEB NEB 11/05/17 20:00 11/07/17 07:33 (Coumadin) 7.5 mg DAILY@1600 PO 11/06/17 16:00 11/06/17 16:26 Patient Own Medication PT OWN MED: IPRATROP... BID NASAL 11/05/17 21:00 Future Hold (Pravachol) 80 mg HS PO 11/05/17 21:00 11/06/17 20:17 (Aspirin Chew) 81 mg DAILY PO 11/06/17 09:00 11/07/17 08:20 (NovoLOG SUPPLEMENTAL SCALE) 1 ACHS SQ 11/05/17 17:00 11/06/17 21:16 (D50w (Vial) Inj) 50 ml UNSCH PRN IV PUSH 11/05/17 13:30 (Glucagon Inj) 1 mg UNSCH PRN OTHER 11/05/17 13:30 (Heparin Inj) 5,000 units Q8H SQ 11/05/17 20:00 11/07/17 04:53 Allergies Allergies Coded Allergies No Known Allergies (Verified Adverse Reaction, Unknown, 10/21/17) Review of Systems Constitutional: Negative except HPI Eye: Negative Except HPI ENMT: Negative except HPI Respiratory: Negative except HPI Cardiovascular: Negative except HPI Gastrointestinal: Negative except HPI Jeffy/Lymph: Negative except HPI Musculoskeletal: Negative except HPI Neurologic: Negative except HPI Psychiatric: Negative except HPI All other ROS: ROS reviewed as documented in chart Exam I&O / VS 11/07/17 11/07/17 11/08/17 15:00 23:00 07:00 Output Total 500 ml Balance -500 ml Output Urine Total 500 ml Vital Signs Date Time Temp Pulse Resp B/P (MAP) Pulse Ox O2 Delivery O2 Flow Rate FiO2 11/07/17 05:08 76 11/07/17 04:00 97.3 83 18 186/92 (123) 96 11/07/17 02:43 71 11/07/17 00:00 97.3 74 18 167/84 (111) 95 11/06/17 20:11 97.6 83 20 169/92 (117) 97 11/06/17 20:10 80 11/06/17 16:00 97.7 79 18 176/93 (120) 98 11/06/17 12:00 85 11/06/17 12:00 97.5 85 18 177/96 (123) 97 General: Alert and Oriented Eye: PERRL, EOMI Respiratory: Non-labored respirations, Symmetrical expansion Cardiology: Normal rate Neurologic: Alert, Oriented, Normal sensory, Normal motor, No focal defects, CN II-XII intact, Normal DTR's Psychiatric: Cooperative, Appropriate mood & affect, Normal judgement Problem Qualifiers (1) CVA (cerebral vascular accident): Qualified Codes: I63.9 - Cerebral infarction, unspecified Yohan Almanzar MD Nov 07, 2017 09:10
[2017-11-07] MEDS: HYDROCHLOROTHIAZIDE 25 MG TAB PO SCH (11:47)
--- NOTE | 2017-11-07 13:05 | PD.WCN.NOT ---
Wound Consult Description: Received consult from Doctor Philippe for wound management of R foot chronic wound to amputation site of 1st and 2nd toes. Communicated with: YVONNE Bravo and call placed to Doctor Philippe for orders. Recommendation: Please cleanse wound to R foot amputation site with wound cleanser and pat dry. Apply Puracol collagen dressing to wound bed and cover with optifoam basic dressing. Secure dressing with rolled gauze and tape. Change once every week or PRN if saturated or dislodged. Additional Information: Patient seen on for evaluation of R foot wound management. Patient has chronic wound to R foot following amputation of first and second toes. Skin graft is planned in near future. Patient sees Doctor Walker out patient for wound care. Called wound care center out patient and spoke with SHOBHA Bunn. Current orders for wound care are as follows. Puracol to wound bed covered with foam dressing and secured with rolled gauze and tape. Removed dressing in place to reveal wound to R foot amputation site. Wound measures 0.9cm x 3cm x 0.5cm. Wound presents with 100% pink tissue, with minimal serous drainage that is without odor. Wound margins are well defined with rolled edges between 12 and 2 o'clock. Periwound is unremarkable. Cleansed wound with wound cleanser and applied Purocol, collagen dressing to wound bed only and covered with Optifoam basic, secured with rolled gauze and tape. signed and dated dressing. Patient tolerated dressing change well. Beryl Wilder [facility] Nov 07, 2017 13:05
[2017-11-07] MEDS: WARFARIN SOD 7.5 MG TAB PO SCH (15:53)
[2017-11-07] MEDS ORDERED: RESP: ALBUTEROL 2.5 MG/IPRATROPIUM 0.5 MG NEB (PRN) NEB (18:15)
--- NOTE | 2017-11-07 18:26 | HHI.PR ---
Subjective Remarks Late entry / The patient was seen earlier today. With LE edema, patient denies having h/o cHF. However he says she is gettkinf progressively sob. Says at home can;t walk much without getting sob. He denies chest pain. No cough, No wheezing he has a h/o copd. No n/v/d/c. No fever or chills.no cough. Speech imprpved and per patient and family at bedside at baseline. He is on 2l NC and is not using O2 at home. Objective Vitals Vital Signs Date Time Temp Pulse Resp B/P (MAP) Pulse Ox O2 Delivery O2 Flow Rate FiO2 11/07/17 12:00 97.8 86 18 180/91 (120) 98 11/07/17 10:10 86 11/07/17 08:00 97.2 93 16 184/88 (120) 96 11/07/17 05:08 76 11/07/17 04:00 97.3 83 18 186/92 (123) 96 11/07/17 02:43 71 11/07/17 00:00 97.3 74 18 167/84 (111) 95 11/06/17 20:11 97.6 83 20 169/92 (117) 97 11/06/17 20:10 80 I/O 11/06/17 11/06/17 11/06/17 11/07/17 11/07/17 11/07/17 07:00 15:00 23:00 07:00 15:00 23:00 Intake Total 1009 ml Output Total 850 ml 500 ml Balance 159 ml -500 ml Intake IV Total 1009 ml Output Urine Total 850 ml 500 ml # Voids 1 1 Result Diagram: 11/06/17 0836 11/06/17 0836 Imaging Last Impressions Lower Extremity Ultrasound 11/05/17 0000 Signed Impressions: Service Date/Time: Sunday, November 05, 2017 16:09 - CONCLUSION: Normal examination. Jay Eason Jr., MD Head CT 11/05/17 0000 Signed Impressions: Service Date/Time: Sunday, November 05, 2017 11:57 - CONCLUSION: 1. No acute intracranial abnormality. 2. Old right [employer] territory infarction. Jay Eason Jr., MD Chest X-Ray 11/05/17 0000 Signed Impressions: Service Date/Time: Sunday, November 05, 2017 12:12 - CONCLUSION: 1. Postsurgical features with compensated cardiomegaly. Nino Cary MD Carotid Artery Ultrasound 11/05/17 0000 Signed Impressions: Service Date/Time: Sunday, November 05, 2017 16:26 - CONCLUSION: 1. Calcified plaque throughout the carotid arteries but more abundant on the right. A 50-69% % stenosis is suspected involving the right carotid and less than 50%% stenosis involving the left. 2. Antegrade flow involving both vertebral arteries. Jay Eason Jr., MD Objective Remarks GENERAL: This is a well-nourished, well-developed patient, in no apparent distress. SKIN: No rashes, ecchymoses or lesions. Cool and dry. HEAD: Atraumatic. Normocephalic. No temporal or scalp tenderness. EYES: Pupils equal round and reactive. Extraocular motions intact. No scleral icterus. No injection or drainage. ENT: Nose without bleeding, purulent drainage or septal hematoma. Throat without erythema, tonsillar hypertrophy or exudate. Uvula midline. Airway patent. NECK: Trachea midline. No JVD or lymphadenopathy. Supple, nontender, no meningeal signs. CARDIOVASCULAR: Regular rate and rhythm without murmurs, gallops, or rubs. RESPIRATORY: Clear to auscultation. Breath sounds equal bilaterally. No wheezes , rales, or rhonchi. GASTROINTESTINAL: Abdomen soft, non-tender, nondistended. No hepato-splenomegaly , or palpable masses. No guarding. MUSCULOSKELETAL: Extremities without clubbing, cyanosis, or edema. No joint tenderness, effusioa/ LE edema 2+ bilaterally. No calf tenderness. Negative Homans sign bilaterally. NEUROLOGICAL: Awake and alert. Cranial nerves II through XII intact. Motor and sensory grossly within normal limits. Five out of 5 muscle strength in all muscle groups. Speech back to normal per patient and family . A/P Problem List: (1) CVA (cerebral vascular accident) ICD Code: I63.9 - Cerebral infarction, unspecified Status: Acute (2) TYPE 2 DIABETES MELLITUS WITH FOOT ULCER ICD Code: E11.621 - TYPE 2 DIABETES MELLITUS WITH FOOT ULCER Status: Chronic Assessment and Plan 76-year-old male admitted secondary to acute CVA Acute CVA Neurochecks Neurology consulted Monitor neurological status closely MRI of brain possible secondary to pacemaker Obtain carotid ultrasound Echocardiogram rviewed with low EF 35-40% Follow INR Daily aspirin Allow for elevations in blood pressures Mild dyspnea With h/o COPD continue home meds without exacerbation at this time CHF now with exacerbation ECHO with low EF 35-40%. Patient denies having h/o CHF . Follows with dr Mahoney cardio consult Dr Mahoney his cardiology Acute respiratory failure 2/2/ CHF likely patient is not on O2 at home, requiring O2 now Check bilateral lower extremities for DVTs, no dvt ECHO EF 35-40% Will check BNP Start lasix 20 mg IV BID. Monitor closley kidney functio while on lasix. O2 supplement keep O2 > 94% Monitor I&Os Stop ivf Recent right foot amputations of first and second toes Wound care consult Coronary artery disease Peripheral vascular disease Asymptomatic Follow clinically Diabetes mellitus type 2 Follow blood sugars Insulin sliding scale Diabetic diet Hypertension Follow blood pressures Allow for elevations post CVA Adjust treatments as needed Hyperlipidemia Continue present treatment Follow as an outpatient DVT prophylaxis SCDs Pt on Coumadin, bridge with lovenox if need . Can be DC when INR > 1.8 per neuro Discussed with the patient, nurse, family at bedside Problem Qualifiers (1) CVA (cerebral vascular accident): Qualified Codes: I63.9 - Cerebral infarction, unspecified Ludmila Marrufo MD Nov 07, 2017 18:26
[2017-11-07] MEDS: PRAVASTATIN SOD 80 MG TAB PO SCH (20:35)
[2017-11-08] VITALS: PULSE 78
[2017-11-08 01:00] VITALS: BP 156/86; PULSE 75; RESP 18; TEMP 98.4; O2SAT 96
[2017-11-08 04:00] VITALS: PULSE 71
[2017-11-08] MEDS: HEPARIN SODIUM - SQ 10,000 UNITS/ML VIAL SQ SCH ×2 (05:04→12:00)
[2017-11-08 06:00] VITALS: BP 165/80; PULSE 66; RESP 19; TEMP 97.6; O2SAT 95
[2017-11-08] MEDS: RESP: ALBUTEROL 2.5 MG/IPRATROPIUM 0.5 MG NEB (SCH) NEB (07:39)
[2017-11-08] MEDS: INSULIN ASPART SUPPLEMENTAL SCALE SQ SCH ×2 (08:00→12:00)
[2017-11-08] MEDS: ASPIRIN 81 MG CHEW TAB PO SCH (08:26)
[2017-11-08] MEDS: FLUTICASONE 200 MCG/VILANTEROL 25 MCG INHALER INH SCH (08:26)
[2017-11-08] MEDS: DILTIAZEM-CD 120 MG CAP ER PO SCH (08:27)
[2017-11-08] MEDS: HYDROCHLOROTHIAZIDE 25 MG TAB PO SCH (08:27)
[2017-11-08] MEDS: SODIUM CHLORIDE 0.9% FLUSH 10 ML FLUSH IV FLUSH SCH (08:28)
--- NOTE | 2017-11-08 08:49 | HHI.PR ---
Review/Management Diagnosis/Plan: (1) CVA (cerebral vascular accident) ICD Codes: I63.9 - Cerebral infarction, unspecified Status: Acute Plan: neuro stable rt ica 50-69% stenosis. states he is following with surgeon outpatient no cta's 2/2 renal function. no mri 2/2 aid recs inr pending inr goal 2-2.5, bridge with lovenox if needed; social work can arrange d/c planning from neuro and outpatient f/u in 2 weeks (2) TYPE 2 DIABETES MELLITUS WITH FOOT ULCER ICD Codes: E11.621 - TYPE 2 DIABETES MELLITUS WITH FOOT ULCER Status: Chronic Plan: Glycemic control, per attending Patient is status post right great toe amputation (3) CKD (chronic kidney disease), stage III ICD Codes: N18.3 - Chronic kidney disease, stage 3 (moderate) Status: Chronic Plan: Creatinine 1.6, contrast studies are limited Follow clinically (4) Hypertension ICD Codes: I10 - Hypertension Status: Chronic Plan: Allow for permissible hypertension acutely, however we discussed long- term better control Patient's daughter states his blood pressure has been poorly controlled for the past month (5) 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 Plan: Angiograms are limited due to kidney function and AICD placement Subjective Subjective Comments No acute events reported No headache No chest pain No dyspnea Active Medications Current Medications Medications (Trade) Dose Ordered Sig/Jorge L Route Start Time Stop Time Status Last Admin (NS Flush) 2 ml UNSCH PRN IV FLUSH 11/05/17 13:30 (NS Flush) 2 ml BID IV FLUSH 11/05/17 21:00 11/08/17 08:28 (Zofran Inj) 4 mg Q6H PRN IVP 11/05/17 15:00 (Narcan Inj) 0.4 mg UNSCH PRN IV PUSH 11/05/17 13:30 (Milk Of Magnesia Liq) 30 ml Q12H PRN PO 11/05/17 15:00 11/06/17 16:27 (Cardizem Cd) 120 mg DAILY PO 11/06/17 09:00 11/08/17 08:27 (Breo Ellipta 200-25 Inh) 1 puff DAILY INH 11/06/17 09:00 11/08/17 08:26 (Duoneb Neb) 1 ampule BID NEB NEB 11/05/17 20:00 11/07/17 21:31 (Coumadin) 7.5 mg DAILY@1600 PO 11/06/17 16:00 11/07/17 15:53 Patient Own Medication PT OWN MED: IPRATROP... BID NASAL 11/05/17 21:00 Future Hold (Pravachol) 80 mg HS PO 11/05/17 21:00 11/07/17 20:35 (Aspirin Chew) 81 mg DAILY PO 11/06/17 09:00 11/08/17 08:26 (NovoLOG SUPPLEMENTAL SCALE) 1 ACHS SQ 11/05/17 17:00 11/07/17 17:00 (D50w (Vial) Inj) 50 ml UNSCH PRN IV PUSH 11/05/17 13:30 (Glucagon Inj) 1 mg UNSCH PRN OTHER 11/05/17 13:30 (Heparin Inj) 5,000 units Q8H SQ 11/05/17 20:00 11/08/17 05:04 (Hydrodiuril) 25 mg DAILY PO 11/07/17 10:00 11/08/17 08:27 (Prinivil) 2.5 mg DAILY PO 11/08/17 09:00 11/08/17 08:30 Pharmacy Profile Note 0 ml @ 0 mls/hr UNSCH OTHER 11/07/17 11:45 (Duoneb Neb) 1 ampule Q4HR NEB PRN NEB 11/07/17 18:15 (Lasix Inj) 20 mg BID@09,18 IV PUSH 11/08/17 09:00 11/08/17 08:28 Allergies Allergies Coded Allergies No Known Allergies (Verified Adverse Reaction, Unknown, 10/21/17) Review of Systems Constitutional: Negative except HPI Eye: Negative Except HPI ENMT: Negative except HPI Respiratory: Negative except HPI Cardiovascular: Negative except HPI Gastrointestinal: Negative except HPI Jeffy/Lymph: Negative except HPI Musculoskeletal: Negative except HPI Neurologic: Negative except HPI Psychiatric: Negative except HPI All other ROS: ROS reviewed as documented in chart Exam I&O / VS Vital Signs Date Time Temp Pulse Resp B/P (MAP) Pulse Ox O2 Delivery O2 Flow Rate FiO2 11/08/17 06:00 97.6 66 19 165/80 (108) 95 11/08/17 04:00 71 11/08/17 01:00 98.4 75 18 156/86 (109) 96 11/08/17 00:00 78 11/07/17 21:50 97.1 78 19 174/87 (116) 94 11/07/17 21:32 97 21 11/07/17 20:00 73 11/07/17 12:00 97.8 86 18 180/91 (120) 98 11/07/17 10:10 86 General: Alert and Oriented Eye: PERRL, EOMI Respiratory: Non-labored respirations, Symmetrical expansion Cardiology: Normal rate Neurologic: Alert, Oriented, Normal sensory, Normal motor, No focal defects, CN II-XII intact, Normal DTR's Psychiatric: Cooperative, Appropriate mood & affect, Normal judgement Problem Qualifiers (1) CVA (cerebral vascular accident): Qualified Codes: I63.9 - Cerebral infarction, unspecified Yohan Almanzar MD Nov 08, 2017 08:49
[2017-11-08] MEDS ORDERED: LISINOPRIL 5 MG TAB PO SCH (09:00)
[2017-11-08] MEDS ORDERED: FUROSEMIDE 20 MG/2 ML VIAL IV PUSH SCH (09:00)
[2017-11-08 09:08] LABS: INTERNATIONAL NORMALIZED RATIO 1.5 RATIO; PROTHROMBIN TIME - PATIENT 14.8 SEC (9.8-11.6)
[2017-11-08 09:12] LABS: AUTOMATED NEUTROPHIL # 6.8 TH/MM3 (1.8-7.7); BASOPHIL # 0.1 TH/MM3 (0-0.2); BASOPHIL % 1.7 % (0.0-2.0); EOSINOPHIL # 0.2 TH/MM3 (0-0.4); EOSINOPHIL % 2.4 % (0.0-4.0); HEMATOCRIT 32.1 % (39.0-51.0); HEMOGLOBIN 10.5 GM/DL (13.0-17.0); LYMPH % 5.1 % (9.0-44.0); LYMPHOCYTE # 0.4 TH/MM3 (1.0-4.8); MEAN CELL VOLUME 74.5 FL (80.0-100.0); MEAN CORPUSCULAR HEMOGLOBIN 24.3 PG (27.0-34.0); MEAN CORPUSCULAR HGB CONC 32.6 % (32.0-36.0); MONO % 5.7 % (0.0-8.0); MONOCYTE # 0.5 TH/MM3 (0-0.9); NEUT % 85.1 % (16.0-70.0); PLATELET COUNT 112 TH/MM3 (150-450); RED BLOOD COUNT 4.31 MIL/MM3 (4.50-5.90); RED CELL DISTRIBUTION WIDTH 19.1 % (11.6-17.2)
[2017-11-08 09:26] LABS: BICARBONATE 25.5 MEQ/L (21.0-32.0); CALCIUM 8.9 MG/DL (8.5-10.1); CREATININE 1.39 MG/DL (0.60-1.30)
[2017-11-08] MEDS ORDERED: ASPI81 PO (10:10)
[2017-11-08] MEDS ORDERED: HYDR25TA5 PO (10:13)
[2017-11-08] MEDS ORDERED: METO25TA3 PO (10:14)
[2017-11-08] MEDS ORDERED: ROLLER WALKER1 MI1 (10:15)
--- NOTE | 2017-11-08 10:17 | HHI.DS ---
Discharge Summary Admission Date Nov 05, 2017 at 13:42 Discharge Date: Nov 08, 2017 Admitting Diagnosis (1) CVA (cerebral vascular accident) ICD Code: I63.9 - Cerebral infarction, unspecified Status: Acute (2) TYPE 2 DIABETES MELLITUS WITH FOOT ULCER ICD Code: E11.621 - TYPE 2 DIABETES MELLITUS WITH FOOT ULCER Status: Chronic Procedures none Brief History - From Admission Mr. Doherty is a 76 year old male. Mental the hospital secondary to an acute onset of right facial droop, slurred speech and right leg weakness. The right leg weakness is mild but he is drifted little bit when walking and had a fall. He's had a stroke in the past. He's had TIAs in the past. He has no acute distress when seen including no chest pain or respiratory distress. No severe headaches. Imaging does not reveal a CVA. Patient has a pacemaker and this will preclude him from being able to get an MRI. Symptoms are persisting. No other complaints at this time. He has been on Coumadin as an anticoagulant to prevent strokes. Today his INR is subtherapeutic. CBC/BMP: 11/08/17 0740 11/08/17 0740 Significant Findings Laboratory Tests Test 11/05/17 11:51 11/05/17 13:44 11/06/17 08:36 11/06/17 08:38 Hemoglobin 11.7 GM/DL (13.0-17.0) 10.9 GM/DL (13.0-17.0) Hematocrit 35.9 % (39.0-51.0) 34.5 % (39.0-51.0) Mean Corpuscular Volume 75.1 FL (80.0-100.0) 76.1 FL (80.0-100.0) Mean Corpuscular Hemoglobin 24.5 PG (27.0-34.0) 24.0 PG (27.0-34.0) Red Cell Distribution Width 19.1 % (11.6-17.2) 19.2 % (11.6-17.2) Platelet Count 140 TH/MM3 (150-450) 128 TH/MM3 (150-450) Neutrophils (%) (Auto) 89.2 % (16.0-70.0) 86.3 % (16.0-70.0) Lymphocytes (%) (Auto) 4.0 % (9.0-44.0) 6.0 % (9.0-44.0) Neutrophils # (Auto) 9.3 TH/MM3 (1.8-7.7) Lymphocytes # (Auto) 0.4 TH/MM3 (1.0-4.8) 0.5 TH/MM3 (1.0-4.8) Prothrombin Time 13.4 SEC (9.8-11.6) 13.7 SEC (9.8-11.6) Activated Partial Thromboplast Time 30.8 SEC (24.3-30.1) Bedside Sodium 136 MMOL/L (137-144) Bedside Chloride 100 MMOL/L (102-111) Bedside Blood Urea Nitrogen 31 MG/DL (5-21) Bedside Creatinine 1.6 MG/DL (0.6-1.3) Bedside Glucose 184 MG/DL (68-110) Hemoglobin A1c 7.9 % (4.3-6.0) Urine Protein 30 mg/dL (NEG-TRACE) Urine Occult Blood TRACE (NEG) Urine Bacteria RARE /hpf (NONE) Urine Mucus FEW /lpf (OCC) Mean Corpuscular Hemoglobin Concent 31.6 % (32.0-36.0) Blood Urea Nitrogen 28 MG/DL (7-18) Creatinine 1.53 MG/DL (0.60-1.30) Random Glucose 199 MG/DL (74-106) Alanine Aminotransferase (ALT/SGPT) 10 U/L (12-78) Sodium Level 133 MEQ/L (136-145) Estimat Glomerular Filtration Rate 44 ML/MIN (>89) Cholesterol Level 77 MG/DL (120-200) HDL Cholesterol 30.5 MG/DL (40.0-60.0) Test 11/08/17 07:40 Red Blood Count 4.31 MIL/MM3 (4.50-5.90) Hemoglobin 10.5 GM/DL (13.0-17.0) Hematocrit 32.1 % (39.0-51.0) Mean Corpuscular Volume 74.5 FL (80.0-100.0) Mean Corpuscular Hemoglobin 24.3 PG (27.0-34.0) Red Cell Distribution Width 19.1 % (11.6-17.2) Platelet Count 112 TH/MM3 (150-450) Neutrophils (%) (Auto) 85.1 % (16.0-70.0) Lymphocytes (%) (Auto) 5.1 % (9.0-44.0) Lymphocytes # (Auto) 0.4 TH/MM3 (1.0-4.8) Prothrombin Time 14.8 SEC (9.8-11.6) Blood Urea Nitrogen 22 MG/DL (7-18) Creatinine 1.39 MG/DL (0.60-1.30) Random Glucose 127 MG/DL (74-106) Estimat Glomerular Filtration Rate 50 ML/MIN (>89) B-Type Natriuretic Peptide 4008 PG/ML (0-100) Imaging Last Impressions Lower Extremity Ultrasound 11/05/17 0000 Signed Impressions: Service Date/Time: Sunday, November 05, 2017 16:09 - CONCLUSION: Normal examination. Jay Eason Jr., MD Head CT 11/05/17 0000 Signed Impressions: Service Date/Time: Sunday, November 05, 2017 11:57 - CONCLUSION: 1. No acute intracranial abnormality. 2. Old right DRUM PRINTER territory infarction. Jay Eason Jr., MD Chest X-Ray 11/05/17 0000 Signed Impressions: Service Date/Time: Sunday, November 05, 2017 12:12 - CONCLUSION: 1. Postsurgical features with compensated cardiomegaly. Nino Cary MD Carotid Artery Ultrasound 11/05/17 0000 Signed Impressions: Service Date/Time: Sunday, November 05, 2017 16:26 - CONCLUSION: 1. Calcified plaque throughout the carotid arteries but more abundant on the right. A 50-69% % stenosis is suspected involving the right carotid and less than 50%% stenosis involving the left. 2. Antegrade flow involving both vertebral arteries. Jay Eason Jr., MD PE at Discharge GENERAL: This is a well-nourished, well-developed patient, in no apparent distress. SKIN: No rashes, ecchymoses or lesions. Cool and dry. HEAD: Atraumatic. Normocephalic. No temporal or scalp tenderness. EYES: Pupils equal round and reactive. Extraocular motions intact. No scleral icterus. No injection or drainage. ENT: Nose without bleeding, purulent drainage or septal hematoma. Throat without erythema, tonsillar hypertrophy or exudate. Uvula midline. Airway patent. NECK: Trachea midline. No JVD or lymphadenopathy. Supple, nontender, no meningeal signs. CARDIOVASCULAR: Regular rate and rhythm without murmurs, gallops, or rubs. RESPIRATORY: Clear to auscultation. Breath sounds equal bilaterally. No wheezes , rales, or rhonchi. GASTROINTESTINAL: Abdomen soft, non-tender, nondistended. No hepato-splenomegaly , or palpable masses. No guarding. MUSCULOSKELETAL: Extremities without clubbing, cyanosis, or edema. No joint tenderness, effusioa/ LE edema 2+ bilaterally. No calf tenderness. Negative Homans sign bilaterally. NEUROLOGICAL: Awake and alert. Cranial nerves II through XII intact. Motor and sensory grossly within normal limits. Five out of 5 muscle strength in all muscle groups. Speech back to normal per patient and family . Pt update on day of discharge In nad. Feels better. No acute events overnight. Hospital Course 76-year-old male admitted secondary to acute CVA Acute CVA Neurochecks Neurology consulted Monitor neurological status closely MRI of brain possible secondary to pacemaker Obtain carotid ultrasound Echocardiogram rviewed with low EF 35-40% Follow INR Daily aspirin Allow for elevations in blood pressures Mild dyspnea With h/o COPD continue home meds without exacerbation at this time CHF now with exacerbation ECHO with low EF 35-40%. Patient denies having h/o CHF . Follows with dr Mahoney cardio consult Dr Mahoney his cardiology Acute respiratory failure 2/2/ CHF likely patient is not on O2 at home, requiring O2 now Check bilateral lower extremities for DVTs, no dvt ECHO EF 35-40% Start lasix 20 mg IV BID. Monitor closley kidney functio while on lasix. BNP is elevated. Patient to follow up with cardiology. He is satting well on room air and improved. O2 supplement keep O2 > 94% Monitor I&Os Stop ivf Recent right foot amputations of first and second toes Wound care consult Coronary artery disease Peripheral vascular disease Asymptomatic Follow clinically Diabetes mellitus type 2 Follow blood sugars Insulin sliding scale Diabetic diet Hypertension Follow blood pressures Allow for elevations post CVA Adjust treatments as needed Hyperlipidemia Continue present treatment Follow as an outpatient DVT prophylaxis SCDs Pt on Coumadin, bridge with lovenox if need . Can be DC when INR > 1.8 per neuro Wants to go home with home health and n0ot to snf. Patient DC home with home health in stable condition, to f/u as OP with PCP and consultants. Pt Condition on Discharge: Stable Discharge Disposition: Disch w/ Home Health Serv Discharge Time: > 30 minutes Discharge Instructions DIET: Follow Instructions for: Heart Healthy Diet, Diabetic Diet Activities you can perform: Regular-No Restrictions Follow up Referrals: Cardiology - 2 Weeks with Landon Mahoney MD Neurology - 2 Weeks with Yohan Almanzar MD PCP Follow-up - 2-3 Days New Orders: BASIC METABOLIC PROF New Medications: Furosemide (Lasix) 20 Mg Tab 20 MG PO BID for edema, chf , #60 TAB 0 Refills Metoprolol Tartrate (Metoprolol Tartrate) 25 Mg Tab 12.5 MG PO BID for Blood Pressure Management, #60 TAB 0 Refills Misc. Devices (Roller Walker) 1 Mis Mis EA .XX NOW, #1 Aspirin (Tgt Aspirin) 81 Mg Chw 81 MG PO DAILY for Blood Clot Prevention, #30 EA Hydrochlorothiazide (Hydrochlorothiazide) 25 Mg Tab 25 MG PO DAILY for Blood Pressure Management, #30 TAB Continued Medications: Diltiazem CD 24 HR (Cardizem CD 24 HR) 120 Mg Caper 120 MG PO DAILY, #30 CAP 0 Refills Fluticasone-Vilanterol Inh (Breo Ellipta Inh) 200-25 Mcg/Act Inh 1 PUFF INH DAILY, #1 INHALER 0 Refills Use daily at the same time. Ipratropium Nasal (Ipratropium Nasal) 0.06% Victor 1 SPRAY EACH NARE BID, #1 BOTTLE 0 Refills Ipratropium-Albuterol Neb (Duoneb) 0.5-2.5 Mg/3 Ml Neb 3 ML NEB BID for Breathing Treatment, #30 NEBULE 0 Refills Lisinopril (Lisinopril) 5 Mg Tab 5 MG PO DAILY for Blood Pressure Management, #30 TAB 0 Refills Metformin (Metformin) 1,000 Mg Tab 1000 MG PO BIDPC for Blood Sugar Management, #60 TAB 0 Refills With meals Simvastatin (Simvastatin) 40 Mg Tab 40 MG PO HS for Cholesterol Management, #30 TAB 0 Refills Warfarin (Warfarin) 7.5 Mg Tab 7.5 MG PO DAILY for Blood Clot Prevention, #30 TAB 0 Refills Discontinued Medications: Hydrochlorothiazide (Hydrochlorothiazide) 12.5 Mg Cap 12.5 MG PO DAILY, #30 CAP 0 Refills Ludmila Marrufo MD Nov 08, 2017 10:17
[2017-11-08 11:26] VITALS: PULSE 84
[2017-11-08 11:52] VITALS: BP 178/95; PULSE 82; RESP 18; TEMP 98.1; O2SAT 97
[2017-11-08] MEDS ORDERED: FURO1TAB62 PO (12:11)
== END 2017-11-08 14:14 | disposition home health service (06) | DRG 64 ==
LOC: NEPE 11:40 → NEDA 13:42 → NEDH 18:57 → N05B 21:15
PROVIDERS: ADMIT Hospitalist; ATTEND Hospitalist
DX: I63.9 Cerebral infarction, unspecified (principal); J96.00 Acute respiratory failure, unspecified whether with hypoxia or hypercapnia; I13.0 Hypertensive heart and chronic kidney disease with heart failure and stage 1 through stage 4 chronic kidney disease, or unspecified chronic kidney disease; I50.9 Heart failure, unspecified; G45.0 Vertebro-basilar artery syndrome; E11.22 Type 2 diabetes mellitus with diabetic chronic kidney disease; E11.51 Type 2 diabetes mellitus with diabetic peripheral angiopathy without gangrene; E11.621 Type 2 diabetes mellitus with foot ulcer; R29.810 Facial weakness; N18.3 Chronic kidney disease, stage 3 (moderate); R47.81 Slurred speech; I25.10 Atherosclerotic heart disease of native coronary artery without angina pectoris; E78.5 Hyperlipidemia, unspecified; H53.47 Heteronymous bilateral field defects; L97.519 Non-pressure chronic ulcer of other part of right foot with unspecified severity; J44.9 Chronic obstructive pulmonary disease, unspecified; Z89.411 Acquired absence of right great toe; Z79.84 Long term (current) use of oral hypoglycemic drugs; Z87.891 Personal history of nicotine dependence; Z79.01 Long term (current) use of anticoagulants; Z95.1 Presence of aortocoronary bypass graft; Z95.810 Presence of automatic (implantable) cardiac defibrillator; I69.398 Other sequelae of cerebral infarction
CPT/HCPCS: 70450; 71045; 80048; 80053; 80061; 80307; 81001; 82550; 82948; 83036; 83880; 84484; 85025; 85384; 85610; 85730; 86850; 86900; 86901; 93005; 93308; 93880; 93970; 94640; 94664; 96360; J1644; J1815; J1940; J7030